=== PATIENT | male | born 1970 | race Caucasian/White ===

== ENCOUNTER 2024-07-17 22:11 | Inpatient (IN) | payer OTHER, SELFPAY ==
[2024-07-17] VITALS (35 sets, daily range): BP systolic 90–172; BP diastolic 72–99; BMI 21.8
[2024-07-17 14:38] LABS: % Basophils 0.4 % (0-2); % Eosinophils 0.3 % (0-6); % Immature Granulocytes 0.4 % (0-0.5); % Lymphocytes 6.8 % (20.5-51.1); % Monocytes 8.2 % (1.7-9.3); % Neutrophils 83.9 % (42.2-75.2); Absolute Basophils 0.1 10^3/uL (0-0.2); Absolute Eosinophils 0.1 10^3/uL (0-0.7); Absolute Immature Granulocytes 0.1 10^3/uL (0-0.05); Absolute Lymphocytes 1.3 10^3/uL (1.2-3.4); Absolute Monocytes 1.6 10^3/uL (0.1-0.6); Absolute Neutrophils 15.9 10^3/uL (1.4-6.5); Hematocrit 48.9 % (39.0-52.0); Hemoglobin 16.6 g/dL (13.0-18.0); Mean Corp Hgb Conc. 33.9 g/dL (33.0-37.0); Mean Corpuscular Volume 88.3 fL (80.0-94.0); Nucleated Red Blood Cells % 0 % (-); Platelet Count 391 10^3/uL (130-400); Red Blood Cell Count 5.54 10^6/uL (4.70-6.10); Red Cell Dist. Width 12.7 % (11.5-14.5)
[2024-07-17 14:46] LABS: ALT (SGPT) 13 U/L (0-50); AST (SGOT) 16 U/L (17-59); Albumin 4.4 g/dl (3.5-5.0); Alkaline Phosphatase 115 U/L (38-126); Blood Urea Nitrogen 44 mg/dl (9-20); Calcium 9.7 mg/dl (8.4-10.2); Carbon Dioxide 26 mmol/L (22-30); Chloride 89 mmol/L (98-107); Glucose 150 mg/dl (70-99); Lipase 99 U/L (23-300); Potassium 3.5 mmol/L (3.5-5.1); Sodium 131 mmol/L (135-145); Total Protein 7.5 g/dl (6.3-8.2); eGFR > 60.00
--- NOTE | 2024-07-17 15:40 | ED.GENMED ---
History of Present Illness
General
Chief Complaint: Abdominal Symptoms
Source: patient
Exam Limitations: none
Time Seen by Provider: 07/17/24 15:20
Nursing documentation reviewed up to this point in time: agreed with
History of Present Illness
History of Present Illness:
Patient is a 54-year-old male who presents to the emergency department complaining of 4 days of upper abdominal pain with nausea, vomiting and diarrhea. Patient developed hiccups this morning. Patient denies fever or chills. Patient has had
decreased appetite. Patient noticed that his vomitus and his stools were dark. Patient describes the diarrhea as liquid and rather profuse. Patient is also noted that he has lost about 10 to 20 pounds over the last year unintentionally. Patient
admits to decreased appetite and decreased oral intake. Patient's noted his urine to be darker.
Past History
Past History
ED Past Medical History: GERD
ED Past Surgical History: Appendectomy
Social History
Tobacco: Smoker
Review of Systems
Review of Systems
All Other Systems: ROS reviewed and negative except as documented in HPI and ROS
Constitutional: Reports weight loss and fatigue; Denies fever
EENT: Reports no symptoms
Respiratory: Reports no symptoms
Cardiac: Reports no symptoms
ABD/GI: Reports abdominal pain, nausea, vomiting, diarrhea, black stools and anorexia
: Reports dark urine
Musculoskeletal: Reports no symptoms
Skin: Reports no symptoms
Neurological: Reports no symptoms
Hematologic/Lymphatic: Denies bruising
Phy Exam
Physical Exam
Physical Exam:
Physical Exam
General: Moderate distress, alert and appropriate, well nourished, dry mucus membranes
HENT: Normocephalic, supple with no lymphadenopathy, no thyromegaly
Eyes: Clear sclera, conjuctiva without injection
Heart: Regular rhythm and rate. No S3, S4. No murmur. No NVD
Lungs: No respiratory distress, no stridor, lung sounds clear and equal bilaterally, chest wall with increase AP diameter and nontender
Abdomen: Soft, moderate right sided as well as midepigastric tender withpout guarding or rebound, no organomegaly, no CVA tenderness, BS good. Rectal shows black/maroon liquidy stool that is Hemoccult positive. Prostates
enlarged especially on the right lobe. Good sphincter tone.
Neuro: Alert and oriented x 3, CN II - XII intact, no motor focality, no cerebellar dysfunction
Skin: no rash
Psychiatric: well kept. interactive and cooperative
Extremities: No edema, cyanosis, tenderness, Good and equal peripheral pulses.
Course
Orders/Labs/Results
Orders:
Orders
07/17/24 14:17
Complete Blood Count/With Diff Urgent
Comprehensive Metabolic Panel Urgent
Lipase Urgent
07/17/24 15:37
CT Abd/pel W Iv And Oral Contr Urgent
Comment:
Reason For Exam: upper abd tender
0.9% Sodium Chloride 1000 ml [Nss] 1,000 ml IV BOLUS
HYDROmorphone [Dilaudid] 0.5 mg IV NOW STA
Iohexol [Omnipaque] See Protocol PO NOW STA
Ondansetron Injectable [Zofran] 4 mg IV NOW STA
Pantoprazole 80 mg/100 ml Nss [Protonix] 80 mg in 100 ml IV NOW
Pantoprazole [Protonix IV] 80 mg IV NOW STA
07/17/24 15:38
IV Insert/Care/Rem.- Treatment PRN
07/17/24 15:46
PTT Urgent
Prothrombin Time Urgent
07/17/24 15:47
Type+Screen Urgent
07/17/24 17:17
ABO2 Urgent
BBK Wristband Number:
Associate notified that ABO2 has been ordered: [id number]
Date: 07/17/24
Time: 16:57
Business Planning Manager ID: [id number]
07/17/24 19:18
CT Chest Angio W/wo Iv Contras Urgent
Comment:
Reason For Exam: dissection
07/17/24 19:19
Metoprolol [Lopressor] 5 mg IV NOW STA
07/17/24 19:30
Nicardipine 40 mg/200 ml [Cardene] 40 mg in 200 ml IV PER PROTOCOL
Initial dose in mg/hr, then titrate:: 5
Titrate to keep:: SBP 120 - 140 mmHg
Titrate by mg/hr:: 2.5 mg/hr
Frequency of titrations (minutes):: 5-15 minutes
Maximum dose in mg/hr:: 15
Begin to taper infusion when:: Remained at goal for 2hrs
Taper by mg/hr:: 2.5 mg/hr
Frequency of taper (minutes) if patient maintains goal:: every 15-30 minutes
Taper to off?: Yes
If infusion off & no longer maintaining goal:: Contact Provider
Abnormal Lab Results
07/17/24 07/17/24
14:17 15:46
WBC 19.0 H 10^3/uL
(4.8-10.8)
Abs Immat Gran (auto) 0.1 H 10^3/uL
(0-0.05)
Absolute Neuts (auto) 15.9 H 10^3/uL
(1.4-6.5)
Absolute Monos (auto) 1.6 H 10^3/uL
(0.1-0.6)
Neutrophils % 83.9 H %
(42.2-75.2)
Lymphocytes % 6.8 L %
(20.5-51.1)
PT 14.8 H Sec
(11.4-14.6)
Sodium 131 L mmol/L
(135-145)
Chloride 89 L mmol/L
(98-107)
BUN 44 H mg/dl
(9-20)
Glucose 150 H mg/dl
(70-99)
AST 16 L U/L
(17-59)
07/17/24 14:17
07/17/24 14:17
Vital Signs
Initial and Last Documented VS:
Initial Vital Signs
Temp Pulse Resp BP Pulse Ox
98.8 F 105 18 163/98 95
07/17/24 13:57 07/17/24 13:57 07/17/24 13:57 07/17/24 13:57 07/17/24 13:57
Last Documented Vital Signs
Temp Pulse Resp BP Pulse Ox
98.8 F 89 13 139/89 91
07/17/24 13:57 07/17/24 20:30 07/17/24 20:30 07/17/24 20:30 07/17/24 20:28
*Radiology
Radiology exam reviewed: radiology read reviewed
*Critical Care Note
Total Time (30-74mins, 75-104mins- exclusive of procedures): 55 minutes
ED Attending Note
-
Portions of this chart may have been created with voice recognition software.� Occasional wrong word or��sound alike� substitutions may have occurred due to the inherent limitations of voice recognition software.
Discharge Plan
Departure
Patient Disposition: Admit
Date of Disposition: 07/17/24
Time of Disposition: 21:04
Admit to: CVICU
Admit to doctor: Hospitalist
Presentation/result/management discussed w/ accepting MD/DO: Vascular surgery
Patient with high blood pressure during this ER visit?: Yes
Condition: Critical
Covid-19: Not Applicable
Discharge Problem:
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
Prescriptions:
No Action
Tums 300 mg (750 mg) Tablet,Chewable
450 mg PO DAILYPRN PRN (Reason: acid reflux)
omeprazole 20 mg Capsule,Delayed Release(Dr/Ec)
20 mg PO DAILYPRN PRN (Reason: acid reflux)
Referrals:
NONE,* [Family Provider] -
Interventions
Interventions:
*Risk Screen - Suicide Last Done: 07/17/24 13:57
*General Assessment Last Done: 07/17/24 13:57
*Neglect/Abuse Screening Last Done: 07/17/24 13:57
ED- Fall Risk Assessment Last Done: 07/17/24 15:16
*ED COVID-19 Vaccine History Last Done: 07/17/24 13:57
MQ-Kosjbi-Zngctwzxah Assessment Last Done: 07/17/24 15:16
Discharge Date and Time
Print Language: PORTUGUESE
[2024-07-17] MEDS: PROTONIX 100 IV (15:53)
[2024-07-17] MEDS: DILAUDID 0.5 MG IV ×2 (15:53→23:33)
[2024-07-17] MEDS: NSS 1000 IV ×2 (15:53→23:03)
[2024-07-17] MEDS: PROTONIX IV 80 MG IV (15:54)
[2024-07-17] MEDS: ZOFRAN 4 MG IV ×2 (15:54→23:33)
[2024-07-17] MEDS: OMNIPAQUE 50 ML PO (15:54)
[2024-07-17 16:24] LABS: INR 1.13; PT 14.8 Sec (11.4-14.6)
[2024-07-17 16:25] LABS: APTT 33.6 Sec (23.4-35.0)
[2024-07-17] MEDS: LOPRESSOR 5 MG IV (19:40)
[2024-07-17] MEDS: CARDENE 200 IV (19:54)
[2024-07-17] MEDS: BREVIBLOC 2500 MG 250 IV ×2 (21:06→23:32)
[2024-07-17] MEDS: DILAUDID 1 MG IV (21:29)
--- NOTE | 2024-07-17 21:31 | HPS.HSE ---
Family Physician
-
Family Physician: * NONE
Chief Complaint
-
Abdominal pain and nausea vomiting diarrhea
History of Present Illness
This is a 54-year-old with no known significant past medical history presenting to the emergency department with approximately 5 days of ongoing abdominal symptoms.
Patient reported that he abruptly began to have episodes of vomiting then followed by diarrhea starting 5 days ago. He has crampy abdominal pain associated with this. He reports melanotic appearing diarrhea. No formed stools. He denied any medic
easier. He reported initially had clear vomitus but it also changed to brown over the last few days. He has had decreased p.o. intake. He denied any fevers or chills. He reports feeling dizzy.
Patient denies any significant NSAID use. He is stated taking ibuprofen only once recently. He denies any aspirin use. Patient denies any history of alcohol use. Patient denies any IV drug use. He denies cocaine use. He smokes cigars.
Unclear if he has had any recent sick contacts.
In the emergency department he was afebrile. Blood pressure was 140/90 with a pulse of 90. He had a white count of 19,000 with hemoglobin of 16.6 and a platelet count of 300. His INR was normal. He is BUN was 44 with a creatinine of 1.3.
Electrolytes notable for a sodium that was 131. K was 3.5. His glucose was normal. LFTs were completely normal. Lipase was normal. He had a CT of the abdomen and pelvis showing cholelithiasis without acute cholecystitis and indeterminate left
renal cyst. A CT angio was done showing a Abse[place] type B thoracic aortic dissection. No involvement of the ascending thoracic aorta or great arch vessels. Vascular surgeon contacted by ED. No indication for acute surgical intervention, medical
management in the ICU.
Medical History
Past Medical History
Past Medical History: Reports None
Past Surgical History: Reports Appendectomy
Social History
Tobacco: Smoker
Alcohol: None
Drug: None
Personal: Single
Living: With Roomate
Employment: Employed
Family History
Family History: Cancer (father with lung Ca. )
Allergies / Home Medications
Allergies reflects when Allergies were last updated in [facility].
Home Medications with original date entered in [facility]
Allergy/Medication List:
Allergies
Allergy/AdvReac Type Severity Reaction Status Date / Time
No Known Allergies Allergy Verified 07/17/24 14:01
Home Medications
calcium carbonate (Tums) 450 mg PO DAILYPRN PRN acid reflux 07/17/24
omeprazole 20 mg capsule,delayed release 20 mg PO DAILYPRN PRN acid reflux 07/17/24
Review of Systems
-
History Source: Patient
Constitutional: Reports No Symptoms
EENT: Reports No Symptoms
Respiratory: Reports No Symptoms
Cardiac: Reports No Symptoms
Abdomen/GI: Reports Abdominal Pain, Nausea, Vomiting, Diarrhea and Black Stools
: Reports No Symptoms
Musculoskeletal: Reports No Symptoms
Skin: Reports No Symptoms
Neurological: Reports No Symptoms
Endocrine: Reports No Symptoms
Hematologic/Lymphatic: Reports No Symptoms
Psych: Reports No Symptoms
Physical Exam
Vital Signs
Vital Signs
Temp Pulse Resp BP Pulse Ox
98.8 F 90 13 125/82 91
07/17/24 13:57 07/17/24 21:06 07/17/24 20:30 07/17/24 21:06 07/17/24 20:28
Physical Exam
General: Well Developed and Well Nourished
HEENT: NormoCephalic, Anicteric, Moist mucous membranes and Atraumatic
Respiratory: Clear
Cardiac: S1/S2 and Regular Rhythm
Breast: Deferred by me
GI: Soft, Non Tender, Non Distended and Normal Bowel Sounds
Rectal: Deferred by Provider
Genito-urinary: Deferred by me
Musculoskeletal: No Clubbing, No Cyanosis and No Edema
Skin: Warm
Neuro: AO x 3
Hematologic/Lymphatic: No Lymphadenopathy
Psych: Calm
Laboratory Results
-
07/17/24 14:17
07/17/24 14:17
Laboratory Results
PT 14.8 Sec (11.4-14.6) H 07/17/24 15:46
INR 1.13 07/17/24 15:46
APTT 33.6 Sec (23.4-35.0) 07/17/24 15:46
Total Bilirubin 1.0 mg/dl (0.2-1.3) 07/17/24 14:17
AST 16 U/L (17-59) L 07/17/24 14:17
ALT 13 U/L (0-50) 07/17/24 14:17
Alkaline Phosphatase 115 U/L (38-126) 07/17/24 14:17
Lipase 99 U/L (23-300) 07/17/24 14:17
Data Reviewed
-
CT Scan: Report Reviewed by me
Lab Data: Labs Reviewed by me
Old Records: Reviewed
Impression/Plan
-
IMPRESSION:
54-year-old male with no apparent past medical history presenting for evaluation of nausea vomiting diarrhea with melena concerning for upper GI bleed. Incidentally patient was found to have a descending aortic Absecon type B dissection, no
involvement of the ascending thoracic aorta. No thoracic aortic aneurysm. Hemodynamically stable. No focal neurological deficits.
PLAN:
1. Abse[place] B aortic dissection. No aneurysm. HD stable. No chest pain. D/w Vascular surgery, medical management in ICU
- admit to icu
- esmolol gtt to maintain heart rate < 60 bpm.
- nicardipine added to maintain SBP < 120 - 140
- IV opioids for analgesia
- close monitoring of renal function while on pressors
- vascular consultation
- check cardiovascular labs in am
2. GI bleed - suspect acute viral gastritis but cannot rule out peptic ulcer. HD stable. Hgb stable. No AC, antiplatelet nor NSAID. Prior reflux hx or GI bleed. Appears dehydrated. No active bleeding curently.
- ppi iv bid for now
- type and screen
- h&H q 8
- clear liquid diet as tolerated
- pain control as above and antiemetics/antihiccups
- check fecal hemoccult and norovirus
- gentle hydration due to likely dehydration and possible [place], no prior Cr available. S/P 1 L NS with very dark urine. NS 60 ml/hr for now to avoid hypertension
- GI consultation
DVT PPX with SCDs for now
Code Status - Full Code
[2024-07-17 23:14] LABS: Hematocrit 42.8 % (39.0-52.0); Hemoglobin 14.9 g/dL (13.0-18.0)
[2024-07-18] VITALS (72 sets, daily range): BP systolic 87–124; BP diastolic 61–89; BMI 22.1
[2024-07-18] MEDS: TRANDATE 80 MG IV ×4 (00:12→07:34)
--- NOTE | 2024-07-18 00:30 | PTCARENOTE ---
2300 - received pt from ER. assessment as documented. pt oriented, SR on monitor, on 2L NC. received on protonix gtt and esmolol gtt.
labs sent. pt HR remains 70s-80s, ICU PROGRAM ENGAGEMENT DIRECTOR aware, labetalol gtt ordered and started. HR goal 50-60. protonix gtt d/c, BID doses ordered. BP stable at this time. maintenance IVF initiated. pt c/o pain in epigastric area, PRN dilaudid given along with
PRN zofran for nausea. pt with intermittent hiccups. pt has had no episodes of vomiting or diarrhea upon admission. EKG done. SCDs on. call albert within reach.
[2024-07-18] MEDS: BREVIBLOC 2500 MG 250 IV ×5 (01:16→09:21)
[2024-07-18] MEDS: DILAUDID 0.5 MG IV ×3 (02:35→08:54)
[2024-07-18 04:25] LABS: Hematocrit 39.6 % (39.0-52.0); Hemoglobin 13.8 g/dL (13.0-18.0); Mean Corp Hgb Conc. 34.8 g/dL (33.0-37.0); Mean Corpuscular Hgb 30.9 pg (27.0-31.0); Mean Corpuscular Volume 88.8 fL (80.0-94.0); Mean Platelet Volume 8.8 fL (7.4-10.4); Platelet Count 306 10^3/uL (130-400); Red Blood Cell Count 4.46 10^6/uL (4.70-6.10); Red Cell Dist. Width 12.6 % (11.5-14.5); White Blood Cell Count 14.3 10^3/uL (4.8-10.8)
--- NOTE | 2024-07-18 04:47 | PTCARENOTE ---
assessment unchanged. AM labs sent. esmolol and labetalol gtts continue, continuing to titrate up labetalol gtt, HR remains in 70s. call albert within reach.
[2024-07-18 05:10] LABS: Blood Urea Nitrogen 36 mg/dl (9-20); Calcium 8.6 mg/dl (8.4-10.2); Carbon Dioxide 24 mmol/L (22-30); Chloride 95 mmol/L (98-107); Estimated Creatinine Clearance 97 ml/min; Glucose 162 mg/dl (70-99); HDL Cholesterol 28 mg/dl; LDL Cholesterol, Calculated 62 mg/dl; Potassium 3.7 mmol/L (3.5-5.1); Sodium 131 mmol/L (135-145); Total Cholesterol 104 mg/dl (50-199); Triglyceride 72 mg/dl (10-149); Very Low Density Lipoprotein 14 mg/dl (0-30); eGFR > 60.00
--- NOTE | 2024-07-18 07:00 | PTCARENOTE ---
Received patient from real estate services administrator. patient is AAOx4, he is anxious and feels overwhelmed. Dr. Cooley in at change of shift and reviewing CT scan images with patient. patient is continuing to have abdominal and back pain. CT scan ordered STAT for
potential progression of dissection. Patient is on 4L nasal cannula. he is a current smoker, breath sounds diminished and coarse. Patient is sinus rhythm in 70s on monitor. Esmolol and labetalol gtts as charted in MAR. A-line ordered. Patient
will be NPO, continues to have nausea, is having hiccups. No bowel movements yet. Skin is intact, and SCDs are on for DVT prophylaxis.
[2024-07-18] MEDS: NSS (PRESERVATIVE FREE) 10 ML IV ×2 (07:35→19:53)
[2024-07-18] MEDS: PROTONIX IV 40 MG IV ×2 (07:35→19:53)
--- NOTE | 2024-07-18 07:35 | W.PN.SURGUPD ---
Surgical Update
Surgical Update
Patient seen and examined with KARLENE Ugarte
Full consult note to follow
Patient currently admitted to the ICU under hospitalist
We are consulted for aortic dissection
54-year-old male with no known medical history but admits to not having regular follow-up with medical providers
Denies hypertension
Several days of coughing, chest pain, diarrhea and vomiting since last week
Reports bloody diarrhea recently
Some right lower extremity pain which has now resolved
Complaining of 'excruciating' back pain and severe abdominal pain
Currently on esmolol as well as labetalol with systolic blood pressures of around 100 and heart rate in the 70s
Urine output unclear, no Cooley catheter
Imaging overnight demonstrated type B aortic dissection starting at the left subclavian. Imaging was a CT abdomen pelvis coupled with a subsequent CT angiogram of the chest. Challenging to determine if dissection terminates in the mesenteric
segment or if there is dynamic flap coverage at this location.
On physical exam his abdomen is soft and nontender but he complains of pain
Easily palpable left pedal pulses
Absent right femoral pulse and absent right pedal pulses
My concern is this represents a complicated type B dissection with malperfusion to his right lower extremity and perhaps ongoing malperfusion to his visceral segment.
-Stat CT angiogram of the chest, abdomen and pelvis
-Lactic acid
-Cooley catheter
-Arterial line
Explained to the patient that he may need emergent stent grafting of his thoracic aorta
Will return as soon as imaging is back to discuss further
Victorino Cooley III, MD
[facility] Vascular Surgery
[phone] (lyeb)
--- NOTE | 2024-07-18 07:46 | CON.VAS ---
Consultation
Consultation Request
Performing Provider: Lenora
Reason for Consultation: Aortic dissection
Medical History
-
Chief Complaint: Abdominal pain, back pain, nausea, vomiting, diarrhea for 5 days
History of Present Illness:
54-year-old male with no known past medical history but does not see medical providers regularly admitted overnight through the emergency room for 5 days of abdominal pain, back pain, nausea, vomiting, diarrhea. Patient states his diarrhea and
vomiting began looking 'dark' yesterday. Abdominal CT in the emergency room showed type B aortic dissection. Patient admitted to the ICU for hemodynamic management. Vascular consult for aortic dissection.
Patient seen at bedside exam Dr. Cooley. Patient states he is in excruciating upper abdominal and occasionally back pain. Patient currently on esmolol and labetalol with systolic blood pressure 100 and heart rate 70. No A-line or Cooley at this
time. Patient denies history of hypertension but also is unaware of the last time his blood pressure was checked by provider. Patient takes no prescribed medications at home. On exam patient's abdomen is soft and nontender but complains of pain.
Easily palpable left lower extremity pulses. Cannot appreciate Doppler signal to the right lower extremity at any pulse sites. Patient denies pain in the right leg at this time but states it did 'bother him' over the last 2 days.
Past Medical History
Past Medical History: None
Past Surgical History: None
Family History
Family History: Reviewed & Not Pertinent
Allergies / Home Medications
Allergy/AdvReac Type Severity Reaction Status Date / Time
No Known Allergies Allergy Verified 07/17/24 14:01
�Medication �Instructions �Recorded �Confirmed �Type
calcium carbonate (Tums) 450 mg PO DAILYPRN PRN acid reflux 07/17/24 07/17/24 History
omeprazole 20 mg capsule,delayed 20 mg PO DAILYPRN PRN acid reflux 07/17/24 07/17/24 History
release
Review of Systems
-
History Source: Patient
All other systems: Negative unless noted
Constitutional: Reports Fatigue
EENT: Reports No Symptoms
Respiratory: Reports No Symptoms
Cardiac: Reports No Symptoms
Vascular: Denies Leg Pain / Claudication
Abdomen/GI: Reports Abdominal Pain, Nausea, Vomiting, Diarrhea, Bloody Stools and Pain
: Reports No Symptoms
Musculoskeletal: Reports No Symptoms
Skin: Reports No Symptoms
Neurological: Reports No Symptoms
Endocrine: Reports No Symptoms
Physical Exam
Vital Signs
Temp Pulse Resp BP Pulse Ox
97.9 F 75 18 100/70 93
07/18/24 03:41 07/18/24 07:00 07/18/24 07:00 07/18/24 07:00 07/18/24 07:00
Lab Results
07/18/24 04:14
07/18/24 04:14
Physical Exam
General: No Apparent Distress
HEENT: Normocephalic and Atraumatic
Respiratory: Non Labored Respirations
Cardiac: Negative JVD
Breast: Deferred by me
GI: Soft, Non Tender and Other (Pain)
Musculoskeletal: No Clubbing, No Cyanosis and No Edema
Skin: Warm
Neuro: Awake, Alert and Oriented
Pulses: Left Femoral: +2, Right Femoral: Doppler (Nonpalpable), Left Popliteal: +2, Left Dorsalis Pedis: +2, Right Dorsalis Pedis: Doppler (Nonpalpable, no Doppler signal noted) and Right Posterior Tibial: Doppler (Nonpalpable, no Doppler signal
noted)
Assessment / Plan
-
Concern for type B dissection with malperfusion to the right lower extremity and perhaps malperfusion to the visceral segment
Plan:
-Stat CT angiogram of the chest, abdomen and pelvis
-Lactic acid
-Cooley catheter
-Arterial line
-NPO*
-Possible OR procedure today pending findings
Explained to the patient that he may need emergent stent grafting of his thoracic aorta
Will return as soon as imaging is back to discuss further
Data Reviewed
-
CT Scan: Discussed with Patient
Labs: Labs Reviewed by me
[2024-07-18 08:00] LABS: Lactic Acid 2.5 mmol/L (0.7-2.0)
--- NOTE | 2024-07-18 08:21 | W.PN.HOSP.TC ---
Today's Communication/Plan
-
see A/P
Assessment / Plan
Assessment / Plan
HPI: 54-year-old with no known significant past medical history presented to the emergency department with approximately 5 days of ongoing abdominal symptoms.
Patient reported that he abruptly began to have episodes of vomiting then followed by diarrhea that started 5 days OCULAR PATHOLOGIST. He c/o crampy abdominal pain and reported melanotic appearing diarrhea.
In the emergency department, his CT angio was done showing a [place] type B thoracic aortic dissection. No involvement of the ascending thoracic aorta or great arch vessels. Vascular surgeon contacted by ED.
A/P:
# [place] B aortic dissection. No aneurysm. HD stable. No chest pain.
Follow up CT angio CAP ordered, follow report
Cont esmolol gtt to maintain heart rate < 60 bpm.
Cont nicardipine drip to maintain SBP < 120 - 140
IV opioids for analgesia
close monitoring of renal function
vascular on board
Heading Up Machine Operator on board
# Suspect acute viral gastroenteritis with GI bleed
IV PPI BID
pain control as above and antiemetics/antihiccups
Check fecal hemoccult and norovirus
gentle hydration due to likely dehydration and possible [place], no prior Cr available. NSS 60 ml/hr for now to avoid hypertension
GI consulted from admission
DVT PPX with SCDs for now
Code Status - Full Code
NIA RN
vascular team
Heading Up Machine Operator
called and updated brother on the phone
CC Mx 45 min
Anticipated Discharge: > 48 hours
Subjective/Interval History
-
Date of Service: July 18, 2024
Objective Data
-
Labs:
Laboratory Results
07/17/24 07/18/24
23:07 04:14
WBC 14.3 H
Hgb 14.9 13.8
Hct 42.8 39.6
Plt Count 306 D
Sodium 131 L
Potassium 3.7
Chloride 95 L
Carbon Dioxide 24
BUN 36 H
Creatinine 0.9
Glucose 162 H
Calcium 8.6
Vital Signs:
Vital Signs
Temp Pulse Resp BP Pulse Ox
36.6 C 75 18 100/70 93
07/18/24 03:41 07/18/24 07:00 07/18/24 07:00 07/18/24 07:00 07/18/24 07:00
I&O
07/17/24 07/18/24 07/19/24
06:59 06:59 06:59
Intake Total 2207 / 2207
Output Total 800 / 800
Balance 1407 / 1407
Review of Systems
-
All other systems: Reviewed and negative
Physical Exam
-
General: Well Developed, Well Nourished, Comfortable and Conversant
HEENT: Normocephalic, Atraumatic, Nose Appears Normal, Ears Appear Normal and Oxygen (4L NC)
Respiratory: Clear to Auscultation and Non Labored Respirations; Negative Accessory Resp Muscle Use
Cardiac: Regular Rhythm and S1/S2
GI: Soft and Nondistended
Skin: Warm and Dry
Neuro: Awake, Alert, Oriented and AO x 3
Psych: Calm and Intact Judgement/Insight
Data Reviewed
-
CT Scan: Report Reviewed by me
Labs: Labs Reviewed by me
--- NOTE | 2024-07-18 09:04 | PTCARENOTE ---
Returned from CT scan. changed monitor tech leads. patient assessed by telephone clerk and hospitalist. Awaiting CT results for plan of care. patient now NPO for potential surgery. Cooley catheter placed.
--- NOTE | 2024-07-18 10:08 | W.PN.SURGUPD ---
Surgical Update
Surgical Update
CT angiogram reviewed and discussed with patient. Type B dissection identified starting at the left subclavian artery extending through the descending thoracic aorta, visceral segment of the abdominal aorta infrarenal aorta and across the aortic
bifurcation and terminating in the proximal left common iliac artery. There appears to be a trapdoor/shutter effect on the visceral vessels. He has an elevated lactic acid and pain out of proportion to exam. Furthermore he has concern for
pneumatosis in his small bowel.
I am recommending emergency TEVAR immediately. The technical aspects of this procedure were discussed with him. The benefits and rationale for this approach were discussed with him. Operative risks were discussed with him including but not
limited to , bleeding, stroke, NM, retrograde type A dissection, ongoing bowel ischemia, renal failure. spinal cord ischemia/paralysis/paraplegia, distal embolization, arm/lower extremity ischemia and need for additional procedures.
I also communicated with general surgery regarding the CT scan findings of concern for visceral malperfusion. I explained to the patient that he may require diagnostic laparoscopy or exploratory laparotomy with possible bowel resection and possible
ostomy. I also explained that he may require an open abdomen and a second look operation depending on operative findings.
I attempted to contact his brother Jaxson at the phone number listed in the chart. I left him a voicemail.
The patient expressed an understanding of our conversation and agrees to proceed with emergency surgery. Will take him to the OR now.
Communicated with the ICU team regarding our plan
Victorino Cooley III, MD
[facility] Vascular Surgery
[phone] (ieot)
--- NOTE | 2024-07-18 10:34 | W.SUR.PREOP ---
Pre-Operative Surgical Note
-
I have examined this patient prior to the performance of the scheduled procedure.
The patient's condition is unchanged from the time of the current History and
Physical and the patient is able to undergo the scheduled procedure.
--- NOTE | 2024-07-18 10:44 | CON.GS ---
Medical History
-
History of Present Illness:
Patient is a 54 yo M with a PMH of GERD and s/p appendectomy presenting with abdominal and back pain with associated N/V and diarrhea.
Notes from prior documentation:
'Patient reported that he abruptly began to have episodes of vomiting then followed by diarrhea starting 5 days ago. He has crampy abdominal pain associated with this. He reports melanotic appearing diarrhea. No formed stools. He denied any
medic easier. He reported initially had clear vomitus but it also changed to brown over the last few days. He has had decreased PO intake. He denied any fevers or chills. He reports feeling dizzy.
Patient denies any significant NSAID use. He is stated taking Ibuprofen only once recently. He denies any aspirin use. Patient denies any history of alcohol use. Patient denies any IV drug use. He denies cocaine use. He smokes cigars.
Unclear if he has had any recent sick contacts.
In the emergency department he was afebrile. Blood pressure was 140/90 with a pulse of 90. He had a white count of 19,000 with hemoglobin of 16.6 and a platelet count of 300. His INR was normal. He is BUN was 44 with a creatinine of 1.3.
Electrolytes notable for a sodium that was 131. K was 3.5. His glucose was normal. LFTs were completely normal. Lipase was normal. He had a CT of the abdomen and pelvis showing cholelithiasis without acute cholecystitis and indeterminate left
renal cyst. A CT angio was done showing a Juice type B thoracic aortic dissection. No involvement of the ascending thoracic aorta or great arch vessels. Vascular surgeon contacted by ED. No indication for acute surgical intervention, medical
management in the ICU.'
Past Medical History
Past Medical History: GERD
Past Surgical History: Appendectomy
Social History
Tobacco: Smoker
Alcohol: None
Drug: None
Personal: Single
Living: With Roomate
Employment: Employed
Family History
Family History: Cancer (Father)
Allergies / Home Medications
Allergy/AdvReac Type Severity Reaction Status Date / Time
No Known Allergies Allergy Verified 07/17/24 14:01
�Medication �Instructions �Recorded �Confirmed �Type
calcium carbonate (Tums) 450 mg PO DAILYPRN PRN acid reflux 07/17/24 07/17/24 History
omeprazole 20 mg capsule,delayed 20 mg PO DAILYPRN PRN acid reflux 07/17/24 07/17/24 History
release
Review of Systems
-
A 10 point review of systems was completed, and was negative except as per HPI.
Physical Exam
Vital Signs
Temp Pulse Resp BP Pulse Ox
97.7 F 73 16 110/65 93
07/18/24 08:24 07/18/24 08:21 07/18/24 08:21 07/18/24 08:21 07/18/24 08:51
07/17/24 07/18/24 07/19/24
06:59 06:59 06:59
Actual Weight 73.8 kg
Body Mass Index (BMI) 22.1
Lab Results
07/18/24 04:14
07/18/24 04:14
WBC 14.3 10^3/uL (4.8-10.8) H 07/18/24 04:14
Hgb 13.8 g/dL (13.0-18.0) 07/18/24 04:14
Hct 39.6 % (39.0-52.0) 07/18/24 04:14
Plt Count 306 10^3/uL (130-400) D 07/18/24 04:14
Abs Immat Gran (auto) 0.1 10^3/uL (0-0.05) H 07/17/24 14:17
Neutrophils % 83.9 % (42.2-75.2) H 07/17/24 14:17
Physical Exam
General: Pain
Respiratory: Other (Supplemental O2)
Cardiac: Regular Rhythm
GI: Soft, Non Distended, Tender, Incisions (Well healed) and Other (Peritoneal)
Musculoskeletal: No Edema
Skin: Warm and Dry
Neuro: Nonfocal/Grossly Intact
Data Reviewed
-
CT Scan: Image Personally Visualized and interpreted and Report Reviewed by me
Labs: Labs Reviewed by me
Assessment / Plan
-
Patient is a 54 yo M p/w type B aotic dissection with possible bowel ischemia
General surgery consulted by Vascular Surgery due to concern on CT scan imaging for possible pneumatosis and ischemic bowel related to his type B aortic dissection. Mr. Caro is a 54 yo M with a PMH of tobacco use and s/p appendectomy. He has
had 5 days of persistent and worsening abdominal pain. Patient was seen and examined on the OR table prior to any anesthetic. We discussed the role of General Surgery to evaluate for potential ischemic bowel and perform potential bowel resection
of that which is necrotic. We discussed that his CT scan imaging is concerning for a large amount of small bowel that seems to be ischemic, as well as the proximal nature involving the duodenum. We discussed the catastrophic possibility of
extensive ischemic bowel either in degree of bowel involved or location of bowel that would prohibit surgical resection. We discussed the possibility of bowel resection and open abdomen. We discussed the risks of bleeding and infection. We
discussed that recovery will be complicated and difficult postoperatively. All questions were answered. Verbal consent obtained (unable to obtain written consent due to currently getting A-line).
-- Plan for exploratory laparotomy with possible bowel resection possible open abdomen following vascular surgery endovascular repair of his type B aortic dissection.
-- NGT to be placed operatively
-- Abx: Zosyn added for translocation
-- NPO, IVF
-- BB given dissection
--- NOTE | 2024-07-18 10:49 | CON.INTV ---
Addendum entered and electronically signed by Gilberto Antonio MD 07/18/24 14:27:
see below
Original Note:
Documented by User: Alisha Russell MD, Resident 07/18/24 12:11
Consultation
Consultation Request
Date/Time Consultation Requested: 07/17/24 22:48
Date/Time Consultation Performed: 07/18/24 10:50
Requesting Provider: Ree Yi
Performing Provider: Gilberto Antonio
Reason for Consultation: juice type B aortic diss. Stable. med management per vasc surg
Medical History
-
Chief Complaint: Type B Aortic dissection
History of Present Illness:
54 y/o male with PMHx GERD, current smoker, s/p appendectomy with no other known PMHx presented to the emergency department on 07/17/24 at night with approximately 5 days of ongoing abdominal pain, nausea, vomiting, diarrhea and excruciating back
pain. He initially had clear vomit, however it changed to brown over the last few days. His stools also became dark. He denied any fever, chills, but did feel dizzy. In the ED, he was afebrile, BP 140/90, HR 90, WBC 19, Hg 16.6, ptl 300, INR
normal. BUN 44, Cr 1.3. He had hyponatremia 131, K 3.5, LFTs and lipase were normal. CT of the abdomen and pelvis revealed partially visualized dissection of the lower thoracic aorta, cholelithiasis without acute cholecystitis and indeterminate
left renal cyst. A CT angio was done revealing Juice type B thoracic aortic dissection with no involvement of the ascending thoracic aorta or great arch vessels. Vascular surgery was contacted by ED and decided there is no indication for acute
surgical intervention at that time and medical management was more appropriate. The invasive cardiologist were consulted and patient was admitted to ICU for medical management. Overnight, he was started on esmolol drip to maintain heart rate less than 60,
nicardipine to maintain systolic blood pressure less than 120-140, and pain managements. Systolic BP controlled in the 100s, HR in the high 70s low 80's. He was later switched to labetalol for better HR control and did better in the high 60s low
70s. Due to dark brown colored vomit, patient also orderd worked up for GI bleed vs acute viral gastritis and started on IV PPI and fecal heme-occult ordered. This morning, repeat chest/ab/pelvic CT done to evaluate aortic dissection. CT revealed
Type B dissection identified starting at the left subclavian artery extending through the descending thoracic aorta, visceral segment of the abdominal aorta infrarenal aorta and across the aortic bifurcation and terminating in the proximal left
common iliac artery. There appears to be a trapdoor/shutter effect on the visceral vessels. In addition, possible pneumatosis involving the wall of the small bowel loops was noted. There was also thickening of the wall of the right side of the
colon which raise concern for ischemia. Severe changes of emphysema within both lungs was also noted bilaterally. Upon evaluation by vascular team, patient's abdomen was soft and nontender but complains of pain. Easily palpable left lower
extremity pulses. They could not appreciate Doppler signal to the right lower extremity at any pulse sites. LA ordered and was 2.5. Dr. Cooley recommended emergency TEVAR immediately and discussed risk and benefits with the patient. General surgery
was also consulted for concern of visceral malperfusion. Dr. Linn spoke to patient about plan for exploratory laparotomy with possible bowel resection possible open abdomen following vascular surgery endovascular repair of his type B aortic
dissection. Patient agreed to all of the above.
ICU following for critical care management.
PMHx: GERD, current smoker
Past surgical Hx: Appendectomy
Past Medical History
Past Medical History: Other (refer to above)
Past Surgical History: Other (refer to above)
Social History
Tobacco: Smoker
Alcohol: None
Drug: None
Personal: Single
Living: With Roomate
Employment: Employed
Family History
Family History: Other (Father lung cancer)
Allergies / Home Medications
Allergies
Allergy/AdvReac Type Severity Reaction Status Date / Time
No Known Allergies Allergy Verified 07/17/24 14:01
Home Medications
�Medication �Instructions �Recorded �Confirmed �Last Taken �Type
calcium carbonate (Tums) 450 mg PO DAILYPRN PRN acid reflux 07/17/24 07/17/24 07/17/24 History
omeprazole 20 mg capsule,delayed 20 mg PO DAILYPRN PRN acid reflux 07/17/24 07/17/24 07/17/24 History
release
Review of Systems
-
History Source: Patient
Constitutional: No Symptoms and Other (anxious)
EENT: No Symptoms
Respiratory: No Symptoms
Cardiac: No Symptoms
Abdomen/GI: Abdominal Pain
: No Symptoms
Musculoskeletal: Other (Back pain 03/18)
Vitals / Labs / Diagnostic Testing
Vital Signs
Temp Pulse Resp BP Pulse Ox
97.7 F 73 16 110/65 93
07/18/24 08:24 07/18/24 08:21 07/18/24 08:21 07/18/24 08:21 07/18/24 08:51
Lab Data
07/18/24 04:14
07/18/24 04:14
Laboratory Results
07/17/24
15:46
PT 14.8 H
INR 1.13
APTT 33.6
Diagnostic Testing:
Physical Exam
-
Cardiovascular: S1/S2 and Regular Rhythm
Respiratory: Clear
GI: Soft and Non Distended
Neurology: AO x 3
Skin: Warm
General: Other (anxious)
Assessment
-
54 y/o male with PMHx GERD, current smoker, s/p appendectomy with no other known PMHx presented to the emergency department on 07/17/24 at night with approximately 5 days of ongoing abdominal pain, nausea, vomiting, diarrhea and excruciating back
pain. Work up revealed type B aortic dissection and possible small bowel ischemia. Upon evaluation by vascular team, patient's abdomen was soft and nontender but complains of pain. Easily palpable left lower extremity pulses. They could not
appreciate Doppler signal to the right lower extremity at any pulse sites. LA ordered and was 2.5. Dr. Cooley recommended emergency TEVAR immediately and discussed risk and benefits with the patient. General surgery was also consulted for concern of
visceral malperfusion. Dr. Linn spoke to patient about plan for exploratory laparotomy with possible bowel resection possible open abdomen following vascular surgery endovascular repair of his type B aortic dissection. Patient agreed to all of
the above. ICU following for critical care management.
CPA: GERD, current smoker (unsure pack years at this time), s/p appendectomy
Impression:
#Type B aortic dissection
#Absent right lower extremity pulses
#Possible pneumatosis of small bowel concerning for ischemia
#Severe changes of emphysema in both lungs
#Leukocytosis
#Hyponatremia
#Elevated LA
#Tobacco use
#Anxiety
#1.7 cm hypoattenuating upper pole left renal lesion
#Cholelithiasis with no acute cholecystitis
Plan:
Neuro:
-AAOx3 but currently anxious
-Lorazepam 0.5 q4hr PRN
Respiratory:
-Satting well on room air
-Keep SpO2 >90-94%
-Current smoker
-Nicotine patch
-Severe emphysema
-Noted on CT - Outpatient follow up
Cardiovascular:
-Type B aortic dissection
-Absent right lower extremity pulses
-Keep HR <60, SBP <120-140
-Esmolol and nicardipine gtt
-Immediate TEVAR surgery per vascular
-Post op regular neurovascular checks per protocol
-Pain management
-Telemetry
-NPO
-2g ancef pre-op
-Vascular surgery following
-Possible pneumatosis of small bowel concerning for ischemia
-exploratory laparotomy with possible bowel resection possible open abdomen following vascular surgery endovascular repair
-LA 2.5 - trend lactic acid
-NPO
-PPI IV
-Pre-op ppx antibiotics with zosyn
-General surgery following
GI:
-Possible pneumatosis of small bowel concerning for ischemia
-Possible gastritis
-Zofran for nausea
-Pain management
-management for ischemia per above
Renal:
-Monitor Cr
-Follow I&O
-Replace electrolytes as needed
-Keep K>4 and mg >2.5
-Incidental 1.7 L kidney upper pole lesion - follow up in outpatient
ID:
-Concerns for gastritis with N/V/D and elevated WBC but ischemia more likely cause
-WBC 19.0 -> 14.3 today
-afebrile
-Zofran for nausea
-Monitor WBC and temp
-Zosyn pre-op ab surgery
-Cefazolin pre-op TEVAR
Hemeonc:
- DVT - SCD
- Transfuse for hg <7
- Transfuse ptl for <20 unless active bleed <50
Endocrine:
-No known hx DM or thyroid dz
-Monitor BG euglycemic goals 140-180
Diagnostic imaging:
Chest/Ab/pelvic CT 07/18/24: Thoracic and abdominal aortic dissection, [place] type B.
Dissection flap is along the anterior margin of the abdominal aorta, and appears to contribute to significant narrowing at the origins of the celiac artery and the SMA. Additionally, there is luminal irregularity in the proximal SMA, suggestive of a
small amount of thrombus, nonocclusive.
Dissection flap traverses the origin of the right common iliac artery, and appears to result in narrowing of caliber of the artery, although contrast enhancement extends beyond the dissection flap.
Tortuosity of the proximal left common iliac artery, but no evidence for dissection flap traversing the origin of the left common iliac artery.
Dilated air and fluid-filled small bowel loops with small bowel wall thickening. Possible pneumatosis involving the wall of small bowel loops. There is also thickening of the wall of the right side of the colon. These findings raise concern for
ischemia.
No evidence for free intraperitoneal air. No evidence for portal venous air.
Severe changes of emphysema within both lungs.
Focal parenchymal opacity within the posterior right lower lobe, predominantly linear morphology, most likely atelectasis based on morphology. Linear scarring within both lungs
Cholelithiasis. Mild distention of the gallbladder with no evidence for gallbladder wall thickening or pericholecystic edema. No evidence for biliary ductal dilation.
CT angiography 07/17/2024:
1. Juice type B thoracic aortic dissection. No involvement of the ascending thoracic aorta or great arch vessels.
2. Emphysema.
Ab/pelvis CT 07/17/24:
1. Partially visualized dissection of the lower thoracic aorta with dissection flap terminating just proximal to the celiac artery origin in the upper abdomen. Recommend dedicated CTA chest for complete evaluation.
2. Cholelithiasis.
3. A 1.7 cm hypoattenuating upper pole left renal lesion measures slightly higher than simple fluid and may represent a mildly proteinaceous/hemorrhagic cyst, although indeterminate. Recommend outpatient initial further workup with dedicated renal
ultrasound.

Documented by User: Gilberto Antonio MD 07/18/24 14:10
Assessment
-
54 y/o male with PMHx GERD, current smoker, s/p appendectomy with no other known PMHx presented to the emergency department on 07/17/24 at night with approximately 5 days of ongoing abdominal pain, nausea, vomiting, diarrhea and excruciating back
pain. Work up revealed type B aortic dissection and possible small bowel ischemia. Upon evaluation by vascular team, patient's abdomen was soft and nontender but complains of pain. Easily palpable left lower extremity pulses. They could not
appreciate Doppler signal to the right lower extremity at any pulse sites. LA ordered and was 2.5. Dr. Cooley recommended emergency TEVAR immediately and discussed risk and benefits with the patient. General surgery was also consulted for concern of
visceral malperfusion. Dr. Linn spoke to patient about plan for exploratory laparotomy with possible bowel resection possible open abdomen following vascular surgery endovascular repair of his type B aortic dissection. Patient agreed to all of
the above. ICU following for critical care management.
CPA: GERD, current smoker (unsure pack years at this time), s/p appendectomy
Impression:
#Type B aortic dissection
#Absent right lower extremity pulses
#Possible pneumatosis of small bowel concerning for ischemia
#Severe changes of emphysema in both lungs
#Leukocytosis
#Hyponatremia
#Elevated LA
#Tobacco use
#Anxiety
#1.7 cm hypoattenuating upper pole left renal lesion
#Cholelithiasis with no acute cholecystitis
Plan:
Neuro:
-AAOx3 but currently anxious
-Lorazepam 0.5 q4hr PRN
Respiratory:
-Satting well on room air
-Keep SpO2 >90-94%
-Current smoker
-Nicotine patch
-Severe emphysema
-Noted on CT - Outpatient follow up
Cardiovascular:
-Type B aortic dissection
-Absent right lower extremity pulses-suspicion for hypoperfusion/endorgan damage.
-Keep HR <60, SBP <120-140
-Esmolol and nicardipine gtt
-Immediate TEVAR surgery per vascular
-CT abdomen pelvis with pneumatosis intestinalis suggestive of bowel ischemia-General Surgery has been consulted. May need intervention.
-Post op regular neurovascular checks per protocol
-Pain management
-Continue with ICU hemodynamic monitoring.
-NPO
-2g ancef pre-op
-Vascular surgery following-Case discussed earlier this morning.
-Possible pneumatosis of small bowel concerning for ischemia
-exploratory laparotomy with possible bowel resection possible open abdomen following vascular surgery endovascular repair
-LA 2.5 - trend lactic acid
-NPO
-PPI IV
-Pre-op ppx antibiotics with zosyn
-General surgery following
GI:
-Possible pneumatosis of small bowel concerning for ischemia
-Zofran for nausea
-Pain management
-management for ischemia per above
Renal:
-Monitor Cr
-Follow I&O
-Replace electrolytes as needed
-Keep K>4 and mg >2.5
-Incidental 1.7 L kidney upper pole lesion - follow up in outpatient
ID:
-Concerns for gastritis with N/V/D and elevated WBC but ischemia more likely cause
-WBC 19.0 -> 14.3 today
-afebrile
-Zofran for nausea
-Monitor WBC and temp
-Zosyn pre-op ab surgery
-Cefazolin pre-op TEVAR
Hemeonc:
- DVT - SCD
- Transfuse for hg <7
- Transfuse ptl for <20 unless active bleed <50
Endocrine:
-No known hx DM or thyroid dz
-Monitor BG euglycemic goals 140-180
Diagnostic imaging:
Chest/Ab/pelvic CT 07/18/24: Thoracic and abdominal aortic dissection, [place] type B.
Dissection flap is along the anterior margin of the abdominal aorta, and appears to contribute to significant narrowing at the origins of the celiac artery and the SMA. Additionally, there is luminal irregularity in the proximal SMA, suggestive of a
small amount of thrombus, nonocclusive.
Dissection flap traverses the origin of the right common iliac artery, and appears to result in narrowing of caliber of the artery, although contrast enhancement extends beyond the dissection flap.
Tortuosity of the proximal left common iliac artery, but no evidence for dissection flap traversing the origin of the left common iliac artery.
Dilated air and fluid-filled small bowel loops with small bowel wall thickening. Possible pneumatosis involving the wall of small bowel loops. There is also thickening of the wall of the right side of the colon. These findings raise concern for
ischemia.
No evidence for free intraperitoneal air. No evidence for portal venous air.
Severe changes of emphysema within both lungs.
Focal parenchymal opacity within the posterior right lower lobe, predominantly linear morphology, most likely atelectasis based on morphology. Linear scarring within both lungs
Cholelithiasis. Mild distention of the gallbladder with no evidence for gallbladder wall thickening or pericholecystic edema. No evidence for biliary ductal dilation.
CT angiography 07/17/2024:
1. [place] type B thoracic aortic dissection. No involvement of the ascending thoracic aorta or great arch vessels.
2. Emphysema.
Ab/pelvis CT 07/17/24:
1. Partially visualized dissection of the lower thoracic aorta with dissection flap terminating just proximal to the celiac artery origin in the upper abdomen. Recommend dedicated CTA chest for complete evaluation.
2. Cholelithiasis.
3. A 1.7 cm hypoattenuating upper pole left renal lesion measures slightly higher than simple fluid and may represent a mildly proteinaceous/hemorrhagic cyst, although indeterminate. Recommend outpatient initial further workup with dedicated renal
ultrasound.
[2024-07-18 11:40] LABS: B.E. - POC -1.3 mmol/L; Glucose - POC 167 mg/dl (70-99); HCO3 - POC 26 mmol/L (21-28); Hematocrit - POC 39 % PCV (42-52); Hemodilution- POC Yes; Hemoglobin Calculated - POC 13.4; Ionized Calcium - POC 1.22 mmol/L (1.15-1.33); Lactate - POC 2.23 mmol/L (0.36-0.75); O2 Saturation %Calculated-POC 99.2 % (94-98); PCO2 - POC 52 mmHg (35-48); PO2 - POC 160 mmHg (83-108); Potassium - POC 4.1 mmol/L (3.5-5.1); Sodium - POC 133 mmol/L (136-145); Specimen Type - POC Arterial; pH - POC 7.31 (7.35-7.45)
--- NOTE | 2024-07-18 11:58 | W.PN.UPDATE ---
Update Note
Progress Note Update
I reviewed with Dr. Mcallister and Dr. Valenzuela chart review for OR. Ok to hold GI consult with imaging as noted. Call back if any issues with bleeding post-op.
[2024-07-18 11:59] LABS: ACT-LR - POC 213 Seconds (116-155)
[2024-07-18 12:07] LABS: ACT-LR - POC 200 Seconds (116-155)
[2024-07-18 12:43] LABS: Glucose - POC 161 mg/dl (70-99); HCO3 - POC 23 mmol/L (21-28); Hematocrit - POC 33 % PCV (42-52); Hemodilution- POC Yes; Hemoglobin Calculated - POC 11.1; Ionized Calcium - POC 1.11 mmol/L (1.15-1.33); Lactate - POC 1.53 mmol/L (0.36-0.75); O2 Saturation %Calculated-POC 99.5 % (94-98); PCO2 - POC 48 mmHg (35-48); PO2 - POC 183 mmHg (83-108); Potassium - POC 3.6 mmol/L (3.5-5.1); Sodium - POC 131 mmol/L (136-145); Specimen Type - POC Arterial; pH - POC 7.29 (7.35-7.45)
--- NOTE | 2024-07-18 13:47 | W.IMMPOSTOP ---
Surgical Immed Post Op Note
-
Primary Surgeon: Kaveh
Assisting Surgeon: None
Pre-op Diagnosis: Type B aortic dissection, ischemic bowel
Post-op Diagnosis: Type B aortic dissection
Procedure Performed: Exploratory laparotomy
Anesthesia Type: General
Specimen / Cultures: None
Estimated Blood Loss: 3 cc
Complications: None
Operative Findings:
1. Midline laparotomy, SB with proximal dilation and thickening, no necrosis, viable, palpable and Doppler + pulses
2. SB run from TI to LT, stomach and colon healthy and viable
Plan:
-- NPO, NGT to LCWS, risk for ileus
-- Abx: Zosyn for 4 days for translocation especially with graft
-- OK for therapeutic anticoagulation in 8 hrs post-op
--- NOTE | 2024-07-18 14:12 | OR.RPT ---
Operative Report
Operative Report
Date of Operation: 07/18/2024
Pre Op Diagnosis: Acute type B aortic dissection with visceral and lower extremity malperfusion
Post Op Diagnosis: Acute type B aortic dissection with visceral and lower extremity malperfusion
Procedure:
1.) Thoracic endovascular aortic repair using GORE Thoracic Branch Endoprosthesis device:
GORE TAG Thoracic Branch Endoprosthesis 37 mm x 150 mm
GORE TAG Thoracic Branch for left subclavian artery 12 mm x 60 mm
GORE TAG 37 mm x 200 mm distal extension (proximal to celiac artery)
2.) Introduce wire and catheter to aorta from right femoral artery access
3.) Introduce wire and catheter to aorta from left femoral artery access
4.) Introduce wire and catheter to aorta from left brachial artery access
5.) Intravascular ultrasound to ascending aorta, aortic arch, thoracic aorta, abdominal aorta
6.) Diagnostic aortogram of the ascending aorta, aortic arch and descending thoracic aorta
7.) Diagnostic iliac arteriograms bilaterally
8.) Ultrasound-Guided percutaneous access to the BILATERAL common femoral arteries
9.) Ultrasound-Guided percutaneous access to the left brachial artery
10.) Pro-glide closure of the right common femoral artery access
Surgeon: Victorino Cooley III, MD
Floating Labor Gang Supervisor: Sotero Haley MD PhD, PGY2
Anesthesia: General
Complications: None
Estimated Blood Loss: 20 cc
History and Indications for Procedure: 54-year-old male with acute type B aortic dissection. He had clinical and radiographic signs of visceral and lower extremity malperfusion. He was taken to the operating room emergently for thoracic stent
graft repair.
Procedure in Detail: Jasiel Crao was correctly identified and placed supine on the operating table. After adequate induction of anesthesia the left arm, chest, abdomen and pelvis as well as the bilateral groins were positioned, prepped and
draped in the usual sterile fashion. Preoperative antibiotics were administered. A timeout procedure was performed with the nursing and anesthesia staff confirming the patients identity as well as the nature and laterality of the procedure.
Ultrasound guided access to the left brachial artery was established with a micropuncture technique. The ultrasound image demonstrated a patent brachial artery with no calcification. A 5 Fr sheath was placed and secured.
Ultrasound guided access to the bilateral common femoral arteries were established with a micropuncture technique. 5 [place] sheaths were placed bilaterally. Through the right femoral access two Proglide closure devices were then placed, offset at
the 10 o'clock and 2 o'clock positions. The prolene sutures were secured and tucked under the drapes. A 9 [place] sheath was then placed on the right.
The patient was systemically heparinized
Using a KMP catheter I then advanced the catheter and a glide wire retrograde through the abdominal aorta, thoracic aorta, aortic arch and into the ascending aorta. I exchanged out for a Lunderquist wire. A 24 [place] dry seal sheath was placed on
the right. On the left similarly I advanced a KMP catheter and Glidewire retrograde through the iliac system, abdominal aorta, thoracic aorta, aortic arch and into the ascending aorta. A marker pigtail catheter was then placed in the ascending
aorta from the left femoral access. From the left brachial access I then used a angled glide catheter and Glidewire to navigate retrograde through the left subclavian artery and into the aortic arch. The catheter and wire were then used to advance
to the distal arch and into the descending thoracic aorta. The tip of the Glidewire was advanced down to the radiopaque marker on the 24 [place] dry seal sheath in the abdominal aorta.
The IVUS catheter was brought into position over the Lunderquist wire. Using fluroscopy and IVUS imaging we advanced the catheter over the wire from the right femoral sheath. We advanced the catheter retrograde through the abdominal aorta, thoracic
aorta and into the aortic arch. The diagnostic intravascular ultrasound imaging demonstrated that all wires were positioned in the true lumen. I then removed the IVUS catheter from the patient.
I then inserted a snare catheter and En-snare device through the 24 [place] dry seal sheath. The Glidewire from the left brachial access was snared in the abdominal aorta and pulled out from the 24 [place] dry seal sheath, thereby establishing
brachio-femoral access.
Over the stiff wire from the right femoral access we then introduced the thoracic stent graft. This was a GORE Thoracic Branch Endoprosthesis 37 mm x 150 mm. The Glidewire was also advanced through the sideport of the TBE device. We brought the
device into the approximate position in the aortic arch and oriented the C-arm into a left anterior oblique projection. With magnification view we confirmed proper positioning of the branch and no wire wrap. An aortogram was then performed and
clearly visualized the origins of the great vessels. The left carotid artery and left subclavian artery were clearly visualized and were widely patent.
Under roadmap guidance and with markings on the screen we deployed the GORE TBE stent in the desired location. The delivery system was removed. We then loaded the 12 mm x 60 mm GORETBE stent for the left subclavian artery on the glidewire from the
right femoral access. This was advanced carefully under roadmap guidance and magnification view. This was positioned in the desired location within the TBE portal and deployed. Following this we used a GORE molding balloon to profile the entire
length of the subclavian artery branch.
An aortogram at this point demonstrated excellent technical result. The TBE thoracic stent graft was in good position and was patent. The innominate and left common carotid artery were patent. The left subclavian artery branch stent and left
subclavian artery were both patent. The proximal entry tear appeared to be sealed. There was no evidence of a type I endoleak. The ascending aorta was patent and without abnormality. I reintroduced the IVUS catheter over the Lunderquist wire and
reimaged the thoracic aorta, aortic arch and ascending aorta. The stent graft was patent. There was improvement in the true lumen diameter compared to pre-stent deployment and no abnormality was identified in the ascending aorta. We also
performed a SYBIL after deployment of the thoracic stent graft and no abnormality was identified in the ascending aorta.
An additional distal aortogram was then performed to visualize the descending thoracic aorta and origins of the celiac, superior mesenteric artery and bilateral renal arteries. We then brought into position the distal extension piece which was a
GORE CTAG 37 mm x 200 mm. This was properly overlapped with the proximal piece. The distal piece was positioned properly under roadmap guidance with adequate overlap and the distal end of the stent proximal to the celiac origin. The stent was
deployed without difficulty.
Completion aortography demonstrated an excellent technical result. There was brisk flow through the aortic stents which were widely patent. The celiac, superior mesenteric artery and both renal arteries filled briskly. There was flow into the left
common iliac artery. Delayed retrograde filling of the false lumen was identified in the abdominal aorta and distal thoracic aorta. The right femoral 24 [place]i dry seal sheath was occlusive. This was pulled back distally into the external iliac
artery and a retrograde arteriogram was performed through the sheath and demonstrated patency of the common iliac artery and iliac bifurcation.
Satisfied with this result I then pulled the wire from the left brachial access. The sheath was secured in place for later removal.
The 24 [place]i dry seal sheath was removed over the wire. The Pro-glide knots were secured. An additional Pro-glide closure device was positioned at 12 o'clock and fired. The knots were resecured and hemostasis achieved. Protamine was administered.
Direct manual pressure was held over the puncture site for an additional 5 minutes to ensure complete hemostasis. The 5 [place] sheath in the left femoral access and the 5 [place] left brachial sheath were sutured in place and secured with adhesive
dressings while General Surgery performed the exploratory laparotomy.
The exploratory laparotomy portion of the procedure will be dictated separately by Dr. Antione Linn.
Following the closure of the abdomen, the 5 [place] sheath in the left femoral access and the 5 [place] sheath in the left brachial access were both removed. Direct manual pressure held over the puncture sites. Hemostasis was achieved. Sterile
dressings were applied.
At the conclusion of the case the patient had palpable femoral pulses bilaterally.The patient tolerated the procedure well and was taken to the CTSICU in critical condition. Robust Doppler signals were audible in the feet bilaterally.
Attestation: I was present and responsible for the entire procedure
Signed:
Victorino Cooley III, MD
[facility] Vascular Surgery
[phone] (cell)
--- NOTE | 2024-07-18 14:14 | W.SUR.POST ---
Surgical Immediate Post Op
Note
Pre Op Diagnosis: Type B aortic dissection
Post Op Diagnosis: Same
Procedure Performed: FEVAR with [place] TBE
Exploratory lap by Dr. Linn
Primary Surgeon: Lenora
Secondary Surgeons: Tera PGY
Anesthesia: General
Estimated Blood Loss: 30 cc
Fluids: See anesthesia flowsheet
Drains/Shunts: None
Specimens/Cultures: None
Doppler/Duplex/Angio (Y/N): Y
Complications: None
Operative Findings: Palpable DP and PTs bilaterally, marked Doppler signals
[2024-07-18] MEDS: NSS 1000 IV ×2 (14:32→19:54)
[2024-07-18 14:47] LABS: Hematocrit 43.5 % (39.0-52.0); Mean Corp Hgb Conc. 34.5 g/dL (33.0-37.0); Mean Corpuscular Hgb 30.6 pg (27.0-31.0); Mean Corpuscular Volume 88.8 fL (80.0-94.0); Mean Platelet Volume 8.9 fL (7.4-10.4); Platelet Count 213 10^3/uL (130-400); White Blood Cell Count 13.2 10^3/uL (4.8-10.8)
[2024-07-18] MEDS: NEO-SYNEPHRINE 250 IV ×3 (14:48→23:59)
[2024-07-18 14:56] LABS: INR 1.44; PT 17.8 Sec (11.4-14.6)
[2024-07-18 14:57] LABS: APTT 37.1 Sec (23.4-35.0)
[2024-07-18] MEDS: SUBLIMAZE 50 MCG IV (14:58)
[2024-07-18] MEDS: SUBLIMAZE 100 IV ×2 (15:01→21:51)
[2024-07-18] MEDS: ZOSYN 50 IV ×2 (15:24→19:54)
--- NOTE | 2024-07-18 15:30 | PTCARENOTE ---
Patient received to CVICU at 1405; Sedated and intubated: Pupils round, reactive, and equal; NSR on monitor; VSS; Ventilator settings SIMV 14/500/5/5 FiO2 60%; ETT 8 secured 22 at right lip; Lungs diminished; +1 B/L DP and PT pulses; Cooley catheter
draining julian, clear urine; Hypoactive BS; NGT secured in right nare at 75 draining brown drainage on -80 continuous suction; Right groin puncture site approximated and GEOPHYSICAL PROSPECTING SURVEYOR - CDI, Left groin puncture covered with 4x4 and tegaderm - CDI, Midline
abdominal incision covered with aquacell with small amount of drainage; Right radial A-Line level and zeroed; PIVx2 #20 right wrist and #20 RAC; Right IJ Cordis with Vasopressin and Norepinephrine infusing. Epinephrine and Phenylephrine restarted
due to hypotension not responding to other pressors - see nursing flowsheets for further details; See nursing documentation for further details
[2024-07-18 15:34] LABS: Lactic Acid 1.7 mmol/L (0.7-2.0)
[2024-07-18 15:36] LABS: ALT (SGPT) 44 U/L (0-50); AST (SGOT) 88 U/L (17-59); Albumin 2.3 g/dl (3.5-5.0); Alkaline Phosphatase 64 U/L (38-126); Blood Urea Nitrogen 28 mg/dl (9-20); Calcium 8.5 mg/dl (8.4-10.2); Carbon Dioxide 27 mmol/L (22-30); Chloride 98 mmol/L (98-107); Estimated Creatinine Clearance > 125 ml/min; Glucose 162 mg/dl (70-99); Potassium 4.4 mmol/L (3.5-5.1); Sodium 132 mmol/L (135-145); Total Protein 4.6 g/dl (6.3-8.2); eGFR > 60.00
[2024-07-18 15:50] LABS: B.E. -3.1 mmol/L; HCO3 25.7 mmol/L (21-28); Ionized Calcium 1.29 mMOL/L (1.15-1.33); O2 Saturation % 96.9 % (94-98); PCO2 60 mmHg (35-48); PO2 82 mmHg (83-108); Potassium 4.5 mMOL/L (3.5-5.1); Sodium 126 mMOL/L (136-145); pH 7.24 (7.35-7.45)
[2024-07-18 15:51] LABS: Amylase 40 U/L (30-110); Direct Bilirubin 0.5 mg/dl (0.0-0.4); Lipase 77 U/L (23-300)
[2024-07-18] MEDS: FLAGYL 500 MG 100 IV (16:08)
[2024-07-18] MEDS: LEVOPHED 250 IV (16:09)
[2024-07-18] MEDS: SODIUM BICARBONATE 50 MEQ IV ×2 (16:21→16:34)
[2024-07-18] MEDS: ALBUMIN 5% 250 IV (16:21)
[2024-07-18] MEDS: CALCIUM GLUCONATE 1000 MG IV (16:22)
[2024-07-18] MEDS: SOLU-CORTEF 100 MG IV (16:57)
[2024-07-18 17:03] LABS: HCO3 29.5 mmol/L (21-28); Ionized Calcium 1.22 mMOL/L (1.15-1.33); O2 Saturation % 96.4 % (94-98); PCO2 56 mmHg (35-48); PO2 76 mmHg (83-108); Potassium 4.1 mMOL/L (3.5-5.1); Sodium 128 mMOL/L (136-145); pH 7.33 (7.35-7.45)
[2024-07-18] MEDS: DIPRIVAN 100 IV (17:26)
[2024-07-18 17:27] LABS: Troponin I < 0.012 ng/ml
--- NOTE | 2024-07-18 17:33 | W.PN.UPDATE ---
Update Note
Progress Note Update
Patient is critically ill postoperatively.
Postoperative day 0
FEVAR with [place] TBE
Exploratory lap by Dr. Linn.
No evidence of bowel ischemia
-
Currently hypotensive: Refractory shock 4 pressors including epinephrine, norepinephrine, Yoni-Synephrine and vasopressin.
Arterial line in place with good waveform-
no significant metabolic acidosis
Mechanical ventilation settings reviewed, pulmonary mechanics acceptable.
Repeat chest x-ray
Neurologically, opening eyes, following commands. Will need to sedate more as patient currently on 4 vasopressors and not ready for spontaneous breathing trial.
Sedation with propofol/fentanyl-Target RASS score 0/-1
-
Renal function so far stable
Urinary output declining-concentrated urine
Lactic acid is trending lower to 1.7 we will continue to trend
Troponin is negative
Echocardiogram Limited views: Normal LVEF. No significant pulmonary hypertension
-
Will add hydrocortisone stress doses for possible relative adrenal insufficiency.
Check a TSH
-
Neurovascular checks per protocol
Vascular surgery/general surgery following
-
Continue to monitor H&H
Serial abdominal exam
N.p.o.
NG tube in place
-
DVT prophylaxis with SCDs
-
Critical care statement: A total of 50 minutes of critical care time was provided for this patient today. This includes management of unstable vital signs, evaluation of the patient at bedside, reviewing the patient's pertinent medical records
including ventilator settings, arterial blood gases, radiographs, microbiology, laboratory evaluations and discussion with primary team, critical care nursing, and respiratory therapy.
--- NOTE | 2024-07-18 18:30 | PTCARENOTE ---
Pressors maxed out and patient's BP not responding - CVPA Michael and Vascular at bedside; Sodium Bicarb given x2, Calcium Gluconate given x1, Albumin given x1, and IV Hydrocortisone 50 mg ordered Q6H - patient's BP responded and able to slightly wean
pressors; Patient able to respond to RN in room and follow commands - denies numbness and tingling in all extremities and able to move extremities; Fentanyl gtt and bolus ordered for pain; Patient able to push out NGT with his tongue; OGT inserted
at bedside by RN - secured at 55 and draining brown liquid drainage; Patient becoming restless, slightly agitated, and fighting ventilator - Propofol gtt ordered and Fentanyl gtt increased; See nursing flowsheets for further details.
[2024-07-18 18:51] LABS: Hematocrit 44.1 % (39.0-52.0); Hemoglobin 15.1 g/dL (13.0-18.0); Mean Corp Hgb Conc. 34.2 g/dL (33.0-37.0); Mean Corpuscular Hgb 29.8 pg (27.0-31.0); Mean Platelet Volume 8.7 fL (7.4-10.4); Platelet Count 225 10^3/uL (130-400); Red Blood Cell Count 5.07 10^6/uL (4.70-6.10); Red Cell Dist. Width 13.3 % (11.5-14.5); White Blood Cell Count 12.4 10^3/uL (4.8-10.8)
--- NOTE | 2024-07-18 19:00 | PTCARENOTE ---
TEVAR assessment unable to perform properly due pt sedation. pt does wake up when moved and opens eyes. pt unable to follow commands. pt observed moving all extremities without difficulty.
[2024-07-18 19:07] LABS: Amylase 33 U/L (30-110)
[2024-07-18 19:09] LABS: B.E. -0.3 mmol/L; HCO3 25.9 mmol/L (21-28); Ionized Calcium 1.16 mMOL/L (1.15-1.33); PCO2 47 mmHg (35-48); PO2 124 mmHg (83-108); Sodium 127 mMOL/L (136-145); pH 7.35 (7.35-7.45)
[2024-07-18 19:11] LABS: ALT (SGPT) 45 U/L (0-50); AST (SGOT) 79 U/L (17-59); Albumin 2.5 g/dl (3.5-5.0); Alkaline Phosphatase 60 U/L (38-126); Blood Urea Nitrogen 30 mg/dl (9-20); Calcium 8.1 mg/dl (8.4-10.2); Carbon Dioxide 25 mmol/L (22-30); Chloride 98 mmol/L (98-107); Direct Bilirubin 0.9 mg/dl (0.0-0.4); Estimated Creatinine Clearance 110 ml/min; Glucose 206 mg/dl (70-99); Potassium 4.1 mmol/L (3.5-5.1); Sodium 133 mmol/L (135-145); Total Bilirubin 1.7 mg/dl (0.2-1.3); Total Protein 4.8 g/dl (6.3-8.2); Triglycerides 72 mg/dl (10-149); eGFR > 60.00
[2024-07-18 19:16] LABS: O2 Therapy 96.5
--- NOTE | 2024-07-18 20:00 | PTCARENOTE ---
TEVAR assessment unable to perform properly due pt sedation. pt does wake up when moved and opens eyes. pt unable to follow commands. pt observed moving all extremities without difficulty
--- NOTE | 2024-07-18 20:00 | PTCARENOTE ---
Received pt from [facility]. Pt sedated and intubated s/p TEVAR. pt responds to painful stimulus. NSR on monitor. VSS. heart sounds audible, radial and DP pulse palpable, no edema noted. lung sounds diminished throughout, spo2 95%, 8.0 ETT @22cm,
ventilator set to SIMV, rr 16, Fio2 50%, tv 500, peep 5. hypoactive bs x4 quadrants, abdomen soft, non tender, OG tube to wall suction . pt voiding dark yellow urine via montalvo catheter. surgical sites maintained. right ij cordis, right radial
a-line, and PIV all leveled, zeroed, and maintained. levophed, Yoni, epinephrine, vasopressin, fentanyl, and propofol infusing. per care team, pt is to remain intubated and sedated overnight. will continue to monitor.
[2024-07-18 20:10] LABS: Lactic Acid 2.1 mmol/L (0.7-2.0)
--- NOTE | 2024-07-18 20:30 | PTCARENOTE ---
Pt's OG tube draining dark brown drainage. care team aware.
[2024-07-18] MEDS: CALCIUM GLUCONATE 100 IV ×2 (21:16→21:47)
[2024-07-18] MEDS: PITRESSIN 100 IV (21:45)
--- NOTE | 2024-07-18 22:30 | PTCARENOTE ---
Pt cleaned with CHG wipes, montalvo care provided, and pt repositioned. pt became alert and awake when repositioned. pt was restless and reaching for ETT. pt was reoriented and sedation increased.
[2024-07-18 22:36] LABS: Troponin I < 0.012 ng/ml
--- NOTE | 2024-07-18 22:55 | PTCARENOTE ---
Received pt from [facility]. Pt sedated and intubated s/p TEVAR. pt responds to painful stimulus. NSR on monitor. VSS. heart sounds audible, radial and DP pulse palpable, no edema noted. lung sounds diminished throughout, spo2 95%, 8.0 ETT @22cm,
ventiator set to SIMV rr 16 Fio2 505 tv 500
[2024-07-18] MEDS: SOLU-CORTEF 50 MG IV (23:42)
[2024-07-19] VITALS (78 sets, daily range): BP systolic 86–131; BP diastolic 57–87; BMI 25.3
[2024-07-19] MEDS: ADRENALIN 250 IV
--- NOTE | 2024-07-19 | PTCARENOTE ---
Pt assessment remains unchanged. ongoing attempts to wean pt's vaso-active gtts down, per CVPA. restraints ordered and place. will continue to monitor.
[2024-07-19] MEDS: ZOSYN 50 IV ×4 (01:47→19:44)
[2024-07-19] MEDS: NSS 1000 IV ×3 (01:47→18:30)
[2024-07-19 02:07] LABS: Lipase 46 U/L (23-300)
[2024-07-19 02:08] LABS: Amylase 31 U/L (30-110)
[2024-07-19 03:14] LABS: Hematocrit 45.5 % (39.0-52.0); Hemoglobin 15.1 g/dL (13.0-18.0); Mean Corp Hgb Conc. 33.2 g/dL (33.0-37.0); Mean Corpuscular Hgb 29.8 pg (27.0-31.0); Mean Corpuscular Volume 89.9 fL (80.0-94.0); Platelet Count 241 10^3/uL (130-400); Red Blood Cell Count 5.06 10^6/uL (4.70-6.10); Red Cell Dist. Width 13.7 % (11.5-14.5); White Blood Cell Count 15.4 10^3/uL (4.8-10.8)
[2024-07-19 03:21] LABS: HCO3 24.7 mmol/L (21-28); Ionized Calcium 1.23 mMOL/L (1.15-1.33); O2 Saturation % 99.2 % (94-98); PCO2 48 mmHg (35-48); PO2 93 mmHg (83-108); pH 7.32 (7.35-7.45)
[2024-07-19 03:24] LABS: INR 1.27; PT 16.2 Sec (11.4-14.6)
[2024-07-19 03:25] LABS: Lactic Acid 1.9 mmol/L (0.7-2.0)
[2024-07-19 03:26] LABS: ALT (SGPT) 38 U/L (0-50); APTT 34.7 Sec (23.4-35.0); AST (SGOT) 42 U/L (17-59); Albumin 2.3 g/dl (3.5-5.0); Alkaline Phosphatase 59 U/L (38-126); Blood Urea Nitrogen 31 mg/dl (9-20); Carbon Dioxide 24 mmol/L (22-30); Chloride 100 mmol/L (98-107); Direct Bilirubin 0.8 mg/dl (0.0-0.4); Estimated Creatinine Clearance 88 ml/min; Glucose 199 mg/dl (70-99); Lipase 45 U/L (23-300); Magnesium 1.9 mg/dl (1.6-2.3); Potassium 4.1 mmol/L (3.5-5.1); Sodium 133 mmol/L (135-145); Total Bilirubin 1.2 mg/dl (0.2-1.3); Total Protein 4.5 g/dl (6.3-8.2); eGFR > 60.00
[2024-07-19 03:37] LABS: Troponin I 0.014 ng/ml
--- NOTE | 2024-07-19 04:00 | PTCARENOTE ---
On going titration of Yoni gtt, see worklist. labs drawn and sent. propofol gtt increased due to agitation, see worklist for details. 4 grams of calcium gluconate ordered and started. NSR on monitor with increased PVCs, CVPA aware.
[2024-07-19] MEDS: PITRESSIN 100 IV ×2 (04:08→13:12)
[2024-07-19] MEDS: CALCIUM GLUCONATE 290 MG IV (04:17)
[2024-07-19] MEDS: SUBLIMAZE 100 IV ×2 (04:58→11:57)
[2024-07-19] MEDS: SOLU-CORTEF 50 MG IV ×3 (05:23→18:30)
--- NOTE | 2024-07-19 06:45 | PTCARENOTE ---
OG tube contents positive for blood on the hemocult test. communicated in handoff report.
--- NOTE | 2024-07-19 06:45 | PTCARENOTE ---
Pt was weighed via bed scale. all appropriate items removed from bed. pt weigh was 84.5kg. this is much higher than yesterday's documented weight of 73.8kg. on coming RN made aware in handoff report.
--- NOTE | 2024-07-19 07:35 | W.PN.ANS.POP ---
Anesthesia Post Operative
- Anesthesia Post Op Note
Vital Signs Stable-See Nursing Note: Yes (on pressors)
Airway Patent: Yes (intubated)
Adequate Pain Control: Yes (sedated)
Change in Mental Status: No (intubated/sedated)
Current Postoperative Nausea & Vomiting: No
Anesthesia Complications: No
General Anesthetic Recall: No
Unplanned Admission: No
Post Op Hydration Adequate: Yes
[2024-07-19 07:38] LABS: B.E. -2.8 mmol/L; HCO3 24.5 mmol/L (21-28); Ionized Calcium 1.29 mMOL/L (1.15-1.33); O2 Saturation % 98.2 % (94-98); PCO2 51 mmHg (35-48); PO2 85 mmHg (83-108); Sodium 127 mMOL/L (136-145); pH 7.29 (7.35-7.45)
[2024-07-19] MEDS: LEVOPHED 258 MG IV (07:47)
--- NOTE | 2024-07-19 07:54 | W.PN.VS ---
Addendum entered and electronically signed by Vishnu Garcia MD 07/19/24 17:12:
Seen and examined with GOVERNOR ASSEMBLER. This is a late entry. Agree with findings as noted below. Postoperative day #1 status post TEVAR with [place] thoracic branched endoprosthesis for complicated acute type B dissection (severe pain and malperfusion). When I
saw him this morning findings were as noted below. Vital signs and intake/output were all reviewed. Patient was sedated and intubated, but would lighten with lightening of sedation and was following commands. Neurologically moving all extremities
well. Left upper extremity with 2+ radial pulse. Right side with good arterial line waveform. Abdomen soft, dressing clean dry and intact. Groins flat bilaterally. Left foot with 2+ DP pulse palpable warm. Right foot slightly cooler than left,
but with 1+/2+ DP pulse palpable. As noted motor function fully intact upper and lower extremities bilaterally. Labs reviewed. Plan/as discussed and noted below.
Original Note:
Today's Communication / Plan
-
Seen and assessed with Dr. Garcia
Assessment/Plan
-
POD 1 Thoracic endovascular aortic repair using GORE Thoracic Branch Endoprosthesis device
Introduce wire and catheter to aorta from right femoral artery access
Introduce wire and catheter to aorta from left femoral artery access
Introduce wire and catheter to aorta from left brachial artery access
Intravascular ultrasound to ascending aorta, aortic arch, thoracic aorta, abdominal aorta
Diagnostic aortogram of the ascending aorta, aortic arch and descending thoracic aorta
Diagnostic iliac arteriograms bilaterally
Ultrasound-Guided percutaneous access to the BILATERAL common femoral arteries
Ultrasound-Guided percutaneous access to the left brachial artery
Pro-glide closure of the right common femoral artery access
Plan:
-Protonix drip
-Rectal aspirin
-Plavix via NG tube
-Wean vent per needle molder
Subjective Data
-
Date of Service: July 19, 2024
Patient seen at bedside exam with Dr. Garcia. Patient off yoni at this time, remains on 3 pressors. Systolic blood pressure by A-line 117. Doing relatively well overall.
Calcium repleted overnight. All surgical sites clean, dry, intact.
Patient removed NG tube overnight and OG tube was replaced
NG tube drainage appearing burgundy this morning heme tested positive
Objective Data
-
Vital Signs
Temp Pulse Resp BP Pulse Ox
99.2 F 59 18 124/77 96
07/19/24 07:00 07/19/24 07:15 07/19/24 07:15 07/19/24 07:15 07/19/24 07:15
Intake and Output
07/18/24 07/19/24 07/20/24
06:59 06:59 06:59
Intake Total 2207 / 2489 7388.6 / 7698.3 309.7 / 309.7
Output Total 800 / 800 2935 / 2965 30 / 30
Balance 1407 / 1689 4453.6 / 4733.3 279.7 / 279.7
Intake:
Oral fluids 720 / 720
IV fluids (Total) 1487 / 1769 6588.6 / 6898.3 309.7 / 309.7
Epi 311.9 / 330.7 18.8 / 18.8
Fentanyl 326.5 / 341.5 15 / 15
Levo 1704 / 1809 105 / 105
Yoni 600 / 600 0 / 0
Nss 1,000 ml @ 115 mls/hr IV . 420 / 535 345 / 345
Q8H42M [facility] Rx#:[id number]
Nss 1,000 ml @ 150 mls/hr IV . 2180 / 2330 150 / 150
Q6H40M [facility] Rx#:[id number]
Propofol 111.2 / 120.1 8.9 / 8.9
Sodium Bicarb 100 / 100
Vaso 192 / 204 12 / 12
Zosyn 50 / 50
esmolol 917 / 1048 524 / 524
labetalol 150 / 186 144 / 144
IV piggybacks 550 / 550
Blood Products 250 / 250
Albumin 5% 250 / 250
Output:
Gastrointestinal tube output ( 1099 / 1099
Total)
Hydes Sump 1100 / 1100
Urine, Cooley 1735 / 1765 30 / 30
Urine, Voided 800 / 800 100 / 100
Calcium 8.0 mg/dl (8.4-10.2) L 07/19/24 02:58
Magnesium 1.9 mg/dl (1.6-2.3) 07/19/24 02:58
Total Bilirubin 1.2 mg/dl (0.2-1.3) 07/19/24 02:58
Direct Bilirubin 0.8 mg/dl (0.0-0.4) H 07/19/24 02:58
AST 42 U/L (17-59) 07/19/24 02:58
ALT 38 U/L (0-50) 07/19/24 02:58
Alkaline Phosphatase 59 U/L (38-126) 07/19/24 02:58
Total Protein 4.5 g/dl (6.3-8.2) L 07/19/24 02:58
Albumin 2.3 g/dl (3.5-5.0) L 07/19/24 02:58
Physical Exam
-
Patient is sedated and intubated but able to follow commands and respond appropriately
Ventilated
No tachycardia
Abdomen mildly distended but soft, denies pain with palpation
Surgical dressings clean, dry, intact, no drainage noted
Groin sites flat and soft
Bilateral feet warm, palpable DP and PT pulses bilaterally
Hemoglobin stable, creatinine stable
Currently infusing propofol, fentanyl, IV fluids, vasopressin, epinephrine, Levophed
--- NOTE | 2024-07-19 08:30 | PTCARENOTE ---
Patient received from shift supervisor rn RN; Sedated and intubated: Pupils round, reactive, and equal; At 0730, patient awake with Vascular at bedside - patient moving all extremities and nods yes appropriately that he has sensation in all extremities; NSR
with frequent PVC's and SB on monitor; VSS; Ventilator settings A/C 18/500/5 FiO2 40% - tidal volume increased to 550 following ABG results by RT as per MAYRA Castle; ETT 8 secured 22 at right lip; Lungs diminished throughout; +2 DP and +1 PT
pulses; Cooley catheter draining julian, clear urine; Hypoactive BS; OGT secured 55 at right lip draining brown drainage on -80 continuous suction - drainage tested and noted to be heme (+) and IV Protonix gtt ordered; Right groin puncture site
approximated and LUANNE - CDI, Left groin puncture covered with 4x4 and tegaderm - CDI, Midline abdominal incision covered with aquacell with small amount of old drainage; Right radial A-Line level and zeroed; PIVx2 #20 right wrist and #20 RAC; Right
IJ Cordis with NSS infusing. Levo, Vasopressin, Epinephrine, Propofol, and Fentanyl infusing - see nursing flowsheets for further details; B/L wrist restraints in place - neurovascular checks WNL; Plavix and Aspirin ordered by Vascular; See nursing
documentation for further details.
[2024-07-19 08:40] LABS: Glycohemoglobin (HgbA1c) 5.6 % (4.0-5.6)
--- NOTE | 2024-07-19 08:43 | W.PN.INTV ---
Today's Communication / Plan
Recommendations
Wean sedation
Wean pressors
No SBT until pressor requirements drop
Cont stress dose steroids
protonix ggt
Monitor hg
Check TSH
Cont antibiotics
Cont. plavix and ASA
Assessment
-
54 y/o male with PMHx GERD, current smoker, s/p appendectomy with no other known PMHx presented to the emergency department on 07/17/24 at night with approximately 5 days of ongoing abdominal pain, nausea, vomiting, diarrhea and excruciating back
pain. Work up revealed type B aortic dissection and possible small bowel ischemia. Upon evaluation by vascular team, patient's abdomen was soft and nontender but complains of pain. Easily palpable left lower extremity pulses. They could not
appreciate Doppler signal to the right lower extremity at any pulse sites. LA ordered and was 2.5. Dr. Cooley recommended emergency TEVAR immediately and discussed risk and benefits with the patient. General surgery was also consulted for concern of
visceral malperfusion. Dr. Linn spoke to patient about plan for exploratory laparotomy with possible bowel resection possible open abdomen following vascular surgery endovascular repair of his type B aortic dissection. Patient agreed to all of
the above. Post-op pulses palpated bilaterally now in the CVICU for further monitoring on multiple pressors and mechanical ventilation.
CPA: GERD, current smoker (unsure pack years at this time), s/p appendectomy
Impression:
#Type B aortic dissection
#Absent right lower extremity pulses
#Thoracic endovascular aortic repair using GORE Thoracic Branch Endoprosthesis device POD 1
#Possible pneumatosis of small bowel concerning for ischemia - exploratory laparotomy no signs of ischemia POD 1
#Post-op acute respiratory failure on mechanical vent ventilation intubated 07/18/2024
#Heme-occult (+) OG tube secretions - GI bleed?
#Severe changes of emphysema in both lungs
#Leukocytosis
#Hyponatremia
#Elevated LA
#Tobacco use
#Anxiety
#1.7 cm hypoattenuating upper pole left renal lesion
#Cholelithiasis with no acute cholecystitis
#Incomplete bundle branch block
Plan:
Neuro:
-Sedation on mechanical ventilation
-At propofol 20, fentanyl 175
-Goal RAAS -1 to 0
-This am sedation weaned for neurovascular check and pt lower extremity sensation intact and following commands
-Wean sedation as able
Respiratory:
-Post-op acute respiratory failure on mechanical ventilation intubated 07/18/2024
-AM ABG respiratory acidosis - vent setting changed from Tv 500 to 550/18/40/5+ - repeat ABG pending
-No SBT today - pressor requirements currently too high
-Aspiration precautions
-Keep SpO2 >90-94%
-Current smoker
-Severe emphysema
-Noted on CT - Outpatient follow up
Cardiovascular:
-Type B aortic dissection
-Absent right lower extremity pulses-suspicion for hypoperfusion/end-organ damage.
-Thoracic endovascular aortic repair using GORE Thoracic Branch Endoprosthesis device POD 1
-Hypotension post-op unclear cause
-Bilateral lower extremity pulses post-op intact
-Received 2 units blood during operation
-Post-op episode of hypotension put on 4 pressors
-This am levo @25, Vaso @0.04, Norepi @25, off Phenylephrine
-Wean levo first then others as able
-Vascular surgery following-Case discussed earlier this morning
-Keep MAP >65
-HR inappropriately low on all these pressors in the 60s
-Incomplete bundle branch block noted on admission EKG contributing?
-Echo study limited, but normal LV reported
-Hydrocortisone 50mg q6 added
-Check TSH
-Troponin (-)
-Hg stable
-Cont plavix and rectal ASA
-2g ancef given pre-op
-Possible pneumatosis of small bowel concerning for ischemia
-exploratory laparotomy no signs of ischemia
-LA downtrending 2.1 -> 1.6 - stop trending
-NPO
-Continue with zosyn as WBC elevated
-Pain management
-General surgery cont following
GI:
-Possible pneumatosis of small bowel concerning for ischemia
-exploratory laparotomy no signs of ischemia - noted above
-GI bleed?
-Heme-occult (+) OG tube secretions, brown in color
-Protonix gtt started per general surgery
-Hg stable
-Monitor H&H
-GI consulted
Renal:
-Monitor Cr - currently stable
-Follow I&O
-Replace electrolytes as needed
-Keep K>4 and mg >2.5
-Incidental 1.7 L kidney upper pole lesion - follow up in outpatient
-Hyponatremia
-Likely in the setting of volume overload
-Monitor
ID:
-Leukocytosis
-N&V pre-admission suspicious for viral gastritis
-WBC 19.0 on admission today 16.4
-Remains afebrile
-N&V resolved
-Cont zosyn post-op ab surgery
-Cefazolin pre-op TEVAR
-Monitor temp and WBC
Hemeonc:
- DVT - lovenox
- Transfuse for hg <7
- Transfuse ptl for <20 unless active bleed <50
Endocrine:
-No known hx DM or thyroid dz
-Monitor BG euglycemic goals 140-180
Diagnostic imaging:
Chest/Ab/pelvic CT 07/18/24: Thoracic and abdominal aortic dissection, [place] type B.
Dissection flap is along the anterior margin of the abdominal aorta, and appears to contribute to significant narrowing at the origins of the celiac artery and the SMA. Additionally, there is luminal irregularity in the proximal SMA, suggestive of a
small amount of thrombus, nonocclusive.
Dissection flap traverses the origin of the right common iliac artery, and appears to result in narrowing of caliber of the artery, although contrast enhancement extends beyond the dissection flap.
Tortuosity of the proximal left common iliac artery, but no evidence for dissection flap traversing the origin of the left common iliac artery.
Dilated air and fluid-filled small bowel loops with small bowel wall thickening. Possible pneumatosis involving the wall of small bowel loops. There is also thickening of the wall of the right side of the colon. These findings raise concern for
ischemia.
No evidence for free intraperitoneal air. No evidence for portal venous air.
Severe changes of emphysema within both lungs.
Focal parenchymal opacity within the posterior right lower lobe, predominantly linear morphology, most likely atelectasis based on morphology. Linear scarring within both lungs
Cholelithiasis. Mild distention of the gallbladder with no evidence for gallbladder wall thickening or pericholecystic edema. No evidence for biliary ductal dilation.
CT angiography 07/17/2024:
1. [place] type B thoracic aortic dissection. No involvement of the ascending thoracic aorta or great arch vessels.
2. Emphysema.
Ab/pelvis CT 07/17/24:
1. Partially visualized dissection of the lower thoracic aorta with dissection flap terminating just proximal to the celiac artery origin in the upper abdomen. Recommend dedicated CTA chest for complete evaluation.
2. Cholelithiasis.
3. A 1.7 cm hypoattenuating upper pole left renal lesion measures slightly higher than simple fluid and may represent a mildly proteinaceous/hemorrhagic cyst, although indeterminate. Recommend outpatient initial further workup with dedicated renal
ultrasound.
Subjective Dataa
Subjective Data
Date of Service:
Date of Service: July 19, 2024
Chief Complaint: Infection Control Nurse Follow Up
Review of Systems
General: Unobtainable - Sedation
Objective Data
Data Reviewed
Vital Signs / I&O / Oxygen:
Vital Signs
Temp Pulse Resp BP Pulse Ox
99.3 F 66 18 86/58 95
07/19/24 08:00 07/19/24 08:10 07/19/24 08:10 07/19/24 08:01 07/19/24 08:10
Intake and Output
07/18/24 07/19/24 07/20/24
06:59 06:59 06:59
Intake Total 2207 / 2489 7388.6 / 7698.3 669.4 / 669.4
Output Total 800 / 800 2935 / 2965 105 / 105
Balance 1407 / 1689 4453.6 / 4733.3 564.4 / 564.4
SaO2 [A/C] 95
SaO2 [SIMV] 97
SaO2 95
Nasal Cannula flow liters per 4
minute
Physical Exam
General: Respiratory Distress
HEENT: Normocephalic
Cardiovascular: S1-S2, Peripheral Edema (n) and Other (Peripheral pulses intact )
Respiratory: Rhonchi, ET Tube and Other (Coarse breath sounds )
GI: Soft, Non Distended and Other (Decreased breath sounds)
Neurology: Other (Sedated )
Skin: Warm, Good Color and Cyanosis (n)
Labs/Micro/Reports
Laboratory Results
07/18/24 07/18/24 07/18/24
14:30 15:33 16:51
PT 17.8 H
INR 1.44
APTT 37.1 H
pH 7.24 L 7.33 L
pCO2 60 H 56 H
pO2 82 L 76 L
HCO3 25.7 29.5 H
O2 Delivery Level
07/18/24 07/18/24 07/19/24
18:41 19:00 02:58
PT 16.2 H
INR 1.27
APTT 34.7
pH Cancelled 7.35 7.32 L
pCO2 Cancelled 47 48
pO2 Cancelled 124 H 93
HCO3 Cancelled 25.9 24.7
O2 Delivery Level Cancelled 96.5
07/19/24
07:23
PT
INR
APTT
pH 7.29 L
pCO2 51 H
pO2 85
HCO3 24.5
O2 Delivery Level
[2024-07-19] MEDS: NSS (PRESERVATIVE FREE) IV (08:48)
[2024-07-19] MEDS: PROTONIX IV IV (08:49)
[2024-07-19 08:50] LABS: Hematocrit 42.4 % (39.0-52.0); Hemoglobin 14.7 g/dL (13.0-18.0); Mean Corp Hgb Conc. 34.7 g/dL (33.0-37.0); Mean Corpuscular Hgb 31.5 pg (27.0-31.0); Mean Corpuscular Volume 90.8 fL (80.0-94.0); Mean Platelet Volume 9.2 fL (7.4-10.4); Platelet Count 221 10^3/uL (130-400); Red Blood Cell Count 4.67 10^6/uL (4.70-6.10); White Blood Cell Count 16.4 10^3/uL (4.8-10.8)
[2024-07-19] MEDS: PROTONIX 100 IV ×2 (08:52→17:17)
[2024-07-19] MEDS: HEPARIN 5000 UNITS SC (08:54)
[2024-07-19] MEDS: PLAVIX 75 MG TUBE (08:55)
[2024-07-19] MEDS: ASPIRIN 300 MG RECTAL (08:55)
[2024-07-19 09:05] LABS: Blood Urea Nitrogen 30 mg/dl (9-20); Calcium 8.4 mg/dl (8.4-10.2); Carbon Dioxide 23 mmol/L (22-30); Chloride 101 mmol/L (98-107); Estimated Creatinine Clearance 93 ml/min; Glucose 173 mg/dl (70-99); Lactic Acid 1.6 mmol/L (0.7-2.0); Sodium 132 mmol/L (135-145); eGFR > 60.00
--- NOTE | 2024-07-19 09:09 | W.PN.GS2 ---
Today's Communication / Plan
-
OGT/NPO/IVF
Assessment / Plan
-
54M POD1 s/p FEVAR with Vascular Surgery and concurrent ex-lap for aortic dissection with concern for bowel ischemia
Remains on 3 pressors, intubated
OGT with bloody output, protonix gtt initiated
Abd exam approp, expect ileus
Plan:
Cont OGT/NPO/IVF
Wean vent/pressors as salty
All other care as per primary team
Subjective Data
-
Date of Service: July 19, 2024
Intubated, wakes easily and opens eyes, tracks, shakes head 'no' for abdominal pain
Objective Data
-
Intake and Output
07/18/24 07/19/24 07/20/24
06:59 06:59 06:59
Intake Total 2207 / 2489 7388.6 / 7698.3 669.4 / 669.4
Output Total 800 / 800 2935 / 2965 105 / 105
Balance 1407 / 1689 4453.6 / 4733.3 564.4 / 564.4
Intake:
Oral fluids 720 / 720
IV fluids (Total) 1487 / 1769 6588.6 / 6898.3 669.4 / 669.4
Epi 311.9 / 330.7 37.6 / 37.6
Fentanyl 326.5 / 341.5 30 / 30
Levo 1704 / 1809 210 / 210
Yoni 600 / 600 0 / 0
Nss 1,000 ml @ 115 mls/hr IV . 420 / 535 345 / 345
Q8H42M [facility] Rx#:[id number]
Nss 1,000 ml @ 150 mls/hr IV . 2180 / 2330 300 / 300
Q6H40M [facility] Rx#:[id number]
Propofol 111.2 / 120.1 17.8 / 17.8
Sodium Bicarb 100 / 100
Vaso 192 / 204
Zosyn 50 / 50 50 / 50
esmolol 917 / 1048 524 / 524
labetalol 150 / 186 144 / 144
IV piggybacks 550 / 550
Blood Products 250 / 250
Albumin 5% 250 / 250
Output:
Gastrointestinal tube output ( 1100 / 1100 50 / 50
Total)
Molino Sump 1100 / 1100 50 / 50
Urine, Cooley 1735 / 1765 55 / 55
Urine, Voided 800 / 800 100 / 100
Vital Signs
Temp Pulse Resp BP Pulse Ox
99.3 F 66 18 86/58 95
07/19/24 08:00 07/19/24 08:10 07/19/24 08:10 07/19/24 08:01 07/19/24 08:10
Calcium 8.4 mg/dl (8.4-10.2) 07/19/24 08:39
Magnesium 1.9 mg/dl (1.6-2.3) 07/19/24 02:58
Total Bilirubin 1.2 mg/dl (0.2-1.3) 07/19/24 02:58
Direct Bilirubin 0.8 mg/dl (0.0-0.4) H 07/19/24 02:58
AST 42 U/L (17-59) 07/19/24 02:58
ALT 38 U/L (0-50) 07/19/24 02:58
Alkaline Phosphatase 59 U/L (38-126) 07/19/24 02:58
Total Protein 4.5 g/dl (6.3-8.2) L 07/19/24 02:58
Albumin 2.3 g/dl (3.5-5.0) L 07/19/24 02:58
Physical Exam
-
Gen: intubated
Abd: soft, dressing cdi, approp ttp
--- NOTE | 2024-07-19 09:39 | W.PN.UPDATE ---
Addendum entered and electronically signed by KARLENE Ugarte 07/19/24 09:41:
Cancel: Wrong entry
Original Note:
Update Note
Progress Note Update
CDI: acute blood loss anemia
--- NOTE | 2024-07-19 10:12 | W.PN.HOSP.TC ---
Addendum entered and electronically signed by Daphnie Mcallister MD 07/19/24 15:22:
# Hypovolemic shock
# Mild Hyponatremia
Original Note:
Today's Communication/Plan
-
see A/P
Assessment / Plan
Assessment / Plan
HPI: 54-year-old with no known significant past medical history presented to the emergency department with approximately 5 days of ongoing abdominal symptoms.
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 He c/o crampy abdominal pain and reported melanotic appearing diarrhea.
In the emergency department, his CT angio was done showing a [place] type B thoracic aortic dissection. No involvement of the ascending thoracic aorta or great arch vessels. Vascular surgeon contacted by ED.
A/P:
# [place] B aortic dissection. No aneurysm. HD stable. No chest pain.
Follow up CT angio CAP confirmed Thoracic and abdominal aortic dissection, [place] type B.
s/p emergent Thoracic endovascular aortic repair by vascular with concurrent ex-lap by GS (eval for bowel ischemia which was ruled out)
Cont Plavix
Cont pressors support: epinephrine, norepinephrine, and vasopressin.
Off Yoni
Cont Abx ppx with Zosyn
Cont intubation with mechanical ventilation
Medical Service Representative on board
# ?GI bleed
Pt on Protonix drip currently
Would call back GI when GIB confirmed and clinically stable
DVT PPX: HSQ
Code Status - Full Code
DW RN
called and updated brother on the phone
CC Mx 45 min
Anticipated Discharge: > 48 hours
Subjective/Interval History
-
Date of Service: July 19, 2024
Objective Data
-
Labs:
Laboratory Results
07/19/24 07/19/24 07/19/24
02:58 07:23 08:39
WBC 15.4 H 16.4 H
Hgb 15.1 14.7
Hct 45.5 42.4
Plt Count 241 221
PT 16.2 H
INR 1.27
APTT 34.7
HCO3 24.7 24.5
Sodium 133 L 132 L
Potassium 4.1 4.0
Chloride 100 101
Carbon Dioxide 24 23
BUN 31 H 30 H
Creatinine 1.0 1.0
Glucose 199 H 173 H
Calcium 8.0 L 8.4
Total Bilirubin 1.2
AST 42
ALT 38
Alkaline Phosphatase 59
07/19/24 07/19/24 07/19/24
12:00 15:00 15:42
WBC Pending
Hgb Pending
Hct Pending
Plt Count Pending
PT
INR
APTT
HCO3 Pending
Sodium Pending
Potassium Pending
Chloride Pending
Carbon Dioxide Pending
BUN Pending
Creatinine Pending
Glucose Pending
Calcium Pending
Total Bilirubin
AST
ALT
Alkaline Phosphatase
07/19/24
21:00
WBC
Hgb
Hct
Plt Count
PT
INR
APTT
HCO3
Sodium Pending
Potassium Pending
Chloride Pending
Carbon Dioxide Pending
BUN Pending
Creatinine Pending
Glucose Pending
Calcium Pending
Total Bilirubin
AST
ALT
Alkaline Phosphatase
Vital Signs:
Vital Signs
Temp Pulse Resp BP Pulse Ox
37.2 C 59 18 113/72 98
07/19/24 10:00 07/19/24 10:05 07/19/24 10:05 07/19/24 10:00 07/19/24 10:05
I&O
1207/19/24 07/20/24
06:59 06:59 06:59
Intake Total 2207 / 2489 7388.6 / 7698.3 1227.1 / 1227.1
Output Total 800 / 800 2935 / 2965 365 / 365
Balance 1407 / 1689 4453.6 / 4733.3 862.1 / 862.1
Review of Systems
-
Unable to obtain full review of systems at this time due to: Patient Intubation
Physical Exam
-
General: Well Developed and Well Nourished
HEENT: Normocephalic, Atraumatic, Nose Appears Normal, Ears Appear Normal and Oxygen (intubated on mechanical vent)
Respiratory: Clear to Auscultation and Non Labored Respirations; Negative Accessory Resp Muscle Use
Cardiac: Regular Rhythm and S1/S2
GI: Soft and Nondistended
Genito-urinary: Cooley
Skin: Warm and Dry
Neuro: Sedated
Data Reviewed
-
CT Scan: Report Reviewed by me
Labs: Labs Reviewed by me
--- NOTE | 2024-07-19 10:40 | PN.CDI ---
CDI
- -
CDI:
Physician Documentation Request
Admit Date: 07/17/24 22:11
Dear Doctor Esvin,
Clinical Indicators:
Patient admitted with [place] B aortic dissection; s/p Thoracic endovascular aortic repair 07/18.
07/18 (18:30) RN note, 'Pressors maxed out and patient's BP not responding..Sodium Bicarb given x2, Calcium Gluconate given x1, Albumin given x1, and IV Hydrocortisone 50 mg ordered Q6H'
07/19 PN, 'Cont pressors support: epinephrine, norepinephrine, and vasopressin.'
[place] BP trend:
07/18/24
14:55 07/18/24
15:30 07/18/24
15:40
Arterial Systolic Pressure 78 76 79
Arterial Diastolic Pressure 55 53 52
07/18/24
16:00 07/18/24
16:15
Arterial Systolic Pressure 80 76
Arterial Diastolic Pressure 55 52
Please clarify which of the following is the most likely etiology of the above symptoms and treatment rendered:
Hypovolemic shock
Other shock, please specify
Other
Use of terms such as suspected, likely, concern for, or probable (associated with a specific diagnosis that is being evaluated, monitored, or treated as if it exists) are acceptable and can be coded in the inpatient setting, when documented at the
time of discharge.
Thank you,
Debora Salgado RN BSN
CDI Specialist
available via tiger text
Please use your independent medical judgment in providing your response.
--- NOTE | 2024-07-19 10:57 | PN.CDI ---
CDI
- -
CDI:
Physician Documentation Request
Admit Date: 07/17/24 22:11
Dear Doctor Esvin,
Clinical Indicators:
Patient admitted with [place] B aortic dissection; s/p Thoracic endovascular aortic repair 07/18.
Patient presented with vomiting and diarrhea.
IVF: NSS
Sodium Trend:
07/17/24 07/18/24 07/18/24
14:17 04:14 14:30
Sodium 131 L 131 L 132 L
07/18/24 07/19/24 07/19/24
18:41 02:58 08:39
Sodium 133 L 133 L 132 L
Based on the above, could you clarify in the progress notes, the appropriate diagnosis, if significant, that supports the above abnormalities and additional evaluation, monitoring and/or treatment rendered:
Hyponatremia
Abnormal lab value, clinically insignificant
Other
Use of terms such as suspected, likely, concern for, or probable (associated with a specific diagnosis that is being evaluated, monitored, or treated as if it exists) are acceptable and can be coded in the inpatient setting, when documented at the
time of discharge.
Thank you,
Debora Salgado RN BSN
CDI Specialist
available via tiger text
Please use your independent medical judgment in providing your response.
[2024-07-19] MEDS: DIPRIVAN 100 IV (12:17)
--- NOTE | 2024-07-19 12:30 | PTCARENOTE ---
Neurovascular and neurological checks WNL - patient able to help turn himself in bed with nurse assistance; Attempting to wean Levo, Vasopressin, Epinephrine, Propofol, and Fentanyl gtts as per MD Valenzuela - see nursing flowsheets for further
details; Incomplete norovirus stool sample cancelled as per MD Mcallister; See nursing documentation for further information.
[2024-07-19 12:41] LABS: B.E. -1.2 mmol/L; HCO3 25.3 mmol/L (21-28); O2 Saturation % 98.6 % (94-98); PCO2 48 mmHg (35-48); PO2 89 mmHg (83-108); pH 7.33 (7.35-7.45)
[2024-07-19 14:00] LABS: Glucose - Point of Care 167 mg/dl (70-99)
[2024-07-19] MEDS: NOVOLOG FLEXPEN-MODERATE RESISTANCE 1 UNITS SC (14:00)
[2024-07-19 15:09] LABS: Hematocrit 40.3 % (39.0-52.0); Hemoglobin 13.4 g/dL (13.0-18.0); Mean Corp Hgb Conc. 33.3 g/dL (33.0-37.0); Mean Corpuscular Hgb 30.2 pg (27.0-31.0); Mean Platelet Volume 9.1 fL (7.4-10.4); Platelet Count 198 10^3/uL (130-400); Red Blood Cell Count 4.43 10^6/uL (4.70-6.10); Red Cell Dist. Width 13.8 % (11.5-14.5); White Blood Cell Count 15.4 10^3/uL (4.8-10.8)
[2024-07-19 15:15] LABS: Free T4 1.18 ng/dl (0.78-2.19)
[2024-07-19 15:24] LABS: Blood Urea Nitrogen 31 mg/dl (9-20); Calcium 7.9 mg/dl (8.4-10.2); Carbon Dioxide 23 mmol/L (22-30); Chloride 101 mmol/L (98-107); Estimated Creatinine Clearance 103 ml/min; Glucose 151 mg/dl (70-99); Potassium 3.9 mmol/L (3.5-5.1); Sodium 132 mmol/L (135-145); eGFR > 60.00
[2024-07-19 15:29] LABS: TSH 1.06 uIU/ml (0.47-4.68)
[2024-07-19 15:30] LABS: Lactic Acid 1.6 mmol/L (0.7-2.0)
--- NOTE | 2024-07-19 16:54 | PTCARENOTE ---
RT in room and pt placed on CPAP trial at 1650. ABG due at 1720
--- NOTE | 2024-07-19 17:32 | W.PN.UPDATE ---
Update Note
Progress Note Update
Multiple evolution through the course of the day.
Vasopressor requirement has improved.
With sedation breaks not following commands, pulmonary mechanics acceptable.
Lung exam is clear
We will attempt spontaneous breathing trial.
Continue with efforts to wean off vasopressors
After 30-40 minutes Will extubate if patient remains a stable.
Discussed with respiratory therapy
-
Additional critical care time 25-minute
--- NOTE | 2024-07-19 17:32 | RESPNOTE ---
17:30 extubated patient to 6 liter nasal cannula, will monitor.
--- NOTE | 2024-07-19 17:34 | PTCARENOTE ---
Spoke with MD Valenzuela - states no need for ABG to extubate patient after evaluating patient at bedside; RT at bedside; Pt extubated at 1730 and placed on 6L NC.
[2024-07-19 18:25] LABS: Glucose - Point of Care 142 mg/dl (70-99)
[2024-07-19] MEDS: NOVOLOG FLEXPEN-MODERATE RESISTANCE SC (18:28)
[2024-07-19] MEDS: LOVENOX 40 MG SC (18:31)
--- NOTE | 2024-07-19 19:16 | PTCARENOTE ---
OGT removed upon extubation; NGT reinserted as per Tushar Winn by RN - marked at 75 cm and secured with tape; NGT draining dark, brown liquid; Fentanyl and Propofol gtts d/c'd as per MD Valenzuela - PRN IV Dilaudid ordered for pain
--- NOTE | 2024-07-19 20:00 | PTCARENOTE ---
Received pt from [place]. pt is s/p TEVAR. pt resting comfortably in bed with family at bedside. pt is AAOx4, moves all extremities appropriately, denies pain. NSR with PVCs on monitor. VSS, heart sounds distant but audible, radial and DP pulses
palpable, no edema noted. lung sounds diminished throughout, pt was extubated during at 1730, pt is currently on 6 LNC and spo2 is 95%. pt is recovering from an exploratory laparotomy, abdominal dressing is clean dry and intact, hypoactive
BS, soft non-tender, NG tube in placed, continuous suction ordered, pt is receiving protonix gtt for GI bleed, care team is aware and GI has been consulted. pt voiding clear yellow urine via montalvo catheter. all surgical sites maintained. right IJ
cordis, right radial A-line and PIVs all maintained, leveled, and zeroed. levo, vaso, protonix, and nss gtt all infusing. milagros albert within reach, will continue to monitor.
[2024-07-19 21:52] LABS: Glucose - Point of Care 133 mg/dl (70-99)
[2024-07-19 22:18] LABS: Blood Urea Nitrogen 31 mg/dl (9-20); Calcium 7.9 mg/dl (8.4-10.2); Carbon Dioxide 27 mmol/L (22-30); Chloride 102 mmol/L (98-107); Estimated Creatinine Clearance 116 ml/min; Glucose 136 mg/dl (70-99); Potassium 3.9 mmol/L (3.5-5.1); Sodium 133 mmol/L (135-145); eGFR > 60.00
[2024-07-19] MEDS: DILAUDID 1 MG IV (22:53)
[2024-07-20] VITALS (60 sets, daily range): BP systolic 89–139; BP diastolic 41–106; PULSE 83; O2SAT 91; BMI 25.6
--- NOTE | 2024-07-20 | PTCARENOTE ---
Pt was washed with CHG wipes, montalvo care provided, new leads and gown provided, sheet were also changed. pt was given 1mg of Dilaudid for pain, per order. soon after pain medication was administered pt started to hold NG tube and this RN instructed
pt to not pull on the tube. This RN educated the pt on why he has a ng tube and the importance of it not removing it. pt became agitated and began yelling at nurse. pt was redirected and and has since calmed down. pt remains AAOx4 during this
interaction. CVPA made aware. This RN requested MSAS intervention be ordered for pt due to hi hx of alcohol use, awaiting orders.
[2024-07-20] MEDS: SOLU-CORTEF 50 MG IV ×2 (00:04→05:25)
[2024-07-20 00:15] LABS: Glucose - Point of Care 145 mg/dl (70-99)
[2024-07-20] MEDS: NOVOLOG FLEXPEN-MODERATE RESISTANCE SC ×6 (00:15→23:04)
[2024-07-20] MEDS: ZOSYN 50 IV ×4 (01:37→19:27)
[2024-07-20] MEDS: OFIRMEV 100 IV ×3 (02:00→23:44)
[2024-07-20] MEDS: DILAUDID 0.25 MG IV ×2 (02:10→07:39)
[2024-07-20] MEDS: VITAMIN B1 PO (03:37)
[2024-07-20] MEDS: PROTONIX 100 IV (03:54)
[2024-07-20] MEDS: NSS 1000 IV ×3 (03:54→23:00)
--- NOTE | 2024-07-20 04:00 | PTCARENOTE ---
Pt assessment unchanged. pt complains of increased pain and sleeplessness, see MAR for pain medication. Levophed continues to be titrated up and down due to ongoing changed in BP and MAPs, see worklist and vital signs. NG tube dumped 300mls, CVPA
made aware, will continue to monitor. labs drawn and sent. call albert within. will continue to monitor.
[2024-07-20 04:20] LABS: Hematocrit 33.6 % (39.0-52.0); Hemoglobin 11.4 g/dL (13.0-18.0); Mean Corp Hgb Conc. 33.9 g/dL (33.0-37.0); Mean Corpuscular Hgb 30.2 pg (27.0-31.0); Mean Corpuscular Volume 89.1 fL (80.0-94.0); Mean Platelet Volume 9.2 fL (7.4-10.4); Platelet Count 149 10^3/uL (130-400); Red Blood Cell Count 3.77 10^6/uL (4.70-6.10); Red Cell Dist. Width 13.4 % (11.5-14.5); White Blood Cell Count 12.8 10^3/uL (4.8-10.8)
[2024-07-20 04:25] LABS: Lactic Acid 0.8 mmol/L (0.7-2.0)
[2024-07-20 04:39] LABS: Blood Urea Nitrogen 32 mg/dl (9-20); Calcium 7.5 mg/dl (8.4-10.2); Carbon Dioxide 27 mmol/L (22-30); Chloride 102 mmol/L (98-107); Estimated Creatinine Clearance 116 ml/min; Glucose 139 mg/dl (70-99); Magnesium 2.1 mg/dl (1.6-2.3); Sodium 134 mmol/L (135-145); eGFR > 60.00
[2024-07-20 05:25] LABS: Glucose - Point of Care 139 mg/dl (70-99)
--- NOTE | 2024-07-20 07:00 | PTCARENOTE ---
Bedside walking rounds report received. Patient seen on rounds resting in bed: patient is stating he is still in severe abd incisional pain: MD aware on vascular surgery rounds and new orders were received: pain regimen will be followed. Vaso/levo
gtt's verified at bedside and new orders received to titrate levo down and maintain MAP's 75-90mmhg per Dr. Garcia at bedside. NSR with PVC's polymorphic on monitor and PAC's occasional. NGT right nares placement check for placement via gastric bubble
and confirmed via previous CXR's. NGT to continuous wall suction at 80 and patent for dark bilious green drainage with some coffee ground like drainage noted in tubing, improving per manufacturing shift supervisor report. Hypoacive bowel sound auscultated. Maintain
montalvo for today and dc a line per client services coordinator Dr. Blanco. See flowreord for remaining assessments.
[2024-07-20] MEDS: FOLVITE 50.2 MG IV (07:34)
[2024-07-20] MEDS: VITAMIN B1 100 MG PO ×2 (07:35→19:27)
[2024-07-20] MEDS: FOLVITE 1 MG PO (07:35)
[2024-07-20] MEDS: PLAVIX 75 MG TUBE (07:36)
[2024-07-20] MEDS: CALCIUM GLUCONATE 100 IV (07:45)
--- NOTE | 2024-07-20 08:10 | W.PN.VS ---
Addendum entered and electronically signed by Vishnu Garcia MD 07/20/24 12:35:
Seen and examined with ENGINE LATHE TENDER Tatum and Robert. Agree with findings as noted below. Patient extubated successfully yesterday. This morning he is without significant complaints. Notes incisional abdominal pain, but no abdominal pain like he had
preoperatively that is completely resolved. No leg pain or foot pain. Vital signs intake/outtake all reviewed. He is awake and alert. 2+ left upper extremity radial pulse palpable. Breathing unlabored. Abdomen soft. Groins flat bilaterally.
Feet are warm with palpable 2+ PT pulses bilaterally. Neurologically moves all extremities well with good proximal strength bilateral lower extremities. Plan/as discussed and noted below. Need to balance impulse control/blood pressure control for
type B dissection with perfusion for spinal cord perfusion. At this point he is 48 hours post with stable neurologic exam. Though there certainly can be a late incidence of neurologic sequela, would recommend trying to lower his blood pressure
parameters to better treat the dissection at this point.
Original Note:
Today's Communication / Plan
-
Patient seen and assessed this morning with Dr. Garcia
Assessment/Plan
-
POD 2 Thoracic endovascular aortic repair using GORE Thoracic Branch Endoprosthesis device
Introduce wire and catheter to aorta from right femoral artery access
Introduce wire and catheter to aorta from left femoral artery access
Introduce wire and catheter to aorta from left brachial artery access
Intravascular ultrasound to ascending aorta, aortic arch, thoracic aorta, abdominal aorta
Diagnostic aortogram of the ascending aorta, aortic arch and descending thoracic aorta
Diagnostic iliac arteriograms bilaterally
Ultrasound-Guided percutaneous access to the BILATERAL common femoral arteries
Ultrasound-Guided percutaneous access to the left brachial artery
Pro-glide closure of the right common femoral artery access
Plan:
-Protonix drip and NG tube per general surgery
-Continue rectal aspirin and Plavix via NG tube
-Wean pressors off as able, new MAP goal 75-90
-DC Cordis if adequate peripheral access is obtained
-Ordered calcium gluconate this a.m.
Subjective Data
-
Date of Service: July 20, 2024
Patient seen at bedside exam with Dr. Garcia. Patient is anxious this morning but states he is feeling well. Down to 2 pressors at this time. MSAS protocol started overnight.
Objective Data
-
Vital Signs
Temp Pulse Resp BP Pulse Ox
98.6 F 82 16 131/69 94
07/20/24 07:55 07/20/24 07:55 07/20/24 07:55 07/20/24 07:55 07/20/24 07:55
Intake and Output
07/19/24 07/20/24 07/21/24
06:59 06:59 06:59
Intake Total 7388.6 / 7698.3 4264.8 / 4391.3 349.3 / 349.3
Output Total 2935 / 2965 2004 / 2044 75 / 75
Balance 4453.6 / 4733.3 2259.8 / 2346.3 274.3 / 274.3
Intake:
Oral fluids 0 / 0
IV fluids (Total) 6588.6 / 6898.3 4204.8 / 4331.3 249.3 / 249.3
Epi 311.9 / 330.7 116.4 / 116.4
Fentanyl 326.5 / 341.5 157.5 / 157.5
Levo 1704 / 1809 667.7 / 675.2 11.3 / 11.3
Yoni 600 / 600 0 / 0
Nss 1,000 ml @ 100 mls/hr IV . 2180 / 2330 2650 / 2750 200 / 200
Q10H [facility] Rx#:[id number]
Nss 1,000 ml @ 115 mls/hr IV . 345 / 345
Q8H42M [facility] Rx#:[id number]
Propofol 111.2 / 120.1 75.7 / 75.7
Protonix 212.5 / 222.5 20 / 20
Sodium Bicarb 100 / 100
Vaso 192 / 204 225 / 234 18 / 18
Zosyn 50 / 50 100 / 100
esmolol 524 / 524
labetalol 144 / 144
IV piggybacks 550 / 550 100 / 100
Amount instilled into GI Tube ( 60 / 60
Total)
Ford Sump 60 / 60
Blood Products 250 / 250
Albumin 5% 250 / 250
Output:
Gastrointestinal tube output ( 1100 / 1100 1150 / 1150
Total)
Ford Sump 1100 / 1100 1150 / 1150
Urine, Cooley 1735 / 1765 855 / 895 75 / 75
Urine, Voided 100 / 100
Lab Results
07/20/24 03:42
Calcium 7.5 mg/dl (8.4-10.2) L 07/20/24 03:42
Magnesium 2.1 mg/dl (1.6-2.3) 07/20/24 03:42
Total Bilirubin 1.2 mg/dl (0.2-1.3) 07/19/24 02:58
Direct Bilirubin 0.8 mg/dl (0.0-0.4) H 07/19/24 02:58
AST 42 U/L (17-59) 07/19/24 02:58
ALT 38 U/L (0-50) 07/19/24 02:58
Alkaline Phosphatase 59 U/L (38-126) 07/19/24 02:58
Total Protein 4.5 g/dl (6.3-8.2) L 07/19/24 02:58
Albumin 2.3 g/dl (3.5-5.0) L 07/19/24 02:58
Physical Exam
-
AAOx3
No tachypnea on nasal cannula
No tachycardia
Abdomen mildly distended but soft, denies pain with palpation
Surgical dressings clean, dry, intact, no drainage noted
Groin sites flat and soft
Bilateral feet warm, palpable DP and PT pulses bilaterally
Hemoglobin 11.4, creatinine stable
Currently infusing vasopressin, Levophed
--- NOTE | 2024-07-20 08:23 | W.PN.INTV ---
Today's Communication / Plan
Recommendations
Off pressors and hydrocortisone
Consider switch Protonix ggt to BID at discretion of general surgery/GI
Monitor hg
Cont. antibitoics
Assessment
-
54 y/o male with PMHx GERD, current smoker, s/p appendectomy with no other known PMHx presented to the emergency department on 07/17/24 at night with approximately 5 days of ongoing abdominal pain, nausea, vomiting, diarrhea and excruciating back
pain. Work up revealed type B aortic dissection and possible small bowel ischemia. Upon evaluation by vascular team, patient's abdomen was soft and nontender but complains of pain. Easily palpable left lower extremity pulses. They could not
appreciate Doppler signal to the right lower extremity at any pulse sites. LA ordered and was 2.5. Dr. Cooley recommended emergency TEVAR immediately and discussed risk and benefits with the patient. General surgery was also consulted for concern of
visceral malperfusion. Dr. Linn spoke to patient about plan for exploratory laparotomy with possible bowel resection possible open abdomen following vascular surgery endovascular repair of his type B aortic dissection. Patient agreed to all of
the above. Post-op pulses palpated bilaterally now in the CVICU for further monitoring on multiple pressors and mechanical ventilation.
CPA: GERD, current smoker (unsure pack years at this time), s/p appendectomy
Impression:
#Type B aortic dissection
#Absent right lower extremity pulses
#Thoracic endovascular aortic repair using GORE Thoracic Branch Endoprosthesis device POD 2
#Possible pneumatosis of small bowel concerning for ischemia - exploratory laparotomy no signs of ischemia POD 2
#Post-op acute respiratory failure on mechanical vent ventilation intubated 07/18/2024
#Heme-occult (+) OG tube secretions - GI bleed?
#Severe changes of emphysema in both lungs
#Leukocytosis
#Hyponatremia
#Elevated LA
#Tobacco use
#Anxiety
#1.7 cm hypoattenuating upper pole left renal lesion
#Cholelithiasis with no acute cholecystitis
#Incomplete bundle branch block
Plan:
Neuro:
-Sedation on mechanical ventilation
-At propofol 20, fentanyl 175
-Goal RAAS -1 to 0
-This am sedation weaned for neurovascular check and pt lower extremity sensation intact and following commands
-Wean sedation as able
-Alcohol use MSAS
-Agitated overnight and told nursing staff he drinks alcohol on a regular basis - in am denied alcohol use
-MSAS added
-Overnight score 0-1
Respiratory:
-Post-op acute respiratory failure on mechanical ventilation intubated 07/18/2024 - extubated 07/19/2024
-Satting well on 4L O2
-Aspiration precautions
-Keep SpO2 >90-94%
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
-Severe emphysema
-Noted on CT - Outpatient follow up
Cardiovascular:
-Type B aortic dissection
-Absent right lower extremity pulses-suspicion for hypoperfusion/end-organ damage.
-Thoracic endovascular aortic repair using GORE Thoracic Branch Endoprosthesis device POD 2
-Hypotension post-op unclear cause
-Bilateral lower extremity pulses post-op intact
-Received 2 units blood during operation
-Post-op episode of hypotension put on 4 pressors -> weaned off now stable
-Likely secondary to sedation as no other clear cause
-Keep MAP >75-90 per vascular surgery
-Echo study limited, but normal LV reported
-discontinue Hydrocortisone
-Cont plavix and rectal ASA
-2g ancef given pre-op
-Vascular surgery following
-Possible pneumatosis of small bowel concerning for ischemia - exploratory laparotomy ruled out POD 2
-exploratory laparotomy no signs of ischemia
-Cont NPO with NGT and bowel rest per surgery
-Continue with zosyn as WBC elevated
-Pain management
-General surgery cont following
GI:
-Possible pneumatosis of small bowel concerning for ischemia
-exploratory laparotomy no signs of ischemia - noted above
-GI bleed?
-Heme-occult (+) OG tube secretions, brown in color -> now bilious
-Cont Protonix gtt started per general surgery - will touch base with GI was well
-Monitor. No endoscopy at this time due to recent dissection per GI
-Hg 13.4->11.4 this am
-Monitor H&H
-GI following
Renal:
-Monitor Cr - currently stable
-Follow I&O
-Replace electrolytes as needed
-Keep K>4 and mg >2.5
-Incidental 1.7 L kidney upper pole lesion - follow up in outpatient
-Hyponatremia
-Likely in the setting of volume overload
-Monitor
ID:
-Leukocytosis
-N&V pre-admission suspicious for viral gastritis
-WBC downtrending
-Remains afebrile
-N&V resolved
-Cont zosyn post-op ab surgery
-Cefazolin pre-op dissection repair
-Monitor temp and WBC
Hemeonc:
- DVT - lovenox
- Drop in hemoglobin
- 16.6 on admission today 11.4
- Multifactorial in setting of operation, dilution from IVF and possible GI bleed?
- Transfuse for hg <7
- Transfuse ptl for <20 unless active bleed <50
Endocrine:
-No known hx DM or thyroid dz
-Monitor BG euglycemic goals 140-180
Diagnostic imaging:
Chest/Ab/pelvic CT 07/18/24: Thoracic and abdominal aortic dissection, Juice type B.
Dissection flap is along the anterior margin of the abdominal aorta, and appears to contribute to significant narrowing at the origins of the celiac artery and the SMA. Additionally, there is luminal irregularity in the proximal SMA, suggestive of a
small amount of thrombus, nonocclusive.
Dissection flap traverses the origin of the right common iliac artery, and appears to result in narrowing of caliber of the artery, although contrast enhancement extends beyond the dissection flap.
Tortuosity of the proximal left common iliac artery, but no evidence for dissection flap traversing the origin of the left common iliac artery.
Dilated air and fluid-filled small bowel loops with small bowel wall thickening. Possible pneumatosis involving the wall of small bowel loops. There is also thickening of the wall of the right side of the colon. These findings raise concern for
ischemia.
No evidence for free intraperitoneal air. No evidence for portal venous air.
Severe changes of emphysema within both lungs.
Focal parenchymal opacity within the posterior right lower lobe, predominantly linear morphology, most likely atelectasis based on morphology. Linear scarring within both lungs
Cholelithiasis. Mild distention of the gallbladder with no evidence for gallbladder wall thickening or pericholecystic edema. No evidence for biliary ductal dilation.
CT angiography 07/17/2024:
1. Juice type B thoracic aortic dissection. No involvement of the ascending thoracic aorta or great arch vessels.
2. Emphysema.
Ab/pelvis CT 07/17/24:
1. Partially visualized dissection of the lower thoracic aorta with dissection flap terminating just proximal to the celiac artery origin in the upper abdomen. Recommend dedicated CTA chest for complete evaluation.
2. Cholelithiasis.
3. A 1.7 cm hypoattenuating upper pole left renal lesion measures slightly higher than simple fluid and may represent a mildly proteinaceous/hemorrhagic cyst, although indeterminate. Recommend outpatient initial further workup with dedicated renal
ultrasound.
Subjective Dataa
Subjective Data
Date of Service:
Date of Service: July 20, 2024
Chief Complaint: Audio Narrator Follow Up
Review of Systems
General: Fever (n), Sweats (n), Chills (n) and Pain (slight abdominal pain post op)
HEENT: Oral/Throat Pain (n)
Cardiopulmonary: Dyspnea (slight ), Cough (n), Wheezing (n), Chest Pain (n) and Edema (n)
GI: Abdominal Pain, Nausea (n), Vomiting (n) and Diarrhea (n)
Neuro: Headache (n), Dizziness (n) and Confused (n)
Genitourinary: Cooley
Objective Data
Data Reviewed
Vital Signs / I&O / Oxygen:
Vital Signs
Temp Pulse Resp BP Pulse Ox
98.6 F 64 10 105/65 92
07/20/24 07:55 07/20/24 08:20 07/20/24 08:20 07/20/24 08:15 07/20/24 08:20
Intake and Output
07/19/24 07/20/24 07/21/24
06:59 06:59 06:59
Intake Total 7388.6 / 7698.3 4264.8 / 4391.3 349.3 / 349.3
Output Total 2935 / 2965 2005 / 2044 75 / 75
Balance 4453.6 / 4733.3 2259.8 / 2346.3 274.3 / 274.3
SaO2 [CPAP/PSV] 96
SaO2 [A/C] 97
SaO2 [SIMV] 97
SaO2 92
Nasal Cannula flow liters per 4
minute
Physical Exam
General: Comfortable
HEENT: Normocephalic
Cardiovascular: S1-S2, Regular Rhythm, Peripheral Edema (n) and Other (Peripheral pulses intact )
Respiratory: Clear, Wheeze (n), Crackles (n) and Rhonchi (n)
GI: Soft, Non Distended, Tender (at surgical site ), NG Tube and Other (Decreased bowel sounds)
Neurology: AO x 3 and Other (Sedated )
Skin: Warm, Good Color and Cyanosis (n)
Labs/Micro/Reports
Laboratory Results
07/19/24 07/19/24
12:30 17:20
pH 7.33 L Cancelled
pCO2 48 Cancelled
pO2 89 Cancelled
HCO3 25.3 Cancelled
O2 Delivery Level Cancelled
[2024-07-20] MEDS: ASPIRIN RECTAL (08:39)
[2024-07-20] MEDS: THIAMINE INJECTION 200 MG IV ×2 (08:44→19:26)
--- NOTE | 2024-07-20 08:55 | W.PN.HOSP.TC ---
Today's Communication/Plan
-
see A/P
Assessment / Plan
Assessment / Plan
HPI: 54-year-old with no known significant past medical history presented to the emergency department with approximately 5 days of ongoing abdominal symptoms.
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 He c/o crampy abdominal pain and reported melanotic appearing diarrhea.
In the emergency department, his CT angio was done showing a Juice type B thoracic aortic dissection. No involvement of the ascending thoracic aorta or great arch vessels. Vascular surgeon contacted by ED.
A/P:
# [place] B aortic dissection. No aneurysm. HD stable. No chest pain.
Follow up CT angio CAP confirmed Thoracic and abdominal aortic dissection, Juice type B.
s/p emergent Thoracic endovascular aortic repair by vascular with concurrent ex-lap by GS (eval for bowel ischemia which was ruled out)
Cont ASA and Plavix per vascular
off pressors norepinephrine, Yoni, vasopressin, epinephrine
Cont Abx ppx with Zosyn
Extubated 07/19, cont O2 support at 4L NC and wean as tolerated
Cont NGT suction
Would keep NPO for now until cleared by surgery, IVF support while NPO
Recreational Assistant on board
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
Hgb 16 on admission, to 11 today
Cont to monitor Hgb
Cont empiric Protonix drip
GI recc to monitor without endoscopy intervention given recent dissection.
DVT PPX: Lovenox SQ
Code Status - Full Code
DW RN
called and updated brother on the phone
CC Mx 45 min
Anticipated Discharge: > 48 hours
Subjective/Interval History
-
Date of Service: July 20, 2024
Objective Data
-
Labs:
Laboratory Results
07/19/24 07/20/24 07/20/24
21:47 03:42 12:00
WBC 12.8 H Pending
Hgb 11.4 L Pending
Hct 33.6 L Pending
Plt Count 149 D Pending
Sodium 133 L 134 L
Potassium 3.9 4.0
Chloride 102 102
Carbon Dioxide 27 27
BUN 31 H 32 H
Creatinine 0.8 0.8
Glucose 136 H 139 H
Calcium 7.9 L 7.5 L
07/20/24
12:13
WBC
Hgb
Hct
Plt Count
Sodium Pending
Potassium Pending
Chloride Pending
Carbon Dioxide Pending
BUN Pending
Creatinine Pending
Glucose Pending
Calcium Pending
Vital Signs:
Vital Signs
Temp Pulse Resp BP Pulse Ox
37.0 C 64 10 105/65 92
07/20/24 07:55 07/20/24 08:20 07/20/24 08:20 07/20/24 08:15 07/20/24 08:20
I&O
07/19/24 07/20/24 07/21/24
06:59 06:59 06:59
Intake Total 7388.6 / 7698.3 4264.8 / 4391.3 349.3 / 349.3
Output Total 2935 / 2965 2004 75 / 75
Balance 4453.6 / 4733.3 2259.8 / 2346.3 274.3 / 274.3
Review of Systems
-
All other systems: Reviewed and negative
Physical Exam
-
General: Well Developed, Well Nourished, Comfortable and Conversant
HEENT: Normocephalic, Atraumatic, Nose Appears Normal, Ears Appear Normal and Oxygen (4L NC)
Respiratory: Clear to Auscultation and Non Labored Respirations; Negative Accessory Resp Muscle Use
Cardiac: Regular Rhythm and S1/S2
GI: Soft, Nondistended and Other (NGT on suction )
Genito-urinary: Cooley
Skin: Warm and Dry
Neuro: Awake and Alert
Psych: Calm
Data Reviewed
-
Labs: Labs Reviewed by me
--- NOTE | 2024-07-20 10:27 | W.PN.GS2 ---
Today's Communication / Plan
-
`
Assessment / Plan
-
54M POD2 s/p FEVAR with Vascular Surgery and concurrent ex-lap for aortic dissection with concern for bowel ischemia
AF VSS
Extubated and doing well postop
Plan:
Maintain NG tube given degree of output and bilious nature
Awaiting signs of GI recovery
Continue IV fluids
Pantoprazole -drip for previous bloody NG tube output but currently is bilious and without blood
Zosyn started perioperatively due to reversible bowel ischemia and risk for translocation -given operative findings okay to discontinue 72 hours postop from general surgical standpoint
Reviewed surgical treatment plan with patient. Understands rationale for continued NG tube decompression and bowel rest.
Subjective Data
-
Date of Service: July 20, 2024
Patient seen and examined
No significant postop abdominal pain.
Incisional pain controlled.
No nausea.
No flatus, no BM
Objective Data
-
Intake and Output
07/19/24 07/20/24/
06:59 06:59 06:59
Intake Total 7388.6 / 7698.3 4264.8 / 4391.3 669.3 / 669.3
Output Total 2935 / 2965 2004 / 2044 195 / 195
Balance 4453.6 / 4733.3 2259.8 / 2346.3 474.3 / 474.3
Intake:
Oral fluids 0 / 0
IV fluids (Total) 6588.6 / 6898.3 4204.8 / 4331.3 469.3 / 469.3
Epi 311.9 / 330.7 116.4 / 116.4
Fentanyl 326.5 / 341.5 157.5 / 157.5
Levo 1704 / 1809 667.7 / 675.2 11.3 / 11.3
Yoni 600 / 600 0 / 0
Nss 1,000 ml @ 100 mls/hr IV . 2180 / 2330 2650 / 2750 400 / 400
Q10H [facility] Rx#:[id number]
Nss 1,000 ml @ 115 mls/hr IV . 345 / 345
Q8H42M [facility]QUIS Rx#:[id number]
Propofol 111.2 / 120.1 75.7 / 75.7
Protonix 212.5 / 222.5 40 / 40
Sodium Bicarb 100 / 100
Vaso 192 / 204 225 / 234 18 / 18
Zosyn 50 / 50 100 / 100
esmolol 524 / 524
labetalol 144 / 144
IV piggybacks 550 / 550 200 / 200
Amount instilled into GI Tube ( 60 / 60
Total)
Turner Sump 60 / 60
Blood Products 250 / 250
Albumin 5% 250 / 250
Output:
Gastrointestinal tube output ( 1100 / 1100 1150 / 1150
Total)
Turner Sump 1100 / 1100 1150 / 1150
Urine, Cooley 1735 / 1765 855 / 895 195 / 195
Urine, Voided 100 / 100
Vital Signs
Temp Pulse Resp BP Pulse Ox
98.6 F 73 8 108/64 92
07/20/24 07:55 07/20/24 09:25 07/20/24 09:25 07/20/24 09:09 07/20/24 09:25
Calcium 7.5 mg/dl (8.4-10.2) L 07/20/24 03:42
Magnesium 2.1 mg/dl (1.6-2.3) 07/20/24 03:42
Total Bilirubin 1.2 mg/dl (0.2-1.3) 07/19/24 02:58
Direct Bilirubin 0.8 mg/dl (0.0-0.4) H 07/19/24 02:58
AST 42 U/L (17-59) 07/19/24 02:58
ALT 38 U/L (0-50) 07/19/24 02:58
Alkaline Phosphatase 59 U/L (38-126) 07/19/24 02:58
Total Protein 4.5 g/dl (6.3-8.2) L 07/19/24 02:58
Albumin 2.3 g/dl (3.5-5.0) L 07/19/24 02:58
Physical Exam
-
NAD AAOx3
ABD: Soft, nondistended, mild incisional tenderness, no rebound, no rigidity, no guarding.
Midline incision with Aquacel dressing generally dry
NG tube in place with bilious contents in canister and tubing
--- NOTE | 2024-07-20 10:30 | PTCARENOTE ---
Assisted oob to chair with PT/staff reporter: instructed patient to remain oob in chair for as long as tolerated: nasal canula oxygen increased to 4l to maintain pulse ox sats greater than 90%. Reinstructed patient on use and importance of IS use. Patient
did 10reps on IS to 750 to 1000ml: coughed up moderate amount of thick whitish carney secretions. Right radial art line dc per Dr. Blanco now that patient was off all pressors and was tolerating well. See flowrecord for remaining assessments.
--- NOTE | 2024-07-20 10:51 | CON.GI ---
Addendum entered and electronically signed by Radha Dillard MD 07/20/24 15:17:
I saw and examined the patient.
The [employer]'s note was reviewed and I agree with the note.
Comment: This is a 54-year-old male who presented with symptoms of abdominal pain with nausea vomiting diarrhea and dark stools for about 5 days prior to admission CTA showed thoracic and abdominal aortic dissection Juice type B, gallstones were
also noted but no cholecystitis, there was also possible pneumatosis involving the wall of the small bowel loops with thickening of the right side of the colon concerning for ischemia he did undergo emergent surgery with Dr. Cooley along with .
[place] Thoracic endovascular aortic repair using GORE Thoracic Branch Endoprosthesis device with ex lap for concern for bowel ischemia and there was no evidence of bowel ischemia so did not require bowel resection. He does have an NG tube which
has bilious drainage and he has not had any further episodes of rectal bleeding or melena since admission. He has never had an endoscopy or colonoscopy in the past.
Assessment and plan status post emergent repair of aortic dissection along with ex lap for concern for bowel ischemia. There was evidence of pneumatosis on CT but there was no bowel ischemia noted on ex lap (possible reversible ischemia). He had
nausea vomiting diarrhea with dark stools prior to admission but none since then. Unclear if he had melena. The drop in hemoglobin is likely from hydration with dilution and postop doubt acute upper GI bleed but cannot rule out GI bleed from
reversible bowel ischemia that he may have had. Continue PPI twice daily hold on endoscopy unless he has further active bleeding. will follow-up when more stable as outpatient for eventual endoscopy and colonoscopy unless he has further active
bleeding. Continue to monitor hemoglobin especially on aspirin and Plavix that has been started postop.
GI will sign off and will be available as needed
Original Note:
Consultation
-
Date/Time Consultation Requested: 07/20/24 1100
Date/Time Consultation Performed: 07/20/24 1100
Requesting Provider: Daphnie Mcallister MD
Performing Provider: KARLENE Yanez, Radha Dillard MD
Reason for Consultation: anemia/black stools
Medical History
Chief Complaint / HPI
Chief Complaint: black stools
History of Present Illness:
Pt is a 54yo with no significant medical problems and prior appe with no medical care for years. He as admitted with 5 days of nausea/vomiting and diarrhea with dark stools. On admission 07/18 noted with leukocytosis, hbg 16.6, and mild LFT
elevation. Imaging noted with concern for Type B dissection at left subclavian extending to descending thoracic aorta, Visceral segment of abdominal aorta infrarenal aorta and bifurcation with terminating in proximal left common iliac artery with
trapdoor/shutter effect on visceral vessels and concern for pneumatosis of Small bowel. Pt went to OR 07/18 with completed thoracic endovascular aortic repair with GORE thoracic branch endoprosthesis device. Asked to see as some drop in hbg
initially 16.6 then drop to 11.4 today.
In review with patient noted with nausea,GERD, vomiting and diarrhea with dark stools prior to admission. Emesis was white and denies any coffee ground or red blood. Since admission no stools with NGT in place with bilious drainage. He
admits to some wt loss but denies dysphagia, constipation or red stools. No hx EGD or colonoscopy in past. Only took NSAIDs x 1 prior to admission.
Past Medical History
Past Medical History: Other (Type B dissection with repair on admission)
Past Surgical History: Appendectomy
Social History
Tobacco: Smoker
Alcohol: None
Drug: None
Living: With Roomate
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
Family History
Family History: Other (mother of bone cancer, father lung CA )
Allergies / Home Medications
Allergy/AdvReac Type Severity Reaction Status Date / Time
No Known Allergies Allergy Verified 07/17/24 14:01
�Medication �Instructions �Recorded
calcium carbonate (Tums) 450 mg PO DAILYPRN PRN acid reflux 07/17/24
omeprazole 20 mg capsule,delayed 20 mg PO DAILYPRN PRN acid reflux 07/17/24
release
Review of Systems
-
History Source: Patient
Constitutional: Reports Weight Loss and Fatigue
EENT: Reports No Symptoms
Respiratory: Reports No Symptoms
Cardiac: Reports No Symptoms
Abdomen/GI: Reports Abdominal Pain, Nausea, Vomiting, Diarrhea (prior to admission ) and Black Stools (prior to admission )
: Reports No Symptoms
Musculoskeletal: Reports No Symptoms
Neurological: Reports Weakness
Endocrine: Reports No Symptoms
Hematologic/Lymphatic: Reports No Symptoms
Vital Signs
Temp Pulse Resp BP Pulse Ox
98.6 F 73 8 108/64 92
07/20/24 07:55 07/20/24 09:25 07/20/24 09:25 07/20/24 09:09 07/20/24 09:25
Physical Exam
Exam
General: Well Developed, Well Nourished and No Apparent Distress
HEENT: Normocephalic and Anicteric
Respiratory: Clear
Cardiac: Regular Rhythm
GI: Soft, Non Distended, Tender (mild with midline dressing ) and Other (some mild pelvic swelling , NGT with brownish drainage )
Musculoskeletal: No Clubbing and No Cyanosis
Skin: Warm and Dry
Neuro: Awake, Alert and AO x 3
Psych: Calm
Results
WBC 12.8 10^3/uL (4.8-10.8) H 07/20/24 03:42
Hgb 11.4 g/dL (13.0-18.0) L 07/20/24 03:42
Hct 33.6 % (39.0-52.0) L 07/20/24 03:42
MCV 89.1 fL (80.0-94.0) 07/20/24 03:42
Plt Count 149 10^3/uL (130-400) D 07/20/24 03:42
Absolute Neuts (auto) 15.9 10^3/uL (1.4-6.5) H 07/17/24 14:17
PT 16.2 Sec (11.4-14.6) H 07/19/24 02:58
INR 1.27 07/19/24 02:58
APTT 34.7 Sec (23.4-35.0) 07/19/24 02:58
Sodium 134 mmol/L (135-145) L 07/20/24 03:42
Potassium 4.0 mmol/L (3.5-5.1) 07/20/24 03:42
Chloride 102 mmol/L (98-107) 07/20/24 03:42
Carbon Dioxide 27 mmol/L (22-30) 07/20/24 03:42
BUN 32 mg/dl (9-20) H 07/20/24 03:42
Creatinine 0.8 mg/dL (0.7-1.3) 07/20/24 03:42
Calcium 7.5 mg/dl (8.4-10.2) L 07/20/24 03:42
Total Bilirubin 1.2 mg/dl (0.2-1.3) 07/19/24 02:58
AST 42 U/L (17-59) 07/19/24 02:58
ALT 38 U/L (0-50) 07/19/24 02:58
Alkaline Phosphatase 59 U/L (38-126) 07/19/24 02:58
Amylase 31 U/L (30-110) 07/19/24 01:33
Lipase 45 U/L (23-300) 07/19/24 02:58
Diagnostic Image Results:
07/18 CT Chest/abd/pelvis Angio W/wo
IMPRESSION: Thoracic and abdominal aortic dissection, Juice type B.
Dissection flap is along the anterior margin of the abdominal aorta, and appears to contribute to significant narrowing at the origins of the celiac artery and the SMA. Additionally, there is luminal irregularity in the proximal SMA, suggestive of a
small amount of thrombus, nonocclusive.
Dissection flap traverses the origin of the right common iliac artery, and appears to result in narrowing of caliber of the artery, although contrast enhancement extends beyond the dissection flap.
Tortuosity of the proximal left common iliac artery, but no evidence for dissection flap traversing the origin of the left common iliac artery.
Dilated air and fluid-filled small bowel loops with small bowel wall thickening. Possible pneumatosis involving the wall of small bowel loops. There is also thickening of the wall of the right side of the colon. These findings raise concern for
ischemia.
No evidence for free intraperitoneal air. No evidence for portal venous air.
Severe changes of emphysema within both lungs.
Focal parenchymal opacity within the posterior right lower lobe, predominantly linear morphology, most likely atelectasis based on morphology. Linear scarring within both lungs
Cholelithiasis. Mild distention of the gallbladder with no evidence for gallbladder wall thickening or pericholecystic edema. No evidence for biliary ductal dilation.
07/17
1. [place] type B thoracic aortic dissection. No involvement of the ascending thoracic aorta or great arch vessels.
2. Emphysema
07/17 CT Abd/pel W Iv And Oral Contr
1. Partially visualized dissection of the lower thoracic aorta with dissection flap terminating just proximal to the celiac artery origin in the upper abdomen. Recommend dedicated CTA chest for complete evaluation.
2. Cholelithiasis.
3. A 1.7 cm hypoattenuating upper pole left renal lesion measures slightly higher than simple fluid and may represent a mildly proteinaceous/hemorrhagic cyst, although indeterminate. Recommend outpatient initial further workup with dedicated renal
ultrasound.
Prior GI Procedures:
EGD: none
Colonoscopy: none
Assessment / Plan
-
Pt is a 54yo with no significant medical problems and prior appe with no medical care for years. He as admitted with 5 days of nausea/vomiting and diarrhea with dark stools. On admission 07/18 noted with leukocytosis, hbg 16.6, and mild LFT
elevation. Imaging noted with concern for Type B dissection at left subclavian extending to descending thoracic aorta, Visceral segment of abdominal aorta infrarenal aorta and bifurcation with terminating in proximal left common iliac artery with
trapdoor/shutter effect on visceral vessels and concern for pneumatosis of Small bowel. Pt went to OR 07/18 with completed thoracic endovascular aortic repair with GORE thoracic branch endoprosthesis device. Asked to see as some drop in hbg
initially 16.6 then drop after admission.
-Type B dissection with repair 07/18 with GORE thoracic branch endoprosthesis device
-dissection with concern for noted SB pneumatosis on admission
-nausea/vomiting/diarrhea with black stool and abdominal pain prior to admission
-anemia with drop after admission
-leukocytosis
-prior appe
PLAN:
Etiology of anemia and black stool related to ischemia with dissection with concern for SB pneumatosis vs other GI source
pt with minimal NSAID use prior to admission
currently NGT with brown drainage and no stools- no signs of aggressive GI bleeding
monitor hbg and stool pattern
no need for GI procedures at this time
general surgery also following
advance diet per vascular/general surgery and monitor for diet tolerance, ileus when diet started for signs of GI recovery
PPI BID
remains on abx
remains on Plavix therapy
eventual OP follow up for colonoscopy for screening and if black stool persists EGD
-
-
Thank you for consultation and allowing me to participate in the patient's care. Please call the transportation superintendent GI physician during the after hours with any questions or concerns.
[2024-07-20] MEDS: ROXICODONE ORAL SOLUTION 5 MG PO (10:58)
--- NOTE | 2024-07-20 12:00 | PTCARENOTE ---
No acute changes. Vitals stable. NSR.
[2024-07-20 12:27] LABS: Glucose - Point of Care 93 mg/dl (70-99)
[2024-07-20 14:03] LABS: Hematocrit 36.6 % (39.0-52.0); Hemoglobin 12.3 g/dL (13.0-18.0); Mean Corp Hgb Conc. 33.6 g/dL (33.0-37.0); Mean Corpuscular Hgb 30.9 pg (27.0-31.0); Mean Platelet Volume 9.3 fL (7.4-10.4); Platelet Count 151 10^3/uL (130-400); Red Blood Cell Count 3.98 10^6/uL (4.70-6.10); Red Cell Dist. Width 13.7 % (11.5-14.5); White Blood Cell Count 15.7 10^3/uL (4.8-10.8)
[2024-07-20 14:21] LABS: Blood Urea Nitrogen 27 mg/dl (9-20); Calcium 8.2 mg/dl (8.4-10.2); Carbon Dioxide 30 mmol/L (22-30); Chloride 101 mmol/L (98-107); Estimated Creatinine Clearance 116 ml/min; Glucose 102 mg/dl (70-99); Potassium 3.5 mmol/L (3.5-5.1); Sodium 137 mmol/L (135-145); eGFR > 60.00
--- NOTE | 2024-07-20 15:00 | PTCARENOTE ---
Remains oob chair. MARYLU Scanlon for vascular surgery updated with this afternoon's serum K level of 3.5. New order received.
[2024-07-20] MEDS: KCL 100 IV (15:22)
--- NOTE | 2024-07-20 16:12 | CM ---
spoke to pt, brother and ROD in room. pt is previndep, lives alone in a townhouse with 2 steps to enter. he denies any dme's. [facility] has been in to help pt sign up for medical assistance. he has no health insurance. cm following for dc needs.
[2024-07-20] MEDS: LOW STRENGTH ASPIRIN 81 MG TUBE (16:56)
[2024-07-20] MEDS: LOVENOX 40 MG SC (17:38)
[2024-07-20 17:44] LABS: Glucose - Point of Care 90 mg/dl (70-99)
--- NOTE | 2024-07-20 18:00 | PTCARENOTE ---
Remains oob in chair: Ofrinev effective for non narcotic pain relief.
[2024-07-20] MEDS: NSS (PRESERVATIVE FREE) 10 ML IV (19:25)
[2024-07-20] MEDS: PROTONIX IV 40 MG IV (19:26)
--- NOTE | 2024-07-20 20:00 | PTCARENOTE ---
Received pt [facility]. pt resting comfortably in chair and assisted back to bed. pt is AAOx4, moves all extremities appropriately, states pain 1/10. NSR with prolonged QT and PVCs on monitor. VSS, heart sounds distant but audible, radial and DP
pulses palpable, trace pedal edema noted. lung sounds diminished throughout, pt is on 4 LNC and spo2 is 96%. abdominal dressing is clean dry and intact, hypoactive BS, soft non-tender, NG tube in placed, continuous suction ordered, pt is receiving
protonix BID for GI bleed, care team is aware and GI has been consulted. pt voiding cloudy pink tinged urine via montalvo catheter. all surgical sites maintained. right IJ cordis and PIVs maintained.milagros albert within reach, will continue to monitor.
[2024-07-20 23:04] LABS: Glucose - Point of Care 77 mg/dl (70-99)
[2024-07-20 23:38] LABS: Glucose - Point of Care 91 mg/dl (70-99)
[2024-07-21] VITALS (27 sets, daily range): BP systolic 100–161; BP diastolic 57–114; PULSE 91; BMI 25.4
--- NOTE | 2024-07-21 | PTCARENOTE ---
Pt resting comfortably in bed. NSR on monitor. VSS. NG tube drainage greenish color. 3/10 pain, IV Ofirmev given. BG at 2303 was 77. CVPA made aware. BG checked again at 2336 which was 91. no intervention ordered at this time. will continue to
monitor.
[2024-07-21] MEDS: ZOSYN 50 IV ×3 (02:03→15:26)
--- NOTE | 2024-07-21 04:00 | PTCARENOTE ---
pt assessment unchanged; pt is restless in bed. pt states that he his frustrated with his NG tube and wants to be able to eat. RN will pass on to dayshift.
[2024-07-21 04:28] LABS: Hematocrit 33.1 % (39.0-52.0); Hemoglobin 10.9 g/dL (13.0-18.0); Mean Corp Hgb Conc. 32.9 g/dL (33.0-37.0); Mean Corpuscular Hgb 30.5 pg (27.0-31.0); Mean Corpuscular Volume 92.7 fL (80.0-94.0); Mean Platelet Volume 8.9 fL (7.4-10.4); Platelet Count 123 10^3/uL (130-400); Red Blood Cell Count 3.57 10^6/uL (4.70-6.10); Red Cell Dist. Width 13.7 % (11.5-14.5); White Blood Cell Count 10.8 10^3/uL (4.8-10.8)
[2024-07-21 04:54] LABS: Blood Urea Nitrogen 22 mg/dl (9-20); Calcium 7.7 mg/dl (8.4-10.2); Carbon Dioxide 31 mmol/L (22-30); Chloride 105 mmol/L (98-107); Estimated Creatinine Clearance 116 ml/min; Glucose 82 mg/dl (70-99); Magnesium 2.3 mg/dl (1.6-2.3); Potassium 3.5 mmol/L (3.5-5.1); Sodium 139 mmol/L (135-145); eGFR > 60.00
[2024-07-21] MEDS: OFIRMEV 100 IV (06:39)
[2024-07-21 06:44] LABS: Glucose - Point of Care 77 mg/dl (70-99)
[2024-07-21] MEDS: NOVOLOG FLEXPEN-MODERATE RESISTANCE SC ×4 (06:44→23:40)
--- NOTE | 2024-07-21 06:47 | PTCARENOTE ---
Pt's AM BG was 77. pt denies symptoms. pt is NPO. dayshift will be made aware of BG and asked to retest in 30 minutes. pt OOB to chair. NG tube contents were positive for blood via hemocult. will continue to monitor and pass on to dayshift.
--- NOTE | 2024-07-21 08:00 | PTCARENOTE ---
assumed care of pt from previous shift RN, pt sitting OOB in chair, AAOX4, appropriate, anxious at times, LANDON, sinus rhythm on tele w frequent ectopy, bp 130-140/80's, + peripheral pulses, trace edema to lower extremities noted. Lungs diminished,
pox 96% on 5L NC, weaned to 2L NC, coughing and deep breathing encouraged. Hypoactive BS noted, NGT to LIS w green drainage appreciated. Cooley catheter draining julian urine. Right IJ cordis w KVO infusing, PIV x2 to right arm leaking, removed.
Puncture site to right groin [employer], left groin a dressing intact, abd w annette [employer] without drainage. Pt denies pain. plan of care reviewed and questions encouraged. Emotional support provided.
--- NOTE | 2024-07-21 08:02 | W.PN.INTV ---
Today's Communication / Plan
Recommendations
Cont NPO and IVF - defer diet to surgery
Cont antibiotics
PPI BID
Early mobilization
Assessment
-
54 y/o male with PMHx GERD, current smoker, s/p appendectomy with no other known PMHx presented to the emergency department on 07/17/24 at night with approximately 5 days of ongoing abdominal pain, nausea, vomiting, diarrhea and excruciating back
pain. Work up revealed type B aortic dissection and possible small bowel ischemia. Upon evaluation by vascular team, patient's abdomen was soft and nontender but complains of pain. Easily palpable left lower extremity pulses. They could not
appreciate Doppler signal to the right lower extremity at any pulse sites. LA ordered and was 2.5. Dr. Cooley recommended emergency TEVAR immediately and discussed risk and benefits with the patient. General surgery was also consulted for concern of
visceral malperfusion. Dr. Linn spoke to patient about plan for exploratory laparotomy with possible bowel resection possible open abdomen following vascular surgery endovascular repair of his type B aortic dissection. Patient agreed to all of
the above. Post-op pulses palpated bilaterally now in the CVICU for further monitoring on multiple pressors and mechanical ventilation.
CPA: GERD, current smoker (unsure pack years at this time), s/p appendectomy
Impression:
#Type B aortic dissection
#Absent right lower extremity pulses
#Thoracic endovascular aortic repair using GORE Thoracic Branch Endoprosthesis device POD 3
#Possible pneumatosis of small bowel concerning for ischemia - exploratory laparotomy no signs of ischemia POD 3
#Post-op acute respiratory failure on mechanical vent ventilation intubated 07/18/2024 - extubated 07/19/2024
#Heme-occult (+) OG tube secretions - GI bleed?
#Severe changes of emphysema in both lungs
#Leukocytosis
#Hyponatremia
#Elevated LA
#Tobacco use
#Anxiety
#1.7 cm hypoattenuating upper pole left renal lesion
#Cholelithiasis with no acute cholecystitis
#Incomplete bundle branch block
Plan:
Neuro:
-Sedation on mechanical ventilation
-Weaned off 07/19/2024
-Alcohol use MSAS
-Agitated overnight and told nursing staff he drinks alcohol on a regular basis - in am denied alcohol use
-MSAS added
Respiratory:
-Post-op acute respiratory failure on mechanical ventilation intubated 07/18/2024 - extubated 07/19/2024
-Satting well on 4L O2
-Aspiration precautions
-Keep SpO2 >90-94%
-Nebs as needed
-Incentive spirometry
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
-Severe emphysema
-Noted on CT - Outpatient follow up
Cardiovascular:
-Type B aortic dissection
-Absent right lower extremity pulses-suspicion for hypoperfusion/end-organ damage.
-Thoracic endovascular aortic repair using GORE Thoracic Branch Endoprosthesis device POD 3
-Hypotension post-op unclear cause
-Bilateral lower extremity pulses post-op intact
-Received 2 units blood during operation
-Post-op episode of hypotension put on 4 pressors -> weaned off now stable
-Likely secondary to sedation as no other clear cause
-Keep MAP >75-90 per vascular surgery
-Echo study limited, but normal LV reported
-discontinue Hydrocortisone
-Cont plavix and rectal ASA
-2g ancef given pre-op
-Vascular surgery following
-Possible pneumatosis of small bowel concerning for ischemia - exploratory laparotomy ruled out POD 3
-exploratory laparotomy no signs of ischemia
-Cont NPO with NGT and bowel rest per surgery
-Pt had bowel movement this morning
-Defer diet to surgery
-Continue with zosyn
-Pain management
-General surgery cont following
GI:
-Possible pneumatosis of small bowel concerning for ischemia
-exploratory laparotomy no signs of ischemia - noted above
-GI bleed?
-Heme-occult (+) OG tube secretions, brown in color -> now bilious
-Protonix 40mg IV BID
-Monitor. No endoscopy at this time due to recent dissection per GI
-Hg 12.3->10.9 this am
-No signs of active bleed
-Monitor H&H
-GI following
Renal:
-Monitor Cr - currently stable
-Follow I&O
-Replace electrolytes as needed
-Keep K>4 and mg >2.5
-Incidental 1.7 L kidney upper pole lesion - follow up in outpatient
-Hyponatremia
-Likely in the setting of volume overload
-Monitor
ID:
-Leukocytosis
-N&V pre-admission suspicious for viral gastritis
-WBC wnl
-Remains afebrile
-N&V resolved
-Cont zosyn post-op ab surgery
-Cefazolin pre-op dissection repair
-Monitor temp and WBC
Hemeonc:
- DVT - lovenox
- Drop in hemoglobin
- 16.6 on admission today 10.9
- Multifactorial in setting of operation, dilution from IVF and possible GI bleed?
- Transfuse for hg <7
- Monitor H&H
- Transfuse ptl for <20 unless active bleed <50
Endocrine:
-No known hx DM or thyroid dz
-Monitor BG euglycemic goals 140-180
Diagnostic imaging:
Chest/Ab/pelvic CT 07/18/24: Thoracic and abdominal aortic dissection, Juice type B.
Dissection flap is along the anterior margin of the abdominal aorta, and appears to contribute to significant narrowing at the origins of the celiac artery and the SMA. Additionally, there is luminal irregularity in the proximal SMA, suggestive of a
small amount of thrombus, nonocclusive.
Dissection flap traverses the origin of the right common iliac artery, and appears to result in narrowing of caliber of the artery, although contrast enhancement extends beyond the dissection flap.
Tortuosity of the proximal left common iliac artery, but no evidence for dissection flap traversing the origin of the left common iliac artery.
Dilated air and fluid-filled small bowel loops with small bowel wall thickening. Possible pneumatosis involving the wall of small bowel loops. There is also thickening of the wall of the right side of the colon. These findings raise concern for
ischemia.
No evidence for free intraperitoneal air. No evidence for portal venous air.
Severe changes of emphysema within both lungs.
Focal parenchymal opacity within the posterior right lower lobe, predominantly linear morphology, most likely atelectasis based on morphology. Linear scarring within both lungs
Cholelithiasis. Mild distention of the gallbladder with no evidence for gallbladder wall thickening or pericholecystic edema. No evidence for biliary ductal dilation.
CT angiography 07/17/2024:
1. [place] type B thoracic aortic dissection. No involvement of the ascending thoracic aorta or great arch vessels.
2. Emphysema.
Ab/pelvis CT 07/17/24:
1. Partially visualized dissection of the lower thoracic aorta with dissection flap terminating just proximal to the celiac artery origin in the upper abdomen. Recommend dedicated CTA chest for complete evaluation.
2. Cholelithiasis.
3. A 1.7 cm hypoattenuating upper pole left renal lesion measures slightly higher than simple fluid and may represent a mildly proteinaceous/hemorrhagic cyst, although indeterminate. Recommend outpatient initial further workup with dedicated renal
ultrasound.
Subjective Dataa
Subjective Data
Date of Service:
Date of Service: July 21, 2024
Chief Complaint: Case Filler Follow Up
Review of Systems
General: Fever (n), Sweats (n), Chills (n) and Pain
Cardiopulmonary: Dyspnea (negative but on 4L O2), Cough (n), Wheezing (n) and Chest Pain (n)
GI: Abdominal Pain (at surgical sight ), Nausea, Vomiting (n), Diarrhea (n) and Tube Feeding
Neuro: Headache (n), Dizziness (n) and Numbness (n)
Genitourinary: Cooley
Objective Data
Data Reviewed
Vital Signs / I&O / Oxygen:
Vital Signs
Temp Pulse Resp BP Pulse Ox
98.5 F 84 19 134/77 95
07/21/24 00:00 07/21/24 06:45 07/21/24 06:45 07/21/24 06:00 07/21/24 06:10
Intake and Output
07/20/24 07/21/24 07/22/24
06:59 06:59 06:59
Intake Total 4264.8 / 4391.3 3054.3 / 3054.3
Output Total 2004 2625 / 2625
Balance 2259.8 / 2346.3 429.3 / 429.3
SaO2 [CPAP/PSV] 96
SaO2 [A/C] 97
SaO2 [SIMV] 97
SaO2 95
Nasal Cannula flow liters per 6
minute
Physical Exam
General: Comfortable
HEENT: Normocephalic
Cardiovascular: S1-S2, Regular Rhythm, Peripheral Edema (slight bilateral lower extremity edema ) and Other (Peripheral pulses intact )
Respiratory: Clear, Wheeze (n), Crackles (n) and Rhonchi (n)
GI: Soft, Non Distended, Tender (at surgical site ), NG Tube and Other (Decreased bowel sounds)
Neurology: AO x 3 and Other (Sedated )
Skin: Warm, Good Color and Cyanosis (n)
Labs/Micro/Reports
Lab Data
07/21/24 04:07
07/21/24 04:07
--- NOTE | 2024-07-21 08:34 | W.PN.HOSP.TC ---
Today's Communication/Plan
-
see A/P
Assessment / Plan
Assessment / Plan
HPI: 54-year-old with no known significant past medical history presented to the emergency department with approximately 5 days of ongoing abdominal symptoms.
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 He c/o crampy abdominal pain and reported melanotic appearing diarrhea.
In the emergency department, his CT angio was done showing a Juice type B thoracic aortic dissection. No involvement of the ascending thoracic aorta or great arch vessels. Vascular surgeon contacted by ED.
A/P:
# [place] B aortic dissection. No aneurysm. HD stable. No chest pain.
Follow up CT angio CAP confirmed Thoracic and abdominal aortic dissection, Juice type B.
s/p emergent Thoracic endovascular aortic repair by vascular with concurrent ex-lap by GS (eval for bowel ischemia which was ruled out)
Cont ASA and Plavix per vascular
off pressors norepinephrine, Yoni, vasopressin, epinephrine
Cont Abx ppx with Zosyn x5 days empirically
Extubated 07/19, cont O2 support at 4L NC and wean as tolerated
Cont NGT suction
Keep NPO until recovery of bowel function, IVF support while NPO
Possible TPN
GS on board
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
Hgb 16 on admission, to 10.9 today
Cont to monitor Hgb
Cont empiric Protonix IV BID
GI consulted, does not feel active GIB is cause of acute anemia
DVT PPX: Lovenox SQ
Code Status - Full Code
DW RN
called and updated brother on the phone
Anticipated Discharge: > 48 hours
Subjective/Interval History
-
Date of Service: July 21, 2024
Objective Data
-
Labs:
Laboratory Results
07/21/24
04:07
WBC 10.8
Hgb 10.9 L
Hct 33.1 L
Plt Count 123 L
Sodium 139
Potassium 3.5
Chloride 105
Carbon Dioxide 31 H
BUN 22 H
Creatinine 0.8
Glucose 82
Calcium 7.7 L
Vital Signs:
Vital Signs
Temp Pulse Resp BP Pulse Ox
36.9 C 84 19 134/77 95
07/21/24 00:00 07/21/24 06:45 07/21/24 06:45 07/21/24 06:00 07/21/24 06:10
I&O
07/20/24 07/21/24 07/22/24
06:59 06:59 06:59
Intake Total 4264.8 / 4391.3 3054.3 / 3054.3
Output Total 2004 2625 / 2625
Balance 2259.8 / 2346.3 429.3 / 429.3
Review of Systems
-
All other systems: Reviewed and negative
Physical Exam
-
General: Well Developed, Well Nourished, Comfortable and Conversant
HEENT: Normocephalic, Atraumatic, Nose Appears Normal, Ears Appear Normal and Oxygen (4L NC)
Respiratory: Clear to Auscultation and Non Labored Respirations; Negative Accessory Resp Muscle Use
Cardiac: Regular Rhythm and S1/S2
GI: Soft, Nondistended and Other (NGT on suction )
Genito-urinary: Cooley
Skin: Warm and Dry
Neuro: Awake and Alert
Psych: Calm
Data Reviewed
-
Labs: Labs Reviewed by me
[2024-07-21] MEDS: THIAMINE INJECTION 200 MG IV ×2 (08:35→20:00)
[2024-07-21] MEDS: KCL 100 IV (08:35)
[2024-07-21] MEDS: PROTONIX IV 40 MG IV ×2 (08:36→20:00)
[2024-07-21] MEDS: PLAVIX 75 MG TUBE (08:36)
[2024-07-21] MEDS: VITAMIN B1 100 MG PO ×2 (08:36→20:01)
[2024-07-21] MEDS: FOLVITE 1 MG PO (08:36)
[2024-07-21] MEDS: NSS (PRESERVATIVE FREE) 10 ML IV ×2 (08:36→20:00)
[2024-07-21] MEDS: LOW STRENGTH ASPIRIN 81 MG TUBE (08:36)
[2024-07-21] MEDS: LOPRESSOR 5 MG IV ×4 (08:56→23:43)
[2024-07-21] MEDS: NSS 1000 IV (08:57)
--- NOTE | 2024-07-21 09:33 | W.PN.VS ---
Addendum entered and electronically signed by Victorino Cooley III, MD 07/21/24 17:07:
This patient was seen and examined with KARLENE Sharpe. I agree with the history and physical exam as well as the assessment and plan.
Patient sitting up in chair
no specific complaints except that he wants to eat
Beta-neeta
Patient with likely ileus. Would initiate parenteral nutrition
Continue antiplatelet therapy
PT
Signed:
Victorino Cooley III, MD
[facility] Vascular Surgery
[phone] (cell)
Addendum entered and electronically signed by KARLENE Sharpe 07/21/24 10:46:
Additionally patient will need a repeat CT angio abdomen/pelvis prior to discharge to reevaluate stent graft and ensure successful intervention.
Original Note:
Today's Communication / Plan
-
Patient seen and examined at bedside with Dr. Victorino Cooley III, below plan reviewed with attending.
Assessment/Plan
-
POD 3 Thoracic endovascular aortic repair using GORE Thoracic Branch Endoprosthesis device
Introduce wire and catheter to aorta from right femoral artery access
Introduce wire and catheter to aorta from left femoral artery access
Introduce wire and catheter to aorta from left brachial artery access
Intravascular ultrasound to ascending aorta, aortic arch, thoracic aorta, abdominal aorta
Diagnostic aortogram of the ascending aorta, aortic arch and descending thoracic aorta
Diagnostic iliac arteriograms bilaterally
Ultrasound-Guided percutaneous access to the BILATERAL common femoral arteries
Ultrasound-Guided percutaneous access to the left brachial artery
Pro-glide closure of the right common femoral artery access
Plan:
-Protonix twice daily and NG tube per general surgery, suspect ileus given increased output
-Patient refused rectal aspirin switched aspirin to p.o.
-MAP goal 75-90, Lopressor IV every 6 added, cardiology consultation placed for aid in management of blood pressure and heart rate to establish care
-Suspect need for eventual TPN placed order for PICC line, can DC Cordis once PICC placed
-Replete electrolytes as needed
Subjective Data
-
Date of Service: July 21, 2024
Patient seen and examined at bedside, reports well-managed postoperative pain. Does endorse increased desire for p.o. intake particularly liquids, again provided patient education as to why we are keeping him n.p.o. denies nausea, vomiting, fever,
and chills.
Objective Data
-
Vital Signs
Temp Pulse Resp BP Pulse Ox
98.5 F 84 19 134/77 95
07/21/24 00:00 07/21/24 06:45 07/21/24 06:45 07/21/24 06:00 07/21/24 06:10
Intake and Output
07/20/24 07/21/24 07/22/24
06:59 06:59 06:59
Intake Total 4264.8 / 4391.3 3054.3 / 3054.3
Output Total 2004 / 2044 2625 / 2625
Balance 2259.8 / 2346.3 429.3 / 429.3
Intake:
Oral fluids 0 / 0
IV fluids (Total) 4204.8 / 4331.3 2499.3 / 2499.3
Epi 116.4 / 116.4
Fentanyl 157.5 / 157.5
Levo 667.7 / 675.2 11.3 / 11.3
Yoni 0 / 0
Nss 1,000 ml @ 100 mls/hr IV . 2650 / 2750 2400 / 2400
Q10H MARQUIS Rx#:[id number]
Propofol 75.7 / 75.7
Protonix 212.5 / 222.5 70 / 70
Vaso 225 / 234 18 / 18
Zosyn 100 / 100
IV piggybacks 475 / 475
Amount instilled into GI Tube ( 60 / 60 80 / 80
Total)
Douglas Sump 60 / 60 80 / 80
Output:
Gastrointestinal tube output ( 1150 / 1150 1350 / 1350
Total)
Douglas Sump 1150 / 1150 1350 / 1350
Urine, Cooley 855 / 895 1275 / 1275
Lab Results
07/21/24 04:07
07/21/24 04:07
Calcium 7.7 mg/dl (8.4-10.2) L 07/21/24 04:07
Magnesium 2.3 mg/dl (1.6-2.3) 07/21/24 04:07
Total Bilirubin 1.2 mg/dl (0.2-1.3) 07/19/24 02:58
Direct Bilirubin 0.8 mg/dl (0.0-0.4) H 07/19/24 02:58
AST 42 U/L (17-59) 07/19/24 02:58
ALT 38 U/L (0-50) 07/19/24 02:58
Alkaline Phosphatase 59 U/L (38-126) 07/19/24 02:58
Total Protein 4.5 g/dl (6.3-8.2) L 07/19/24 02:58
Albumin 2.3 g/dl (3.5-5.0) L 07/19/24 02:58
Physical Exam
-
AAOx3
No tachypnea on nasal cannula
No tachycardia
Abdomen mildly distended but soft, denies pain with palpation, NG tube output bilious
Surgical dressings clean, dry, intact, no drainage noted
Groin sites flat and soft
Bilateral feet warm, palpable DP and PT pulses bilaterally
--- NOTE | 2024-07-21 10:00 | PTCARENOTE ---
pt incont of large, liquid, maroon BM. Dr. Cooley and Dr. Erazo made aware. Afternoon labs ordered by Dr. Erazo. Cooley catheter removed as ordered.
--- NOTE | 2024-07-21 10:33 | W.PN.GS2 ---
Addendum entered and electronically signed by Bob Erazo MD 07/21/24 11:33:
Patient seen and examined with surgical ATM SERVICER. Agree with documented progress note.
Mr. Caro is sitting up in his chair at bedside.
No nausea
Passing occasional flatus and had a loose maroon stool shortly after our evaluation reported by nursing
Feels distended/bloated still
AFVSS
NAD AAOx3
ABD: Softly distended and still tympanitic. Mild tenderness on palpation. Midline incision with annette and clean. No drainage, no erythema. No open wounds.
A/P: POD #3 status post ex lap (at time of FEVAR with vascular for aortic dissection)
Continued high NG tube outputs and bilious likely reflective of ongoing edema
Maroon stool may be reflective of previous ischemic event -follow and repeat H&H in p.m.
Patient having PICC line placed -will start on TPN as uncertain when will have adequate GI recovery to initiate p.o. intake
Maintain NG tube decompression
Abdominal x-ray in a.m. tomorrow to assess postoperative bowel gas pattern and NG tube position
Original Note:
Today's Communication / Plan
-
PICC being placed for TPN
Continue with NGT
Assessment / Plan
-
54M POD 3 s/p FEVAR with Vascular Surgery and concurrent ex-lap for aortic dissection with concern for bowel ischemia, bowel noted to be viable intraoperatively
AF VSS
Extubated post op, OOB to chair today
Maroon stool today likely secondary to sloughing of mucosa from prior ischemic event; acute blood loss anemia present. Received one unit of blood on 07/18.
Ileus present, awaiting signs of GI recovery
Plan:
Maintain NG tube given degree of output and bilious nature
Continue IV fluid as per primary team
ABD XR in AM
Trend labs
Prolonged npo: will initiate TPN. Consult placed to electric cutter operator.
Continued IV PPI BID
Zosyn started perioperatively due to reversible bowel ischemia and risk for translocation -given operative findings okay to discontinue 72 hours postop from general surgical standpoint
Subjective Data
-
Date of Service: July 21, 2024
Patient seen and examined with Dr. Erazo. Patient notes he is hungry. Had a loose maroon stool today as per nursing staff. Denies nausea.
Objective Data
-
Intake and Output
07/20/24 07/21/24 07/22/24
06:59 06:59 06:59
Intake Total 4264.8 / 4391.3 3054.3 / 3054.3
Output Total 2004 2625 / 2625
Balance 2259.8 / 2346.3 429.3 / 429.3
Intake:
Oral fluids 0 / 0
IV fluids (Total) 4204.8 / 4331.3 2499.3 / 2499.3
Epi 116.4 / 116.4
Fentanyl 157.5 / 157.5
Levo 667.7 / 675.2 11.3 / 11.3
Yoni 0 / 0
Nss 1,000 ml @ 100 mls/hr IV . 2650 / 2750 2400 / 2400
Q10H MARQUIS Rx#:[id number]
Propofol 75.7 / 75.7
Protonix 212.5 / 222.5 70 / 70
Vaso 225 / 234 18 / 18
Zosyn 100 / 100
IV piggybacks 475 / 475
Amount instilled into GI Tube ( 60 / 60 80 / 80
Total)
Foard Sump 60 / 60 80 / 80
Output:
Gastrointestinal tube output ( 1150 / 1150 1350 / 1350
Total)
Foard Sump 1150 / 1150 1350 / 1350
Urine, Cooley 855 / 895 1275 / 1275
Vital Signs
Temp Pulse Resp BP Pulse Ox
99.6 F 84 16 134/77 96
07/21/24 08:00 07/21/24 06:45 07/21/24 08:00 07/21/24 06:00 07/21/24 08:00
Lab Results
07/21/24 04:07
07/21/24 04:07
Calcium 7.7 mg/dl (8.4-10.2) L 07/21/24 04:07
Magnesium 2.3 mg/dl (1.6-2.3) 07/21/24 04:07
Total Bilirubin 1.2 mg/dl (0.2-1.3) 07/19/24 02:58
Direct Bilirubin 0.8 mg/dl (0.0-0.4) H 07/19/24 02:58
AST 42 U/L (17-59) 07/19/24 02:58
ALT 38 U/L (0-50) 07/19/24 02:58
Alkaline Phosphatase 59 U/L (38-126) 07/19/24 02:58
Total Protein 4.5 g/dl (6.3-8.2) L 07/19/24 02:58
Albumin 2.3 g/dl (3.5-5.0) L 07/19/24 02:58
Physical Exam
-
NAD AAOx3
ABD: Soft, mild to mod distention, mild generalized tenderness, no rebound, no rigidity, no guarding.
Midline incision with intact staple line
NG tube in place with bilious contents in canister and tubing
[2024-07-21 11:42] LABS: Phosphorus 2.1 mg/dl (2.5-4.5); Triglycerides 76 mg/dl (10-149)
--- NOTE | 2024-07-21 12:24 | PTCARENOTE ---
DL PICC placed by VAT. Awaiting placement confirmation.
[2024-07-21 13:08] LABS: Glucose - Point of Care 72 mg/dl (70-99)
[2024-07-21] MEDS: DUONEB 3 ML INH (13:51)
[2024-07-21] MEDS: POTASSIUM PHOSPHATE 259.0909 MEQ IV (15:05)
[2024-07-21 15:32] LABS: Hematocrit 35.9 % (39.0-52.0); Hemoglobin 12.1 g/dL (13.0-18.0); Mean Corp Hgb Conc. 33.7 g/dL (33.0-37.0); Mean Corpuscular Hgb 31.2 pg (27.0-31.0); Mean Corpuscular Volume 92.5 fL (80.0-94.0); Mean Platelet Volume 8.6 fL (7.4-10.4); Platelet Count 128 10^3/uL (130-400); Red Blood Cell Count 3.88 10^6/uL (4.70-6.10); Red Cell Dist. Width 13.7 % (11.5-14.5); White Blood Cell Count 11.8 10^3/uL (4.8-10.8)
--- NOTE | 2024-07-21 16:16 | PTCARENOTE ---
PICC placement confirmed, cordis removed without incident.
--- NOTE | 2024-07-21 17:43 | CON.CAR ---
Addendum entered and electronically signed by Gavino Savage MD 07/21/24 18:54:
I saw and examined the patient.
The NEUROLOGICAL SURGEON's note was reviewed and I agree with the note.
Comment: 54-year-old male with no known prior medical history presented with acute abdominal pain and vomiting and melena found to have a [place] type B dissection. He is status post endovascular repair on 07/18/2024. Postoperative course was
complicated by hypotension requiring multiple vasopressors.Additionally currently ongoing concern for ileus with NG tube in place and maroon stool. General surgery is following. We are asked to consult so that we may begin to discharge plan.
Currently he is on IV metoprolol 5 mg Q6. On exam, he has a regular rate and rhythm with a normal S1-S2 no murmurs gallops were appreciated lungs clear to auscultation bilaterally abdomen is soft. NG tube is in place. He is alert and oriented x
3. Type B dissection status post endovascular repair. He will need aggressive blood pressure and heart rate control. Currently on IV beta-neeta. Would continue with IV medicine in the setting of an ileus as not sure he is absorbing much p.o.
currently. Eventually will transition to p.o. beta-neeta and additional agents to obtain normal attention and strict heart rate control. We will need to stress medical compliance. He should stop smoking his cigars. Activity restrictions should
be reviewed prior to discharge.
Will follow.
Original Note:
Consultation
Consultation Request
Date/Time Consultation Requested: 07/21/24943
Date/Time Consultation Performed: 07/21/24 1700
Requesting Provider: Charlene Jones NEUROLOGICAL SURGEON
Performing Provider: Annamarie SOLER for Dr. Savage
Reason for Consultation: aortic dissection
Medical History
-
Chief Complaint: abdominal symptoms
History of Present Illness:
54 y/o male with no previous known PMH, but did not follow with a medical provider in the past. He smokes cigars daily. He presented with abdominal pain, vomiting, diarrhea, melena. He was seen to have a Juice type B dissection and was taken to
the OR emergently on 07/18/24 (endovascular thoracic aortic repair). During that time, he also had an ex-lap for concern for ischemic bowel- findings included SB with proximal dilation and thickening, no necrosis, stomach and colon healthy and
viable. Post-op, he required multiple vasopressors, which have since been weaned off. GI has seen patient and recommended PPI and OP follow-up with monitoring of hgb. We are consulted for medical management and care establishment. He is in no
distress at the time of my assessment. He has an NGT in place and is NPO.
Past Medical History
Past Medical History: None (as above)
Social History
Tobacco: Smoker (cigar)
Family History
Family History: Reviewed & Not Pertinent (patient does not think there is cardiac medical history)
Allergies / Home Medications
Allergy/AdvReac Type Severity Reaction Status Date / Time
No Known Allergies Allergy Verified 07/17/24 14:01
�Medication �Instructions �Recorded �Confirmed �Type
calcium carbonate (Tums) 450 mg PO DAILYPRN PRN acid reflux 07/17/24 07/17/24 History
omeprazole 20 mg capsule,delayed 20 mg PO DAILYPRN PRN acid reflux 07/17/24 07/17/24 History
release
Review of Systems
-
History Source: Patient
All other systems: Negative unless noted
Abdomen/GI: Abdominal Pain, Nausea, Vomiting and Diarrhea
Physical Exam
Vital Signs
Temp Pulse Resp BP Pulse Ox
98.8 F 87 16 145/89 94
07/21/24 16:17 07/21/24 16:00 07/21/24 16:17 07/21/24 16:00 07/21/24 16:17
Lab Results
07/21/24 15:25
07/21/24 04:07
Troponin I 0.014 ng/ml 07/19/24 02:58
Physical Exam
General: Well Developed, Well Nourished and No Apparent Distress
HEENT: Normocephalic and Anicteric
Respiratory: Clear and Non Labored Respirations
Cardiac: Regular Rhythm
Musculoskeletal: No Edema
Skin: Warm and Dry
Neuro: AO x 3
Psych: Calm
Impression / Plan
-
Juice type B thoracic aortic dissection:
-this diagnosis is threat to life
-s/p endovascular thoracic aortic repair 07/18/24- vascular following. Also with ex-lap same day to assess for ischemic bowel (viable tissue noted).
-goal MAP is 75-90 currently per vascular note
-continue IV metoprolol and monitor HR/BP- can adjust meds as indicated as he recovers further
-on ASA/Plavix
Cigar use:
-recommend total cessation, which we reviewed
-emphysema noted on imaging- pulm f/u as OP
Data Reviewed
-
EKG: Tracing Personally Visualized and interpreted
CT Scan: Report Reviewed by me (CTA: Juice type B thoracic aortic dissection. No involvement of the ascending thoracic aorta or great arch vessels. 2. Emphysema.)
Medical Tests (Nuc Med, Echo etc): Report Reviewed by me (Echo 07/18/24: Technically difficult study-only able to image from the subcostal window. Normal left ventricular chamber size. Grossly normal left ventricular systolic function without
regional wall motion assessment. Normal right ventricular size and function Probably normal atria. Limited valve e)
Labs: Labs Reviewed by me
[2024-07-21] MEDS: LOVENOX 40 MG SC (17:55)
[2024-07-21 18:05] LABS: Glucose - Point of Care 72 mg/dl (70-99)
--- NOTE | 2024-07-21 20:30 | PTCARENOTE ---
Patient received resting in bed watching television. Patient A+A+Ox3. No neurological deficits noted. No c/o headache, dizziness or lightheadedness. TEVAR exercises - 5 strength on all TEVAR exercises. No deficits noted. Patient moves
extremities without difficulty - Strong stength. No c/o pain, discomfort, numbness or tingling. O2 at 4L via NC. SpO2 92%. Lungs diminished throughout lung logan. No adventitious breath sounds noted. Mild POWER noted. Sinus Rhythm with PVC's.
Heart rate 80-100. Blood pressure 159/87 (108). No c/o chest pain, pressure or discomfort. Abdomen round, soft, tender. Hypoactive bowel sounds. No BM. No c/o nausea. No vomiting. Patient continues with [place] nasogastric tube via right nare
- Low intermittent suction - Flushes without difficulty - Small amount of liquidity greenish, brown drainage. Voiding without difficulty - Zoey urine. Right D.L. PICC. 0.9% NSS IVF at 100 ml/hr. Abdominal incision with annette intact and open
to air. Right groin with puncture site intact. Left groin with dressing intact. Assessment as documented.
[2024-07-21] MEDS: Parenteral Nutrition, Central 990 IV (21:00)
--- NOTE | 2024-07-21 22:00 | PTCARENOTE ---
Patient resting in bed watching movie. No c/o pain or discomfort. TPN infusing per MD orders. Moving extremities without difficulty. Voiding without difficulty. Assessment as documented.
[2024-07-21 23:41] LABS: Glucose - Point of Care 97 mg/dl (70-99)
[2024-07-22] VITALS (13 sets, daily range): BP systolic 133–161; BP diastolic 72–93; BMI 24.8
--- NOTE | 2024-07-22 | PTCARENOTE ---
Patient A+A+Ox3. No neurological deficits noted. Patient rang call albert to go to bathroom. Patient assisted to bathroom with minimal assistance. Patient used rolling walker without difficulty. Patient with brownish, burgundy liquid stool mixed
with urine. Patient back to bed. Patient given CHG bath and linens changed. Assessment/Interventions as documented.
[2024-07-22] MEDS: NSS 1000 IV (01:40)
[2024-07-22] MEDS: LOPRESSOR 2.5 MG IV (01:58)
--- NOTE | 2024-07-22 02:15 | PTCARENOTE ---
Patient assisted to bathroom - Liquidity burgundy, brown stool mixed with urine. Patient back to bed. IV Lopressor 2.5 mg administered - Discussed patient's blood pressures with PA for CT Surgery, Niraj Moreau PA-C. Blood pressure 145/85
(105). Assessment/Interventions as documented.
[2024-07-22 05:23] LABS: Glucose - Point of Care 96 mg/dl (70-99)
[2024-07-22] MEDS: LOPRESSOR 5 MG IV ×4 (05:24→23:28)
[2024-07-22] MEDS: NOVOLOG FLEXPEN-MODERATE RESISTANCE SC ×4 (05:24→23:36)
[2024-07-22 05:44] LABS: Hematocrit 33.1 % (39.0-52.0); Hemoglobin 11.1 g/dL (13.0-18.0); Mean Corp Hgb Conc. 33.5 g/dL (33.0-37.0); Mean Corpuscular Hgb 30.5 pg (27.0-31.0); Mean Corpuscular Volume 90.9 fL (80.0-94.0); Platelet Count 125 10^3/uL (130-400); Red Blood Cell Count 3.64 10^6/uL (4.70-6.10); Red Cell Dist. Width 13.4 % (11.5-14.5)
[2024-07-22 06:07] LABS: Blood Urea Nitrogen 14 mg/dl (9-20); Calcium 7.4 mg/dl (8.4-10.2); Carbon Dioxide 33 mmol/L (22-30); Chloride 102 mmol/L (98-107); Estimated Creatinine Clearance > 125 ml/min; Glucose 113 mg/dl (70-99); Magnesium 2.1 mg/dl (1.6-2.3); Phosphorus 2.4 mg/dl (2.5-4.5); Potassium 3.2 mmol/L (3.5-5.1); Sodium 141 mmol/L (135-145); eGFR > 60.00
[2024-07-22] MEDS: POTASSIUM PHOSPHATE 259.0909 MEQ IV (06:59)
[2024-07-22] MEDS: DUONEB 3 ML INH (07:59)
--- NOTE | 2024-07-22 08:06 | W.PN.VS ---
Today's Communication / Plan
-
Patient seen and evaluated at chair side with Dr. Paty Negrete, below plan reviewed with attending.
Assessment/Plan
-
POD 4 Thoracic endovascular aortic repair using GORE Thoracic Branch Endoprosthesis device
Introduce wire and catheter to aorta from right femoral artery access
Introduce wire and catheter to aorta from left femoral artery access
Introduce wire and catheter to aorta from left brachial artery access
Intravascular ultrasound to ascending aorta, aortic arch, thoracic aorta, abdominal aorta
Diagnostic aortogram of the ascending aorta, aortic arch and descending thoracic aorta
Diagnostic iliac arteriograms bilaterally
Ultrasound-Guided percutaneous access to the BILATERAL common femoral arteries
Ultrasound-Guided percutaneous access to the left brachial artery
Pro-glide closure of the right common femoral artery access
Plan:
-Protonix twice daily for GI prophylaxis
-NG tube and TPN per general surgery, will defer to general surgery for electrolyte replacement
-Patient refused rectal aspirin switched aspirin to p.o.
-Appreciate cardiology recommendations for management of blood pressure and heart rate
-Continue to encourage incentive spirometer
-PT/OT
Subjective Data
-
Date of Service: July 22, 2024
Patient seen evaluated chair side, reports well-managed postoperative pain. Does endorse continued bloating but denies nausea and vomiting. Endorses that he was able to ambulate a few steps within his room yesterday. Provided encouragement on
continued recovery.
Objective Data
-
Vital Signs
Temp Pulse Resp BP Pulse Ox
99.2 F 87 16 160/90 92
07/22/24 00:40 07/22/24 07:30 07/22/24 02:00 07/22/24 05:24 07/22/24 02:00
Intake and Output
07/21/24 07/22/24 07/23/24
06:59 06:59 06:59
Intake Total 3054.3 / 3054.3 3139 / 3530 391 / 391
Output Total 2625 / 2625 2305 / 2305
Balance 429.3 / 429.3 834 / 1225 391 / 391
Intake:
Oral fluids 0 / 0
IV fluids (Total) 2499.3 / 2499.3 2200 / 2300 100 / 100
Levo 11.3 / 11.3
Nss 1,000 ml @ 100 mls/hr IV . 2400 / 2400 2200 / 2300 100 / 100
Q10H MARQUIS Rx#:[id number]
Protonix 70 / 70
Vaso 18 / 18
IV piggybacks 475 / 475 450 / 700 250 / 250
TPN/PPN 369 / 410 41 / 41
Amount instilled into GI Tube ( 80 / 80 120 / 120
Total)
Gary Sump 80 / 80 120 / 120
Output:
Gastrointestinal tube output ( 1350 / 1350 800 / 800
Total)
Gary Sump 1350 / 1350 800 / 800
Urine, Cooley 1275 / 1275 55 / 55
Urine, Voided 1450 / 1450
Other:
Number of approximated MODERATE 1
amounts of urine
Number of approximated LARGE 1
amounts of urine
Lab Results
07/22/24 05:10
07/22/24 05:10
Calcium 7.4 mg/dl (8.4-10.2) L 07/22/24 05:10
Phosphorus 2.4 mg/dl (2.5-4.5) L 07/22/24 05:10
Magnesium 2.1 mg/dl (1.6-2.3) 07/22/24 05:10
Total Bilirubin 1.2 mg/dl (0.2-1.3) 07/19/24 02:58
Direct Bilirubin 0.8 mg/dl (0.0-0.4) H 07/19/24 02:58
AST 42 U/L (17-59) 07/19/24 02:58
ALT 38 U/L (0-50) 07/19/24 02:58
Alkaline Phosphatase 59 U/L (38-126) 07/19/24 02:58
Total Protein 4.5 g/dl (6.3-8.2) L 07/19/24 02:58
Albumin 2.3 g/dl (3.5-5.0) L 07/19/24 02:58
Physical Exam
-
AAOx3
No tachypnea on nasal cannula
No tachycardia
Abdomen mildly distended, denies pain with palpation, NG tube output bilious
Abdomen surgical annette CDI and well-approximated, right groin puncture site dressing removed, puncture site CDI
Groin sites flat and soft
Bilateral feet warm, palpable DP and PT pulses bilaterally
[2024-07-22] MEDS: LOW STRENGTH ASPIRIN 81 MG TUBE (08:19)
[2024-07-22] MEDS: PLAVIX 75 MG TUBE (08:19)
[2024-07-22] MEDS: THIAMINE INJECTION 200 MG IV ×2 (08:19→20:15)
[2024-07-22] MEDS: PROTONIX IV 40 MG IV ×2 (08:19→20:15)
[2024-07-22] MEDS: VITAMIN B1 100 MG PO (08:19)
[2024-07-22] MEDS: FOLVITE 1 MG PO (08:19)
[2024-07-22] MEDS: NSS (PRESERVATIVE FREE) 10 ML IV ×2 (08:19→20:14)
--- NOTE | 2024-07-22 08:52 | W.PN.HOSP.TC ---
Today's Communication/Plan
-
see A/P
OK to downgrade to tele
Assessment / Plan
Assessment / Plan
HPI: 54-year-old with no known significant past medical history presented to the emergency department with approximately 5 days of ongoing abdominal symptoms.
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 He c/o crampy abdominal pain and reported melanotic appearing diarrhea.
In the emergency department, his CT angio was done showing a [place] type B thoracic aortic dissection. No involvement of the ascending thoracic aorta or great arch vessels. Vascular surgeon contacted by ED.
A/P:
# [place] B aortic dissection. No aneurysm. HD stable. No chest pain.
Follow up CT angio CAP confirmed Thoracic and abdominal aortic dissection, [place] type B.
s/p emergent Thoracic endovascular aortic repair by vascular with concurrent ex-lap by GS (eval for bowel ischemia which was ruled out)
Cont ASA and Plavix per vascular
off pressors norepinephrine, Yoni, vasopressin, epinephrine
s/p empiric post op Abx Zosyn for ppx x5 days
Extubated 07/19, cont O2 support at 4L NC and wean as tolerated
Cont NGT suction
Keep NPO until recovery of bowel function,
Initiated TPN 07/21
GS on board
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
Hgb 16 on admission, to 11.1 today
Cont to monitor Hgb
Cont empiric Protonix IV BID
GI consulted, does not feel active GIB is cause of acute anemia
DVT PPX: Lovenox SQ
Code Status - Full Code
DW RN
called and updated brother on the phone
Anticipated Discharge: > 48 hours
Subjective/Interval History
-
Date of Service: July 22, 2024
Objective Data
-
Labs:
Laboratory Results
07/22/24
05:10
WBC 12.0 H
Hgb 11.1 L
Hct 33.1 L
Plt Count 125 L
Sodium 141
Potassium 3.2 L
Chloride 102
Carbon Dioxide 33 H
BUN 14
Creatinine 0.6 L
Glucose 113 H
Calcium 7.4 L
Vital Signs:
Vital Signs
Temp Pulse Resp BP Pulse Ox
37.3 C 88 20 155/86 95
07/22/24 08:00 07/22/24 08:32 07/22/24 08:14 07/22/24 08:32 07/22/24 08:32
I&O
07/21/24 07/22/24 07/23/24
06:59 06:59 06:59
Intake Total 3054.3 / 3054.3 3139 / 3530 532 / 532
Output Total 2625 / 2625 2305 / 2305
Balance 429.3 / 429.3 834 / 1225 532 / 532
Review of Systems
-
All other systems: Reviewed and negative
Physical Exam
-
General: Well Developed, Well Nourished, Comfortable and Conversant
HEENT: Normocephalic, Atraumatic, Nose Appears Normal, Ears Appear Normal and Oxygen (4L NC)
Respiratory: Clear to Auscultation and Non Labored Respirations; Negative Accessory Resp Muscle Use
Cardiac: Regular Rhythm and S1/S2
GI: Soft, Nondistended and Other (NGT on suction )
Genito-urinary: Cooley
Skin: Warm and Dry
Neuro: Awake and Alert
Psych: Calm and Intact Judgement/Insight
Data Reviewed
-
Labs: Labs Reviewed by me
--- NOTE | 2024-07-22 09:28 | PTCARENOTE ---
assumed care of pt from previous shift RN, sinus rhythm on tele w HR 90's, frequent ectopy, + peripheral pulses, trace edema noted. Lungs diminished, pt w loose, harsh, frequent cough. Coughing and deep breathing encouraged. Mini neb tx administered
by RT. Pox 92% on 4L NC. + hypoactive BS, NGT to right nare w brown drainage. pt w loose, brown BM this am. Denies nausea. Pt voids independently, yellow urine. Right upper arm DL PICC w TPN and NSS infusing as ordered. bilateral groin sites
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 pt denies pain. plan of care reviewed and questions encouraged.
[2024-07-22 11:47] LABS: Glucose - Point of Care 119 mg/dl (70-99)
--- NOTE | 2024-07-22 12:15 | W.PN.INTV ---
Today's Communication / Plan
Recommendations
Replete electrolytes
NG tube in place per surgery
TPN
Blood pressure control with IV metoprolol per cardiology.
Follow hemoglobin
Analgesia
Eventual outpatient pulmonary follow-up regarding emphysema
Okay to transfer to telemetry from my perspective.
Critical care team will sign off if transfer out of the ICU
Assessment
-
54 y/o male with PMHx GERD, current smoker, s/p appendectomy with no other known PMHx presented to the emergency department on 07/17/24 at night with approximately 5 days of ongoing abdominal pain, nausea, vomiting, diarrhea and excruciating back
pain. Work up revealed type B aortic dissection and possible small bowel ischemia. Upon evaluation by vascular team, patient's abdomen was soft and nontender but complains of pain. Easily palpable left lower extremity pulses. They could not
appreciate Doppler signal to the right lower extremity at any pulse sites. LA ordered and was 2.5. Dr. Cooley recommended emergency TEVAR immediately and discussed risk and benefits with the patient. General surgery was also consulted for concern of
visceral malperfusion. Dr. Linn spoke to patient about plan for exploratory laparotomy with possible bowel resection possible open abdomen following vascular surgery endovascular repair of his type B aortic dissection. Patient agreed to all of
the above. Post-op pulses palpated bilaterally now in the CVICU for further monitoring on multiple pressors and mechanical ventilation.
CPA: GERD, current smoker (unsure pack years at this time), s/p appendectomy
Impression:
#Type B aortic dissection
#Absent right lower extremity pulses
#Thoracic endovascular aortic repair using GORE Thoracic Branch Endoprosthesis device POD 3
#Possible pneumatosis of small bowel concerning for ischemia - exploratory laparotomy no signs of ischemia POD 3
#Post-op acute respiratory failure on mechanical vent ventilation intubated 07/18/2024 - extubated 07/19/2024
#Heme-occult (+) OG tube secretions - GI bleed?
#Severe changes of emphysema in both lungs
#Leukocytosis
#Hyponatremia
#Elevated LA
#Tobacco use
#Anxiety
#1.7 cm hypoattenuating upper pole left renal lesion
#Cholelithiasis with no acute cholecystitis
#Incomplete bundle branch block
Plan:
Patient remains hypertensive despite IV beta-neeta
-
-Type B aortic dissection
-Absent right lower extremity pulses-suspicion for hypoperfusion/end-organ damage.
-Thoracic endovascular aortic repair using GORE Thoracic Branch Endoprosthesis device POD 4
-Status post postoperative shock: Resolved.
-Possible pneumatosis of small bowel concerning for ischemia - exploratory laparotomy ruled out POD 4
-exploratory laparotomy no signs of ischemia
-Cont NPO with NGT and bowel rest per surgery
-Pt had bowel movement 07/21/2024
-De for TPN
-Continue with zosyn empirically.
-Pain management
-General surgery cont following
Tight blood pressure and heart rate control. Hypertensive this morning for
On IV metoprolol [id number]
Cardiology following, will defer blood pressure management
Respiratory:
-Post-op acute respiratory failure on mechanical ventilation intubated 07/18/2024 - extubated 07/19/2024
-Satting well on 4L O2, wean off as able.
-Keep SpO2 >90-94%
-Nebs as needed
-Incentive spirometry
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
-Severe emphysema
-Noted on CT - Outpatient follow up recommended.
GI:
-Possible pneumatosis of small bowel concerning for ischemia
-exploratory laparotomy no signs of ischemia - noted above
-Drop in hemoglobin. Per GI no concern for active bleeding.
-Heme-occult (+) OG tube secretions, brown in color -> now bilious
-Protonix 40mg IV BID
-No signs of active bleed
-Monitor H&H
-GI following
Renal:
Hypokalemia. Repleted.
Follow closely
Renal function is normal
Now on TPN
Hemeonc:
Multifactorial anemia.
Mild thrombocytopenia-stable per
Continue to follow daily CBC
Endocrine:
-Monitor BG euglycemic goals 140-180
From my perspective okay to transfer to telemetry.
If transferred to telemetry critical care team will sign off. Please call pulmonary if any respiratory issues arise

Diagnostic imaging:
Chest/Ab/pelvic CT 07/18/24: Thoracic and abdominal aortic dissection, [place] type B.
Dissection flap is along the anterior margin of the abdominal aorta, and appears to contribute to significant narrowing at the origins of the celiac artery and the SMA. Additionally, there is luminal irregularity in the proximal SMA, suggestive of a
small amount of thrombus, nonocclusive.
Dissection flap traverses the origin of the right common iliac artery, and appears to result in narrowing of caliber of the artery, although contrast enhancement extends beyond the dissection flap.
Tortuosity of the proximal left common iliac artery, but no evidence for dissection flap traversing the origin of the left common iliac artery.
Dilated air and fluid-filled small bowel loops with small bowel wall thickening. Possible pneumatosis involving the wall of small bowel loops. There is also thickening of the wall of the right side of the colon. These findings raise concern for
ischemia.
No evidence for free intraperitoneal air. No evidence for portal venous air.
Severe changes of emphysema within both lungs.
Focal parenchymal opacity within the posterior right lower lobe, predominantly linear morphology, most likely atelectasis based on morphology. Linear scarring within both lungs
Cholelithiasis. Mild distention of the gallbladder with no evidence for gallbladder wall thickening or pericholecystic edema. No evidence for biliary ductal dilation.
CT angiography 07/17/2024:
1. [place] type B thoracic aortic dissection. No involvement of the ascending thoracic aorta or great arch vessels.
2. Emphysema.
Ab/pelvis CT 07/17/24:
1. Partially visualized dissection of the lower thoracic aorta with dissection flap terminating just proximal to the celiac artery origin in the upper abdomen. Recommend dedicated CTA chest for complete evaluation.
2. Cholelithiasis.
3. A 1.7 cm hypoattenuating upper pole left renal lesion measures slightly higher than simple fluid and may represent a mildly proteinaceous/hemorrhagic cyst, although indeterminate. Recommend outpatient initial further workup with dedicated renal
ultrasound.
Subjective Dataa
Subjective Data
Date of Service:
Date of Service: July 22, 2024
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
Subjective:
Abdominal pain is controlled
Denies nausea or vomiting
Denies any headache
Denies shortness of breath at rest
Review of Systems
Cardiopulmonary: Dyspnea (none at rest)
GI: Abdominal Pain (n) and Nausea (n)
Neuro: Headache (n)
Objective Data
Data Reviewed
Vital Signs / I&O / Oxygen:
Vital Signs
Temp Pulse Resp BP Pulse Ox
98.9 F 79 20 149/89 94
07/22/24 11:42 07/22/24 11:42 07/22/24 11:42 07/22/24 11:42 07/22/24 11:42
Intake and Output
07/21/24 07/22/24 07/23/24
06:59 06:59 06:59
Intake Total 3054.3 / 3054.3 3139 / 3530 673 / 673
Output Total 2625 / 2625 2305 / 2305
Balance 429.3 / 429.3 834 / 1225 673 / 673
SaO2 [CPAP/PSV] 96
SaO2 [A/C] 97
SaO2 [SIMV] 97
SaO2 94
Nasal Cannula flow liters per 4
minute
Physical Exam
General: Comfortable
HEENT: Normocephalic
Cardiovascular: S1-S2, Regular Rhythm, Peripheral Edema (slight bilateral lower extremity edema ) and Other (Peripheral pulses intact )
Respiratory: Clear, Wheeze (n), Crackles (n) and Rhonchi (n)
GI: Soft, Non Distended, Tender (at surgical site ), NG Tube and Other (Decreased bowel sounds)
Neurology: AO x 3 and Other (Sedated )
Skin: Warm, Good Color and Cyanosis (n)
Labs/Micro/Reports
Lab Data
07/22/24 05:10
07/22/24 05:10
--- NOTE | 2024-07-22 12:20 | W.PN.CD ---
Today's Communication / Plan
-
Start IV diltiazem drip. Still requires intensive monitoring for controlling his blood pressure and heart rate.
Impression / Plan
-
[place] type B thoracic aortic dissection:
-this diagnosis is threat to life
-s/p endovascular thoracic aortic repair 07/18/24- vascular following. Also with ex-lap same day to assess for ischemic bowel (viable tissue noted).
-goal MAP is 75-90 currently per vascular note
-We are still above that, heart rate is also in the 80s to 90s
-continue IV metoprolol and monitor HR/BP- can adjust meds as indicated as he recovers further
-Will add IV diltiazem drip to try to reach goal.
-on ASA/Plavix
Ileus: NG tube still in place, doubt he is absorbing much.
-Care per surgery/medicine
Cigar use:
-recommend total cessation, which we reviewed
-emphysema noted on imaging- pulm f/u as OP
Physical Exam
Vital Signs/Labs
Vital Signs
Temp Pulse Resp BP Pulse Ox
98.9 F 79 20 149/89 94
07/22/24 11:42 07/22/24 11:42 07/22/24 11:42 07/22/24 11:42 07/22/24 11:42
07/21/24 07/22/24 07/23/24
06:59 06:59 06:59
Actual Weight 85 kg 83 kg
07/22/24 05:10
07/22/24 05:10
PT 16.2 Sec (11.4-14.6) H 07/19/24 02:58
INR 1.27 07/19/24 02:58
APTT 34.7 Sec (23.4-35.0) 07/19/24 02:58
Magnesium 2.1 mg/dl (1.6-2.3) 07/22/24 05:10
Triglycerides 76 mg/dl (10-149) 07/21/24 04:07
LDL Cholesterol, Calc 62 mg/dl 07/18/24 04:14
VLDL Cholesterol, Calc 14 mg/dl (0-30) 07/18/24 04:14
HDL Cholesterol 28 mg/dl 07/18/24 04:14
TSH 1.06 uIU/ml (0.47-4.68) 07/19/24 08:39
Free T4 1.18 ng/dl (0.78-2.19) 07/19/24 08:39
Physical Exam
Constitutional: No acute distress
Cardiovascular: Rhythm & rate is regular, Pedal edema is absent, JVD pressure is normal and Systolic murmur absent
Respiratory: Respiratory effort normal, Lungs clear to auscul., Wheeze Absent, Crackles Absent and Rhonchi Absent
Neuro/Psych: AO x 3
Data Reviewed
-
Date of Service: July 22, 2024
Medical Decision Making: Review of Case with other Provider (Reviewed with Dr. Negrete and Dr. Mcallister the need for better blood pressure and heart rate control)
EKG: Other (Telemetry sinus rhythm)
[2024-07-22] MEDS: NSS IV (13:37)
[2024-07-22] MEDS: CARDIZEM 125 IV ×2 (13:39→22:36)
--- NOTE | 2024-07-22 13:56 | PTCARENOTE ---
VSS, sinus rhythm maintained on tele. pt w/o complaint. IVF discontinued as ordered. Cardizem initiated.
--- NOTE | 2024-07-22 15:35 | W.PN.GS2 ---
Addendum entered and electronically signed by Vikram Santiago MD 07/23/24 00:51:
I saw and examined the patient the morning of 07/22/24.
The TEAM ASSEMBLY LINE MACHINE OPERATOR's note was reviewed and I agree with the note.
Original Note:
Today's Communication / Plan
-
NGT/TPN
Tele transfer
Assessment / Plan
-
54M POD #4ex lap (at time of FEVAR with vascular for aortic dissection)
AF VSS
OOB to chair today
Received one unit of blood on 07/18
No further bloody stools
Ileus present, some signs of GI recovery but still quite distended
ABD XR looks well, NGT likely in duodenum
Plan:
Maintain NG tube given degree of distention
Trend labs
Prolonged npo: continue TPN. dietary following
Continued IV PPI BID
Following off ABX
OK for transfer to tele from GS standpoint
Subjective Data
-
Date of Service: July 22, 2024
Patient seen and examined at bedside. Has had some liquid brown stools. Passing some flatus with stools but not really passing flatus otherwise. Denies n/v.
Objective Data
-
Intake and Output
07/21/24 07/22/24 07/23/24
06:59 06:59 06:59
Intake Total 3054.3 / 3054.3 3139 / 3530 819 / 819
Output Total 2625 / 2625 2305 / 2305
Balance 429.3 / 429.3 834 / 1225 819 / 819
Intake:
Oral fluids 0 / 0
IV fluids (Total) 2499.3 / 2499.3 2200 / 2300 405 / 405
Cardizem 5 / 5
Levo 11.3 / 11.3
Nss 1,000 ml @ 100 mls/hr IV . 2400 / 2400 2200 / 2300 400 / 400
Q10H MARQUIS Rx#:[id number]
Protonix 70 / 70
Vaso 18 / 18
IV piggybacks 475 / 475 450 / 700 250 / 250
TPN/PPN 369 / 410 164 / 164
Amount instilled into GI Tube ( 80 / 80 120 / 120
Total)
Parker Sump 80 / 80 120 / 120
Output:
Gastrointestinal tube output ( 1350 / 1350 800 / 800
Total)
Parker Sump 1350 / 1350 800 / 800
Urine, Cooley 1275 / 1275 55 / 55
Urine, Voided 1450 / 1450
Other:
Number of approximated MODERATE 1
amounts of urine
Number of approximated LARGE 1 1
amounts of urine
How many times incontinent 1
MODERATE amount urine
Vital Signs
Temp Pulse Resp BP Pulse Ox
98.9 F 88 16 152/90 94
07/22/24 15:00 07/22/24 15:03 07/22/24 15:00 07/22/24 14:29 07/22/24 15:00
Lab Results
07/22/24 05:10
07/22/24 05:10
Calcium 7.4 mg/dl (8.4-10.2) L 07/22/24 05:10
Phosphorus 2.4 mg/dl (2.5-4.5) L 07/22/24 05:10
Magnesium 2.1 mg/dl (1.6-2.3) 07/22/24 05:10
Total Bilirubin 1.2 mg/dl (0.2-1.3) 07/19/24 02:58
Direct Bilirubin 0.8 mg/dl (0.0-0.4) H 07/19/24 02:58
AST 42 U/L (17-59) 07/19/24 02:58
ALT 38 U/L (0-50) 07/19/24 02:58
Alkaline Phosphatase 59 U/L (38-126) 07/19/24 02:58
Total Protein 4.5 g/dl (6.3-8.2) L 07/19/24 02:58
Albumin 2.3 g/dl (3.5-5.0) L 07/19/24 02:58
Physical Exam
-
NAD AAOx3
ABD: Soft, mod distention, mild generalized tenderness, no rebound, no rigidity, no guarding.
Midline incision with intact staple line
NG tube in place with bilious contents in canister and tubing
[2024-07-22] MEDS: CARDIZEM 15 MG IV (17:08)
[2024-07-22] MEDS: LOVENOX 40 MG SC (17:09)
[2024-07-22 17:14] LABS: Glucose - Point of Care 133 mg/dl (70-99)
--- NOTE | 2024-07-22 17:37 | PTCARENOTE ---
BP remains elevated, cardizem at [place], Dr. Savage made aware. Cardizem administered as ordered.
--- NOTE | 2024-07-22 19:30 | PTCARENOTE ---
assumed care of pt from previous RN. pt AAOx4. NSR per tele HR 90's, + pulses, trace edema noted. Lungs diminished, pt w loose, harsh, frequent cough. Pox 93% on 4L NC. + hypoactive BS, NGT to right nare w brown drainage. Pt voids independently,
yellow urine. RUE DL PICC w TPN and NSS infusing as ordered. bilateral groin sites intact, annette LUANNE to lower abd without drainage. plan of care reviewed and questions encouraged.
[2024-07-22] MEDS: VITAMIN B1 PO ×2 (20:15→20:37)
[2024-07-22] MEDS: Parenteral Nutrition, Central 990 IV (21:11)
[2024-07-22 23:27] LABS: Glucose - Point of Care 129 mg/dl (70-99)
--- NOTE | 2024-07-22 23:38 | PTCARENOTE ---
pt resting comfortably in bed, NSR per tele monitor, VSS, assessment remains unchanged
[2024-07-23] VITALS (13 sets, daily range): BP systolic 130–170; BP diastolic 80–103; BMI 23.9
--- NOTE | 2024-07-23 03:45 | PTCARENOTE ---
VSS, NSR per tele monitor, morning labs obtained, assessment remains unchanged
[2024-07-23 03:50] LABS: Hematocrit 34.1 % (39.0-52.0); Hemoglobin 11.3 g/dL (13.0-18.0); Mean Corp Hgb Conc. 33.1 g/dL (33.0-37.0); Mean Corpuscular Hgb 30.2 pg (27.0-31.0); Mean Corpuscular Volume 91.2 fL (80.0-94.0); Mean Platelet Volume 9.1 fL (7.4-10.4); Platelet Count 122 10^3/uL (130-400); Red Blood Cell Count 3.74 10^6/uL (4.70-6.10); Red Cell Dist. Width 13.2 % (11.5-14.5); White Blood Cell Count 13.1 10^3/uL (4.8-10.8)
[2024-07-23 04:04] LABS: Blood Urea Nitrogen 13 mg/dl (9-20); Calcium 7.6 mg/dl (8.4-10.2); Carbon Dioxide 32 mmol/L (22-30); Chloride 101 mmol/L (98-107); Estimated Creatinine Clearance > 125 ml/min; Glucose 129 mg/dl (70-99); Magnesium 2.1 mg/dl (1.6-2.3); Phosphorus 2.9 mg/dl (2.5-4.5); Potassium 3.1 mmol/L (3.5-5.1); Sodium 138 mmol/L (135-145); eGFR > 60.00
[2024-07-23] MEDS: KCL 270 MEQ IV (06:20)
[2024-07-23 06:21] LABS: Glucose - Point of Care 118 mg/dl (70-99)
[2024-07-23] MEDS: NOVOLOG FLEXPEN-MODERATE RESISTANCE SC ×4 (06:22→23:29)
[2024-07-23] MEDS: LOPRESSOR 5 MG IV ×2 (06:22→11:52)
--- NOTE | 2024-07-23 07:56 | W.PN.VS ---
Today's Communication / Plan
-
as above
Assessment/Plan
-
Plan:
-Patient needs strict impulse and BP control
-Protonix twice daily for GI prophylaxis
-NG tube and TPN per general surgery, will defer to general surgery for electrolyte replacement
-Patient refused rectal aspirin switched aspirin to p.o.
-Continue to encourage incentive spirometer
-PT/OT
Subjective Data
-
Date of Service: July 23, 2024
No acute events. Some abdominal soreness no worse than prior.
Objective Data
-
Vital Signs
Temp Pulse Resp BP Pulse Ox
98.9 F 81 18 152/86 92
07/23/24 03:00 07/23/24 07:00 07/23/24 03:00 07/23/24 06:22 07/23/24 06:18
Intake and Output
07/22/24 07/23/24 07/24/24
06:59 06:59 06:59
Intake Total 3139 / 3530 1083 / 1083
Output Total 2305 / 2305 1400 / 1400
Balance 834 / 1225 -317 / -317
Intake:
IV fluids (Total) 2200 / 2300 505 / 505
Cardizem 65 / 65
KVO 40 / 40
Nss 1,000 ml @ 100 mls/hr IV . 2200 / 2300 400 / 400
Q10H MARQUIS Rx#:[id number]
IV piggybacks 450 / 700 250 / 250
TPN/PPN 369 / 410 328 / 328
Amount instilled into GI Tube ( 120 / 120
Total)
Arroyo Sump 120 / 120
Output:
Gastrointestinal tube output ( 800 / 800 600 / 600
Total)
Arroyo Sump 800 / 800 600 / 600
Urine, Cooley 55 / 55
Urine, Voided 1450 / 1450 800 / 800
Other:
Number of approximated MODERATE 1 1 1
amounts of urine
Number of approximated LARGE 1 1
amounts of urine
How many times incontinent 1
MODERATE amount urine
Lab Results
07/23/24 03:38
07/23/24 03:38
Calcium 7.6 mg/dl (8.4-10.2) L 07/23/24 03:38
Phosphorus 2.9 mg/dl (2.5-4.5) 07/23/24 03:38
Magnesium 2.1 mg/dl (1.6-2.3) 07/23/24 03:38
Total Bilirubin 1.2 mg/dl (0.2-1.3) 07/19/24 02:58
Direct Bilirubin 0.8 mg/dl (0.0-0.4) H 07/19/24 02:58
AST 42 U/L (17-59) 07/19/24 02:58
ALT 38 U/L (0-50) 07/19/24 02:58
Alkaline Phosphatase 59 U/L (38-126) 07/19/24 02:58
Total Protein 4.5 g/dl (6.3-8.2) L 07/19/24 02:58
Albumin 2.3 g/dl (3.5-5.0) L 07/19/24 02:58
Physical Exam
-
AAOx3
Abdomen mildly distended, denies pain with palpation, NG tube output bilious
Abdomen surgical annette CDI and well-approximated, right groin c/d/i
Groin sites flat and soft
Bilateral feet warm, palpable DP and PT pulses bilaterally
[2024-07-23] MEDS: CARDIZEM 125 IV ×2 (08:00→16:27)
--- NOTE | 2024-07-23 08:30 | PTCARENOTE ---
Patient received from shift production associate RN; AAOx3, responds spontaneously to RN and follows commands: Pupils round, reactive, and equal; Neurovascular and neurological checks WNL; NSR with occasional PVC's and ST on monitor; VSS; SpO2 94-98% on 4L NC;
Lungs diminished throughout; POWER and coughing up yellow/white, thick, and frothy sputum; +2 DP and +1 PT pulses; Urinating in bathroom; Normoactive BS with frequent brown/green, liguid, and loose diarrhea; NGT secured 75 at right nare draining bile
drainage on -80 continuous suction; Right groin puncture site approximated and COIL BINDER - CDI, Left groin puncture approximated and LUANNE - CDI, Midline abdominal incision approximated with annette and LUANNE - CDI; Trace B/L LE edema; Right PICC line with
NSS, TPN, and Cardizem infusing - see nursing flowsheets for further details; See nursing documentation for further details.
[2024-07-23] MEDS: NSS (PRESERVATIVE FREE) 10 ML IV ×2 (09:15→20:02)
[2024-07-23] MEDS: FOLVITE 50.2 MG IV (09:15)
[2024-07-23] MEDS: LOW STRENGTH ASPIRIN 81 MG TUBE (09:15)
[2024-07-23] MEDS: PLAVIX 75 MG TUBE (09:15)
[2024-07-23] MEDS: PROTONIX IV 40 MG IV ×2 (09:15→20:02)
[2024-07-23] MEDS: THIAMINE INJECTION 100 MG IV (09:15)
[2024-07-23] MEDS: FOLVITE PO (09:16)
[2024-07-23] MEDS: VITAMIN B1 PO (09:16)
--- NOTE | 2024-07-23 09:25 | W.PN.HOSP.TC ---
Today's Communication/Plan
-
see A/P
Assessment / Plan
Assessment / Plan
HPI: 54-year-old with no known significant past medical history presented to the emergency department with approximately 5 days of ongoing abdominal symptoms.
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 He c/o crampy abdominal pain and reported melanotic appearing diarrhea.
In the emergency department, his CT angio was done showing a [place] type B thoracic aortic dissection. No involvement of the ascending thoracic aorta or great arch vessels. Vascular surgeon contacted by ED.
A/P:
# [place] B aortic dissection. No aneurysm. HD stable. No chest pain.
Follow up CT angio CAP confirmed Thoracic and abdominal aortic dissection, [place] type B.
s/p emergent Thoracic endovascular aortic repair by vascular with concurrent ex-lap by GS (eval for bowel ischemia which was ruled out)
Cont ASA and Plavix per vascular
off pressors norepinephrine, Yoni, vasopressin, epinephrine
s/p empiric post op Abx Zosyn for ppx x5 days
Extubated 07/19, cont O2 support at 4L NC and wean as tolerated
Cont NGT suction
Keep NPO until recovery of bowel function,
Initiated TPN 07/21
Started IV diltiazem drip 07/22 for better BP rate control in setting of aortic dissection.
GS on board
Card on board
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
Hgb 16 on admission, to 11.1 today
Cont to monitor Hgb
Cont empiric Protonix IV BID
GI consulted, does not feel active GIB is cause of acute anemia
DVT PPX: Lovenox SQ
Code Status - Full Code
DW RN
called and updated brother on the phone. He is requesting daily update
Anticipated Discharge: > 48 hours
Subjective/Interval History
-
Date of Service: July 23, 2024
Objective Data
-
Labs:
Laboratory Results
07/23/24
03:38
WBC 13.1 H
Hgb 11.3 L
Hct 34.1 L
Plt Count 122 L
Sodium 138
Potassium 3.1 L
Chloride 101
Carbon Dioxide 32 H
BUN 13
Creatinine 0.5 L
Glucose 129 H
Calcium 7.6 L
Vital Signs:
Vital Signs
Temp Pulse Resp BP Pulse Ox
36.7 C 81 16 152/86 94
07/23/24 09:01 07/23/24 07:00 07/23/24 09:01 07/23/24 06:22 07/23/24 09:01
I&O
07/22/24 07/23/24 07/24/24
06:59 06:59 06:59
Intake Total 3139 / 3530 1083 / 1083
Output Total 2305 / 2305 1400 / 1400
Balance 834 / 1225 -317 / -317
Review of Systems
-
All other systems: Reviewed and negative
Physical Exam
-
General: Well Developed, Well Nourished, Comfortable and Conversant
HEENT: Normocephalic, Atraumatic, Nose Appears Normal, Ears Appear Normal and Oxygen (4L NC)
Respiratory: Clear to Auscultation and Non Labored Respirations; Negative Accessory Resp Muscle Use
Cardiac: Regular Rhythm and S1/S2
GI: Soft, Nondistended and Other (NGT on suction )
Genito-urinary: Cooley
Skin: Warm and Dry
Neuro: Awake and Alert
Psych: Calm and Intact Judgement/Insight
Data Reviewed
-
Labs: Labs Reviewed by me
[2024-07-23 11:52] LABS: Glucose - Point of Care 118 mg/dl (70-99)
--- NOTE | 2024-07-23 13:00 | PTCARENOTE ---
NGT clamped at 0930 as per CUSTOMS BROKERAGE AGENT Jr orders - no signs or symptoms of N/V or intolerance at this point; Patient having frequent episodes of brown/green diarrhea in bathroom; Oxygen weaned to room air - SpO2 92-97%
--- NOTE | 2024-07-23 13:12 | W.PN.CD ---
Today's Communication / Plan
-
Dilt IV bolus now
hopefully will transition to po meds later today
Impression / Plan
-
[place] type B thoracic aortic dissection:
-this diagnosis is threat to life
-s/p endovascular thoracic aortic repair 07/18/24- vascular following. Also with ex-lap same day to assess for ischemic bowel (viable tissue noted).
-goal MAP is 75-90 currently per vascular note
-We are still above that, heart rate is also in the 80s to 90s
-continue IV metoprolol and monitor HR/BP- can adjust meds as indicated as he recovers further
-Continue IV diltiazem drip to try to reach goal---will give an additional bolus now
-hopefully will be tolerating po this afternoon and will transition meds to po.
-on ASA/Plavix
Ileus: NG tube still in place, doubt he is absorbing much.
-+BM today and NGT clamped
-Care per surgery/medicine
Cigar use:
-recommend total cessation, which we reviewed
-emphysema noted on imaging- pulm f/u as OP
Subjective:
He is without complaint.
Physical Exam
Vital Signs/Labs
Vital Signs
Temp Pulse Resp BP Pulse Ox
99.0 F 78 17 144/82 92
07/23/24 11:52 07/23/24 12:00 07/23/24 11:52 07/23/24 11:51 07/23/24 13:00
07/22/24 07/23/24 07/24/24
06:59 06:59 06:59
Actual Weight 83 kg 80 kg
07/23/24 03:38
07/23/24 03:38
PT 16.2 Sec (11.4-14.6) H 07/19/24 02:58
INR 1.27 07/19/24 02:58
APTT 34.7 Sec (23.4-35.0) 07/19/24 02:58
Magnesium 2.1 mg/dl (1.6-2.3) 07/23/24 03:38
Triglycerides 76 mg/dl (10-149) 07/21/24 04:07
LDL Cholesterol, Calc 62 mg/dl 07/18/24 04:14
VLDL Cholesterol, Calc 14 mg/dl (0-30) 07/18/24 04:14
HDL Cholesterol 28 mg/dl 07/18/24 04:14
TSH 1.06 uIU/ml (0.47-4.68) 07/19/24 08:39
Free T4 1.18 ng/dl (0.78-2.19) 07/19/24 08:39
Physical Exam
Constitutional: No acute distress
Cardiovascular: Rhythm & rate is regular, Pedal edema is absent, JVD pressure is normal, Systolic murmur absent and Diastolic murmur absent
Respiratory: Respiratory effort normal, Lungs clear to auscul., Wheeze Absent, Crackles Absent and Rhonchi Absent
Neuro/Psych: AO x 3
Data Reviewed
-
Date of Service: July 23, 2024
Medical Decision Making: Review of Case with other Provider (D/w Dr Mcallister re add't dilt, CCN Colby re approach to bp control)
EKG: Other (NSR)
[2024-07-23] MEDS: CARDIZEM 15 MG IV (14:56)
--- NOTE | 2024-07-23 16:10 | W.PN.GS2 ---
Addendum entered and electronically signed by Vikram Santiago MD 07/23/24 19:03:
I saw and examined the patient.
The DRILLING FIELD OPERATOR's note was reviewed and I agree with the note.
Original Note:
Today's Communication / Plan
-
Remove NGT/Trial of clears
Continue TPN
Assessment / Plan
-
54M POD #5 ex lap (at time of FEVAR with vascular for aortic dissection)
AF VSS
OOB to chair and ambulating to bathroom
H/H stable, mild leukocytosis persists
Hypokalemia: replaced
Passing flatus and nonbloody stools, no further nausea.
Clamped NGT around 8 am during initial exam, did well with it clamped without worsening abdominal symptoms
Plan:
NGT removed at bedside
Trial of clears
Trend labs
Continue TPN for now. dietary following
Continued IV PPI BID
Following off ABX
For transfer to tele
Subjective Data
-
Date of Service: July 23, 2024
Patient seen and examined at bedside with Dr. Santiago. Passing some flatus and loose green stools. No further hematochezia noted by patient or staff. Minimal abdominal discomfort. Denies n/v.
Objective Data
-
Intake and Output
07/22/24 07/23/24 07/24/24
06:59 06:59 06:59
Intake Total 3139 / 3530 1083 / 1083 717 / 717
Output Total 2305 / 2305 1400 / 1400 100 / 100
Balance 834 / 1225 -317 / -317 617 / 617
Intake:
IV fluids (Total) 2200 / 2300 505 / 505 435 / 435
Cardizem 65 / 65 75 / 75
Folic Acid 50 / 50
KVO 40 / 40 40 / 40
Nss 1,000 ml @ 100 mls/hr IV . 2200 / 2300 400 / 400
Q10H [facility] Rx#:[id number]
Potassium Chloride 270 / 270
IV piggybacks 450 / 700 250 / 250 22 / 22
TPN/PPN 369 / 410 328 / 328 205 / 205
Amount instilled into GI Tube ( 120 / 120 / 55
Total)
[place] Sump 120 / 120 55 / 55
Output:
Gastrointestinal tube output ( 800 / 800 600 / 600 100 / 100
Total)
[place] Sump 800 / 800 600 / 600 100 / 100
Urine, Cooley
Urine, Voided 1450 / 1450 800 / 800
Other:
Number of approximated SMALL 1
amounts of urine
Number of approximated MODERATE 1 1 1
amounts of urine
Number of approximated LARGE 1 1
amounts of urine
How many times incontinent 1
MODERATE amount urine
Vital Signs
Temp Pulse Resp BP Pulse Ox
98.4 F 88 18 131/103 95
07/23/24 15:44 07/23/24 15:21 07/23/24 15:20 07/23/24 15:21 07/23/24 15:20
Lab Results
07/23/24 03:38
07/23/24 03:38
Calcium 7.6 mg/dl (8.4-10.2) L 07/23/24 03:38
Phosphorus 2.9 mg/dl (2.5-4.5) 07/23/24 03:38
Magnesium 2.1 mg/dl (1.6-2.3) 07/23/24 03:38
Total Bilirubin 1.2 mg/dl (0.2-1.3) 07/19/24 02:58
Direct Bilirubin 0.8 mg/dl (0.0-0.4) H 07/19/24 02:58
AST 42 U/L (17-59) 07/19/24 02:58
ALT 38 U/L (0-50) 07/19/24 02:58
Alkaline Phosphatase 59 U/L (38-126) 07/19/24 02:58
Total Protein 4.5 g/dl (6.3-8.2) L 07/19/24 02:58
Albumin 2.3 g/dl (3.5-5.0) L 07/19/24 02:58
Physical Exam
-
NAD AAOx3
ABD: Soft, mod distention, mild generalized tenderness, no rebound, no rigidity, no guarding.
Midline incision with intact staple line
NG tube in place with bilious contents in canister and tubing
[2024-07-23] MEDS: LOPRESSOR 25 MG PO ×3 (16:27→23:22)
--- NOTE | 2024-07-23 16:51 | PTCARENOTE ---
Patient passed NGT clamp trial - no need to check residual drainage as per surgical team; NGT removed by RN; TPN remains until patient able to tolerate PO solid foods - tolerating clear liquids without difficulty; IV Cardizem 15 mg bolus given for
BP since it is unchanged by IV Cardizem gtt; IV Cardizem gtt to remain until 1900 - patient starting PO Lopressor and Cardizem as per MD Savage.
[2024-07-23] MEDS: LOVENOX 40 MG SC (17:30)
[2024-07-23] MEDS: CARDIZEM 90 MG PO ×2 (17:30→21:25)
[2024-07-23 17:34] LABS: Glucose - Point of Care 118 mg/dl (70-99)
--- NOTE | 2024-07-23 19:15 | PTCARENOTE ---
assumed care of pt from previous RN. pt AAOx4. NSR per tele HR 90's, + pulses, trace edema noted. Lungs diminished, pt w frequent productive cough. Pox 93% on 1L NC. + BS. Pt voids independently, yellow urine. RUE DL PICC w TPN infusing as ordered.
bilateral groin sites intact, annette LUANNE to lower abd without drainage. plan of care reviewed and questions encouraged.
[2024-07-23] MEDS: VITAMIN B1 100 MG PO (20:01)
[2024-07-23] MEDS: Parenteral Nutrition, Central 1390 IV (20:49)
[2024-07-23 23:30] LABS: Glucose - Point of Care 140 mg/dl (70-99)
--- NOTE | 2024-07-23 23:38 | PTCARENOTE ---
VSS, NSR per tele monitor HR 80-90s, assessment remains unchanged
[2024-07-24] VITALS (17 sets, daily range): BP systolic 126–173; BP diastolic 80–113; PULSE 90; O2SAT 88; BMI 23.6
[2024-07-24 03:32] LABS: Hematocrit 35.2 % (39.0-52.0); Hemoglobin 11.8 g/dL (13.0-18.0); Mean Corp Hgb Conc. 33.5 g/dL (33.0-37.0); Mean Corpuscular Hgb 29.9 pg (27.0-31.0); Mean Corpuscular Volume 89.3 fL (80.0-94.0); Mean Platelet Volume 9.4 fL (7.4-10.4); Platelet Count 142 10^3/uL (130-400); Red Blood Cell Count 3.94 10^6/uL (4.70-6.10); Red Cell Dist. Width 13.2 % (11.5-14.5); White Blood Cell Count 14.9 10^3/uL (4.8-10.8)
--- NOTE | 2024-07-24 03:33 | PTCARENOTE ---
VSS, NSR w/ PVCs per tele monitor, routine labs obtained, assessment remains unchanged.
[2024-07-24 03:55] LABS: ALT (SGPT) 20 U/L (0-50); AST (SGOT) 22 U/L (17-59); Albumin 2.7 g/dl (3.5-5.0); Alkaline Phosphatase 79 U/L (38-126); Blood Urea Nitrogen 16 mg/dl (9-20); Calcium 7.7 mg/dl (8.4-10.2); Carbon Dioxide 31 mmol/L (22-30); Chloride 100 mmol/L (98-107); Estimated Creatinine Clearance > 125 ml/min; Glucose 127 mg/dl (70-99); Magnesium 2.1 mg/dl (1.6-2.3); Phosphorus 3.1 mg/dl (2.5-4.5); Potassium 3.5 mmol/L (3.5-5.1); Sodium 137 mmol/L (135-145); Total Bilirubin 0.6 mg/dl (0.2-1.3); Total Protein 5.3 g/dl (6.3-8.2); Triglycerides 117 mg/dl (10-149); eGFR > 60.00
[2024-07-24] MEDS: KCL 40 MEQ PO (06:15)
[2024-07-24] MEDS: LOPRESSOR 25 MG PO (06:15)
[2024-07-24] MEDS: NOVOLOG FLEXPEN-MODERATE RESISTANCE SC ×3 (06:23→17:12)
[2024-07-24 06:24] LABS: Glucose - Point of Care 135 mg/dl (70-99)
--- NOTE | 2024-07-24 08:13 | W.PN.CD ---
Today's Communication / Plan
-
Increase metop to 50 mg q6hrs
Cont to monitor HR and BP
Impression / Plan
-
Juice type B thoracic aortic dissection:
-this diagnosis is threat to life
-s/p endovascular thoracic aortic repair 07/18/24- vascular following. Also with ex-lap same day to assess for ischemic bowel (viable tissue noted).
-goal MAP is 75-90 currently per vascular note
-We are still above that, heart rate is also in the 80s to 90s
-Now on Dilt 90 qid and metop 25 mg q6hr, will increase metop to metop 50 q6hrs
-on ASA/Plavix
Ileus: NG tube still in place, doubt he is absorbing much.
-+BM today and NGT clamped
-Care per surgery/medicine
Cigar use:
-recommend total cessation, which we reviewed
-emphysema noted on imaging- pulm f/u as OP
Subjective:
He has no new complaints todya
Physical Exam
Vital Signs/Labs
Vital Signs
Temp Pulse Resp BP Pulse Ox
97.9 F 90 20 141/90 96
07/24/24 07:59 07/24/24 08:00 07/24/24 07:59 07/24/24 08:00 07/24/24 07:59
07/23/24 07/24/24 07/25/24
06:59 06:59 06:59
Actual Weight 176 lb 5.917 oz 174 lb 2.643 oz
07/24/24 03:23
07/24/24 03:23
PT 16.2 Sec (11.4-14.6) H 07/19/24 02:58
INR 1.27 07/19/24 02:58
APTT 34.7 Sec (23.4-35.0) 07/19/24 02:58
Magnesium 2.1 mg/dl (1.6-2.3) 07/24/24 03:23
Triglycerides 117 mg/dl (10-149) 07/24/24 03:23
LDL Cholesterol, Calc 62 mg/dl 07/18/24 04:14
VLDL Cholesterol, Calc 14 mg/dl (0-30) 07/18/24 04:14
HDL Cholesterol 28 mg/dl 07/18/24 04:14
TSH 1.06 uIU/ml (0.47-4.68) 07/19/24 08:39
Free T4 1.18 ng/dl (0.78-2.19) 07/19/24 08:39
Physical Exam
Constitutional: No acute distress
EENT: Anicteric
Cardiovascular: Rhythm & rate is regular and Pedal edema is absent
Respiratory: Respiratory effort normal and Lungs clear to auscul.
GI: Soft
Neuro/Psych: AO x 3
Data Reviewed
-
Date of Service: July 24, 2024
EKG: Tracing Personally Visualized and interpreted (sr)
Echo: Report Reviewed by me
Labs: Labs Reviewed by me
[2024-07-24] MEDS: PROTONIX IV 40 MG IV (08:20)
[2024-07-24] MEDS: PLAVIX 75 MG PO (08:21)
[2024-07-24] MEDS: LOW STRENGTH ASPIRIN 81 MG PO (08:21)
[2024-07-24] MEDS: NSS (PRESERVATIVE FREE) 10 ML IV (08:21)
[2024-07-24] MEDS: VITAMIN B1 100 MG PO ×2 (08:21→19:47)
[2024-07-24] MEDS: FOLVITE 1 MG PO (08:21)
[2024-07-24] MEDS: CARDIZEM 90 MG PO ×4 (08:21→21:11)
--- NOTE | 2024-07-24 08:30 | PTCARENOTE ---
Patient received from cage shift manager RN; AAOx3, responds spontaneously to RN and follows commands: Pupils round, reactive, and equal; Neurovascular and neurological checks WNL; NSR with occasional PVC's and ST on monitor; VSS; SpO2 92-95% on RA; Lungs
diminished with slight expiratory wheezing throughout; POWER and coughing up yellow/white, thick, and frothy sputum; +2 DP and +1 PT pulses; Urinating in bathroom; Normoactive BS with frequent brown, green diarrhea; Right groin puncture site
approximated and TECHNOLOGY SALES SPECIALIST - CDI, Left groin puncture approximated and LUANNE - CDI, Midline abdominal incision approximated with annette and LUANNE - CDI; Trace B/L LE edema; Right PICC line with TPN infusing; See nursing documentation for further details.
--- NOTE | 2024-07-24 09:42 | W.PN.GS2 ---
Today's Communication / Plan
-
Regular diet
Assessment / Plan
-
54M POD #6 ex lap (at time of FEVAR with vascular for aortic dissection)
AF VSS
OOB to chair and ambulating to bathroom
H/H stable, leukocytosis persists
Passing flatus and nonbloody stools. NGT out on 07/23. Tolerating clears
Plan:
Advance to regular diet
Complete current bag of TPN then discontinue
Change PPI to PO
For transfer to tele
Subjective Data
-
Date of Service: July 24, 2024
Patient seen and examined at bedside with Dr. Gann. Overall, he feels he is doing much better. Passing flatus and stools. Denies n/v. tolerating clear liquids. Not much pain/discomfort at incision site.
Objective Data
-
Intake and Output
07/23/24 07/24/24 07/25/24
06:59 06:59 06:59
Intake Total 1083 / 1083 1468 / 1468
Output Total 1400 / 1400 500 / 500
Balance -317 / -317 968 / 968
Intake:
IV fluids (Total) 505 / 505 585 / 585
Cardizem 65 / 65 165 / 165
Folic Acid 50 / 50
KVO 40 / 40 100 / 100
Nss 1,000 ml @ 100 mls/hr IV . 400 / 400
Q10H [facility] Rx#:[id number]
Potassium Chloride 270 / 270
IV piggybacks 250 / 250 22 /
TPN/PPN 328 / 328 806 / 806 58 58
Amount instilled into GI Tube ( 55 / 55
Total)
[place] Sump 55 / 55
Output:
Gastrointestinal tube output ( 600 / 600 100 / 100
Total)
[place] Sump 600 / 600 100 / 100
Urine, Voided 800 / 800 400 / 400
Other:
Number of approximated SMALL 1
amounts of urine
Number of approximated MODERATE 1 2
amounts of urine
Number of approximated LARGE 1
amounts of urine
How many times incontinent 1
MODERATE amount urine
Vital Signs
Temp Pulse Resp BP Pulse Ox
97.9 F 90 20 141/90 92
07/24/24 07:59 07/24/24 08:00 07/24/24 07:59 07/24/24 08:00 07/24/24 08:20
Lab Results
07/24/24 03:23
07/24/24 03:23
Calcium 7.7 mg/dl (8.4-10.2) L 07/24/24 03:23
Phosphorus 3.1 mg/dl (2.5-4.5) 07/24/24 03:23
Magnesium 2.1 mg/dl (1.6-2.3) 07/24/24 03:23
Total Bilirubin 0.6 mg/dl (0.2-1.3) 07/24/24 03:23
Direct Bilirubin 0.8 mg/dl (0.0-0.4) H 07/19/24 02:58
AST 22 U/L (17-59) 07/24/24 03:23
ALT 20 U/L (0-50) 07/24/24 03:23
Alkaline Phosphatase 79 U/L (38-126) 07/24/24 03:23
Total Protein 5.3 g/dl (6.3-8.2) L 07/24/24 03:23
Albumin 2.7 g/dl (3.5-5.0) L 07/24/24 03:23
Physical Exam
-
NAD AAOx3
ABD: Soft, ND, NT, no rebound, no rigidity, no guarding.
Midline incision with intact staple line
--- NOTE | 2024-07-24 09:52 | W.PN.HOSP.TC ---
Today's Communication/Plan
-
inhaled corticosteroids
continue BP meds
finish TPN tonight as regular diet starts today
Assessment / Plan
Assessment / Plan
HPI: 54-year-old with no known significant past medical history presented to the emergency department with approximately 5 days of ongoing abdominal symptoms.
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 He c/o crampy abdominal pain and reported melanotic appearing diarrhea.
In the emergency department, his CT angio was done showing a Juice type B thoracic aortic dissection. No involvement of the ascending thoracic aorta or great arch vessels. Vascular surgeon contacted by ED.
Assessment:
[place] B aortic dissection. No aneurysm. HD stable. No chest pain.
- s/p CT Angio confirming thoracic/abdominal aortic dissection, Juice type B.
- life threatening diagnosis
- s/p emergent thoracic endovascular aortic repair on 07/18
- Also had concurrently ex-lap for concern of bowel ischemic (no necrosis, viable SB/colon seen)
- s/p 5 day empiric Zosyn course
- continue ASA/Plavix per Vascular surgery
- s/p NGT; now advanced to reg diet
- continue TPN through this evening; via PICC
- for BP control; s/p Cardizem drip, now on PO Cardizem and Metoprolol; Cardiology following
Anemia, multi-factorial from acute blood loss from operations, dilution from IVF
- monitor Hb
- GI evaluated; no concern for active GI bleed
- continue PPI
Chronic SOB
Exposure to asbestos/acetone per patient
- prn nebs
- start Budesonide BID; convert to inhaler at DC
- OP Pulm referral
DVT ppx: Lovenox
Code: Full
Dispo: transfer to tele
Anticipated Discharge: > 48 hours
Subjective/Interval History
-
Date of Service: July 24, 2024
reports some SOB, wheezing last evening
no chest pain or fevers
reports prior history of exposure to asbestos, acetone through work, also prior smoker
Objective Data
-
Labs:
Laboratory Results
07/24/24
03:23
WBC 14.9 H
Hgb 11.8 L
Hct 35.2 L
Plt Count 142
Sodium 137
Potassium 3.5
Chloride 100
Carbon Dioxide 31 H
BUN 16
Creatinine 0.5 L
Glucose 127 H
Calcium 7.7 L
Total Bilirubin 0.6
AST 22
ALT 20
Alkaline Phosphatase 79
Vital Signs:
Vital Signs
Temp Pulse Resp BP Pulse Ox
97.9 F 90 20 141/90 92
07/24/24 07:59 07/24/24 08:00 07/24/24 07:59 07/24/24 08:00 07/24/24 08:20
I&O
07/23/24 07/24/24 07/25/24
06:59 06:59 06:59
Intake Total 1083 / 1083 1468 / 1468 58
Output Total 1400 / 1400 500 / 500
Balance -317 / -317 968 / 968
Physical Exam
-
General: No Apparent Distress
HEENT: Normocephalic and Atraumatic
Respiratory: Wheezes (L sided) and Decreased Breath Sounds
Cardiac: Regular Rhythm and S1/S2
GI: Soft and Nontender
Genito-urinary: No Costovertebral Tender
Neuro: AO x 3
Hematologic / Lymphatic: No Lymphadenopathy
Psych: Calm
Data Reviewed
-
Total Time Spent with Patient (in minutes): 42
Labs: Labs Reviewed by me
--- NOTE | 2024-07-24 10:37 | W.PN.VS ---
Addendum entered and electronically signed by Victorino Cooley III, MD 07/24/24 18:06:
This patient was seen and examined with KARLENE Sharpe. I agree with the history and physical exam as well as the assessment and plan.
Looks good
No complaints
Bowel function returning
Midline abdominal incision clean and dry
Would like to obtain postoperative CT angiogram of the chest abdomen pelvis today
Needs to be optimized from a heart rate and blood pressure perspective
Continue antiplatelet therapy
Signed:
Victorino Cooley III, MD
[facility]
[phone] ([phone])
Addendum entered and electronically signed by KARLENE Sharpe 07/24/24 10:53:
Repeat CT Angio chest/ABD/pelvis to eval TEVAR placement.
Original Note:
Today's Communication / Plan
-
Patient seen and examined at bedside with Dr. Victorino Cooley III below plan reviewed with attending.
Assessment/Plan
-
Plan:
-Patient needs strict impulse and BP control, appreciate cardiology recommendations
-Protonix for GI prophylaxis
-TPN and PO status per general surgery
-Continue DAPT (Plavix 75mg PO daily and ASA 81mg PO daily)
-Continue to encourage incentive spirometer
-PT/OT
Subjective Data
-
Date of Service: July 24, 2024
Patient seen and examined at bedside, reports adequate post operative pain. Reports passing flatus and stool. Tolerating clear liquid diet.
Objective Data
-
Vital Signs
Temp Pulse Resp BP Pulse Ox
97.9 F 90 20 141/90 92
07/24/24 07:59 07/24/24 08:00 07/24/24 07:59 07/24/24 08:00 07/24/24 08:20
Intake and Output
07/23/24 07/24/24 07/25/24
06:59 06:59 06:59
Intake Total 1083 / 1083 1468 / 1468
Output Total 1400 / 1400 500 / 500
Balance -317 / -317 968 / 968
Intake:
IV fluids (Total) 505 / 505 585 / 585
Cardizem 65 / 65 165 / 165
Folic Acid 50 / 50
KVO 40 / 40 100 / 100
Nss 1,000 ml @ 100 mls/hr IV . 400 / 400
Q10H [facility] Rx#:[id number]
Potassium Chloride 270 / 270
IV piggybacks 250 / 250
TPN/PPN 328 / 328 806 / 806
Amount instilled into GI Tube ( 55 / 55
Total)
[place] Sump 55 / 55
Output:
Gastrointestinal tube output ( 600 / 600 100 / 100
Total)
[place] Sump 600 / 600 100 / 100
Urine, Voided 800 / 800 400 / 400
Other:
Number of approximated SMALL 1
amounts of urine
Number of approximated MODERATE 1 2
amounts of urine
Number of approximated LARGE 1
amounts of urine
How many times incontinent 1
MODERATE amount urine
Lab Results
07/24/24 03:23
07/24/24 03:23
Calcium 7.7 mg/dl (8.4-10.2) L 07/24/24 03:23
Phosphorus 3.1 mg/dl (2.5-4.5) 07/24/24 03:23
Magnesium 2.1 mg/dl (1.6-2.3) 07/24/24 03:23
Total Bilirubin 0.6 mg/dl (0.2-1.3) 07/24/24 03:23
Direct Bilirubin 0.8 mg/dl (0.0-0.4) H 07/19/24 02:58
AST 22 U/L (17-59) 07/24/24 03:23
ALT 20 U/L (0-50) 07/24/24 03:23
Alkaline Phosphatase 79 U/L (38-126) 07/24/24 03:23
Total Protein 5.3 g/dl (6.3-8.2) L 07/24/24 03:23
Albumin 2.7 g/dl (3.5-5.0) L 07/24/24 03:23
Physical Exam
-
AAOx3
Abdomen mildly distended, denies pain with palpation, NG tube output bilious
Abdomen surgical annette CDI and well-approximated, right groin c/d/i
Groin sites flat and soft
Bilateral feet warm, palpable DP and PT pulses bilaterally
[2024-07-24] MEDS: PULMICORT 0.5 MG INH ×2 (10:52→19:28)
--- NOTE | 2024-07-24 11:35 | CM ---
Chart reviewed. Patient is independent of ADLS, lives with friend in a [address], [address], 0 [address]. Patient's friend has been living with him since Covid, but his friend is waiting for an apartment at [facility]. Patient told me he applied for health
insurance and he is waiting on the card. Patient is interested in a finding a PCP, I gave him the phone number and [facility]. Patient is not current with VN, but may be interested. He wants to think about it. Plan is
for the patient to return home with his friend. CM to follow
[2024-07-24 12:04] LABS: Glucose - Point of Care 130 mg/dl (70-99)
[2024-07-24] MEDS: LOPRESSOR 50 MG PO ×3 (12:04→23:22)
--- NOTE | 2024-07-24 12:45 | PTCARENOTE ---
CT Chest/Abdomen/Pelvis completed; Patient ambulated with RN in hallways; Diet advanced to regular and patient tolerating solid foods without difficulty; Nebulizer treatments ordered by MD Almanza for expiratory wheezing.
[2024-07-24] MEDS: APRESOLINE 5 MG IV (14:02)
--- NOTE | 2024-07-24 16:30 | PTCARENOTE ---
Patient ambulating hallways with RN - POWER but denies dizziness or lightheadedness; PRN IV Hydralazine given x1 for HTN; Continues to have brown, green diarrhea; Patient refusing dinner but denies nausea or vomiting
[2024-07-24 17:06] LABS: Glucose - Point of Care 129 mg/dl (70-99)
[2024-07-24] MEDS: LOVENOX 40 MG SC (17:07)
[2024-07-24] MEDS: DUONEB 3 ML INH (19:28)
--- NOTE | 2024-07-24 20:00 | PTCARENOTE ---
assumed care of pt from previous RN. pt A&Ox4, resting in chair at time of assessment. SR to sinus tach on tele-monitor, occasional PVCs. POX 94% on RA. abd s/n, +BS. frequent liquid stools reported by patient. surgical sites stable, CDI. R UE PICC
intact. plan of care discussed w/ pt, pt in agreement. see worklist for complete nursing assessment, interventions, VS, and I&Os.
[2024-07-24 21:31] LABS: Glucose - Point of Care 113 mg/dl (70-99)
[2024-07-25] VITALS (10 sets, daily range): BP systolic 114–144; BP diastolic 71–94; BMI 23.2
--- NOTE | 2024-07-25 | PTCARENOTE ---
assessment remains unchanged. VSS. frequent brown, loose/liquid stools. hospitalist Jonh aware. no new orders at this time.
--- NOTE | 2024-07-25 | PTCARENOTE ---
assessment remains unchanged. VSS. frequent brown, loose/liquid stools. hospitalist Jonh aware. will attempt to get a stool sample.
--- NOTE | 2024-07-25 04:00 | PTCARENOTE ---
no acute changes. VSS. AM labs collected and sent.
[2024-07-25 04:13] LABS: Hematocrit 35.9 % (39.0-52.0); Hemoglobin 12.2 g/dL (13.0-18.0); Mean Corpuscular Hgb 30.2 pg (27.0-31.0); Mean Corpuscular Volume 88.9 fL (80.0-94.0); Mean Platelet Volume 9.5 fL (7.4-10.4); Platelet Count 215 10^3/uL (130-400); Red Blood Cell Count 4.04 10^6/uL (4.70-6.10); White Blood Cell Count 17.1 10^3/uL (4.8-10.8)
[2024-07-25 04:44] LABS: Blood Urea Nitrogen 19 mg/dl (9-20); Calcium 7.9 mg/dl (8.4-10.2); Carbon Dioxide 29 mmol/L (22-30); Chloride 101 mmol/L (98-107); Estimated Creatinine Clearance > 125 ml/min; Glucose 104 mg/dl (70-99); Potassium 3.9 mmol/L (3.5-5.1); Sodium 135 mmol/L (135-145); eGFR > 60.00
[2024-07-25] MEDS: LOPRESSOR 50 MG PO ×3 (05:32→17:14)
--- NOTE | 2024-07-25 07:30 | PTCARENOTE ---
Assumed care of patient from manufacturing shift supervisor RN, AAO x 3. Ambulating in room at hieu w/o issue. SR w/ PVC's on monitor. Room air 94 %. Lungs coarse with rhonchi t/o. Harsh ROLL FORGER cough . Abdomen soft , distended, having continued liquid stools.
Specimen sent. Voiding w/o issue. Abdominal incision well approximated with annette. Pulses palpable. trace edema appreciated.
--- NOTE | 2024-07-25 08:09 | W.PN.VS ---
Today's Communication / Plan
-
Seen and assessed with Dr. Cooley
Assessment/Plan
-
Plan: WBC 17.1 today
-C. difficile pending
-UA pending
-Patient needs strict impulse and BP control, appreciate cardiology recommendations
-Continue DAPT (Plavix 75mg PO daily and ASA 81mg PO daily)
-Continue to encourage incentive spirometer
-PT/OT
-Doing well overall from vascular surgery standpoint, rule out outpatient follow-up to the chart
Subjective Data
-
Date of Service: July 25, 2024
Patient seen at bedside this a.m. with Dr. Cooley. Patient offers no complaints at this time. RNs note patient having diarrhea most of the night.
Objective Data
-
Vital Signs
Temp Pulse Resp BP Pulse Ox
99.7 F 84 18 126/71 92
07/25/24 00:00 07/25/24 06:00 07/25/24 04:00 07/25/24 05:32 07/25/24 04:00
Intake and Output
07/24/24 07/25/24 07/26/24
06:59 06:59 06:59
Intake Total 1468 / 1468 1764 / 1764
Output Total 500 / 500 125 / 125
Balance 968 / 968 1639 / 1639
Intake:
Oral fluids 1010 / 1010
IV fluids (Total) 585 / 585
Cardizem 165 / 165
Folic Acid 50 / 50
KVO 100 / 100
Potassium Chloride 270 / 270
IV piggybacks
TPN/PPN 806 / 806 754 / 754
Amount instilled into GI Tube ( 55 / 55
Total)
[place] Sump 55 / 55
Output:
Gastrointestinal tube output ( 100 / 100
Total)
[place] Sump 100 / 100
Urine, Voided 400 / 400 125 / 125
Other:
Number of approximated SMALL 1
amounts of urine
Number of approximated MODERATE 2 1
amounts of urine
Lab Results
07/25/24 03:56
07/25/24 03:56
Calcium 7.9 mg/dl (8.4-10.2) L 07/25/24 03:56
Phosphorus 3.1 mg/dl (2.5-4.5) 07/24/24 03:23
Magnesium 2.1 mg/dl (1.6-2.3) 07/24/24 03:23
Total Bilirubin 0.6 mg/dl (0.2-1.3) 07/24/24 03:23
Direct Bilirubin 0.8 mg/dl (0.0-0.4) H 07/19/24 02:58
AST 22 U/L (17-59) 07/24/24 03:23
ALT 20 U/L (0-50) 07/24/24 03:23
Alkaline Phosphatase 79 U/L (38-126) 07/24/24 03:23
Total Protein 5.3 g/dl (6.3-8.2) L 07/24/24 03:23
Albumin 2.7 g/dl (3.5-5.0) L 07/24/24 03:23
Physical Exam
-
AAOx3
No tachypnea on room air
Abdomen mildly distended, denies pain with palpation
Abdomen surgical annette CDI and well-approximated, right groin c/d/i
Groin sites flat and soft
Bilateral feet warm, palpable DP and PT pulses bilaterally
--- NOTE | 2024-07-25 08:10 | W.PN.CD ---
Today's Communication / Plan
-
Continue metoprolol and cardizem
Keep up with volume in patient with diarrhea. May need additional IVF
tx of diarrhea per primary team and gen surgery .
Impression / Plan
-
[place] type B thoracic aortic dissection:
-this diagnosis is threat to life
-s/p endovascular thoracic aortic repair 07/18/24- vascular following. Also with ex-lap same day to assess for ischemic bowel (viable tissue noted).
-goal MAP is 75-90 currently per vascular note
-HR reamains in the 80s to 90s
-Patient on Dilt 90 qid and metop 25 mg q6hr, Still with diarrhea. Monitor volume status and consider additional IVF
-on ASA/Plavix
GI . at one point concern for ischmic bowel. Assessed by gen surgery . See Op report. Gen surgery following.
Patient reports continued issues with diarrhea.
- May cosndier addtional IVF
- gen surgery and vascular following
-Patients GI symptoms preceded admit. Consider addtional GI input
Ileus: resolved. NGT out
Subjective:
He has no new complaints todya
Physical Exam
Vital Signs/Labs
Vital Signs
Temp Pulse Resp BP Pulse Ox
99.7 F 84 18 126/71 92
07/25/24 00:00 07/25/24 06:00 07/25/24 04:00 07/25/24 05:32 07/25/24 04:00
07/24/24 07/25/24 07/26/24
06:59 06:59 06:59
Actual Weight 79 kg 77.6 kg
07/25/24 03:56
07/25/24 03:56
PT 16.2 Sec (11.4-14.6) H 07/19/24 02:58
INR 1.27 07/19/24 02:58
APTT 34.7 Sec (23.4-35.0) 07/19/24 02:58
Magnesium 2.1 mg/dl (1.6-2.3) 07/24/24 03:23
Triglycerides 117 mg/dl (10-149) 07/24/24 03:23
LDL Cholesterol, Calc 62 mg/dl 07/18/24 04:14
VLDL Cholesterol, Calc 14 mg/dl (0-30) 07/18/24 04:14
HDL Cholesterol 28 mg/dl 07/18/24 04:14
TSH 1.06 uIU/ml (0.47-4.68) 07/19/24 08:39
Free T4 1.18 ng/dl (0.78-2.19) 07/19/24 08:39
Physical Exam
Constitutional: No acute distress
Cardiovascular: Rhythm & rate is regular
Respiratory: Wheeze Absent and Rhonchi Absent
GI: Soft
Neuro/Psych: Alert
Data Reviewed
-
Date of Service: July 25, 2024
Medical Decision Making: Reviewed Test Results and Review of Case with other Provider (nurse)
Echo: Report Reviewed by me
Medical Tests (PFT, Pathology etc): Report Reviewed by me
Labs: Labs Reviewed by me
[2024-07-25] MEDS: PULMICORT 0.5 MG INH ×2 (08:28→19:58)
[2024-07-25] MEDS: DUONEB 3 ML INH (08:28)
[2024-07-25] MEDS: PLAVIX 75 MG PO (08:58)
[2024-07-25] MEDS: CARDIZEM 90 MG PO ×4 (08:59→21:03)
[2024-07-25] MEDS: FOLVITE 1 MG PO (08:59)
[2024-07-25] MEDS: PROTONIX 40 MG PO (08:59)
[2024-07-25] MEDS: LOW STRENGTH ASPIRIN 81 MG PO (08:59)
[2024-07-25] MEDS: VITAMIN B1 100 MG PO ×2 (08:59→19:44)
[2024-07-25 09:31] LABS: Urine Albumin Trace (Neg - Trace); Urine Bilirubin 1+ (Negative); Urine Character Clear (Clear); Urine Color Yellow; Urine Glucose Negative (Negative); Urine Ketone Trace (Negative); Urine Leukocyte Trace (Negative); Urine Nitrite Negative (Negative); Urine Occult Blood 4+ (Negative); Urine Urobilinogen Negative (Neg - 1+)
--- NOTE | 2024-07-25 10:25 | W.PN.GS2 ---
Today's Communication / Plan
-
-- Regular diet, pro-biotic
-- Stool studies pending
-- No heavy lifting or strenuous activities for 4 weeks post-op
-- Bety to be removed at 14 days
Assessment / Plan
-
Patient is a 54 yo M POD #7 ex lap (at time of FEVAR with vascular for aortic dissection)
AVSS
Leukocytosis noted, infectious workup ongoing
ROBF, tolerating regular diet. Low concern for on-going ischemia or need for surgical intervention at this time. R/o infectious causes; C. diff negative. Possibly related to disruption of normal gut suman secondary to prior ischemic episode,
would start pro-biotic, low risk.
Plan:
-- Regular diet, pro-biotic
-- Stool studies pending
-- PPI daily
-- No heavy lifting or strenuous activities for 4 weeks post-op
-- Bety to be removed at 14 days
Subjective Data
-
Date of Service: July 25, 2024
Ports incisional soreness, denies any diffuse abdominal pain. Passing flatus and liquid, nonbloody stools. No nausea or vomiting. No fevers.
Objective Data
-
Intake and Output
07/24/24 07/25/24 07/26/24
06:59 06:59 06:59
Intake Total 1468 / 1468 1764 / 1764 120 / 120
Output Total 500 / 500 125 / 125
Balance 968 / 968 1639 / 1639 120 / 120
Intake:
Oral fluids 1010 / 1010 120 / 120
IV fluids (Total) 585 / 585
Cardizem 165 / 165
Folic Acid 50 / 50
KVO 100 / 100
Potassium Chloride 270 / 270
IV piggybacks
TPN/PPN 806 / 806 754 / 754
Amount instilled into GI Tube ( 55 / 55
Total)
[place] Sump 55 / 55
Output:
Gastrointestinal tube output ( 100 / 100
Total)
[place] Sump 100 / 100
Urine, Voided 400 / 400 125 / 125
Other:
Number of approximated SMALL 1
amounts of urine
Number of approximated MODERATE 2 1 1
amounts of urine
Vital Signs
Temp Pulse Resp BP Pulse Ox
98.7 F 92 18 126/71 95
07/25/24 08:00 07/25/24 08:31 07/25/24 08:31 07/25/24 05:32 07/25/24 08:31
Lab Results
07/25/24 03:56
07/25/24 03:56
Calcium 7.9 mg/dl (8.4-10.2) L 07/25/24 03:56
Phosphorus 3.1 mg/dl (2.5-4.5) 07/24/24 03:23
Magnesium 2.1 mg/dl (1.6-2.3) 07/24/24 03:23
Total Bilirubin 0.6 mg/dl (0.2-1.3) 07/24/24 03:23
Direct Bilirubin 0.8 mg/dl (0.0-0.4) H 07/19/24 02:58
AST 22 U/L (17-59) 07/24/24 03:23
ALT 20 U/L (0-50) 07/24/24 03:23
Alkaline Phosphatase 79 U/L (38-126) 07/24/24 03:23
Total Protein 5.3 g/dl (6.3-8.2) L 07/24/24 03:23
Albumin 2.7 g/dl (3.5-5.0) L 07/24/24 03:23
Physical Exam
-
Gen: NAD
Abd: soft, mild incisional soreness, mild distension, non-peritoneal, incision c/d/i - no erythema, ecchymosis or drainage, no palpable hernia
[2024-07-25 10:27] LABS: Urine Squamous Cell 0-2 /LPF (Few)
[2024-07-25 10:28] LABS: Urine Bacteria Few (Negative); Urine Red Blood Cell >100 /HPF (0-2)
--- NOTE | 2024-07-25 12:00 | PTCARENOTE ---
Ambulated in room w/o difficulty, minimal SOB on exertion. Denies pain currently. VSS. Assessment unchanged from prior.
[2024-07-25] MEDS: VISBIOME 1 CAP PO (12:09)
--- NOTE | 2024-07-25 13:57 | W.PN.HOSP.TC ---
Today's Communication/Plan
-
empiric UTI tx pending cultures
match I/Os with GI losses - encourage oral hydration
transfer to tele
Assessment / Plan
Assessment / Plan
HPI: 54-year-old with no known significant past medical history presented to the emergency department with approximately 5 days of ongoing abdominal symptoms.
Patient reported that he abruptly began to have episodes of vomiting then followed by diarrhea that started 5 days [employer]. He c/o crampy abdominal pain and reported melanotic appearing diarrhea.
In the emergency department, his CT angio was done showing a [place] type B thoracic aortic dissection. No involvement of the ascending thoracic aorta or great arch vessels. Vascular surgeon contacted by ED.
Assessment:
[place] B aortic dissection. No aneurysm. HD stable. No chest pain.
- s/p CT Angio confirming thoracic/abdominal aortic dissection, [place] type B.
- life threatening diagnosis
- s/p emergent thoracic endovascular aortic repair on 07/18
- Also had concurrently ex-lap for concern of bowel ischemic (no necrosis, viable SB/colon seen)
- s/p 5 day empiric Zosyn course
- continue ASA/Plavix per Vascular surgery
- continue regular diet
- s/p TPN
- for BP control; s/p Cardizem drip, now on PO Cardizem and Metoprolol; Cardiology following
Leukocytosis
possible UTI
- continue Rocephin day 1; follow culture
- check blood culture
- monitor for fevers/WBC curve
Diarrhea
- stool studies pending. C. Diff and Norovirus negative
- monitor I/Os
Anemia, multi-factorial from acute blood loss from operations, dilution from IVF
- monitor Hb
- GI evaluated; no concern for active GI bleed
- continue PPI
Chronic SOB
Exposure to asbestos/acetone per patient
- prn nebs
- continue Budesonide BID; convert to inhaler at DC
- OP Pulm referral
DVT ppx: Lovenox
Code: Full
Dispo: transfer to tele
Anticipated Discharge: > 48 hours
Subjective/Interval History
-
Date of Service: July 25, 2024
overnight with diarrhea
testing negative for C. Diff or norovirus
Objective Data
-
Labs:
Laboratory Results
07/25/24
03:56
WBC 17.1 H
Hgb 12.2 L
Hct 35.9 L
Plt Count 215 D
Sodium 135
Potassium 3.9
Chloride 101
Carbon Dioxide 29
BUN 19
Creatinine 0.6 L
Glucose 104 H
Calcium 7.9 L
Vital Signs:
Vital Signs
Temp Pulse Resp BP Pulse Ox
98.7 F 88 18 136/94 95
07/25/24 08:00 07/25/24 12:11 07/25/24 08:31 07/25/24 12:11 07/25/24 08:31
I&O
07/24/24 07/25/24 07/26/24
06:59 06:59 06:59
Intake Total 1468 / 1468 1764 / 1764 120 / 120
Output Total 500 / 500 125 / 125
Balance 968 / 968 1639 / 1639 120 / 120
Physical Exam
-
General: No Apparent Distress
HEENT: Normocephalic and Atraumatic
Respiratory: Negative Wheezes
Cardiac: Regular Rhythm and S1/S2
GI: Soft and Nontender
Genito-urinary: No Costovertebral Tender
Neuro: AO x 3
Hematologic / Lymphatic: No Lymphadenopathy
Psych: Calm
Data Reviewed
-
Total Time Spent with Patient (in minutes): 45
Labs: Labs Reviewed by me
--- NOTE | 2024-07-25 14:55 | PTCARENOTE ---
Report given to Wayne TAYLOR on , transported along with all his belongings. Brother updated on transfer.
[2024-07-25] MEDS: NSS 1000 IV (15:46)
[2024-07-25 16:40] LABS: Glucose - Point of Care 106 mg/dl (70-99)
[2024-07-25] MEDS: ZOFRAN 4 MG IV (17:13)
[2024-07-25] MEDS: ROCEPHIN 1000 MG IV (17:14)
[2024-07-25] MEDS: LOVENOX 40 MG SC (17:14)
[2024-07-25] MEDS: STERILE WATER FOR INJECTION 10 ML IV (17:14)
[2024-07-25] MEDS: OMNIPAQUE 50 ML PO (18:28)
--- NOTE | 2024-07-25 18:32 | PTCARENOTE ---
Patient having new N/V. Patient has been having diarrhea. Patient stomach has been distended. MD aware. IV Zofran administered per order. MD made aware. Urgent CAT ABD ordered. Oral contrast started now.
--- NOTE | 2024-07-25 18:53 | W.PN.SURGUPD ---
Surgical Update
Surgical Update
Reported issues with nausea and vomiting and increased abdominal distention. Continues to pass flatus and liquid nonbloody stools. C. difficile negative. Stool cultures pending. Hemodynamically stable and remains off pressors. Afebrile. In
light of history and unexplained leukocytosis, plan for repeat CT abdomen pelvis with oral and IV contrast for further workup.
[2024-07-25 21:15] LABS: Glucose - Point of Care 106 mg/dl (70-99)
--- NOTE | 2024-07-25 22:06 | W.PN.UPDATE ---
Update Note
Progress Note Update
2199 Received TT from attending physician regarding results from pt CT abd taken earlier in day. Dr Linn (surgeon) was also TT thread.
CT abd results : Bowel: Small bowel malrotation with midgut volvulus. Long segment of jejunum in the mid to lower abdomen and pelvis with circumferential wall thickening, with indistinct margins and soft tissue stranding of the mesenteric fat. In
addition, central lumen is opacified with contrast material, and there are numerous tiny gas bubbles present at the peripheral margin of the contrast material, many of which are dependent in location. Therefore, consistent with mucosal/submucosal
pneumatosis related to bowel ischemia. Advise correlation with laboratory findings and clinical exam.
Dr garza and dr linn collectively ask pt to be transferred to IMU for closer monitoring.
Needs NGT, INF LR @100, checking lactate, changing meds to iv, dc rochephin and change to zosyn. NPO
[2024-07-25 23:12] LABS: Lactic Acid 0.6 mmol/L (0.7-2.0)
[2024-07-25] MEDS: LR 1000 IV (23:28)
[2024-07-25] MEDS: ZOSYN 50 IV (23:29)
[2024-07-25] MEDS: LOPRESSOR 5 MG IV (23:46)
[2024-07-26] VITALS (20 sets, daily range): BP systolic 107–152; BP diastolic 69–87; BMI 23.1
--- NOTE | 2024-07-26 01:07 | PTCARENOTE ---
assumed care,pt AAOx3 walked to bed denies pain, NS c PVCs on the monitor trace anasarca + pulses, diminished and coarse SpO2 89% 4L NC, NGT R nare 70cm green output low intermittent suction, distended and round BSx4, due to void, midline abd
inscion approximated with annette, B/L puncture groin sites surgical adhesive, R DL PICC LR 100ml, call albert within reach, makes needs known, otherwise refer to documentation
[2024-07-26] MEDS: ZOSYN 50 IV ×4 (03:57→22:08)
[2024-07-26 04:20] LABS: Hematocrit 33.6 % (39.0-52.0); Hemoglobin 11.4 g/dL (13.0-18.0); Mean Corp Hgb Conc. 33.9 g/dL (33.0-37.0); Mean Corpuscular Hgb 29.9 pg (27.0-31.0); Mean Corpuscular Volume 88.2 fL (80.0-94.0); Mean Platelet Volume 9.3 fL (7.4-10.4); Platelet Count 232 10^3/uL (130-400); Red Blood Cell Count 3.81 10^6/uL (4.70-6.10); Red Cell Dist. Width 13.2 % (11.5-14.5); White Blood Cell Count 15.8 10^3/uL (4.8-10.8)
[2024-07-26 04:36] LABS: Lactic Acid < 0.5 mmol/L (0.7-2.0)
[2024-07-26 05:24] LABS: Blood Urea Nitrogen 13 mg/dl (9-20); Calcium 7.7 mg/dl (8.4-10.2); Carbon Dioxide 23 mmol/L (22-30); Chloride 98 mmol/L (98-107); Estimated Creatinine Clearance > 125 ml/min; Glucose 99 mg/dl (70-99); Potassium 4.1 mmol/L (3.5-5.1); Sodium 131 mmol/L (135-145); eGFR > 60.00
[2024-07-26 05:29] LABS: Glucose - Point of Care 92 mg/dl (70-99)
[2024-07-26] MEDS: LOPRESSOR 5 MG IV ×3 (06:24→17:10)
--- NOTE | 2024-07-26 07:43 | W.PN.GS2 ---
Today's Communication / Plan
-
-- NPO, IVF, NGT decompression
-- Abx: Zosyn
-- X-ray abdomen for contrast progression and bowel distension
Assessment / Plan
-
Patient is a 54 yo M POD #8 ex lap (at time of FEVAR with vascular for aortic dissection)
AVSS
Leukocytosis noted, trending down
Lactate normal, Cr OK
Concerning CT scan findings of pneumatosis with bowel wall thickening and mesenteric edema; most likely causes ischemia given patient's history less likely infectious. CTA on 07/24 demonstrates patent mesenteric vasculature and in hindsight likely
had some small less appreciated elements of the above which are better appreciated with oral contrast. Oral contrast does make its way beyond the area of concern though has not reached the colon. Clinically patient is not obstructed and is passing
loose liquid stools and flatus. The symptoms are most likely explained by the above CT scan findings. Confounding his radiographic information is the patient's hemodynamic stability and lack of abdominal pain. Lactate normal and downtrending WBC.
Discussed options of medical management with bowel rest and antibiotics versus surgical exploration and possible bowel resection. Unusual time course over a week out to have his ischemia develop though certainly possible. Patient would like to
trial medical management and given his current stability this is not unreasonable. Signs of worsening abdominal pain, fevers, or elevated WBC would prompted re-exploration.
Consideration for holding Plavix with potential need for operative intervention, however, benefits from a vascular standpoint likely outweigh risks.
Plan:
-- NPO, IVF, NGT decompression
-- Abx: Zosyn
-- PPI
-- X-ray abdomen for contrast progression and bowel distension
Subjective Data
-
Date of Service: July 26, 2024
Issues with nausea yesterday evening and continued loose liquid stools prompting CT scan. NGT placed overnight, no further nausea. Denies any worsening abdominal pain. No fevers. Continues to pass flatus and loose, nonbloody stools. No reports
of hemoptysis or bloody stools per nursing.
Objective Data
-
Intake and Output
07/25/24 07/26/24 07/27/24
06:59 06:59 06:59
Intake Total 1764 / 1764 1760 / 1860 100 / 100
Output Total 125 / 125 600 / 850 250 / 250
Balance 1639 / 1639 1160 / 1010 -150 / -150
Intake:
Oral fluids 1010 / 1010 880 / 880
IV fluids (Total) 780 / 880 100 / 100
Lr 1,000 ml @ 100 mls/hr IV . 600 / 700 100 / 100
Q10H MARQUIS Rx#:[id number]
IV piggybacks 100 / 100
TPN/PPN 754 / 754
Output:
Liquid stool amount 200 / 200
Rectum 200 / 200
Gastrointestinal tube output ( 50 / 50
Total)
[place] Sump 50 / 50
Urine, Voided 125 / 125 350 / 600 250 / 250
Other:
Number of approximated MODERATE 1 1
amounts of urine
Number of approximated LARGE 1
amounts of urine
How many times incontinent 1
MODERATE amount urine
Number of immeasurable emeses? 1
Number of unmeasured liquid
stools
Rectum 1
Vital Signs
Temp Pulse Resp BP Pulse Ox
98.2 F 80 18 117/79 95
07/26/24 03:00 07/26/24 06:24 07/25/24 20:04 07/26/24 06:24 07/26/24 00:50
Lab Results
07/26/24 04:04
07/26/24 04:04
Calcium 7.7 mg/dl (8.4-10.2) L 07/26/24 04:04
Phosphorus 3.1 mg/dl (2.5-4.5) 12/16/24 03:23
Magnesium 2.1 mg/dl (1.6-2.3) 07/24/24 03:23
Total Bilirubin 0.6 mg/dl (0.2-1.3) 07/24/24 03:23
Direct Bilirubin 0.8 mg/dl (0.0-0.4) H 07/19/24 02:58
AST 22 U/L (17-59) 07/24/24 03:23
ALT 20 U/L (0-50) 07/24/24 03:23
Alkaline Phosphatase 79 U/L (38-126) 07/24/24 03:23
Total Protein 5.3 g/dl (6.3-8.2) L 07/24/24 03:23
Albumin 2.7 g/dl (3.5-5.0) L 07/24/24 03:23
Physical Exam
-
Gen: NAD
HEENT: minimal bilious output
Abd: soft, NT, moderately distended, non-peritoneal, midline c/d/i - no erythema, ecchymosis or drainage, annette in place
[2024-07-26] MEDS: PULMICORT INH (08:00)
[2024-07-26] MEDS: LR 1000 IV ×2 (08:34→17:10)
[2024-07-26] MEDS: PROTONIX IV 40 MG IV (08:35)
[2024-07-26] MEDS: NSS (PRESERVATIVE FREE) 10 ML IV (08:35)
--- NOTE | 2024-07-26 08:48 | W.PN.CD ---
Today's Communication / Plan
-
Continue metoprolol IV 5 mg every 6 hours
Add diltiazem IV 10 mg every 6 hours
Would touch base with vascular surgery to see if he needs rectal aspirin or IV P2Y12 given recent endovascular repair
Impression / Plan
-
[place] type B thoracic aortic dissection:
-this diagnosis is threat to life
-s/p endovascular thoracic aortic repair 07/18/24- vascular following. Also with ex-lap same day to assess for ischemic bowel (viable tissue noted).
-goal MAP is 75-90 currently per vascular note
-HR in the 70s to 80s. BPs mostly <120/80
-Patient on IV metoprolol 5 mg every 6 hours. Will add IV Diltiazem 10 mg every 6 hours to ensure we are meeting HR and BP goals
-ASA/Plavix on hold due to n.p.o. status. Would touch base with vascular surgery to see if he needs rectal aspirin or IV P2Y12 given recent endovascular repair
Ischemic bowel
-Pt now NPO with NGT in place based on CT scan results from 07/25. Plan is supportive care as of now.
-Surgery following
Subjective:
Overnight patient underwent CT abdomen pelvis for ongoing nausea/vomiting. This showed pneumatosis from possible bowel ischemia. He was made n.p.o. and an NG tube was placed. Telemetry reveals sinus rhythm at a heart rate in the 70s. Metoprolol
was transitioned to 5 mg IV every 6 hours.
Physical Exam
Vital Signs/Labs
Vital Signs
Temp Pulse Resp BP Pulse Ox
98.2 F 80 19 133/78 93
07/26/24 08:37 07/26/24 08:00 07/26/24 08:00 07/26/24 08:00 07/26/24 08:39
07/25/24 07/26/24 07/27/24
06:59 06:59 06:59
Actual Weight 77.6 kg 77.1 kg
07/26/24 04:04
07/26/24 04:04
PT 16.2 Sec (11.4-14.6) H 07/19/24 02:58
INR 1.27 07/19/24 02:58
APTT 34.7 Sec (23.4-35.0) 07/19/24 02:58
Magnesium 2.1 mg/dl (1.6-2.3) 07/24/24 03:23
Triglycerides 117 mg/dl (10-149) 07/24/24 03:23
LDL Cholesterol, Calc 62 mg/dl 07/18/24 04:14
VLDL Cholesterol, Calc 14 mg/dl (0-30) 07/18/24 04:14
HDL Cholesterol 28 mg/dl 07/18/24 04:14
TSH 1.06 uIU/ml (0.47-4.68) 07/19/24 08:39
Free T4 1.18 ng/dl (0.78-2.19) 07/19/24 08:39
Physical Exam
Constitutional: No acute distress and Comfortable
Cardiovascular: Rhythm & rate is regular and Pedal edema is absent
Respiratory: Respiratory effort normal and Lungs clear to auscul.
Data Reviewed
-
Date of Service: July 26, 2024
Medical Decision Making: Reviewed Test Results, Independent Historian Assessment, Test Interpretation and Review of Case with other Provider
EKG: Tracing Personally Visualized and interpreted
Echo: Report Reviewed by me
X-Ray/CT/US/MRI/NUC/PET: Report Reviewed by me
Labs: Labs Reviewed by me
[2024-07-26] MEDS: VITAMIN B1 PO (08:57)
[2024-07-26] MEDS: LOW STRENGTH ASPIRIN 81 MG PO (09:08)
[2024-07-26] MEDS: PLAVIX 75 MG PO (09:09)
[2024-07-26 11:38] LABS: Glucose - Point of Care 95 mg/dl (70-99)
[2024-07-26] MEDS: CARDIZEM 10 MG IV ×2 (12:16→17:10)
--- NOTE | 2024-07-26 13:51 | PTCARENOTE ---
Rec'd care of patient at 0700. Patient alert and oriented. Anxious. Emotional support and reassurance provided throughout shift. MAEx4. NSR with PACs and PVCs on tele monitor. Trace edema in b/l LE. Palpable pulses. Pulse ox 95% on 2L nc. Lung
sounds shallow/diminished with scattered rhonchi. +BS. Assisted to BSC for liquid, green BM. NGT to low intermittent suction. Scant green/brown output. Voiding via urinal. Midline incision approximated, close with annette. B/l groin sites closed
with surgical adhesive. IVFs infusing as ordered through [facility] PICC. Sent for abdominal xray. VSS.
--- NOTE | 2024-07-26 13:54 | W.PN.HOSP.TC ---
Today's Communication/Plan
-
continue NPO/IVF/NGT decompression, AXR pending
Plavix orally, ASA rectally - reviewed with Vascular service
IV meds in place of PO meds otherwise
Assessment / Plan
Assessment / Plan
HPI: 54-year-old with no known significant past medical history presented to the emergency department with approximately 5 days of ongoing abdominal symptoms.
Patient reported that he abruptly began to have episodes of vomiting then followed by diarrhea that started 5 days [employer]. He c/o crampy abdominal pain and reported melanotic appearing diarrhea.
In the emergency department, his CT angio was done showing a [place] type B thoracic aortic dissection. No involvement of the ascending thoracic aorta or great arch vessels. Vascular surgeon contacted by ED.
Assessment:
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 HD stable. No chest pain.
- s/p CT Angio confirming thoracic/abdominal aortic dissection, [place] type B.
- life threatening diagnosis
- s/p emergent thoracic endovascular aortic repair on 07/18
- Also had concurrently ex-lap for concern of bowel ischemic (no necrosis, viable SB/colon seen)
- s/p 5 day empiric Zosyn course
- continue ASA/Plavix per Vascular surgery. ASA changed to rectal formulation due to NGT. No Plavix alternative per Vascular, ok to continue orally.
- IV Cardizem while NPO
Leukocytosis
Abd distention
- repeat CT 07/25: pneumatosis with bowel wall thickening and mesenteric edema
- continue NGT decompression
- IVF, NPO
- continue Zosyn day 1
- repeat AXR pending
Diarrhea
- stool studies pending. C. Diff and Norovirus negative
- monitor I/Os
Anemia, multi-factorial from acute blood loss from operations, dilution from IVF
- monitor Hb
- GI evaluated; no concern for active GI bleed
- continue PPI
Chronic SOB
Exposure to asbestos/acetone per patient
- prn nebs
- continue Budesonide BID; convert to inhaler at DC
- OP Pulm referral
DVT ppx: Lovenox
Code: Full
Dispo: keep in IMU floor.
Anticipated Discharge: > 48 hours
Subjective/Interval History
-
Date of Service: July 26, 2024
last evening with abd distention, n/v. NGT placed and CT showed volvulus. moved to IMU
today remains with NGT, reports abd distention improving
Objective Data
-
Labs:
Laboratory Results
07/26/24
04:04
WBC 15.8 H
Hgb 11.4 L
Hct 33.6 L
Plt Count 232
Sodium 131 L
Potassium 4.1
Chloride 98
Carbon Dioxide 23
BUN 13
Creatinine 0.6 L
Glucose 99
Calcium 7.7 L
Vital Signs:
Vital Signs
Temp Pulse Resp BP Pulse Ox
98.5 F 76 23 137/80 95
07/26/24 11:18 07/26/24 13:00 07/26/24 13:00 07/26/24 13:00 07/26/24 13:00
I&O
07/25/24 07/26/24 07/27/24
06:59 06:59 06:59
Intake Total 1764 / 1764 1760 / 1860 750 / 750
Output Total 125 / 125 600 / 850 1025 / 1025
Balance 1639 / 1639 1160 / 1010 -275 / -275
Physical Exam
-
General: No Apparent Distress
HEENT: Normocephalic, Atraumatic and Other (+NGT)
Cardiac: Regular Rhythm and S1/S2
GI: Soft
Musculoskeletal: No Edema
Neuro: AO x 3
Hematologic / Lymphatic: No Lymphadenopathy
Psych: Calm
Data Reviewed
-
Total Time Spent with Patient (in minutes): 41
Labs: Labs Reviewed by me
--- NOTE | 2024-07-26 15:36 | CM ---
CM following re: discharge planning.
Reviewed pt's chart, met with pt.
Pt is POD #8 ex lap (at time of FEVAR with vascular for aortic dissection), continue supportive care. Pt feels very tired being in the hospital so long. Emotional support offered and provided.
Pt has no [facility], [facility]
D/C plan: home with anticipated no needs.
CM will follow with discharge plan updates as hospitalization progresses
[2024-07-26] MEDS: LOVENOX 40 MG SC (17:11)
--- NOTE | 2024-07-26 17:27 | PTCARENOTE ---
Patient resting comfortably throughout shift, denies pain. Vitals stable. NSR with PACs and PVCs. Abdomen soft/tender. +BSx4 quadrants. 100 cc's from NGT (flushed Q4hr with 30 cc's tap water as ordered). 2 BMs- green, liquid on BSC. Patient anxious
and asking RN if he will 'make it out of here'. [employer] Card[employer] requested to visit patient. Patient in better spirits. Prayer blanket given in patient's favorite color.
[2024-07-26] MEDS: PULMICORT 0.5 MG INH (19:55)
[2024-07-26] MEDS: DUONEB 3 ML INH (19:55)
[2024-07-27] VITALS (12 sets, daily range): BP systolic 130–154; BP diastolic 76–102; BMI 22.6; BMI 22.4
[2024-07-27] MEDS: CARDIZEM 10 MG IV ×4 (00:03→17:23)
[2024-07-27] MEDS: LOPRESSOR 5 MG IV ×4 (00:04→17:24)
[2024-07-27] MEDS: LR 1000 IV ×2 (04:15→14:01)
[2024-07-27] MEDS: ZOSYN 50 IV ×4 (04:15→21:05)
[2024-07-27 04:18] LABS: Hematocrit 29.3 % (39.0-52.0); Hemoglobin 9.8 g/dL (13.0-18.0); Mean Corp Hgb Conc. 33.4 g/dL (33.0-37.0); Mean Corpuscular Hgb 29.9 pg (27.0-31.0); Mean Corpuscular Volume 89.3 fL (80.0-94.0); Mean Platelet Volume 9.3 fL (7.4-10.4); Platelet Count 223 10^3/uL (130-400); Red Blood Cell Count 3.28 10^6/uL (4.70-6.10); Red Cell Dist. Width 12.8 % (11.5-14.5); White Blood Cell Count 10.9 10^3/uL (4.8-10.8)
[2024-07-27 04:41] LABS: Blood Urea Nitrogen 7 mg/dl (9-20); Calcium 7.5 mg/dl (8.4-10.2); Carbon Dioxide 24 mmol/L (22-30); Chloride 100 mmol/L (98-107); Estimated Creatinine Clearance > 125 ml/min; Glucose 86 mg/dl (70-99); Potassium 3.6 mmol/L (3.5-5.1); Sodium 132 mmol/L (135-145); eGFR > 60.00
--- NOTE | 2024-07-27 05:14 | PTCARENOTE ---
NO acute events overnight. Patient anxious at times. Emotional support provided. NGT remains to low intermittent suction- brown green drainage. No complaints of abd pain. + bowel sounds, small BM.
[2024-07-27] MEDS: PULMICORT 0.5 MG INH ×2 (07:11→19:26)
[2024-07-27] MEDS: DUONEB 3 ML INH (07:11)
[2024-07-27] MEDS: PLAVIX 75 MG PO (08:03)
[2024-07-27] MEDS: ASPIRIN 300 MG RECTAL (08:03)
[2024-07-27] MEDS: PROTONIX IV 40 MG IV (08:04)
[2024-07-27] MEDS: NSS (PRESERVATIVE FREE) 10 ML IV (08:04)
--- NOTE | 2024-07-27 08:57 | W.PN.CD ---
Today's Communication / Plan
-
continue IV metoprolol and diltiazem
BP is above goal: add enalaprilat 1.25mg IV q6hr
Impression / Plan
-
[place] type B thoracic aortic dissection:
-this diagnosis is threat to life
-s/p endovascular thoracic aortic repair 07/18/24- vascular following. Also with ex-lap same day to assess for ischemic bowel (viable tissue noted).
-goal MAP is 75-90 currently per vascular note
-Patient on IV metoprolol 5 mg every 6 hours and IV Diltiazem 10 mg every 6 hours while NPO
-requires monitoring of tele
-BP is above goal: add enalaprilat 1.25mg IV q6hr
-receiving plavix by mouth; and ASA rectally
HTN
-plan as above
-meds IV while NPO
Ischemic bowel
-Pt now NPO with NGT in place based on CT scan results from 07/25. Plan is supportive care as of now.
-Surgery following
Physical Exam
Vital Signs/Labs
Vital Signs
Temp Pulse Resp BP Pulse Ox
97.8 F 76 17 130/76 95
07/27/24 03:51 07/27/24 07:10 07/27/24 07:10 07/27/24 06:00 07/27/24 07:10
07/26/24 07/27/24 07/28/24
06:59 06:59 06:59
Actual Weight 77.1 kg 75.6 kg
07/27/24 04:11
07/27/24 04:11
PT 16.2 Sec (11.4-14.6) H 07/19/24 02:58
INR 1.27 07/19/24 02:58
APTT 34.7 Sec (23.4-35.0) 07/19/24 02:58
Magnesium 2.1 mg/dl (1.6-2.3) 07/24/24 03:23
Triglycerides 117 mg/dl (10-149) 07/24/24 03:23
LDL Cholesterol, Calc 62 mg/dl 07/18/24 04:14
VLDL Cholesterol, Calc 14 mg/dl (0-30) 07/18/24 04:14
HDL Cholesterol 28 mg/dl 07/18/24 04:14
TSH 1.06 uIU/ml (0.47-4.68) 07/19/24 08:39
Free T4 1.18 ng/dl (0.78-2.19) 07/19/24 08:39
Physical Exam
Constitutional: No acute distress and Comfortable
EENT: Moist mucous membranes
Cardiovascular: Rhythm & rate is regular, Pedal edema is absent, JVD pressure is normal and Systolic murmur absent
Respiratory: Respiratory effort normal and Lungs clear to auscul.
Neuro/Psych: AO x 3
Data Reviewed
-
Date of Service: July 27, 2024
EKG: Other (Tele: SR, PVC's, avg HR 70s)
Labs: Labs Reviewed by me
[2024-07-27] MEDS: VASOTEC 1.25 MG IV ×3 (09:39→17:24)
--- NOTE | 2024-07-27 12:03 | W.PN.GS2 ---
Today's Communication / Plan
-
`
Assessment / Plan
-
Assessment: Patient is a 54 yo M POD #9 07/18/24 ex lap (at time of FEVAR with vascular for aortic dissection)
AFVSS
Leukocytosis improving
Electrolytes/BUN/creatinine unremarkable
Nausea, vomiting, distention with attempts at dietary advancement 07/25/[address] imaging 07/26/2024 concerning for pneumatosis with bowel wall thickening and mesenteric edema; most likely causes ischemia given patient's history less likely infectious. CTA on 07/24 demonstrates patent mesenteric vasculature and in
hindsight likely had some small less appreciated elements of the above which are better appreciated with oral contrast. Oral contrast does make its way beyond the area of concern though has not reached the colon. Clinically patient is not
obstructed and is passing loose liquid stools and flatus. The symptoms are most likely explained by the above CT scan findings.
Pneumatosis on recent CT imaging may be reflective of either degree of subacute mesenteric ischemia or of previous acute ischemic event with subsequent mucosal sloughing during bowel recovery process.
Given clinical stability and significant improvement with bowel rest and NG tube decompression higher clinical suspicion that CT imaging findings are more reflective of mucosal sloughing and recovery from previous temporarily reversible bowel
ischemia during acute aortic dissection event of the pneumatosis due to progressive/nonreversible bowel ischemia
Detailed discussions with patient is regarding treatment options. First option is for operative intervention with a repeat exploratory laparotomy 9 to 10 days postop which could be challenging and difficult to determine exactly area that bowel may
have underlying mucosal abnormalities as it is unlikely we will encounter bernie necrosis given clinical situation. Alternatively we would continue with medical management -bowel rest, resumption of TPN and close monitoring. With time mucosal
sloughing would likely heal and slowly improved but this may be a more prolonged process, 4 to 6 weeks. There is the risk that may may develop future strictures in the area of affected small bowel as well which will have to be monitored for during
recovery.
Assuming continued stability I advised the patient I would recommend supportive care understanding that process may require a prolonged period of TPN and generalized bowel rest other than a very elemental or liquid diet and potential delayed
surgical intervention at a later date. There is a strong possibility as well however that continued bowel healing may occur and ultimately he would not need any surgery.
Plan:
-- NPO, IVF, NGT decompression
-- TPN renewed
-- Abx: Zosyn -given risk for bacterial translocation
-- PPI
Subjective Data
-
Date of Service: July 27, 2024
Patient seen and examined. Resting comfortably in hospital bed.
Denies abdominal pain currently.
No nausea.
Has moved his bowels.
Objective Data
-
Intake and Output
07/26/24 07/27/24 07/28/24
06:59 06:59 06:59
Intake Total 1760 / 1860 3040 / 3040 240 / 240
Output Total 600 / 850 2420 / 2420 600 / 600
Balance 1160 / 1010 620 / 620 -360 / -360
Intake:
Oral fluids 880 / 880 240 / 240
IV fluids (Total) 780 / 880 2400 / 2400
Lr 1,000 ml @ 100 mls/hr IV . 600 / 700 1200 / 1200
Q10H [facility] Rx#:[id number]
IV piggybacks 100 / 100 100 / 100
Amount instilled into GI Tube ( 540 / 540
Total)
[place] Sump 540 / 540
Output:
Liquid stool amount 200 / 200
Rectum 200 / 200
Gastrointestinal tube output ( 50 / 50 220 / 220
Total)
[place] Sump 50 / 50 220 / 220
Urine, Voided 350 / 600 2200 / 2200 600 / 600
Other:
Number of approximated MODERATE 1 1
amounts of urine
Number of approximated LARGE 1 1
amounts of urine
How many times incontinent 1
MODERATE amount urine
Number of immeasurable emeses? 1
Number of unmeasured liquid
stools
Rectum 1
Vital Signs
Temp Pulse Resp BP Pulse Ox
98.5 F 68 14 130/80 94
07/27/24 07:05 07/27/24 10:00 07/27/24 10:00 07/27/24 10:00 07/27/24 10:00
Lab Results
07/27/24 04:11
Calcium 7.5 mg/dl (8.4-10.2) L 07/27/24 04:11
Phosphorus 3.1 mg/dl (2.5-4.5) 07/24/24 03:23
Magnesium 2.1 mg/dl (1.6-2.3) 07/24/24 03:23
Total Bilirubin 0.6 mg/dl (0.2-1.3) 07/24/24 03:23
Direct Bilirubin 0.8 mg/dl (0.0-0.4) H 07/19/24 02:58
AST 22 U/L (17-59) 07/24/24 03:23
ALT 20 U/L (0-50) 07/24/24 03:23
Alkaline Phosphatase 79 U/L (38-126) 07/24/24 03:23
Total Protein 5.3 g/dl (6.3-8.2) L 07/24/24 03:23
Albumin 2.7 g/dl (3.5-5.0) L 07/24/24 03:23
Physical Exam
-
NAD AAO x 3
ABD: Soft, nondistended, minimal tenderness on palpation right side. No rebound, no rigidity, no guarding.
Midline laparotomy incision with annette clean.
NG tube with light bilious drainage
[2024-07-27 13:40] LABS: ALT (SGPT) 14 U/L (0-50); AST (SGOT) 14 U/L (17-59); Albumin 2.1 g/dl (3.5-5.0); Alkaline Phosphatase 68 U/L (38-126); Blood Urea Nitrogen 7 mg/dl (9-20); Calcium 7.4 mg/dl (8.4-10.2); Carbon Dioxide 26 mmol/L (22-30); Chloride 99 mmol/L (98-107); Estimated Creatinine Clearance > 125 ml/min; Glucose 84 mg/dl (70-99); Magnesium 1.8 mg/dl (1.6-2.3); Potassium 3.5 mmol/L (3.5-5.1); Sodium 131 mmol/L (135-145); Total Bilirubin 0.6 mg/dl (0.2-1.3); Total Protein 4.6 g/dl (6.3-8.2); Triglycerides 84 mg/dl (10-149); eGFR > 60.00
--- NOTE | 2024-07-27 13:52 | W.PN.HOSP.TC ---
Today's Communication/Plan
-
continue ASA(rectal)/Plavix
continue IVF - then stop when TPN starts
follow GS/Cards recs
Assessment / Plan
Assessment / Plan
HPI: 54-year-old with no known significant past medical history presented to the emergency department with approximately 5 days of ongoing abdominal symptoms.
Patient reported that he abruptly began to have episodes of vomiting then followed by diarrhea that started 5 days [employer]. He c/o crampy abdominal pain and reported melanotic appearing diarrhea.
In the emergency department, his CT angio was done showing a [place] type B thoracic aortic dissection. No involvement of the ascending thoracic aorta or great arch vessels. Vascular surgeon contacted by ED.
Assessment:
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 HD stable. No chest pain.
- s/p CT Angio confirming thoracic/abdominal aortic dissection, [place] type B.
- life threatening diagnosis
- s/p emergent thoracic endovascular aortic repair on 07/18
- Also had concurrently ex-lap for concern of bowel ischemic (no necrosis, viable SB/colon seen)
- s/p 5 day empiric Zosyn course
- continue ASA/Plavix per Vascular surgery. ASA changed to rectal formulation due to NGT and patient tolerating. No Plavix alternative per Vascular, ok to continue orally.
- IV Cardizem, IV enalaprilat while NPO
Leukocytosis
Abd distention
- repeat CT 07/25: pneumatosis with bowel wall thickening and mesenteric edema
- continue NGT decompression
- IVF, NPO
- TPN ordered
- continue Zosyn day 3
- follow serial imaging
Diarrhea
- stool studies including C. Diff and Norovirus negative
- monitor I/Os
Anemia, multi-factorial from acute blood loss from operations, dilution from IVF
- monitor Hb
- GI evaluated; no concern for active GI bleed
- continue PPI
Chronic SOB
Exposure to asbestos/acetone per patient
- prn nebs
- continue Budesonide BID; convert to inhaler at DC
- OP Pulm referral
DVT ppx: Lovenox
Code: Full
Dispo: keep in IMU floor.
Anticipated Discharge: > 48 hours
Subjective/Interval History
-
Date of Service: July 27, 2024
resting comfortably
no abd pain
+BM
NGT remains on suction
Objective Data
-
Labs:
Laboratory Results
07/27/24 07/27/24
04:11 13:05
WBC 10.9 H
Hgb 9.8 L
Hct 29.3 L
Plt Count 223
Sodium 132 L 131 L
Potassium 3.6 3.5
Chloride 100 99
Carbon Dioxide 24 26
BUN 7 L 7 L
Creatinine 0.6 L 0.6 L
Glucose 86 84
Calcium 7.5 L 7.4 L
Total Bilirubin 0.6
AST 14 L
ALT 14
Alkaline Phosphatase 68
Vital Signs:
Vital Signs
Temp Pulse Resp BP Pulse Ox
98 F 75 14 137/102 94
07/27/24 11:05 07/27/24 12:42 07/27/24 10:00 07/27/24 12:42 07/27/24 10:00
I&O
07/26/24 07/27/24 07/28/24
06:59 06:59 06:59
Intake Total 1760 / 1860 3040 / 3040 240 / 240
Output Total 600 / 850 2420 / 2420 800 / 800
Balance 1160 / 1010 620 / 620 -560 / -560
Physical Exam
-
General: No Apparent Distress
HEENT: Normocephalic and Other (+NGT)
Respiratory: Decreased Breath Sounds; Negative Wheezes
Cardiac: Regular Rhythm and S1/S2
GI: Soft and Nontender
Musculoskeletal: No Edema
Neuro: AO x 3
Hematologic / Lymphatic: No Lymphadenopathy
Psych: Calm
Data Reviewed
-
Total Time Spent with Patient (in minutes): 43
Labs: Labs Reviewed by me
--- NOTE | 2024-07-27 14:38 | PTCARENOTE ---
Assumed care of pt this am. Pt AAOx3, anxious but able to make needs known. VSS. 1.25 mg vasotec added Q6H by Dr Larson. First dose given @ 09:39. Will continue to monitor.
[2024-07-27] MEDS: LOVENOX 40 MG SC (17:22)
[2024-07-27] MEDS: Parenteral Nutrition, Central 1410 IV (21:02)
[2024-07-28] VITALS (15 sets, daily range): BP systolic 109–137; BP diastolic 71–92; PULSE 80; O2SAT 98; BMI 22.2
[2024-07-28] MEDS: VASOTEC 1.25 MG IV ×4 (00:05→18:29)
[2024-07-28] MEDS: LOPRESSOR 5 MG IV ×4 (00:05→18:29)
[2024-07-28] MEDS: CARDIZEM 10 MG IV ×4 (00:12→18:30)
[2024-07-28 00:48] LABS: Glucose - Point of Care 156 mg/dl (70-99)
--- NOTE | 2024-07-28 02:58 | PTCARENOTE ---
Caring for pt overnight. aaox3, very anxious. SR w/ pvc on monitor. 2LNC, clear lungs. NGT in place, draining. TPN started overnight. IVABX. afebrile so far. MIdline annette intact, looks good. Hypoactive BS. Good urine output. NO BM so far. PT
sleeping in bed. Call albert in reach.
[2024-07-28] MEDS: ZOSYN 50 IV ×4 (03:54→21:00)
[2024-07-28 05:33] LABS: Hemoglobin 10.6 g/dL (13.0-18.0); Mean Corp Hgb Conc. 34.2 g/dL (33.0-37.0); Mean Corpuscular Volume 87.8 fL (80.0-94.0); Mean Platelet Volume 9.2 fL (7.4-10.4); Platelet Count 321 10^3/uL (130-400); Red Blood Cell Count 3.53 10^6/uL (4.70-6.10); Red Cell Dist. Width 12.9 % (11.5-14.5); White Blood Cell Count 11.4 10^3/uL (4.8-10.8)
[2024-07-28 05:57] LABS: Blood Urea Nitrogen 6 mg/dl (9-20); Calcium 7.7 mg/dl (8.4-10.2); Carbon Dioxide 26 mmol/L (22-30); Chloride 102 mmol/L (98-107); Estimated Creatinine Clearance > 125 ml/min; Glucose 135 mg/dl (70-99); Magnesium 2.3 mg/dl (1.6-2.3); Potassium 3.7 mmol/L (3.5-5.1); Sodium 136 mmol/L (135-145); eGFR > 60.00
[2024-07-28] MEDS: PULMICORT 0.5 MG INH (07:36)
[2024-07-28] MEDS: PLAVIX 75 MG PO (08:17)
[2024-07-28] MEDS: ASPIRIN 300 MG RECTAL (08:17)
[2024-07-28] MEDS: NSS (PRESERVATIVE FREE) 10 ML IV (08:17)
[2024-07-28] MEDS: PROTONIX IV 40 MG IV (08:18)
--- NOTE | 2024-07-28 10:39 | W.PN.GS2 ---
Addendum entered and electronically signed by Antione Linn MD 07/28/24 11:18:
Patient seen and examined. Agree with assessment plan as documented below.
Denies worsening abdominal pain. No nausea or vomiting. Reports passing flatus and some more formed, nonbloody stools.
Gen: NAD
Abd: soft, NT, improved distension, non-peritoneal, incision c/d/i - no erythema, ecchymosis or drainage
Patient is a 54 yo M POD #10 07/18/24 ex lap (at time of FEVAR with vascular for aortic dissection)
AFVSS
Mild Leukocytosis still present
Labs stable on TPN
Nausea, vomiting, distention with attempts at dietary advancement 07/25/[address] imaging 07/26/2024 concerning for pneumatosis with bowel wall thickening and mesenteric edema; most likely causes ischemia given patient's history less likely infectious. CTA on 07/24 demonstrates patent mesenteric vasculature and in
hindsight likely had some small less appreciated elements of the above which are better appreciated with oral contrast. Oral contrast does make its way beyond the area of concern and into the colon
Clinically patient is not obstructed and is passing loose liquid stools and flatus. The symptoms are most likely explained by the above CT scan findings. Pneumatosis on recent CT imaging may be reflective of either degree of subacute mesenteric
ischemia or of previous acute ischemic event with subsequent mucosal sloughing during bowel recovery process. More likely the latter given lack of bloody BMs.
Given clinical stability and significant improvement with bowel rest and NG tube decompression higher clinical suspicion that CT imaging findings are more reflective of mucosal sloughing and recovery from previous temporarily reversible bowel
ischemia during acute aortic dissection event of the pneumatosis due to progressive/nonreversible bowel ischemia
Will continue with medical management - bowel rest, resumption of TPN and close monitoring. With time mucosal sloughing would likely heal and slowly improved but this may be a more prolonged process, 4 to 6 weeks. There is the risk that may may
develop future strictures in the area of affected small bowel as well which will have to be monitored for during recovery.
Plan:
-- NPO, IVF, NGT decompression
-- TPN renewed
-- Abx: Zosyn - given risk for bacterial translocation
-- PPI daily for GI ppx
Original Note:
Today's Communication / Plan
-
NPO/NGT/TPN
Assessment / Plan
-
Assessment: Patient is a 54 yo M POD #10 07/18/24 ex lap (at time of FEVAR with vascular for aortic dissection)
AFVSS
Mild Leukocytosis still present
Labs stable on TPN
Nausea, vomiting, distention with attempts at dietary advancement 07/25/[address] imaging 07/26/2024 concerning for pneumatosis with bowel wall thickening and mesenteric edema; most likely causes ischemia given patient's history less likely infectious. CTA on 07/24 demonstrates patent mesenteric vasculature and in
hindsight likely had some small less appreciated elements of the above which are better appreciated with oral contrast. Oral contrast does make its way beyond the area of concern though has not reached the colon. Clinically patient is not
obstructed and is passing loose liquid stools and flatus. The symptoms are most likely explained by the above CT scan findings. Pneumatosis on recent CT imaging may be reflective of either degree of subacute mesenteric ischemia or of previous acute
ischemic event with subsequent mucosal sloughing during bowel recovery process.
Given clinical stability and significant improvement with bowel rest and NG tube decompression higher clinical suspicion that CT imaging findings are more reflective of mucosal sloughing and recovery from previous temporarily reversible bowel
ischemia during acute aortic dissection event of the pneumatosis due to progressive/nonreversible bowel ischemia
Will continue with medical management -bowel rest, resumption of TPN and close monitoring. With time mucosal sloughing would likely heal and slowly improved but this may be a more prolonged process, 4 to 6 weeks. There is the risk that may may
develop future strictures in the area of affected small bowel as well which will have to be monitored for during recovery.
Plan:
-- NPO, IVF, NGT decompression
-- TPN renewed
-- Abx: Zosyn -given risk for bacterial translocation
-- PPI daily for GI ppx
Subjective Data
-
Date of Service: July 28, 2024
Patient seen and examined at bedside. Denies n/v. Notes he is still having loose stool but they are starting to thicken a bit. Denies pain.
Objective Data
-
Intake and Output
07/27/24 07/28/24 07/29/24
06:59 06:59 06:59
Intake Total 3040 / 3040 2890 / 2890
Output Total 2420 / 2420 4875 / 4875 475 / 475
Balance 620 / 620 -1984 / -1984 -475 / -475
Intake:
Oral fluids 720 / 720
IV fluids (Total) 2400 / 2400 1200 / 1200
Lr 1,000 ml @ 100 mls/hr IV . 1200 / 1200
Q10H [facility] Rx#:[id number]
IV piggybacks 100 / 100 200 / 200
TPN/PPN 590 / 590
Amount instilled into GI Tube ( 540 / 540 180 / 180
Total)
[place] Sump 540 / 540 180 / 180
Output:
Gastrointestinal tube output ( 220 / 220 600 / 600
Total)
[place] Sump 220 / 220 600 / 600
Urine, Voided 2200 / 2200 4275 / 4275 475 / 475
Other:
Number of approximated MODERATE 1
amounts of urine
Number of approximated LARGE 1
amounts of urine
Vital Signs
Temp Pulse Resp BP Pulse Ox
98.3 F 86 18 133/80 94
07/28/24 07:21 07/28/24 08:00 07/28/24 08:00 07/28/24 08:00 07/28/24 08:52
Lab Results
07/28/24 05:20
07/28/24 05:20
Calcium 7.7 mg/dl (8.4-10.2) L 07/28/24 05:20
Phosphorus 3.0 mg/dl (2.5-4.5) 07/27/24 13:05
Magnesium 2.3 mg/dl (1.6-2.3) 07/28/24 05:20
Total Bilirubin 0.6 mg/dl (0.2-1.3) 07/27/24 13:05
Direct Bilirubin 0.8 mg/dl (0.0-0.4) H 07/19/24 02:58
AST 14 U/L (17-59) L 07/27/24 13:05
ALT 14 U/L (0-50) 07/27/24 13:05
Alkaline Phosphatase 68 U/L (38-126) 07/27/24 13:05
Total Protein 4.6 g/dl (6.3-8.2) L 07/27/24 13:05
Albumin 2.1 g/dl (3.5-5.0) L 07/27/24 13:05
Physical Exam
-
NAD AAO x 3
ABD: Soft, nondistended, NT. No rebound, no rigidity, no guarding.
Midline laparotomy incision with annette clean.
NG tube with light bilious drainage
[2024-07-28 11:55] LABS: Glucose - Point of Care 164 mg/dl (70-99)
--- NOTE | 2024-07-28 14:44 | CM ---
Addendum entered by Luann Souza RN 07/28/24 14:50:
Patient who is s/p emergent FEVAR/fenestrated endovascular aortic repair, ex lap 07/18. O2 2L. NPO/NGT/TPN. Receiving IV Cardizem, IV Vasotec, Zosyn.
PT 07/24; home PT vs no needs. Currently pt would continue to benefit from use of RW and may need a RW for D/C.
Patient declined PT/OT 07/27.
07/28 - He worked with PT/OT today.
Plan continue to follow patient's O2 needs, diet needs and mobility needs.
Plan home.
Original Note:
Patient who is s/p emergent FEVAR/fenestrated endovascular aortic repair, ex lap 07/18. O2 2L. NPO/NGT/TPN.
--- NOTE | 2024-07-28 15:54 | W.PN.HOSP.TC ---
Today's Communication/Plan
-
continue NPO/TPN
continue IV Abx
accu-checks, SSI while on TPN
Assessment / Plan
Assessment / Plan
HPI: 54-year-old with no known significant past medical history presented to the emergency department with approximately 5 days of ongoing abdominal symptoms.
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 He c/o crampy abdominal pain and reported melanotic appearing diarrhea.
In the emergency department, his CT angio was done showing a [place] type B thoracic aortic dissection. No involvement of the ascending thoracic aorta or great arch vessels. Vascular surgeon contacted by ED.
Assessment:
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 HD stable. No chest pain.
- s/p CT Angio confirming thoracic/abdominal aortic dissection, [place] type B.
- life threatening diagnosis
- s/p emergent thoracic endovascular aortic repair on 07/18
- Also had concurrently ex-lap for concern of bowel ischemic (no necrosis, viable SB/colon seen)
- s/p 5 day empiric Zosyn course post-ex-lap (now back on Zosyn see below)
- continue ASA/Plavix per Vascular surgery. ASA changed to rectal formulation due to NGT and patient tolerating. No Plavix alternative per Vascular, ok to continue orally.
- IV Cardizem, IV enalaprilat while NPO
Leukocytosis
Abd distention
- repeat CT 07/25: pneumatosis with bowel wall thickening and mesenteric edema
- continue NGT decompression
- IVF, NPO
- TPN continues
- continue Zosyn day 4
- follow serial imaging
Diarrhea
- stool studies including C. Diff and Norovirus negative
- monitor I/Os
Anemia, multi-factorial from acute blood loss from operations, dilution from IVF
- monitor Hb
- GI evaluated; no concern for active GI bleed
- continue PPI
Chronic SOB
Exposure to asbestos/acetone per patient
- prn nebs
- hold Budesonide BID; prescribe steroid inhaler at DC
- OP Pulm referral
DVT ppx: Lovenox
Code: Full
Dispo: keep in IMU floor.
Anticipated Discharge: > 48 hours
Subjective/Interval History
-
Date of Service: July 28, 2024
Denies n/v. Notes he is still having loose stool but they are starting to thicken a bit. Denies pain.
Objective Data
-
Labs:
Laboratory Results
07/28/24
05:20
WBC 11.4 H
Hgb 10.6 L
Hct 31.0 L
Plt Count 321 D
Sodium 136
Potassium 3.7
Chloride 102
Carbon Dioxide 26
BUN 6 L
Creatinine 0.6 L
Glucose 135 H
Calcium 7.7 L
Vital Signs:
Vital Signs
Temp Pulse Resp BP Pulse Ox
98.2 F 86 18 133/80 94
07/28/24 11:29 07/28/24 08:00 07/28/24 08:00 07/28/24 08:00 07/28/24 08:52
I&O
07/27/24 07/28/24 07/29/24
06:59 06:59 06:59
Intake Total 3040 / 3040 2890 / 2890
Output Total 2420 / 2420 4875 / 4875 775 / 775
Balance 620 / 620 -1984 / -1984 -775 / -775
Physical Exam
-
General: No Apparent Distress
HEENT: Normocephalic, Atraumatic and Other (+NGT)
Respiratory: Decreased Breath Sounds; Negative Wheezes
Cardiac: Regular Rhythm and S1/S2
GI: Soft and Nontender
Musculoskeletal: No Edema
Neuro: AO x 3
Hematologic / Lymphatic: No Lymphadenopathy
Psych: Calm
Data Reviewed
-
Total Time Spent with Patient (in minutes): 41
Labs: Labs Reviewed by me
--- NOTE | 2024-07-28 17:03 | W.PN.CD ---
Today's Communication / Plan
-
cont. current BP regimen
Impression / Plan
-
[place] type B thoracic aortic dissection:
-this diagnosis is threat to life
-s/p endovascular thoracic aortic repair 07/18/24- vascular following. Also with ex-lap same day to assess for ischemic bowel (viable tissue noted).
-goal MAP is 75-90 currently per vascular note
-Patient on IV metoprolol 5 mg every 6 hours, IV Diltiazem 10 mg every 6 hours, and IV enalaprilat 1.25 mg every 6 hours
-requires monitoring of tele
-BP currently at goal with MAPs mostly <90
-receiving plavix by mouth; and ASA rectally
HTN
-plan as above
-meds IV while NPO
Ischemic bowel
-Pt now NPO with NGT in place based on CT scan results from 07/25. Plan is supportive care as of now.
-Surgery following
Physical Exam
Vital Signs/Labs
Vital Signs
Temp Pulse Resp BP Pulse Ox
36.7 C 86 18 133/80 94
07/28/24 15:00 07/28/24 08:00 07/28/24 08:00 07/28/24 08:00 07/28/24 08:52
07/27/24 07/28/24 07/29/24
06:59 06:59 06:59
Actual Weight 75.6 kg 74.3 kg
07/28/24 05:20
07/28/24 05:20
PT 16.2 Sec (11.4-14.6) H 07/19/24 02:58
INR 1.27 07/19/24 02:58
APTT 34.7 Sec (23.4-35.0) 07/19/24 02:58
Magnesium 2.3 mg/dl (1.6-2.3) 07/28/24 05:20
Triglycerides 84 mg/dl (10-149) 07/27/24 13:05
LDL Cholesterol, Calc 62 mg/dl 07/18/24 04:14
VLDL Cholesterol, Calc 14 mg/dl (0-30) 07/18/24 04:14
HDL Cholesterol 28 mg/dl 07/18/24 04:14
TSH 1.06 uIU/ml (0.47-4.68) 07/19/24 08:39
Free T4 1.18 ng/dl (0.78-2.19) 07/19/24 08:39
Physical Exam
Constitutional: No acute distress
Cardiovascular: Rhythm & rate is regular
Respiratory: Respiratory effort normal
Neuro/Psych: AO x 3
Data Reviewed
-
Date of Service: July 28, 2024
Medical Decision Making: Reviewed Test Results
Labs: Labs Reviewed by me
[2024-07-28 18:19] LABS: Glucose - Point of Care 151 mg/dl (70-99)
[2024-07-28] MEDS: LOVENOX 40 MG SC (18:27)
[2024-07-28] MEDS: NOVOLOG FLEXPEN-LOW RESISTANCE 1 UNITS SC (18:28)
[2024-07-28] MEDS: Parenteral Nutrition, Central 1420 IV (21:00)
[2024-07-28 23:41] LABS: Glucose - Point of Care 110 mg/dl (70-99)
[2024-07-28] MEDS: NOVOLOG FLEXPEN-LOW RESISTANCE SC (23:44)
--- NOTE | 2024-07-28 23:54 | PTCARENOTE ---
Caring for pt overnight. aaox3, pleasant. TPN running. NGT in place. No changed with any of his surgical sites. VSS. Call albert in reach. no complaints from patient. Will monitor.
[2024-07-29] VITALS (12 sets, daily range): BP systolic 112–144; BP diastolic 59–84; BMI 21.6
[2024-07-29] MEDS: LOPRESSOR 5 MG IV ×4 (00:18→18:24)
[2024-07-29] MEDS: CARDIZEM 10 MG IV ×3 (00:19→13:27)
[2024-07-29] MEDS: VASOTEC 1.25 MG IV ×4 (00:20→18:24)
[2024-07-29 05:18] LABS: Hematocrit 34.1 % (39.0-52.0); Hemoglobin 11.1 g/dL (13.0-18.0); Mean Corp Hgb Conc. 32.6 g/dL (33.0-37.0); Mean Corpuscular Volume 92.2 fL (80.0-94.0); Platelet Count 412 10^3/uL (130-400); Red Cell Dist. Width 13.1 % (11.5-14.5); White Blood Cell Count 13.8 10^3/uL (4.8-10.8)
[2024-07-29] MEDS: ZOSYN 50 IV ×4 (05:21→21:24)
[2024-07-29 05:26] LABS: Blood Urea Nitrogen 11 mg/dl (9-20); Carbon Dioxide 27 mmol/L (22-30); Chloride 103 mmol/L (98-107); Estimated Creatinine Clearance > 125 ml/min; Glucose 115 mg/dl (70-99); Magnesium 2.3 mg/dl (1.6-2.3); Potassium 3.9 mmol/L (3.5-5.1); Sodium 137 mmol/L (135-145); eGFR > 60.00
[2024-07-29] MEDS: NOVOLOG FLEXPEN-LOW RESISTANCE SC ×3 (06:39→18:28)
[2024-07-29] MEDS: NSS (PRESERVATIVE FREE) 10 ML IV (09:11)
[2024-07-29] MEDS: ASPIRIN 300 MG RECTAL (09:11)
[2024-07-29] MEDS: PLAVIX 75 MG PO (09:11)
[2024-07-29] MEDS: PROTONIX IV 40 MG IV (09:12)
--- NOTE | 2024-07-29 11:18 | W.PN.GS2 ---
Today's Communication / Plan
-
-- NPO, IVF, NGT decompression
-- TPN renewed
-- Tentative plan for repeat CT A/p with PO contrast to eval previously seen pneumatosis and help gauge timing of NGT management and possible repeat PO trial
Assessment / Plan
-
Assessment: Patient is a 54 yo M POD #11 07/18/24 ex lap (at time of FEVAR with vascular for aortic dissection)
AFVSS
Leukocytosis noted, trend continue abx
Labs stable on TPN
Nausea, vomiting, distention with attempts at dietary advancement 07/25/[address] imaging 07/26/2024 concerning for pneumatosis with bowel wall thickening and mesenteric edema; most likely causes ischemia given patient's history less likely infectious. CTA on 07/24 demonstrates patent mesenteric vasculature and in
hindsight likely had some small less appreciated elements of the above which are better appreciated with oral contrast. Oral contrast does make its way beyond the area of concern though has not reached the colon.
Clinically patient is not obstructed and is passing stools and flatus. Pneumatosis on recent CT imaging may be reflective of either degree of subacute mesenteric ischemia or of previous acute ischemic event with subsequent mucosal sloughing during
bowel recovery process. Given clinical stability and significant improvement with bowel rest and NG tube decompression higher clinical suspicion that CT imaging findings are more reflective of mucosal sloughing and recovery from previous
temporarily reversible bowel ischemia during acute aortic dissection event of the pneumatosis due to progressive/nonreversible bowel ischemia
Continue with medical management - bowel rest, resumption of TPN and close monitoring. With time mucosal sloughing would likely heal and slowly improved but this may be a more prolonged process, 4 to 6 weeks. There is the risk that may may develop
future strictures in the area of affected small bowel as well which will have to be monitored for during recovery.
Stools becoming more formed - hopeful improvement. No reports of bloody BMs. Tentative plan for repeat CT with PO contrast on Wednesday to help gauge NGT management and any trial of PO intake.
Plan:
-- NPO, IVF, NGT decompression
-- TPN renewed
-- Abx: Zosyn - given risk for bacterial translocation, trend WBC
-- PPI daily for GI ppx
-- Tentative plan for repeat CT A/p with PO contrast to eval previously seen pneumatosis and help gauge timing of NGT management and possible repeat PO trial
Subjective Data
-
Date of Service: July 29, 2024
Denies worsening abdominal pain, reports improvement. No nausea or vomiting. Reports passing flatus and formed brown bowel movements. Afebrile.
Objective Data
-
Intake and Output
07/28/24 07/29/24 07/30/24
06:59 06:59 06:59
Intake Total 2890 / 2890 1008 / 1008 90 / 90
Output Total 4875 / 4875 2024 200 / 200
Balance -1984 / -1984 -1017 / -1017 -110 / -110
Intake:
Oral fluids 720 / 720 240 / 240
IV fluids (Total) 1200 / 1200
IV piggybacks 200 / 200
TPN/PPN 590 / 590 708 / 708
Amount instilled into GI Tube ( 180 / 180 60 / 60 90 / 90
Total)
[place] Sump 180 / 180 60 / 60 90 / 90
Output:
Gastrointestinal tube output ( 600 / 600 300 / 300 200 / 200
Total)
[place] Sump 600 / 600 300 / 300 200 / 200
Urine, Voided 4275 / 4275 1725 / 1725
Vital Signs
Temp Pulse Resp BP Pulse Ox
98.2 F 70 19 115/77 95
07/29/24 07:47 07/29/24 06:00 07/29/24 06:00 07/29/24 06:00 07/29/24 06:00
Lab Results
07/29/24 04:51
07/29/24 04:51
Calcium 8.0 mg/dl (8.4-10.2) L 07/29/24 04:51
Phosphorus 3.0 mg/dl (2.5-4.5) 07/27/24 13:05
Magnesium 2.3 mg/dl (1.6-2.3) 07/29/24 04:51
Total Bilirubin 0.6 mg/dl (0.2-1.3) 07/27/24 13:05
Direct Bilirubin 0.8 mg/dl (0.0-0.4) H 07/19/24 02:58
AST 14 U/L (17-59) L 07/27/24 13:05
ALT 14 U/L (0-50) 07/27/24 13:05
Alkaline Phosphatase 68 U/L (38-126) 07/27/24 13:05
Total Protein 4.6 g/dl (6.3-8.2) L 07/27/24 13:05
Albumin 2.1 g/dl (3.5-5.0) L 07/27/24 13:05
Physical Exam
-
Gen: NAD
HEENT: light bilious
Abd: soft, NT, mild distension, non-peritoneal, incision c/d/i - no erythema, ecchymosis or drainage, annette in place
--- NOTE | 2024-07-29 11:32 | PTCARENOTE ---
Patient AAOx3, anxious about next steps in care plan. Education and comfort provided. NSR with PVCs on monitor. No complaints. Incision CDI. NGT to low int suction with green output. VSS. will continue to closely monitor.
[2024-07-29 12:55] LABS: Glucose - Point of Care 134 mg/dl (70-99)
--- NOTE | 2024-07-29 13:55 | W.PN.CD ---
Today's Communication / Plan
-
Increase diltiazem to 15 mg every 6 hours
Continue metoprolol 5 mg every 6 hours
Continue enalaprilat 1.25 mg every 6 hours
Continue DAPT
Impression / Plan
-
[place] type B thoracic aortic dissection:
-this diagnosis is threat to life
-s/p endovascular thoracic aortic repair 07/18/24- vascular following. Also with ex-lap same day to assess for ischemic bowel (viable tissue noted).
-goal MAP is 75-90 currently per vascular note
-Patient on IV metoprolol 5 mg every 6 hours, IV Diltiazem 10 mg every 6 hours, and IV enalaprilat 1.25 mg every 6 hours
-requires monitoring of tele
-BP and HR above goal. Increase diltiazem to 15mg q6h
-receiving plavix by mouth; and ASA rectally
HTN
-plan as above
-meds IV while NPO
Ischemic bowel
-Pt now NPO with NGT in place based on CT scan results from 07/25. Plan is supportive care as of now.
-Surgery following
Subjective: Patient feels better today. Starting to have bowel movements which are formed. No cardiovascular complaints. On telemetry his heart rate is sinus in the 70s to 80s.
Physical Exam
Vital Signs/Labs
Vital Signs
Temp Pulse Resp BP Pulse Ox
97.8 F 73 19 124/83 95
07/29/24 12:11 07/29/24 13:27 07/29/24 12:00 07/29/24 13:27 07/29/24 12:00
07/28/24 07/29/24 07/30/24
06:59 06:59 06:59
Actual Weight 74.3 kg 72.1 kg
07/29/24 04:51
07/29/24 04:51
PT 16.2 Sec (11.4-14.6) H 07/19/24 02:58
INR 1.27 07/19/24 02:58
APTT 34.7 Sec (23.4-35.0) 07/19/24 02:58
Magnesium 2.3 mg/dl (1.6-2.3) 07/29/24 04:51
Triglycerides 84 mg/dl (10-149) 07/27/24 13:05
LDL Cholesterol, Calc 62 mg/dl 07/18/24 04:14
VLDL Cholesterol, Calc 14 mg/dl (0-30) 07/18/24 04:14
HDL Cholesterol 28 mg/dl 07/18/24 04:14
TSH 1.06 uIU/ml (0.47-4.68) 07/19/24 08:39
Free T4 1.18 ng/dl (0.78-2.19) 07/19/24 08:39
Physical Exam
Constitutional: No acute distress and Comfortable
Cardiovascular: Rhythm & rate is regular, Pedal edema is absent, S1S2 is normal and Murmur/rub/gallop absent
Respiratory: Respiratory effort normal and Lungs clear to auscul.
GI: Soft and Non tender
Data Reviewed
-
Date of Service: July 29, 2024
Medical Decision Making: Reviewed Test Results, Independent Historian Assessment, Test Interpretation and Review of Case with other Provider
EKG: Tracing Personally Visualized and interpreted
Echo: Report Reviewed by me
Labs: Labs Reviewed by me
--- NOTE | 2024-07-29 14:37 | W.PN.HOSP.TC ---
Today's Communication/Plan
-
continue NPO/TPN/NGT
continue IV Zosyn
repeat CT per GS
IV meds for Cardiology
Assessment / Plan
Assessment / Plan
HPI: 54-year-old with no known significant past medical history presented to the emergency department with approximately 5 days of ongoing abdominal symptoms.
Patient reported that he abruptly began to have episodes of vomiting then followed by diarrhea that started 5 days [employer]. He c/o crampy abdominal pain and reported melanotic appearing diarrhea.
In the emergency department, his CT angio was done showing a [place] type B thoracic aortic dissection. No involvement of the ascending thoracic aorta or great arch vessels. Vascular surgeon contacted by ED.
Assessment:
[place] B aortic dissection. No aneurysm. HD stable. No chest pain.
- s/p CT Angio confirming thoracic/abdominal aortic dissection, [place] type B.
- life threatening diagnosis
- s/p emergent thoracic endovascular aortic repair on 07/18
- Also had concurrently ex-lap for concern of bowel ischemic (no necrosis, viable SB/colon seen)
- s/p 5 day empiric Zosyn course post-ex-lap (now back on Zosyn see below)
- continue ASA/Plavix per Vascular surgery. ASA changed to rectal formulation due to NGT and patient tolerating. No Plavix alternative per Vascular, ok to continue orally.
- IV Cardizem, IV Metoprolol and IV enalaprilat while NPO; Cardiology managing.
Leukocytosis
Abd distention
- repeat CT 07/25: pneumatosis with bowel wall thickening and mesenteric edema
- continue NGT decompression
- IVF, NPO
- TPN continues
- continue Zosyn day 5
- GS following; planning for repeat CT
Diarrhea
- stool studies including C. Diff and Norovirus negative
- monitor I/Os
Anemia, multi-factorial from acute blood loss from operations, dilution from IVF
- monitor Hb
- GI evaluated; no concern for active GI bleed
- continue PPI
Chronic SOB
Exposure to asbestos/acetone per patient
- prn nebs
- hold Budesonide BID; prescribe steroid inhaler at DC
- OP Pulm referral
Reactive thrombocytosis
- monitor
DVT ppx: Lovenox
Code: Full
Dispo: keep in IMU floor.
Anticipated Discharge: > 48 hours
Subjective/Interval History
-
Date of Service: July 29, 2024
Denies worsening abdominal pain, reports improvement. No nausea or vomiting. Reports passing flatus and formed brown bowel movements. Afebrile.
Objective Data
-
Labs:
Laboratory Results
07/29/24
04:51
WBC 13.8 H
Hgb 11.1 L
Hct 34.1 L
Plt Count 412 H D
Sodium 137
Potassium 3.9
Chloride 103
Carbon Dioxide 27
BUN 11
Creatinine 0.6 L
Glucose 115 H
Calcium 8.0 L
Vital Signs:
Vital Signs
Temp Pulse Resp BP Pulse Ox
97.8 F 73 19 124/83 95
07/29/24 12:11 07/29/24 13:27 07/29/24 12:00 07/29/24 13:27 07/29/24 12:00
I&O
07/28/24 07/29/24 07/30/24
06:59 06:59 06:59
Intake Total 2890 / 2890 1008 / 1008 90 / 90
Output Total 4875 / 4875 2024 500 / 500
Balance -1984 / -1984 -1017 / -1017 -410 / -410
Physical Exam
-
General: No Apparent Distress
HEENT: Normocephalic, Atraumatic and Other (+NGT)
Respiratory: Negative Wheezes
Cardiac: Regular Rhythm and S1/S2
GI: Soft
Genito-urinary: No Costovertebral Tender
Musculoskeletal: No Edema
Neuro: AO x 3
Hematologic / Lymphatic: No Lymphadenopathy
Psych: Calm
Data Reviewed
-
Total Time Spent with Patient (in minutes): 44
Labs: Labs Reviewed by me
[2024-07-29 18:25] LABS: Glucose - Point of Care 121 mg/dl (70-99)
[2024-07-29] MEDS: LOVENOX 40 MG SC (18:25)
[2024-07-29] MEDS: CARDIZEM 15 MG IV (18:25)
[2024-07-29] MEDS: Parenteral Nutrition, Central 1420 IV (21:24)
[2024-07-29 23:50] LABS: Glucose - Point of Care 117 mg/dl (70-99)
[2024-07-30] VITALS (15 sets, daily range): BP systolic 110–145; BP diastolic 70–88; PULSE 78; O2SAT 95; BMI 21.3
[2024-07-30] MEDS: CARDIZEM 15 MG IV ×4 (00:05→17:51)
[2024-07-30] MEDS: LOPRESSOR 5 MG IV ×3 (00:07→12:26)
[2024-07-30] MEDS: VASOTEC 1.25 MG IV ×4 (00:08→17:51)
[2024-07-30] MEDS: NOVOLOG FLEXPEN-LOW RESISTANCE SC ×4 (00:11→19:31)
--- NOTE | 2024-07-30 04:00 | PTCARENOTE ---
Pt AAOx3, appearing very anxious about future care and if he 'will ever be able to eat again'. Emotional support and education given. Pt appears to be tolerating NG tube well, Q4 flush. On assessment Pt left lung heard to have expiratory wheeze, Neb
offered Pt refused saying the neb 'made his chest feel cold' last time and requested a inhaler if available. 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 Pt does not appear in distress SPO2 90-92%, RR 18 even unlabored.
[2024-07-30] MEDS: ProAIR HFA INHALER 1 PUFF INH (04:31)
[2024-07-30] MEDS: ZOSYN 50 IV ×4 (04:48→22:19)
[2024-07-30 05:21] LABS: Hematocrit 32.8 % (39.0-52.0); Hemoglobin 11.1 g/dL (13.0-18.0); Mean Corp Hgb Conc. 33.8 g/dL (33.0-37.0); Mean Corpuscular Hgb 30.5 pg (27.0-31.0); Mean Corpuscular Volume 90.1 fL (80.0-94.0); Platelet Count 454 10^3/uL (130-400); Red Blood Cell Count 3.64 10^6/uL (4.70-6.10); White Blood Cell Count 13.3 10^3/uL (4.8-10.8)
[2024-07-30 05:54] LABS: Blood Urea Nitrogen 15 mg/dl (9-20); Calcium 8.1 mg/dl (8.4-10.2); Carbon Dioxide 28 mmol/L (22-30); Chloride 100 mmol/L (98-107); Estimated Creatinine Clearance > 125 ml/min; Glucose 109 mg/dl (70-99); Magnesium 2.3 mg/dl (1.6-2.3); Sodium 134 mmol/L (135-145); eGFR > 60.00
[2024-07-30 06:23] LABS: Glucose - Point of Care 136 mg/dl (70-99)
[2024-07-30] MEDS: ASPIRIN 300 MG RECTAL (10:24)
[2024-07-30] MEDS: PLAVIX 75 MG PO (10:24)
[2024-07-30] MEDS: NSS (PRESERVATIVE FREE) 10 ML IV (10:25)
[2024-07-30] MEDS: PROTONIX IV 40 MG IV (10:25)
--- NOTE | 2024-07-30 10:46 | W.PN.GS2 ---
Addendum entered and electronically signed by Antione Linn MD 07/30/24 12:42:
Patient seen and examined. Agree with assessment plan as documented below.
No new complaints. Denies worsening abdominal pain. No nausea or vomiting. Passing flatus and more formed, nonbloody stools.
Gen: NAD
HEENT: slightly bilious, minimal NGT outputs
Abd: soft, NT, mild distension, non-peritoneal, incision c/d/i - no erythema, ecchymosis or drainage
Patient is a 54 yo M POD #12 07/18/24 ex lap (at time of FEVAR with vascular for aortic dissection)
Nausea, vomiting, distention with attempts at dietary advancement 07/25/[address] imaging 07/26/2024 concerning for pneumatosis with bowel wall thickening and mesenteric edema; most likely causes ischemia given patient's history less likely infectious. CTA on 07/24 demonstrates patent mesenteric vasculature and in
hindsight likely had some small less appreciated elements of the above which are better appreciated with oral contrast. Oral contrast does make its way beyond the area of concern though has not reached the colon.
Clinically patient is not obstructed and is passing stools and flatus. Pneumatosis on recent CT imaging may be reflective of either degree of subacute mesenteric ischemia or of previous acute ischemic event with subsequent mucosal sloughing during
bowel recovery process. Given clinical stability and significant improvement with bowel rest and NG tube decompression higher clinical suspicion that CT imaging findings are more reflective of mucosal sloughing and recovery from previous
temporarily reversible bowel ischemia during acute aortic dissection event of the pneumatosis due to progressive/nonreversible bowel ischemia
Continue with medical management - bowel rest, resumption of TPN and close monitoring. With time mucosal sloughing would likely heal and slowly improved but this may be a more prolonged process, 4 to 6 weeks. There is the risk that may may develop
future strictures in the area of affected small bowel as well which will have to be monitored for during recovery.
Stools becoming more formed - hopeful improvement. No reports of bloody BMs.
AFVSS
Leukocytosis persists but not trending up
Labs stable on TPN
-- NPO, IVF, NGT decompression
-- TPN renewed
-- Abx: Zosyn - given risk for bacterial translocation, trend WBC
-- PPI daily for GI ppx
-- Plan for repeat CT A/p with PO contrast to eval previously seen pneumatosis and help gauge timing of NGT management and possible repeat PO trial in AM
Original Note:
Today's Communication / Plan
-
CT tomorrow
Assessment / Plan
-
Assessment: Patient is a 54 yo M POD #12 07/18/24 ex lap (at time of FEVAR with vascular for aortic dissection)
Nausea, vomiting, distention with attempts at dietary advancement 07/25/[address] imaging 07/26/2024 concerning for pneumatosis with bowel wall thickening and mesenteric edema; most likely causes ischemia given patient's history less likely infectious. CTA on 07/24 demonstrates patent mesenteric vasculature and in
hindsight likely had some small less appreciated elements of the above which are better appreciated with oral contrast. Oral contrast does make its way beyond the area of concern though has not reached the colon.
Clinically patient is not obstructed and is passing stools and flatus. Pneumatosis on recent CT imaging may be reflective of either degree of subacute mesenteric ischemia or of previous acute ischemic event with subsequent mucosal sloughing during
bowel recovery process. Given clinical stability and significant improvement with bowel rest and NG tube decompression higher clinical suspicion that CT imaging findings are more reflective of mucosal sloughing and recovery from previous
temporarily reversible bowel ischemia during acute aortic dissection event of the pneumatosis due to progressive/nonreversible bowel ischemia
Continue with medical management - bowel rest, resumption of TPN and close monitoring. With time mucosal sloughing would likely heal and slowly improved but this may be a more prolonged process, 4 to 6 weeks. There is the risk that may may develop
future strictures in the area of affected small bowel as well which will have to be monitored for during recovery.
Stools becoming more formed - hopeful improvement. No reports of bloody BMs.
AFVSS
Leukocytosis persists but not trending up
Labs stable on TPN
Plan:
-- NPO, IVF, NGT decompression
-- TPN renewed
-- Abx: Zosyn - given risk for bacterial translocation, trend WBC
-- PPI daily for GI ppx
-- Plan for repeat CT A/p with PO contrast to eval previously seen pneumatosis and help gauge timing of NGT management and possible repeat PO trial in AM
Subjective Data
-
Date of Service: July 30, 2024
Patient seen and examined at bedside with Dr. Linn. Questions addressed. Denies new complaints. Minimal abdominal discomfort. Denies n/v. Passing flatus and some loose stools when he sits on the commode.
Objective Data
-
Intake and Output
07/29/24 07/30/24 07/31/24
06:59 06:59 06:59
Intake Total 1008 / 1008 1328 / 1328
Output Total 2024 / 2024 1700 / 1700
Balance -1017 / -1017 -372 / -372
Intake:
Oral fluids 240 / 240 240 / 240
IV fluids (Total) 100 / 100
IV piggybacks 100 / 100
TPN/PPN 708 / 708 708 / 708
Amount instilled into GI Tube ( 60 / 60 180 / 180
Total)
[place] Sump 60 / 60 180 / 180
Output:
Gastrointestinal tube output ( 300 / 300 750 / 750
Total)
[place] Sump 300 / 300 750 / 750
Urine, Voided 1725 / 1725 950 / 950
Vital Signs
Temp Pulse Resp BP Pulse Ox
99.0 F 78 17 129/71 93
07/30/24 07:00 07/30/24 06:21 07/30/24 06:17 07/30/24 06:21 07/30/24 06:17
Lab Results
07/30/24 04:59
07/30/24 04:59
Calcium 8.1 mg/dl (8.4-10.2) L 07/30/24 04:59
Phosphorus 3.0 mg/dl (2.5-4.5) 07/27/24 13:05
Magnesium 2.3 mg/dl (1.6-2.3) 07/30/24 04:59
Total Bilirubin 0.6 mg/dl (0.2-1.3) 07/27/24 13:05
Direct Bilirubin 0.8 mg/dl (0.0-0.4) H 07/19/24 02:58
AST 14 U/L (17-59) L 07/27/24 13:05
ALT 14 U/L (0-50) 07/27/24 13:05
Alkaline Phosphatase 68 U/L (38-126) 07/27/24 13:05
Total Protein 4.6 g/dl (6.3-8.2) L 07/27/24 13:05
Albumin 2.1 g/dl (3.5-5.0) L 07/27/24 13:05
Physical Exam
-
Gen: NAD
HEENT: NGT with light bilious outputs
Abd: soft, NT, mild distension, non-peritoneal, incision c/d/i - no erythema, ecchymosis or drainage, annette in place
--- NOTE | 2024-07-30 11:39 | CM ---
Patient who is s/p emergent FEVAR/fenestrated endovascular aortic repair, ex lap 07/18. Room air. NPO/NGT/TPN. Receiving IV Cardizem, IV Lopressor, Zosyn. PT 07/28; home PT vs no needs, using RW. Refused OT x2.
CM Consult: Home TPN for cyclic TPN orders.
Message from Penny Man, Surgery SENIOR TECHNICAL WRITER: We are not sure when dc will be yet, not anytime soon though. Dr Linn would be writing the TPN if he does goes home on it which he may but that�s not for sure yet.
CM will wait to make referral for home TPN when MD certain home TPN will be required.
Plan continue to follow patient's diet needs/possible TPN needs and mobility needs. May need RW for home use.
Plan offer VN when closer to d/c.
Plan home.
[2024-07-30 13:06] LABS: Glucose - Point of Care 136 mg/dl (70-99)
--- NOTE | 2024-07-30 13:51 | W.PN.CD ---
Today's Communication / Plan
-
HR and BPs are slightly above goal
Increase metoprolol to 10 mg every 6 hours
Per surgery note, plan is for CT scan tomorrow and possible retrial of p.o.
Impression / Plan
-
[place] type B thoracic aortic dissection:
-this diagnosis is threat to life
-s/p endovascular thoracic aortic repair 07/18/24- vascular following. Also with ex-lap same day to assess for ischemic bowel (viable tissue noted).
-goal MAP is 75-90 currently per vascular note
-Patient on IV metoprolol 5 mg every 6 hours, IV Diltiazem 15 mg every 6 hours, and IV enalaprilat 1.25 mg every 6 hours
-requires monitoring of tele
-BP and HR above goal. Increase metoprolol to 10 mg every 6 hours
-receiving plavix by mouth; and ASA rectally
HTN
-plan as above
-meds IV while NPO
Ischemic bowel
-Pt now NPO with NGT in place based on CT scan results from 07/25. Plan is supportive care as of now.
-Surgery following
Subjective: Patient feels depressed today. Worried he would never be able to eat again. Plan is for CT scan tomorrow. On telemetry his heart rate is sinus in the 70s to 80s.
Physical Exam
Vital Signs/Labs
Vital Signs
Temp Pulse Resp BP Pulse Ox
97.8 F 78 17 129/71 93
07/30/24 11:00 07/30/24 06:21 07/30/24 06:17 07/30/24 06:21 07/30/24 06:17
07/29/24 07/30/24 07/31/24
06:59 06:59 06:59
Actual Weight 72.1 kg 71.3 kg
07/30/24 04:59
07/30/24 04:59
PT 16.2 Sec (11.4-14.6) H 07/19/24 02:58
INR 1.27 07/19/24 02:58
APTT 34.7 Sec (23.4-35.0) 07/19/24 02:58
Magnesium 2.3 mg/dl (1.6-2.3) 07/30/24 04:59
Triglycerides 84 mg/dl (10-149) 07/27/24 13:05
LDL Cholesterol, Calc 62 mg/dl 07/18/24 04:14
VLDL Cholesterol, Calc 14 mg/dl (0-30) 07/18/24 04:14
HDL Cholesterol 28 mg/dl 07/18/24 04:14
TSH 1.06 uIU/ml (0.47-4.68) 07/19/24 08:39
Free T4 1.18 ng/dl (0.78-2.19) 07/19/24 08:39
Physical Exam
Constitutional: No acute distress and Comfortable
Cardiovascular: Rhythm & rate is regular, Pedal edema is absent, S1S2 is normal and Murmur/rub/gallop absent
Respiratory: Respiratory effort normal and Lungs clear to auscul.
GI: Soft and Non tender
Neuro/Psych: AO x 3
Data Reviewed
-
Date of Service: July 30, 2024
Medical Decision Making: Reviewed Test Results, Independent Historian Assessment, Test Interpretation and Review of Case with other Provider
EKG: Tracing Personally Visualized and interpreted
Echo: Report Reviewed by me
Labs: Labs Reviewed by me
--- NOTE | 2024-07-30 15:23 | W.PN.HOSP.TC ---
Today's Communication/Plan
-
repeat CT Wednesday
Assessment / Plan
Assessment / Plan
HPI: 54-year-old with no known significant past medical history presented to the emergency department with approximately 5 days of ongoing abdominal symptoms.
Patient reported that he abruptly began to have episodes of vomiting then followed by diarrhea that started 5 days [employer]. He c/o crampy abdominal pain and reported melanotic appearing diarrhea.
In the emergency department, his CT angio was done showing a [place] type B thoracic aortic dissection. No involvement of the ascending thoracic aorta or great arch vessels. Vascular surgeon contacted by ED.
Assessment:
[place] B aortic dissection. No aneurysm. HD stable. No chest pain.
- s/p CT Angio confirming thoracic/abdominal aortic dissection, [place] type B.
- life threatening diagnosis
- s/p emergent thoracic endovascular aortic repair on 07/18
- Also had concurrently ex-lap for concern of bowel ischemic (no necrosis, viable SB/colon seen)
- s/p 5 day empiric Zosyn course post-ex-lap (now back on Zosyn see below)
- continue ASA/Plavix per Vascular surgery. ASA changed to rectal formulation due to NGT and patient tolerating. No Plavix alternative per Vascular, ok to continue orally.
- IV Cardizem, IV Metoprolol and IV enalaprilat while NPO; Cardiology managing.
Leukocytosis
Abd distention
- repeat CT 07/25: pneumatosis with bowel wall thickening and mesenteric edema
- continue NGT decompression
- IVF, NPO
- TPN continues
- continue Zosyn day 6
- GS following; planning for repeat CT Wednesday
Diarrhea
- stool studies including C. Diff and Norovirus negative
- monitor I/Os
Anemia, multi-factorial from acute blood loss from operations, dilution from IVF
- monitor Hb
- GI evaluated; no concern for active GI bleed
- continue PPI
Chronic SOB
Exposure to asbestos/acetone per patient
- prn nebs
- hold Budesonide BID; prescribe steroid inhaler at DC
- OP Pulm referral
Reactive thrombocytosis
- monitor
DVT ppx: Lovenox
Code: Full
Dispo: keep in IMU floor.
Anticipated Discharge: > 48 hours
Subjective/Interval History
-
Date of Service: July 30, 2024
no new complaints, has minimal abdominal discomfort. No N/V. passing flatus, looser stools
Objective Data
-
Labs:
Laboratory Results
07/30/24
04:59
WBC 13.3 H
Hgb 11.1 L
Hct 32.8 L
Plt Count 454 H
Sodium 134 L
Potassium 4.0
Chloride 100
Carbon Dioxide 28
BUN 15
Creatinine 0.6 L
Glucose 109 H
Calcium 8.1 L
Vital Signs:
Vital Signs
Temp Pulse Resp BP Pulse Ox
98.0 F 69 19 122/71 95
07/30/24 15:14 07/30/24 14:00 07/30/24 14:00 07/30/24 14:00 07/30/24 14:49
I&O
07/29/24 07/30/24 07/31/24
06:59 06:59 06:59
Intake Total 1008 / 1008 1328 / 1328
Output Total 2024 1700 / 1700
Balance -1017 / -1017 -372 / -372
Physical Exam
-
General: No Apparent Distress
HEENT: Normocephalic, Atraumatic and Other (+NGT)
Respiratory: Negative Wheezes
Cardiac: Regular Rhythm and S1/S2
GI: Soft and Nontender
Genito-urinary: No Costovertebral Tender
Musculoskeletal: No Edema
Neuro: AO x 3
Hematologic / Lymphatic: No Lymphadenopathy
Psych: Calm
Data Reviewed
-
Total Time Spent with Patient (in minutes): 45
Labs: Labs Reviewed by me
[2024-07-30] MEDS: LOPRESSOR 10 MG IV (17:49)
[2024-07-30] MEDS: LOVENOX 40 MG SC (17:50)
[2024-07-30 18:39] LABS: Glucose - Point of Care 124 mg/dl (70-99)
[2024-07-30] MEDS: Parenteral Nutrition, Central 1420 IV (21:33)
[2024-07-31] VITALS (15 sets, daily range): BP systolic 102–152; BP diastolic 55–86; O2SAT 93; BMI 21.3
[2024-07-31] MEDS: CARDIZEM 15 MG IV ×4 (00:25→18:26)
[2024-07-31] MEDS: LOPRESSOR 10 MG IV ×4 (00:27→18:27)
[2024-07-31] MEDS: VASOTEC 1.25 MG IV ×4 (00:28→18:26)
[2024-07-31 00:31] LABS: Glucose - Point of Care 110 mg/dl (70-99)
[2024-07-31] MEDS: NOVOLOG FLEXPEN-LOW RESISTANCE SC ×4 (00:41→18:11)
--- NOTE | 2024-07-31 02:08 | PTCARENOTE ---
Pt continues to show sign of anxiety. Pt appearing to have a negative outlook? Pt stating 'Im not getting any better', 'I probably wont eat again'. Education and emotional support given multiple times throughout shift for comments similar. Pt
alerting RN to mild pain in left back. Assessment benign, while palpating Pt stated 'the rubbing helps, it feels like a muscle'. Pain medication offered Pt refused at this time after back rub. Assessment care and vitals as charted.
[2024-07-31] MEDS: ZOSYN 50 IV ×4 (04:08→21:12)
[2024-07-31 04:54] LABS: Hematocrit 32.8 % (39.0-52.0); Hemoglobin 10.8 g/dL (13.0-18.0); Mean Corp Hgb Conc. 32.9 g/dL (33.0-37.0); Mean Corpuscular Hgb 30.1 pg (27.0-31.0); Mean Corpuscular Volume 91.4 fL (80.0-94.0); Mean Platelet Volume 8.8 fL (7.4-10.4); Platelet Count 490 10^3/uL (130-400); Red Blood Cell Count 3.59 10^6/uL (4.70-6.10); Red Cell Dist. Width 13.1 % (11.5-14.5); White Blood Cell Count 11.3 10^3/uL (4.8-10.8)
[2024-07-31 05:21] LABS: ALT (SGPT) 14 U/L (0-50); AST (SGOT) 13 U/L (17-59); Albumin 2.7 g/dl (3.5-5.0); Alkaline Phosphatase 65 U/L (38-126); Blood Urea Nitrogen 18 mg/dl (9-20); Calcium 8.3 mg/dl (8.4-10.2); Carbon Dioxide 31 mmol/L (22-30); Chloride 101 mmol/L (98-107); Estimated Creatinine Clearance 121 ml/min; Glucose 110 mg/dl (70-99); Magnesium 2.4 mg/dl (1.6-2.3); Phosphorus 3.6 mg/dl (2.5-4.5); Potassium 4.4 mmol/L (3.5-5.1); Sodium 137 mmol/L (135-145); Total Bilirubin 0.3 mg/dl (0.2-1.3); Total Protein 5.9 g/dl (6.3-8.2); Triglycerides 68 mg/dl (10-149); eGFR > 60.00
[2024-07-31 06:05] LABS: Glucose - Point of Care 118 mg/dl (70-99)
--- NOTE | 2024-07-31 07:40 | W.PN.CD ---
Today's Communication / Plan
-
cont. current BP regimen while NPO
Impression / Plan
-
[place] type B thoracic aortic dissection:
-this diagnosis is threat to life
-s/p endovascular thoracic aortic repair 07/18/24- vascular following. Also with ex-lap same day to assess for ischemic bowel (viable tissue noted).
-goal MAP is 75-90 currently per vascular note
-Patient on IV metoprolol 10 mg every 6 hours, IV Diltiazem 15 mg every 6 hours, and IV enalaprilat 1.25 mg every 6 hours
-requires monitoring of tele
-BP at goal.
-receiving plavix by mouth; and ASA rectally
HTN
-plan as above
-meds IV while NPO
Ischemic bowel
-Pt now NPO with NGT in place based on CT scan results from 07/25. Plan is supportive care as of now.
-Surgery following
Subjective: Sleeping comfortable. Tele with SR 70s-80s.
Physical Exam
Vital Signs/Labs
Vital Signs
Temp Pulse Resp BP Pulse Ox
37.1 C 67 15 126/63 95
07/31/24 07:21 07/31/24 06:00 07/31/24 06:00 07/31/24 06:00 07/31/24 06:00
07/30/24 07/31/24 08/01/24
06:59 06:59 06:59
Actual Weight 71.3 kg 71.2 kg
07/31/24 04:13
07/31/24 04:13
PT 16.2 Sec (11.4-14.6) H 07/19/24 02:58
INR 1.27 07/19/24 02:58
APTT 34.7 Sec (23.4-35.0) 07/19/24 02:58
Magnesium 2.4 mg/dl (1.6-2.3) H 07/31/24 04:13
Triglycerides 68 mg/dl (10-149) 07/31/24 04:13
LDL Cholesterol, Calc 62 mg/dl 07/18/24 04:14
VLDL Cholesterol, Calc 14 mg/dl (0-30) 07/18/24 04:14
HDL Cholesterol 28 mg/dl 07/18/24 04:14
TSH 1.06 uIU/ml (0.47-4.68) 07/19/24 08:39
Free T4 1.18 ng/dl (0.78-2.19) 07/19/24 08:39
Physical Exam
Constitutional: No acute distress
Cardiovascular: Rhythm & rate is regular
Respiratory: Respiratory effort normal
Data Reviewed
-
Date of Service: July 31, 2024
Medical Decision Making: Reviewed Test Results
Labs: Labs Reviewed by me
--- NOTE | 2024-07-31 08:43 | W.PN.HOSP.TC ---
Today's Communication/Plan
-
repeat CT Today per GS
continue ASA/Plavix and BP meds as per Vascular/Cardiology
Assessment / Plan
Assessment / Plan
HPI: 54-year-old with no known significant past medical history presented to the emergency department with approximately 5 days of ongoing abdominal symptoms.
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 He c/o crampy abdominal pain and reported melanotic appearing diarrhea.
In the emergency department, his CT angio was done showing a [place] type B thoracic aortic dissection. No involvement of the ascending thoracic aorta or great arch vessels. Vascular surgeon contacted by ED.
Assessment:
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 HD stable. No chest pain.
- s/p CT Angio confirming thoracic/abdominal aortic dissection, [place] type B.
- life threatening diagnosis
- s/p emergent thoracic endovascular aortic repair on 07/18
- Also had concurrently ex-lap for concern of bowel ischemic (no necrosis, viable SB/colon seen)
- s/p 5 day empiric Zosyn course post-ex-lap (now back on Zosyn see below)
- continue ASA/Plavix per Vascular surgery. ok for oral route for both per Vascular surgery.
- IV Cardizem, IV Metoprolol and IV enalaprilat while NPO; Cardiology managing and following BP/MAP goals as outlined in their notes
Leukocytosis
Abd distention
- repeat CT 07/25: pneumatosis with bowel wall thickening and mesenteric edema
- continue NGT decompression
- IVF, NPO
- TPN continues
- continue Zosyn day 7
- GS following; planning for repeat CT today
Diarrhea
- stool studies including C. Diff and Norovirus negative
- monitor I/Os
Anemia, multi-factorial from acute blood loss from operations, dilution from IVF
- monitor Hb
- GI evaluated; no concern for active GI bleed
- continue PPI
Chronic SOB
Exposure to asbestos/acetone per patient
- prn nebs
- hold Budesonide BID; prescribe steroid inhaler at DC
- OP Pulm referral
Reactive thrombocytosis
- monitor
DVT ppx: Lovenox
Code: Full
Dispo: keep in IMU floor.
Anticipated Discharge: > 48 hours
Subjective/Interval History
-
Date of Service: July 31, 2024
no overnight events
no new complaints
for CT today
Objective Data
-
Labs:
Laboratory Results
07/31/24
04:13
WBC 11.3 H
Hgb 10.8 L
Hct 32.8 L
Plt Count 490 H
Sodium 137
Potassium 4.4
Chloride 101
Carbon Dioxide 31 H
BUN 18
Creatinine 0.7
Glucose 110 H
Calcium 8.3 L
Total Bilirubin 0.3
AST 13 L
ALT 14
Alkaline Phosphatase 65
Vital Signs:
Vital Signs
Temp Pulse Resp BP Pulse Ox
98.7 F 67 15 126/63 95
07/31/24 07:21 07/31/24 06:00 07/31/24 06:00 07/31/24 06:00 07/31/24 06:00
I&O
07/30/2424 08/01/24
06:59 06:59 06:59
Intake Total 1328 / 1328 1966 / 1966
Output Total 1700 / 1700 2400 / 2400
Balance -372 / -372 -434 / -434
Physical Exam
-
General: No Apparent Distress
HEENT: Normocephalic, Atraumatic and Other (+NGT)
Respiratory: Negative Wheezes
Cardiac: Regular Rhythm and S1/S2
GI: Soft
Genito-urinary: No Costovertebral Tender
Musculoskeletal: No Edema
Neuro: AO x 3
Hematologic / Lymphatic: No Lymphadenopathy
Psych: Calm
Data Reviewed
-
Total Time Spent with Patient (in minutes): 45
Labs: Labs Reviewed by me
--- NOTE | 2024-07-31 08:52 | W.PN.GS2 ---
Today's Communication / Plan
-
-- Repeat CT abdomen/pelvis with PO and IV contrast
Assessment / Plan
-
Assessment: Patient is a 54 yo M POD #13 07/18/24 ex lap (at time of FEVAR with vascular for aortic dissection)
Nausea, vomiting, distention with attempts at dietary advancement 07/25/[address] imaging 07/26/2024 concerning for pneumatosis with bowel wall thickening and mesenteric edema; most likely causes ischemia given patient's history less likely infectious. CTA on 07/24 demonstrates patent mesenteric vasculature and in
hindsight likely had some small less appreciated elements of the above which are better appreciated with oral contrast. Oral contrast does make its way beyond the area of concern though has not reached the colon.
Clinically patient is not obstructed and is passing stools and flatus. Pneumatosis on recent CT imaging may be reflective of either degree of subacute mesenteric ischemia or of previous acute ischemic event with subsequent mucosal sloughing during
bowel recovery process. Given clinical stability and significant improvement with bowel rest and NG tube decompression higher clinical suspicion that CT imaging findings are more reflective of mucosal sloughing and recovery from previous
temporarily reversible bowel ischemia during acute aortic dissection event of the pneumatosis due to progressive/nonreversible bowel ischemia
Continue with medical management - bowel rest, resumption of TPN and close monitoring. With time mucosal sloughing would likely heal and slowly improved but this may be a more prolonged process, 4 to 6 weeks. There is the risk that may may develop
future strictures in the area of affected small bowel as well which will have to be monitored for during recovery.
Stools becoming more formed - hopeful improvement. No reports of bloody BMs.
AFVSS
Leukocytosis persists, trending down
Labs stable on TPN
Plan:
-- Repeat CT abdomen/pelvis with PO and IV contrast
-- NPO, IVF, NGT decompression
-- TPN renewed
-- Abx: Zosyn - given risk for bacterial translocation, trend WBC
-- PPI daily for GI ppx
Subjective Data
-
Date of Service: July 31, 2024
No new complaints. Continues to pass flatus and stools. Afebrile.
Objective Data
-
Intake and Output
07/30/24 07/31/24 08/01/24
06:59 06:59 06:59
Intake Total 1328 / 1328 1965 / 1965
Output Total 1700 / 1700 2400 / 2400
Balance -372 / -372 -434 / -434
Intake:
Oral fluids 240 / 240
IV fluids (Total) 100 / 100 200 / 200
IV piggybacks 100 / 100 200 / 200
TPN/PPN 708 / 708 1416 / 1416
Amount instilled into GI Tube ( 180 / 180 150 / 150
Total)
Mercer Sump 180 / 180 150 / 150
Output:
Gastrointestinal tube output ( 750 / 750 700 / 700
Total)
Mercer Sump 750 / 750 700 / 700
Urine, Voided 950 / 950 1700 / 1700
Vital Signs
Temp Pulse Resp BP Pulse Ox
98.7 F 67 15 126/63 95
07/31/24 07:21 07/31/24 06:00 07/31/24 06:00 07/31/24 06:00 07/31/24 06:00
Lab Results
07/31/24 04:13
07/31/24 04:13
Calcium 8.3 mg/dl (8.4-10.2) L 07/31/24 04:13
Phosphorus 3.6 mg/dl (2.5-4.5) 07/31/24 04:13
Magnesium 2.4 mg/dl (1.6-2.3) H 07/31/24 04:13
Total Bilirubin 0.3 mg/dl (0.2-1.3) 07/31/24 04:13
Direct Bilirubin 0.8 mg/dl (0.0-0.4) H 07/19/24 02:58
AST 13 U/L (17-59) L 07/31/24 04:13
ALT 14 U/L (0-50) 07/31/24 04:13
Alkaline Phosphatase 65 U/L (38-126) 07/31/24 04:13
Total Protein 5.9 g/dl (6.3-8.2) L 07/31/24 04:13
Albumin 2.7 g/dl (3.5-5.0) L 07/31/24 04:13
Physical Exam
-
Gen: NAD
HEENT: light bilious
Abd: soft, NT, mild distension, non-peritoneal, incision c/d/i - no erythema, ecchymosis or drainage
[2024-07-31] MEDS: OMNIPAQUE 50 ML PO (08:53)
[2024-07-31] MEDS: PROTONIX IV 40 MG IV (08:53)
[2024-07-31] MEDS: NSS (PRESERVATIVE FREE) 10 ML IV (08:53)
[2024-07-31] MEDS: PLAVIX 75 MG PO (08:54)
[2024-07-31] MEDS: ASPIRIN RECTAL (08:54)
--- NOTE | 2024-07-31 11:55 | CM ---
Patient seen at bedside
07/18/24 ex lap (at time of VAR with vascular for aortic dissection)
NPO, IVF, NGT, TPN
[facility]
Patient had CAT scan today
PLAN: TBD, CM following to determine needs. Home, ?TPN
[2024-07-31 12:04] LABS: Glucose - Point of Care 125 mg/dl (70-99)
--- NOTE | 2024-07-31 12:59 | PTCARENOTE ---
ct prep given via ng tube. ct scan completed.annette removed by surgery smart grid engineer and steri strips intact. dr rankin in to see pt and ng clamped as per order.
[2024-07-31] MEDS: ASPIR LOW (ENTERIC COATED) 81 MG PO (13:05)
[2024-07-31 18:15] LABS: Glucose - Point of Care 126 mg/dl (70-99)
[2024-07-31] MEDS: LOVENOX 40 MG SC (18:27)
[2024-07-31] MEDS: Parenteral Nutrition, Central 1400 IV (21:12)
[2024-08-01] VITALS (14 sets, daily range): BP systolic 92–127; BP diastolic 50–78; BMI 21.2
[2024-08-01 00:11] LABS: Glucose - Point of Care 155 mg/dl (70-99)
[2024-08-01] MEDS: LOPRESSOR 10 MG IV ×4 (00:36→23:53)
[2024-08-01] MEDS: VASOTEC 1.25 MG IV ×4 (00:36→23:52)
[2024-08-01] MEDS: NOVOLOG FLEXPEN-LOW RESISTANCE 1 UNITS SC ×2 (00:37→23:57)
[2024-08-01] MEDS: CARDIZEM 15 MG IV ×5 (00:37→23:51)
[2024-08-01] MEDS: ZOSYN 50 IV ×4 (04:17→21:55)
[2024-08-01 05:49] LABS: Glucose - Point of Care 107 mg/dl (70-99)
[2024-08-01] MEDS: NOVOLOG FLEXPEN-LOW RESISTANCE SC ×3 (05:55→19:35)
[2024-08-01 06:24] LABS: Hematocrit 29.9 % (39.0-52.0); Mean Corp Hgb Conc. 33.4 g/dL (33.0-37.0); Mean Corpuscular Hgb 30.4 pg (27.0-31.0); Mean Corpuscular Volume 90.9 fL (80.0-94.0); Mean Platelet Volume 8.9 fL (7.4-10.4); Platelet Count 486 10^3/uL (130-400); Red Blood Cell Count 3.29 10^6/uL (4.70-6.10); Red Cell Dist. Width 13.1 % (11.5-14.5); White Blood Cell Count 13.2 10^3/uL (4.8-10.8)
[2024-08-01 06:53] LABS: Blood Urea Nitrogen 30 mg/dl (9-20); Calcium 8.3 mg/dl (8.4-10.2); Carbon Dioxide 26 mmol/L (22-30); Chloride 102 mmol/L (98-107); Estimated Creatinine Clearance 106 ml/min; Glucose 115 mg/dl (70-99); Magnesium 2.1 mg/dl (1.6-2.3); Potassium 4.5 mmol/L (3.5-5.1); Sodium 135 mmol/L (135-145); eGFR > 60.00
--- NOTE | 2024-08-01 09:24 | W.PN.CD ---
Today's Communication / Plan
-
no changes in BP regimen today
if able to take PO, we will assist in transition back to oral regimen
Impression / Plan
-
[place] type B thoracic aortic dissection:
-this diagnosis is threat to life
-s/p endovascular thoracic aortic repair 07/18/24- vascular following. Also with ex-lap same day to assess for ischemic bowel (viable tissue noted).
-goal MAP is 75-90 currently per vascular note
-Patient on IV metoprolol 10 mg every 6 hours, IV Diltiazem 15 mg every 6 hours, and IV enalaprilat 1.25 mg every 6 hours
-requires monitoring of tele
-BP at goal.
-receiving plavix by mouth; and ASA rectally
HTN
-plan as above
-meds IV while NPO
Ischemic bowel
-Pt now NPO with NGT in place based on CT scan results from 07/25. Plan is supportive care as of now.
-Surgery following
Subjective: Sleeping comfortable. Tele with SR 70s-80s.
Physical Exam
Vital Signs/Labs
Vital Signs
Temp Pulse Resp BP Pulse Ox
36.9 C 101 22 107/70 93
08/01/24 07:00 08/01/24 06:00 08/01/24 06:00 08/01/24 06:00 08/01/24 06:00
07/31/24 08/01/24 08/02/24
06:59 06:59 06:59
Actual Weight 71.2 kg 70.8 kg
08/01/24 06:03
08/01/24 06:03
PT 16.2 Sec (11.4-14.6) H 07/19/24 02:58
INR 1.27 07/19/24 02:58
APTT 34.7 Sec (23.4-35.0) 07/19/24 02:58
Magnesium 2.1 mg/dl (1.6-2.3) 08/01/24 06:03
Triglycerides 68 mg/dl (10-149) 07/31/24 04:13
LDL Cholesterol, Calc 62 mg/dl 07/18/24 04:14
VLDL Cholesterol, Calc 14 mg/dl (0-30) 07/18/24 04:14
HDL Cholesterol 28 mg/dl 07/18/24 04:14
TSH 1.06 uIU/ml (0.47-4.68) 07/19/24 08:39
Free T4 1.18 ng/dl (0.78-2.19) 07/19/24 08:39
Physical Exam
Constitutional: No acute distress
Cardiovascular: Rhythm & rate is regular
Respiratory: Respiratory effort normal
Neuro/Psych: AO x 3
Data Reviewed
-
Date of Service: August 01, 2024
Medical Decision Making: Reviewed Test Results
Labs: Labs Reviewed by me
[2024-08-01] MEDS: PLAVIX 75 MG PO (09:48)
[2024-08-01] MEDS: FLUSH (NSS) 2 FLUSH IV (09:49)
[2024-08-01] MEDS: NSS (PRESERVATIVE FREE) 10 ML IV (09:49)
[2024-08-01] MEDS: PROTONIX IV 40 MG IV (09:49)
[2024-08-01] MEDS: ASPIR LOW (ENTERIC COATED) 81 MG PO (09:49)
[2024-08-01] MEDS: LOPRESSOR IV (11:53)
[2024-08-01] MEDS: VASOTEC IV (11:55)
[2024-08-01 12:18] LABS: Glucose - Point of Care 136 mg/dl (70-99)
--- NOTE | 2024-08-01 12:38 | PTCARENOTE ---
Patient had three large liquid dark brown stools. Assist x1 to bedside commode. Tolerating sips of clear liquids. Patient denies any nausea. Reports some pain at abdominal incision site. Steri-strips intact. No drainage noted.
--- NOTE | 2024-08-01 13:50 | W.PN.HOSP.TC ---
Today's Communication/Plan
-
continue NPO/IVF
continue TPN
Assessment / Plan
Assessment / Plan
HPI: 54-year-old with no known significant past medical history presented to the emergency department with approximately 5 days of ongoing abdominal symptoms.
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 He c/o crampy abdominal pain and reported melanotic appearing diarrhea.
In the emergency department, his CT angio was done showing a [place] type B thoracic aortic dissection. No involvement of the ascending thoracic aorta or great arch vessels. Vascular surgeon contacted by ED.
Assessment:
[place] B aortic dissection. No aneurysm. HD stable. No chest pain.
- s/p CT Angio confirming thoracic/abdominal aortic dissection, [place] type B.
- life threatening diagnosis
- s/p emergent thoracic endovascular aortic repair on 07/18
- Also had concurrently ex-lap for concern of bowel ischemic (no necrosis, viable SB/colon seen)
- s/p 5 day empiric Zosyn course post-ex-lap (now back on Zosyn see below)
- continue ASA/Plavix per Vascular surgery. ok for oral route for both per Vascular surgery.
- IV Cardizem, IV Metoprolol and IV enalaprilat while NPO; Cardiology managing and following BP/MAP goals as outlined in their notes
Leukocytosis
Abd distention
- repeat CT 07/25: pneumatosis with bowel wall thickening and mesenteric edema
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
- AXR: 08/01: small volume contrast in rectum
- continue NGT decompression
- IVF, NPO
- TPN continues
- continue Zosyn day 8
- GS following
Diarrhea
- stool studies including C. Diff and Norovirus negative
- monitor I/Os
Anemia, multi-factorial from acute blood loss from operations, dilution from IVF
- monitor Hb
- GI evaluated; no concern for active GI bleed
- continue PPI
Chronic SOB
Exposure to asbestos/acetone per patient
- prn nebs
- hold Budesonide BID; prescribe steroid inhaler at DC
- OP Pulm referral
Reactive thrombocytosis
- monitor
DVT ppx: Lovenox
Code: Full
Dispo: keep in IMU floor.
Anticipated Discharge: > 48 hours
Subjective/Interval History
-
Date of Service: August 01, 2024
resting comfortably, no complaints at present
Objective Data
-
Labs:
Laboratory Results
08/01/24
06:03
WBC 13.2 H
Hgb 10.0 L
Hct 29.9 L
Plt Count 486 H
Sodium 135
Potassium 4.5
Chloride 102
Carbon Dioxide 26
BUN 30 H
Creatinine 0.8
Glucose 115 H
Calcium 8.3 L
Vital Signs:
Vital Signs
Temp Pulse Resp BP Pulse Ox
98.1 F 101 22 127/67 95
08/01/24 11:47 08/01/24 12:00 08/01/24 12:00 08/01/24 12:00 08/01/24 12:00
I&O
07/31/24 08/01/24 08/02/24
06:59 06:59 06:59
Intake Total 1965 / 1965
Output Total 2400 / 2400 1350 / 1350
Balance -434 / -434 678 / 678
Physical Exam
-
General: No Apparent Distress
HEENT: Normocephalic, Atraumatic and Other (+NGT)
Respiratory: Negative Wheezes
Cardiac: Regular Rhythm and S1/S2
GI: Soft and Nontender
Genito-urinary: No Costovertebral Tender
Musculoskeletal: No Edema
Neuro: AO x 3
Hematologic / Lymphatic: No Lymphadenopathy
Psych: Calm
Data Reviewed
-
Total Time Spent with Patient (in minutes): 45
Labs: Labs Reviewed by me
[2024-08-01] MEDS: LOVENOX 40 MG SC (16:33)
[2024-08-01 18:56] LABS: Glucose - Point of Care 142 mg/dl (70-99)
[2024-08-01] MEDS: Parenteral Nutrition, Central 1400 IV (21:46)
[2024-08-01] MEDS: DILAUDID 0.25 MG IV (22:01)
[2024-08-01 23:43] LABS: Glucose - Point of Care 180 mg/dl (70-99)
[2024-08-02] VITALS (37 sets, daily range): BP systolic 75–135; BP diastolic 41–72; BMI 21.3
[2024-08-02] MEDS: ZOSYN 50 IV ×4 (04:35→21:34)
[2024-08-02 04:48] LABS: Hematocrit 24.5 % (39.0-52.0); Hemoglobin 7.9 g/dL (13.0-18.0); Mean Corp Hgb Conc. 32.2 g/dL (33.0-37.0); Mean Corpuscular Hgb 29.5 pg (27.0-31.0); Mean Corpuscular Volume 91.4 fL (80.0-94.0); Mean Platelet Volume 8.8 fL (7.4-10.4); Platelet Count 489 10^3/uL (130-400); Red Blood Cell Count 2.68 10^6/uL (4.70-6.10); Red Cell Dist. Width 13.1 % (11.5-14.5); White Blood Cell Count 13.3 10^3/uL (4.8-10.8)
[2024-08-02 05:07] LABS: Blood Urea Nitrogen 39 mg/dl (9-20); Calcium 8.1 mg/dl (8.4-10.2); Carbon Dioxide 25 mmol/L (22-30); Chloride 105 mmol/L (98-107); Estimated Creatinine Clearance 77 ml/min; Glucose 125 mg/dl (70-99); Potassium 4.5 mmol/L (3.5-5.1); Sodium 136 mmol/L (135-145); eGFR > 60.00
[2024-08-02 05:25] LABS: Glucose - Point of Care 174 mg/dl (70-99)
--- NOTE | 2024-08-02 05:41 | PTCARENOTE ---
Patient verbalizing his feelings of hopelessness. Reports gas and burping. NGT clamped. Tolerating sips of water. c/o pain everywhere and in throat from NGT. PRN Dilaudid given with good result. 2 moderate brown/burgundy liquid BMs in BSC; assist
x1. BPs soft, pt denies lightheadedness or dizziness, reports generalized weakness. NSR/ST w/ PVCs on tele. Neuro checks unchanged. PICC line lumens patent, dressing intact. Call albert within reach, pt calls appropriately.
[2024-08-02] MEDS: LOPRESSOR IV ×2 (06:04→17:53)
[2024-08-02] MEDS: CARDIZEM IV ×2 (06:04→17:54)
[2024-08-02] MEDS: VASOTEC IV ×3 (06:05→17:54)
[2024-08-02] MEDS: NOVOLOG FLEXPEN-LOW RESISTANCE 1 UNITS SC (06:17)
[2024-08-02 08:54] LABS: LDH 135 U/L (120-246)
--- NOTE | 2024-08-02 08:55 | W.PN.CD ---
Today's Communication / Plan
-
-With active GI bleeding, we will hold antihypertensives and anticoagulants.
Impression / Plan
-
GI bleeding
Active bleeding with significant drop in hemoglobin
Transferred to ICU
Ischemic workup for possible bowel ischemia
Intervention radiology, general surgery, primary team is working
Management as per primary team's
[place] type B thoracic aortic dissection:
-this diagnosis is threat to life
-s/p endovascular thoracic aortic repair 07/18/24- vascular following. Also with ex-lap same day to assess for ischemic bowel (viable tissue noted).
-goal MAP is 75-90 currently per vascular note
-Patient on IV metoprolol 10 mg every 6 hours, IV Diltiazem 15 mg every 6 hours, and IV enalaprilat 1.25 mg every 6 hours
-requires monitoring of tele
-receiving plavix by mouth; and ASA rectally
-With active GI bleeding, we will have to hold aspirin Plavix and heparin.
HTN
-Hypotensive with active GI bleeding
-Holding antihypertensives
-Resume once stable.
Ischemic bowel
-Pt now NPO with NGT in place based on CT scan results from 07/25. Plan is supportive care as of now.
-Surgery following
Subjective: Sleeping comfortable. Tele with SR 70s-80s.
Physical Exam
Vital Signs/Labs
Vital Signs
Temp Pulse Resp BP Pulse Ox
98.1 F 104 20 100/62 95
08/02/24 03:09 08/02/24 07:29 08/02/24 07:29 08/02/24 07:29 08/02/24 07:29
08/01/24 08/02/24 08/03/24
06:59 06:59 06:59
Actual Weight 70.8 kg 71.1 kg
08/02/24 04:29
PT 16.2 Sec (11.4-14.6) H 07/19/24 02:58
INR 1.27 07/19/24 02:58
APTT 34.7 Sec (23.4-35.0) 07/19/24 02:58
Magnesium 2.1 mg/dl (1.6-2.3) 08/01/24 06:03
Triglycerides 68 mg/dl (10-149) 07/31/24 04:13
LDL Cholesterol, Calc 62 mg/dl 07/18/24 04:14
VLDL Cholesterol, Calc 14 mg/dl (0-30) 07/18/24 04:14
HDL Cholesterol 28 mg/dl 07/18/24 04:14
TSH 1.06 uIU/ml (0.47-4.68) 07/19/24 08:39
Free T4 1.18 ng/dl (0.78-2.19) 07/19/24 08:39
Physical Exam
Constitutional: No acute distress and Distress
EENT: Anicteric and Moist mucous membranes
Cardiovascular: Rhythm & rate is regular and JVD pressure is normal
Neuro/Psych: Alert and Oriented
Data Reviewed
-
Date of Service: August 02, 2024
Medical Decision Making: Reviewed Test Results, Test Interpretation and Review of Case with other Provider
EKG: Tracing Personally Visualized and interpreted
Echo: Report Reviewed by me
X-Ray/CT/US/MRI/NUC/PET: Image Personally Visualized and interpreted
Medical Tests (PFT, Pathology etc): Discussed with Physician and Discussed with Nurse
Labs: Labs Reviewed by me
Old Records: Reviewed
Critical Care Time (in minutes): 45
[2024-08-02 09:10] LABS: Hematocrit 21.7 % (39.0-52.0); Hemoglobin 7.1 g/dL (13.0-18.0); Mean Corp Hgb Conc. 32.7 g/dL (33.0-37.0); Mean Corpuscular Hgb 30.5 pg (27.0-31.0); Mean Corpuscular Volume 93.1 fL (80.0-94.0); Red Blood Cell Count 2.33 10^6/uL (4.70-6.10); Red Cell Dist. Width 13.1 % (11.5-14.5); Reticulocyte Count 3.3 % (0.4-2.8); White Blood Cell Count 9.5 10^3/uL (4.8-10.8)
[2024-08-02 09:25] LABS: Mean Platelet Volume 8.9 fL (7.4-10.4); Platelet Count 375 10^3/uL (130-400)
--- NOTE | 2024-08-02 09:27 | W.PN.HOSP.TC ---
Today's Communication/Plan
-
stat CT angio
2 unit PRBC stat
ICU transfer
possible intervention for GI hemorrhage
Family updated
Assessment / Plan
Assessment / Plan
HPI: 54-year-old with no known significant past medical history presented to the emergency department with approximately 5 days of ongoing abdominal symptoms.
Patient reported that he abruptly began to have episodes of vomiting then followed by diarrhea that started 5 days STATISTICAL TYPIST. He c/o crampy abdominal pain and reported melanotic appearing diarrhea.
In the emergency department, his CT angio was done showing a [place] type B thoracic aortic dissection. No involvement of the ascending thoracic aorta or great arch vessels. Vascular surgeon contacted by ED.
Assessment:
Acute hypotension
Acute blood loss anemia 3 grams overnight, acute GI hemorrhage
- stat CT-Angio ordered
- 2 units PRBC
- ICU transfer
- may need GI vs IR intervention
[place] B aortic dissection. No aneurysm. HD stable. No chest pain.
- s/p CT Angio confirming thoracic/abdominal aortic dissection, [place] type B.
- life threatening diagnosis
- s/p emergent thoracic endovascular aortic repair on 07/18
- Also had concurrently ex-lap for concern of bowel ischemic (no necrosis, viable SB/colon seen)
- s/p 5 day empiric Zosyn course post-ex-lap (now back on Zosyn see below)
- continue ASA/Plavix per Vascular surgery. ok for oral route for both per Vascular surgery.
- IV Cardizem, IV Metoprolol and IV enalaprilat while NPO; Cardiology managing and following BP/MAP goals as outlined in their notes
Leukocytosis
Abd distention
- repeat CT 07/25: pneumatosis with bowel wall thickening and mesenteric edema
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
- AXR: 08/01: small volume contrast in rectum
- continue NGT decompression
- IVF, NPO
- TPN continues
- continue Zosyn day 9
- GS following
Diarrhea
- stool studies including C. Diff and Norovirus negative
- monitor I/Os
Anemia, multi-factorial from acute blood loss from operations, dilution from IVF
- monitor Hb
- GI evaluated; no concern for active GI bleed
- continue PPI
Chronic SOB
Exposure to asbestos/acetone per patient
- prn nebs
- hold Budesonide BID; prescribe steroid inhaler at DC
- OP Pulm referral
Reactive thrombocytosis
- monitor
DVT ppx: Lovenox
Code: Full
transfer to ICU, critically ill with acute anemia, unstable vitals, active GI bleed. Family updated.
Total Critical Care Time 62 minutes. I was immediately available to the patient and staff. I personally examined, reviewed labs, diagnostic images/reports, interpretations, treatment plans, discussed patient care with other providers and family
or caregivers (if patient is unable to make decisions), entered orders as appropriate and documented the medical record.
Anticipated Discharge: > 48 hours
Subjective/Interval History
-
Date of Service: August 02, 2024
overnight with hypotension, reported burgundy stools x 2, 3 gram drop in Hb in labs
remains with NGT clamped
Objective Data
-
Labs:
Laboratory Results
08/02/24 08/02/24
04:29 08:27
WBC 13.3 H 9.5
Hgb 7.9 L D 7.1 L
Hct 24.5 L 21.7 L
Plt Count 489 H 375 D
Sodium 136
Potassium 4.5
Chloride 105
Carbon Dioxide 25
BUN 39 H
Creatinine 1.1
Glucose 125 H
Calcium 8.1 L
Vital Signs:
Vital Signs
Temp Pulse Resp BP Pulse Ox
98.1 F 104 20 100/62 95
08/02/24 03:09 08/02/24 07:29 08/02/24 07:29 08/02/24 07:29 08/02/24 07:29
I&O
08/01/24 08/02/24 08/03/24
06:59 06:59 06:59
Intake Total 2027 1020 / 1020
Output Total 1350 / 1350 520 / 520
Balance 678 / 678 500 / 500
Physical Exam
-
General: Appears in Distress
HEENT: Normocephalic, Atraumatic and Other (+NGT)
Respiratory: Negative Wheezes
Cardiac: Regular Rhythm, S1/S2 and Tachycardic
GI: Soft and Nontender
Genito-urinary: No Costovertebral Tender
Musculoskeletal: No Edema
Neuro: AO x 3
Psych: Calm
Data Reviewed
-
Critical Care Time (in minutes): 62
Labs: Labs Reviewed by me
[2024-08-02] MEDS: PLAVIX PO (10:32)
[2024-08-02] MEDS: ASPIR LOW (ENTERIC COATED) PO (10:32)
[2024-08-02] MEDS: PROTONIX IV 40 MG IV (10:32)
[2024-08-02] MEDS: NSS (PRESERVATIVE FREE) 10 ML IV (10:32)
--- NOTE | 2024-08-02 10:50 | W.PN.INTV ---
Today's Communication / Plan
Recommendations
Transfused 2 units
N.p.o., NG tube
Plavix/aspirin held
Would also hold enoxaparin. Mechanical prophylaxis for now
Await CT angiogram
Labile blood pressure noted, hold antihypertensive therapy as appropriate
Remains on Zosyn
Assessment
-
54 y/o male with PMHx GERD, current smoker, s/p appendectomy with no other known PMHx presented to the emergency department on 07/17/24 at night with approximately 5 days of ongoing abdominal pain, nausea, vomiting, diarrhea and excruciating back
pain. Work up revealed type B aortic dissection and possible small bowel ischemia. Upon evaluation by vascular team, patient's abdomen was soft and nontender but complains of pain. Easily palpable left lower extremity pulses. They could not
appreciate Doppler signal to the right lower extremity at any pulse sites. LA ordered and was 2.5. Dr. Cooley recommended emergency TEVAR immediately and discussed risk and benefits with the patient. General surgery was also consulted for concern of
visceral malperfusion. Dr. Linn spoke to patient about plan for exploratory laparotomy with possible bowel resection possible open abdomen following vascular surgery endovascular repair of his type B aortic dissection. Patient agreed to all of
the above. Post-op pulses palpated bilaterally now in the CVICU for further monitoring on multiple pressors and mechanical ventilation.
Patient was subsequently transferred out of ICU 07/22/2024
Transferred back to ICU 08/02/2024
Briefly, patient admitted to 07/17, underwent type B aortic dissection repair, developed possible pneumatosis of small bowel concerning for ischemia status post exploratory laparotomy without evidence of ischemia. Was extubated 07/19, transferred
out of ICU 07/22. Hospital stay was reviewed in the interim. Patient continue with TPN therapy, regular diet started 07/24. Patient subsequently developed some nausea and abdominal distention with nonbloody liquid stool. Stool cultures negative.
Patient also developed increased leukocytosis. Follow-up imaging 07/26/2024 concerning for pneumatosis and bowel wall thickening and mesenteric edema. Patient continues to have nonbloody stool, flatus without nausea emesis on 07/28. Continue with
TPN and bowel rest given CT findings per surgery. Per surgery correspondence, stool becoming more formed, no bloody stool as of 07/31. Repeat CT abdomen 07/31/2024 revealed significant improvement in small bowel thickening and pneumatosis compared
to prior imaging. Patient subsequently developed bloody stool overnight into 08/02, marginal hypotension, progressive drop in hemoglobin to 7.1. Patient was transferred to ICU for further management. CT angiogram ordered. We are asked to help
from critical care standpoint
Impression:
#GI bleed, bloody bowel movement 08/02
Drop in hemoglobin to 7.1
Marginal blood pressure
#Type B aortic dissection
#Absent right lower extremity pulses
#Thoracic endovascular aortic repair using GORE Thoracic Branch Endoprosthesis device POD 3
#Possible pneumatosis of small bowel concerning for ischemia - exploratory laparotomy no signs of ischemia POD 3
#Post-op acute respiratory failure on mechanical vent ventilation intubated 07/18/2024 - extubated 07/19/2024
Transfer out of ICU 07/22
#Severe changes of emphysema in both lungs
#Leukocytosis
#Hyponatremia
#Elevated LA
#Tobacco use
#Anxiety
#1.7 cm hypoattenuating upper pole left renal lesion
#Cholelithiasis with no acute cholecystitis
#Incomplete bundle branch block
Plan/ Recommendations
At this time, patient remains critically ill
Reviewed hospital course since transfer out of ICU 07/[address] abdomen 07/31 which showed significant improvement
Developed bloody bowel movement overnight, drop in hemoglobin to 7.1, marginal blood pressure
NG tube in place, no evidence of bloody return
CTA pending
Moving forward
Continue with supportive care
Agree with 2 units transfusion, ordered by hospitalist
Adequate access, PICC line in place, double-lumen
Patient was on Plavix/aspirin, currently being held
Await CT angiogram
Surgery following, vascular, GI also following. Interventional radiology consulted as well
History of Type B aortic dissection, admitted 07/17/2024
Possible pneumatosis of small bowel concerning for ischemia - exploratory laparotomy ruled out POD [address] abdomen 07/31 with improvement of ischemic changes
Remains n.p.o., NG tube in place, bowel rest
TPN continues
Patient remains on Zosyn therapy
Patient with episodic hypertension during hospital stay
Hold antihypertensive therapy for now
Follow
Post-op acute respiratory failure on mechanical ventilation intubated 07/18/2024 - extubated 07/19/2024
Adequate saturation at this time
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
Severe emphysema
No wheezing at this time
The above was reviewed with critical care nursing, respiratory care, multiple providers
TCCT 35 min

Diagnostic imaging:
CT chest/abdomen/pelvis angiogram 08/02/2024: No evidence of active GI bleed. Stable appearance of endovascular stent graft repair. Probable enteritis/ileus similar to prior.
CT chest/abdomen/pelvis angiogram 07/31/24: Small bowel malrotation with midgut volvulus, element of small bowel obstruction, mucosal/submucosal pneumatosis noted. Difficulty rule out obstruction
CT chest/abdomen/pelvis angiogram 07/25/24: Improved perfusion of distal arteries and right common iliac artery. Fluid-filled small bowel, thickening of the small bowel loop, no intraperitoneal air. Mild atelectasis.
Chest/Ab/pelvic CT 07/18/24: Thoracic and abdominal aortic dissection, [place] type B.
Dissection flap is along the anterior margin of the abdominal aorta, and appears to contribute to significant narrowing at the origins of the celiac artery and the SMA. Additionally, there is luminal irregularity in the proximal SMA, suggestive of a
small amount of thrombus, nonocclusive.
Dissection flap traverses the origin of the right common iliac artery, and appears to result in narrowing of caliber of the artery, although contrast enhancement extends beyond the dissection flap.
Tortuosity of the proximal left common iliac artery, but no evidence for dissection flap traversing the origin of the left common iliac artery.
Dilated air and fluid-filled small bowel loops with small bowel wall thickening. Possible pneumatosis involving the wall of small bowel loops. There is also thickening of the wall of the right side of the colon. These findings raise concern for
ischemia.
No evidence for free intraperitoneal air. No evidence for portal venous air.
Severe changes of emphysema within both lungs.
Focal parenchymal opacity within the posterior right lower lobe, predominantly linear morphology, most likely atelectasis based on morphology. Linear scarring within both lungs
Cholelithiasis. Mild distention of the gallbladder with no evidence for gallbladder wall thickening or pericholecystic edema. No evidence for biliary ductal dilation.
CT angiography 07/17/2024:
1. [place] type B thoracic aortic dissection. No involvement of the ascending thoracic aorta or great arch vessels.
2. Emphysema.
Ab/pelvis CT 07/17/24:
1. Partially visualized dissection of the lower thoracic aorta with dissection flap terminating just proximal to the celiac artery origin in the upper abdomen. Recommend dedicated CTA chest for complete evaluation.
2. Cholelithiasis.
3. A 1.7 cm hypoattenuating upper pole left renal lesion measures slightly higher than simple fluid and may represent a mildly proteinaceous/hemorrhagic cyst, although indeterminate. Recommend outpatient initial further workup with dedicated renal
ultrasound.
Subjective Dataa
Subjective Data
Date of Service:
Date of Service: August 02, 2024
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
Subjective:
Patient admitted to 07/17, underwent type B aortic dissection repair, developed possible pneumatosis of small bowel concerning for ischemia status post exploratory laparotomy without evidence of ischemia. Was extubated 07/19, transferred out of ICU
07/22. Hospital stay was reviewed in the interim. Patient continue with TPN therapy, regular diet started 07/24. Patient subsequently developed some nausea and abdominal distention with nonbloody liquid stool. Stool cultures negative. Patient
also developed increased leukocytosis. Follow-up imaging 07/26/2024 concerning for pneumatosis and bowel wall thickening and mesenteric edema. Patient continues to have nonbloody stool, flatus without nausea emesis on 07/28. Continue with TPN and
bowel rest given CT findings per surgery. Per surgery correspondence, stool becoming more formed, no bloody stool as of 07/31. Repeat CT abdomen 07/31/2024 revealed significant improvement in small bowel thickening and pneumatosis compared to
prior imaging. Patient subsequently developed bloody stool overnight into 08/02, marginal hypotension, progressive drop in hemoglobin to 7.1. Patient was transferred to ICU for further management. CT angiogram ordered. We are asked to help from
critical care standpoint
Presently patient is without nausea, abdominal pain, chest pain. He feels improved with NG tube
Objective Data
Data Reviewed
Vital Signs / I&O / Oxygen:
Vital Signs
Temp Pulse Resp BP Pulse Ox
98.3 F 105 13 97/65 97
08/02/24 07:00 08/02/24 10:00 08/02/24 10:00 08/02/24 10:00 08/02/24 10:00
Intake and Output
08/01/24 08/02/24 08/03/24
06:59 06:59 06:59
Intake Total 2027 1020 / 1020 108 / 108
Output Total 1350 / 1350 520 / 520
Balance 678 / 678 500 / 500 108 / 108
SaO2 [CPAP/PSV] 96
SaO2 [A/C] 97
SaO2 [SIMV] 97
SaO2 97
Nasal Cannula flow liters per 2
minute
Physical Exam
General: Comfortable and Other (Right upper extremity PICC)
HEENT: Normocephalic and Anicteric
Cardiovascular: S1-S2, Regular Rhythm, Peripheral Edema (slight bilateral lower extremity edema ) and Other (Peripheral pulses intact )
Respiratory: Clear, Wheeze (n), Crackles (n), Rhonchi (n) and Non-Labored Respirations
GI: Soft, Non Distended, Non Tender, NG Tube, Other (Decreased bowel sounds) and Other (Incision intact)
Neurology: AO x 3 and No Motor Deficits (Moves all extremities)
Skin: Warm, Cyanosis (n), Jaundice (n) and Other (Mild pallor, capillary refill intact)
Labs/Micro/Reports
Lab Data
08/02/24 08:27
08/02/24 04:29
Microbiology
07/25/24 22:47 Blood/Venous Blood Culture - Final
No Growth - Final Report
--- NOTE | 2024-08-02 11:01 | PTCARENOTE ---
Late entry: Received this am BPs 70s-100s/40-60s- AAO x3, pale denies dizziness. NGT is clamped, denied nausea. Taking sips of clear liqs. AM labs noted d/w Dr. Almanza- had 1 more liquid bloody stool- taken for stat CT and transferred to ICU [id number]
[2024-08-02 11:20] LABS: INR 1.11; PT 14.8 Sec (11.4-14.6)
[2024-08-02] MEDS: LOPRESSOR 10 MG IV (11:23)
[2024-08-02] MEDS: CARDIZEM 15 MG IV (11:26)
--- NOTE | 2024-08-02 11:40 | W.PN.UPDATE ---
Update Note
Progress Note Update
Attempted to see pt, off floor for imaging. New bleeding per rectum noted. NGT without bloody output.
CTA reviewed, no obvious bleeding, no target for IR or surgery at this time
D/w clinical team, GI considering possible c-scope to localize bleeding
TPN renewed.
[2024-08-02 11:51] LABS: Iron 34 ug/dl (49-181)
[2024-08-02 12:01] LABS: Percent Saturation 14 % (20-50); Total Iron Binding Capacity 235 ug/dl (261-462)
[2024-08-02] MEDS: NOVOLOG FLEXPEN-LOW RESISTANCE SC ×2 (12:47→17:53)
[2024-08-02 12:57] LABS: Folate 6.9 ng/ml (2.76-20); Vitamin B12 327 pg/ml (239-931)
--- NOTE | 2024-08-02 13:03 | PTCARENOTE ---
Updated assessment. Vital signs ongoing with assessment trends. Follow up blood transfusion signs and trends as per protocol. Continue with teaching and supportive cares. Follow up bedside plan of cares and transfer. Translator [employer] team at bedside for
patient updated assessment. PRBC up and transfusing. GI team at bedside discussing options and plan fo follow gi evaluation/intervention. Continue supportive cares. TPN continnues as per surgery. Continue follow up assessment trends.
--- NOTE | 2024-08-02 15:13 | W.PN.GI.CBS2 ---
Today's Communication / Plan
-
Colon prep via NGT for colonoscopy tomorrow
Assessment / Plan
-
54yo admitted on 07/17 undergoing type B aortic dissection repair with concern for possible pneumoatosis of the small bowel c/d ischemia taken for emergent ex lap but no findings of ischemia now with GI bleeding of unclear etiology, but high
suspicion of ischemia. CT Angio with evidence of large complex fluid in the colon but w/o active extravasation. Hemoglobin dropped from 10 --> 7.1 with borderline hypotension.
--CT chest/abdomen/pelvis angiogram 08/02/2024: No evidence of active GI bleed. Stable appearance of endovascular stent graft repair. Probable enteritis/ileus similar to prior.
--CT chest/abdomen/pelvis angiogram 07/31/24: Small bowel malrotation with midgut volvulus, element of small bowel obstruction, mucosal/submucosal pneumatosis noted. Difficulty rule out obstruction
--CT chest/abdomen/pelvis angiogram 07/25/24: Improved perfusion of distal arteries and right common iliac artery. Fluid-filled small bowel, thickening of the small bowel loop, no intraperitoneal air. Mild atelectasis
--Chest/Ab/pelvic CT 07/18/24: Thoracic and abdominal aortic dissection, [place] type B.
NG tube with clear secretions, no bloody output. Recommend colonoscopy tomorrow, however, given last dose of plavix was yesterday (08/01), this will be purely diagnostic.
Plan:
-2 large peripheral gauge IVs
-Trend H&H q8 hours, transfuse for hemglobin <8, 2 units PRBC ordered
-Colon prep via NGT
-Colonoscopy with Dr. Del Angel tomorrow
-Discussed with primary hospitalist, general surgery and vascular surgery
Subjective
Subjective
Date of Service: August 02, 2024
Patient was initially admitted on 07/17/2024 and underwent type B aortic dissection repair, developed possible pneumatosis of the small bowel concerning for ischemia status post ex lap with out evidence of ischemia. He was extubated on 07/19 and
then transferred out of the ICU on 07/22 he subsequently developed an increase leukocytosis and repeat imaging on 07/26/2024 with concern for pneumatosis and bowel wall thickening and mesenteric edema. Repeat CT abdomen 07/31/2024 revealed
significant improvement in small bowel thickening and pneumatosis compared to prior imaging. He was initially seen by GI on 07/20 due to concerns of GI bleeding, deferred at that time as did not appear he had any active bleeding. GI called back to
see patient as overnight, he had multiple episodes of large volume hematochezia with drop in hemoglobin with soft pressures, but never required pressors. Since 07/31, Hgb has been dropping, 10.8 --> 10 yesterday, then to 7.9 this morning, repeat
7.1. CT angiogram obtained which was negative for active bleeding, however, it did demonstrate large complex fluid within the colon.
Objective
Data Reviewed
Laboratory Data:
Laboratory Results
08/02/24 04:29
Laboratory Results
PT 14.8 Sec (11.4-14.6) H 08/02/24 10:59
INR 1.11 08/02/24 10:59
APTT 36.0 Sec (23.4-35.0) H 08/02/24 10:59
Phosphorus 3.6 mg/dl (2.5-4.5) 07/31/24 04:13
Magnesium 2.1 mg/dl (1.6-2.3) 08/01/24 06:03
Total Bilirubin 0.3 mg/dl (0.2-1.3) 07/31/24 04:13
AST 13 U/L (17-59) L 07/31/24 04:13
ALT 14 U/L (0-50) 07/31/24 04:13
Alkaline Phosphatase 65 U/L (38-126) 07/31/24 04:13
Amylase 31 U/L (30-110) 07/19/24 01:33
Lipase 45 U/L (23-300) 07/19/24 02:58
Vital Signs and I&O:
Vital Signs
Temp Pulse Resp BP Pulse Ox
97.8 F 93 20 120/67 94
08/02/24 14:57 08/02/24 14:57 08/02/24 14:57 08/02/24 14:57 08/02/24 14:57
I&O
08/01/24 08/02/24 08/03/24
06:59 06:59 06:59
Intake Total 2027 1020 / 1020 915 / 915
Output Total 1350 / 1350 520 / 520 750 / 750
Balance 678 / 678 500 / 500 165 / 165
--- NOTE | 2024-08-02 15:58 | PTCARENOTE ---
Second unit prbc up and infusing at this time. One water dark brown, burgundy ringed stool, heme tested positive at this assessment. Await prep to start via NGT as ordered by GI time. Will follow up hgb/hct trends. TPN as ordered. Patient assessment
unchanged. VSS and as documented. Nursing hourly rounds ongoing. Patient with no complaints at this time. Call albert in reach and in use prn.
[2024-08-02] MEDS: NULYTELY SOLUTION 4 LITERS PO (17:13)
--- NOTE | 2024-08-02 17:51 | PTCARENOTE ---
Repeat H/H pending. TPN continues. Start Co-Lyte prep. Patient anxious about volume and nausea. Continue to reinforce purpose procedure and supportive care ongoing. Patient sleeping and watching tv intermittently.
[2024-08-02 17:52] LABS: Glucose - Point of Care 133 mg/dl (70-99)
[2024-08-02 17:53] LABS: Hemoglobin 8.2 g/dL (13.0-18.0)
[2024-08-02] MEDS: ZOFRAN 4 MG IV (21:34)
[2024-08-02] MEDS: Parenteral Nutrition, Central 1380 IV (21:47)
--- NOTE | 2024-08-02 22:21 | PTCARENOTE ---
Assumed care of pt at 1900. Pt is A/O x4, with flat/depressed affect. Repeatedly making statements such as 'am I going to make it?', 'I don't think I'm going to make it out of the hospital' and 'does my situation scare you?'. Pt fixated on 'bleeding
in my stomach'. Pt denies any thoughts of harming himself when asked directly. No current c/o pain, is experiencing nausea but no vomiting so far. Medicated with PRN Zofran, see EMAR for details. Go-Lyteley being administered as tolerated and NGT
currently clamped. See nursing shift assessment flowsheet for full physical assessment details.
--- NOTE | 2024-08-02 22:51 | PTCARENOTE ---
Entered room shortly after 2229, attempted to give pt more Go-Lytely, 240mL administered and pt started c/o more nausea and feeling that his 'stomach was going to explode'. Pt then proceeded to vomit approximately 300mL of dark brown emesis into a
bag, suction turned back on to NGT and pt's vomiting resolved. [place] text sent to continuity person GI provider Dr. Ashly Gordon notifying her that pt had a total of just under a liter of Go-Lytely between myself and the dayshift RN but pt is no longer
tolerating it, also made her aware that he has not had a BM yet since starting the prep. Awaiting reply at this time.
[2024-08-03] VITALS (32 sets, daily range): BP systolic 90–131; BP diastolic 43–93; BMI 21.2
[2024-08-03] MEDS: NOVOLOG FLEXPEN-LOW RESISTANCE 1 UNITS SC ×4 (00:26→17:21)
[2024-08-03] MEDS: CARDIZEM IV ×3 (00:27→06:07)
[2024-08-03] MEDS: LOPRESSOR 10 MG IV ×4 (00:27→17:10)
[2024-08-03 00:37] LABS: Glucose - Point of Care 153 mg/dl (70-99)
--- NOTE | 2024-08-03 00:48 | PTCARENOTE ---
Assessment unchanged except for NGT drainage is more coffee-ground appearance (dark brown) versus the green color it was earlier in the shift. NGT to LIS at this time, since pt started vomiting after last administration of Go-Lytely. Pt continues
with nausea some and dry heaving. ST on monitor, 100-120s. Repeat H&H sent to lab, pending. Pt continues to be fixated on the fact that he is bleeding and that he thinks he is dying, continuously looking at the color of his NGT output or the numbers
on the monitor. Encouraged patient to try to get some rest and to let us be the ones to worry about what is going on with him, and that he is in the right place if anything were to happen (continuous monitoring, trending labs, etc).
[2024-08-03 01:02] LABS: Hematocrit 24.5 % (39.0-52.0); Hemoglobin 8.1 g/dL (13.0-18.0)
[2024-08-03] MEDS: VASOTEC IV ×2 (01:04→06:07)
--- NOTE | 2024-08-03 01:20 | PTCARENOTE ---
Metoprolol administered at midnight (scheduled), then waited to see how pt's BP and HR reacted--looking back pt had received all 3 meds (metoprolol, enalapril, and cardizem) at midnight last night and then dropped his BP to the 80s. After receiving
Metoprolol this time, BP was 96/66, discussed with ICU COMM[employer] WORKER Joel Garnett, said to hold the Cardizem and Enalapril for tonight.
[2024-08-03] MEDS: ZOSYN 50 IV ×4 (03:21→22:31)
[2024-08-03] MEDS: ZOFRAN 4 MG IV (03:21)
--- NOTE | 2024-08-03 03:27 | PTCARENOTE ---
Pt vomited 400mL of dark brown/coffee ground emesis. PRN dose of Zofran administered, see EMAR. NGT flushed and briefly put to low continuous suction to help it drain faster d/t pt's n/v, now back to low intermittent suction.
--- NOTE | 2024-08-03 04:30 | PTCARENOTE ---
assumed care of pt from previous RN. pt A&Ox4, resting in bed at time of assessment. flat, withdrawn affect noted. SR/ST w/ occasional PVCs on tele-monitor. POX 94-97% on RA. NGT to low intermittent suction. voiding julian urine in the urinal. all
surgical sites stable, CDI. R PICC intact. see worklist for complete nursing assessment, interventions, VS, and I&Os.
--- NOTE | 2024-08-03 04:56 | PTCARENOTE ---
0400 assessment unchanged. Report given to CALUDIA Reid who is assuming care as of 429.
[2024-08-03 05:19] LABS: Glucose - Point of Care 184 mg/dl (70-99)
[2024-08-03 05:51] LABS: Hemoglobin 7.4 g/dL (13.0-18.0); Mean Corp Hgb Conc. 32.2 g/dL (33.0-37.0); Mean Corpuscular Volume 93.1 fL (80.0-94.0); Platelet Count 377 10^3/uL (130-400); Red Blood Cell Count 2.47 10^6/uL (4.70-6.10); Red Cell Dist. Width 13.1 % (11.5-14.5); White Blood Cell Count 11.1 10^3/uL (4.8-10.8)
[2024-08-03 06:30] LABS: Blood Urea Nitrogen 31 mg/dl (9-20); Calcium 8.1 mg/dl (8.4-10.2); Carbon Dioxide 26 mmol/L (22-30); Chloride 104 mmol/L (98-107); Estimated Creatinine Clearance 121 ml/min; Glucose 155 mg/dl (70-99); Sodium 136 mmol/L (135-145); eGFR > 60.00
[2024-08-03 06:46] LABS: Potassium 4.7 mmol/L (3.5-5.1)
[2024-08-03] MEDS: NSS (PRESERVATIVE FREE) IV (08:07)
--- NOTE | 2024-08-03 08:19 | W.PN.INTV ---
Today's Communication / Plan
Recommendations
No plans for endoscopy per GI. Follow-up
TPN continues
Continue PPI
Remains n.p.o., NG tube in place
Antihypertensive therapy remains on hold.
Assessment
-
54 y/o male with PMHx GERD, current smoker, s/p appendectomy with no other known PMHx presented to the emergency department on 07/17/24 at night with approximately 5 days of ongoing abdominal pain, nausea, vomiting, diarrhea and excruciating back
pain. Work up revealed type B aortic dissection and possible small bowel ischemia. Upon evaluation by vascular team, patient's abdomen was soft and nontender but complains of pain. Easily palpable left lower extremity pulses. They could not
appreciate Doppler signal to the right lower extremity at any pulse sites. LA ordered and was 2.5. Dr. Cooley recommended emergency TEVAR immediately and discussed risk and benefits with the patient. General surgery was also consulted for concern of
visceral malperfusion. Dr. Linn spoke to patient about plan for exploratory laparotomy with possible bowel resection possible open abdomen following vascular surgery endovascular repair of his type B aortic dissection. Patient agreed to all of
the above. Post-op pulses palpated bilaterally now in the CVICU for further monitoring on multiple pressors and mechanical ventilation.
Patient was subsequently transferred out of ICU 07/22/2024
Transferred back to ICU 08/02/2024
Briefly, patient admitted to 07/17, underwent type B aortic dissection repair, developed possible pneumatosis of small bowel concerning for ischemia status post exploratory laparotomy without evidence of ischemia. Was extubated 07/19, transferred
out of ICU 07/22. Hospital stay was reviewed in the interim. Patient continue with TPN therapy, regular diet started 07/24. Patient subsequently developed some nausea and abdominal distention with nonbloody liquid stool. Stool cultures negative.
Patient also developed increased leukocytosis. Follow-up imaging 07/26/2024 concerning for pneumatosis and bowel wall thickening and mesenteric edema. Patient continues to have nonbloody stool, flatus without nausea emesis on 07/28. Continue with
TPN and bowel rest given CT findings per surgery. Per surgery correspondence, stool becoming more formed, no bloody stool as of 07/31. Repeat CT abdomen 07/31/2024 revealed significant improvement in small bowel thickening and pneumatosis compared
to prior imaging. Patient subsequently developed bloody stool overnight into 08/02, marginal hypotension, progressive drop in hemoglobin to 7.1. Patient was transferred to ICU for further management. CT angiogram ordered. We are asked to help
from critical care standpoint
Impression:
#GI bleed, bloody bowel movement 08/02
Drop in hemoglobin to 7.1
Marginal blood pressure
s/p Tx 3U as of 08/03
#Type B aortic dissection
Absent right lower extremity pulses
Thoracic endovascular aortic repair using GORE Thoracic Branch Endoprosthesis device POD 3
#Possible pneumatosis of small bowel concerning for ischemia - exploratory laparotomy no signs of ischemia POD 3
#Post-op acute respiratory failure on mechanical vent ventilation intubated 07/18/2024 - extubated 07/19/2024
Transfer out of ICU 07/22
Tx back to ICu 08/01
#Severe changes of emphysema in both lungs
#Leukocytosis
#Hyponatremia
#Elevated LA
#Tobacco use
#Anxiety
#1.7 cm hypoattenuating upper pole left renal lesion
#Cholelithiasis with no acute cholecystitis
#Incomplete bundle branch block
Plan/ Recommendations
At this time, patient appears to be comfortable and at least stable from a hemodynamic standpoint
Antihypertensive therapy remains held
Blood pressure adequate, low blood pressure in the 90s noted
Patient did not tolerate oral prep for endoscopy
Had bowel movement this morning, dark stool, no bernie blood
NG tube remains in place
Moving forward
Continue with supportive care
Received third unit of blood transfusion this a.m.
Adequate access, PICC line in place, double-lumen
Follow hemoglobin
Patient was on Plavix/aspirin, currently being held
CT angiogram negative for acute bleeding
Surgery following, vascular, GI also following.
History of Type B aortic dissection, admitted 07/17/2024
Possible pneumatosis of small bowel concerning for ischemia - exploratory laparotomy ruled out POD [address] abdomen 07/31 with improvement of ischemic changes
Remains n.p.o., NG tube in place, bowel rest
TPN continues
Patient remains on Zosyn therapy
Patient with episodic hypertension during hospital stay
Hold antihypertensive therapy for now
systolic blood pressure ranging between 90s and 130s
Follow
Post-op acute respiratory failure on mechanical ventilation intubated 07/18/2024 - extubated 07/19/2024
Adequate saturation at this time
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
Severe emphysema
No wheezing at this time
The above was reviewed with critical care nursing, respiratory care, multiple providers

Diagnostic imaging:
CT chest/abdomen/pelvis angiogram 08/02/2024: No evidence of active GI bleed. Stable appearance of endovascular stent graft repair. Probable enteritis/ileus similar to prior.
CT chest/abdomen/pelvis angiogram 07/31/24: Small bowel malrotation with midgut volvulus, element of small bowel obstruction, mucosal/submucosal pneumatosis noted. Difficulty rule out obstruction
CT chest/abdomen/pelvis angiogram 07/25/24: Improved perfusion of distal arteries and right common iliac artery. Fluid-filled small bowel, thickening of the small bowel loop, no intraperitoneal air. Mild atelectasis.
Chest/Ab/pelvic CT 07/18/24: Thoracic and abdominal aortic dissection, [place] type B.
Dissection flap is along the anterior margin of the abdominal aorta, and appears to contribute to significant narrowing at the origins of the celiac artery and the SMA. Additionally, there is luminal irregularity in the proximal SMA, suggestive of a
small amount of thrombus, nonocclusive.
Dissection flap traverses the origin of the right common iliac artery, and appears to result in narrowing of caliber of the artery, although contrast enhancement extends beyond the dissection flap.
Tortuosity of the proximal left common iliac artery, but no evidence for dissection flap traversing the origin of the left common iliac artery.
Dilated air and fluid-filled small bowel loops with small bowel wall thickening. Possible pneumatosis involving the wall of small bowel loops. There is also thickening of the wall of the right side of the colon. These findings raise concern for
ischemia.
No evidence for free intraperitoneal air. No evidence for portal venous air.
Severe changes of emphysema within both lungs.
Focal parenchymal opacity within the posterior right lower lobe, predominantly linear morphology, most likely atelectasis based on morphology. Linear scarring within both lungs
Cholelithiasis. Mild distention of the gallbladder with no evidence for gallbladder wall thickening or pericholecystic edema. No evidence for biliary ductal dilation.
CT angiography 07/17/2024:
1. [place] type B thoracic aortic dissection. No involvement of the ascending thoracic aorta or great arch vessels.
2. Emphysema.
Ab/pelvis CT 07/17/24:
1. Partially visualized dissection of the lower thoracic aorta with dissection flap terminating just proximal to the celiac artery origin in the upper abdomen. Recommend dedicated CTA chest for complete evaluation.
2. Cholelithiasis.
3. A 1.7 cm hypoattenuating upper pole left renal lesion measures slightly higher than simple fluid and may represent a mildly proteinaceous/hemorrhagic cyst, although indeterminate. Recommend outpatient initial further workup with dedicated renal
ultrasound.
Subjective Dataa
Subjective Data
Date of Service:
Date of Service: August 03, 2024
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
Subjective:
Patient did not tolerate oral prep for endoscopy. Episode of emesis through the night, possibly coffee-ground. NG tube remains in place. Received third unit of blood this morning. Had small bowel movement this morning, dark, no bernie blood
Objective Data
Data Reviewed
Vital Signs / I&O / Oxygen:
Vital Signs
Temp Pulse Resp BP Pulse Ox
98.5 F 95 16 119/80 96
08/03/24 07:00 08/03/24 07:00 08/03/24 07:00 08/03/24 07:00 08/03/24 07:37
Intake and Output
08/02/24 08/03/24 08/04/24
06:59 06:59 06:59
Intake Total 1020 / 1020 3208 / 3208
Output Total 520 / 520 3450 / 3450
Balance 500 / 500 -242 / -242
SaO2 [CPAP/PSV] 96
SaO2 [A/C] 97
SaO2 [SIMV] 97
SaO2 96
Nasal Cannula flow liters per 2
minute
Physical Exam
General: Comfortable and Other (Right upper extremity PICC)
HEENT: Normocephalic and Anicteric
Cardiovascular: S1-S2, Regular Rhythm, Peripheral Edema (slight bilateral lower extremity edema ) and Other (Peripheral pulses intact )
Respiratory: Clear, Wheeze (n), Crackles (n), Rhonchi (n) and Non-Labored Respirations
GI: Soft, Non Distended, Non Tender, NG Tube, Other (Decreased bowel sounds) and Other (Incision intact)
Neurology: Awake, Alert and No Motor Deficits (Moves all extremities)
Skin: Warm, Cyanosis (n), Jaundice (n) and Other (Mild pallor)
Labs/Micro/Reports
Lab Data
08/03/24 05:17
08/03/24 05:17
Laboratory Results
08/02/24
10:59
PT 14.8 H
INR 1.11
APTT 36.0 H
--- NOTE | 2024-08-03 08:38 | PTCARENOTE ---
Pt received in bed @ 0700. AAOx3. Denying pain and nausea. Depressed affect. Stating, 'I'm going to lay in bed bleeding and there's nothing anyone can do to help me.' Emotional support provided. SaO2 95% on room air. Diminished lung sounds. Sinus
tach with PAC's and PVC's on groundwater monitoring technician. No edema. Palpable pedal pulses. Right nare NGT to LIWS. Brown output. 450ml total from last night after suction started for episodes of emesis. Flushed with NSS per order and returned to LIWS. Pt
without bowel movement since yesterday. Hgb returned 7.4 this morning. 1 unit of PRBC's ordered and infusing. No transfusion reaction apparent. TPN infusing through (R) DL PICC.
[2024-08-03] MEDS: PROTONIX IV 40 MG IV ×2 (09:17→19:48)
[2024-08-03] MEDS: NSS (PRESERVATIVE FREE) 10 ML IV ×2 (09:18→19:48)
--- NOTE | 2024-08-03 09:21 | W.PN.HOSP.TC ---
Today's Communication/Plan
-
1 unit PRBC
monitor BP - consider Cardene drip if labile BPs. d/w Clinical Exercise Physiologist as well
follow GI recs regarding bowel prep, diagnostic colonoscopy
Assessment / Plan
Assessment / Plan
HPI: 54-year-old with no known significant past medical history presented to the emergency department with approximately 5 days of ongoing abdominal symptoms.
Patient reported that he abruptly began to have episodes of vomiting then followed by diarrhea that started 5 days PAYROLL LEAD. He c/o crampy abdominal pain and reported melanotic appearing diarrhea.
In the emergency department, his CT angio was done showing a [place] type B thoracic aortic dissection. No involvement of the ascending thoracic aorta or great arch vessels. Vascular surgeon contacted by ED.
Assessment:
Acute hypotension
Acute blood loss anemia 3 grams drop on 08/02
- hold ASA/Plavix - high risk given recent aortic procedure
- stat CT angio negative; no role for IR intervention. CT with complex fluid in colon. No role for surgery
- GI consulted; for diagnostic colonoscopy pending adequate prep
- s/p 2 units PRBC, Hb 7.4 today; 1 additional unit ordered
- continue ICU level
[place] B aortic dissection. No aneurysm. HD stable. No chest pain.
- s/p CT Angio confirming thoracic/abdominal aortic dissection, [place] type B.
- life threatening diagnosis
- s/p emergent thoracic endovascular aortic repair on 07/18
- Also had concurrently ex-lap for concern of bowel ischemic (no necrosis, viable SB/colon seen)
- s/p 5 day empiric Zosyn course post-ex-lap (now back on Zosyn see below)
- hold ASA/Plavix - high risk given recent aortic procedure
- IV Cardizem, IV Metoprolol and IV enalaprilat while NPO and GI bleeding; Cardiology managing and following BP/MAP goals as outlined in their notes. Consider Nicardipine drip if indicated
Leukocytosis
Abd distention
- repeat CT 07/25: pneumatosis with bowel wall thickening and mesenteric edema
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
- AXR: 08/01: small volume contrast in rectum
- continue NGT decompression
- IVF, NPO
- TPN continues
- continue Zosyn day 10
- GS following
Diarrhea
- stool studies including C. Diff and Norovirus negative
- monitor I/Os
Anemia, multi-factorial from acute blood loss from operations, dilution from IVF
- monitor Hb
- GI evaluated; no concern for active GI bleed
- continue PPI IV BID
Chronic SOB
Exposure to asbestos/acetone per patient
- prn nebs
- hold Budesonide BID; prescribe steroid inhaler at DC
- OP Pulm referral
Reactive thrombocytosis
- monitor
DVT ppx: Lovenox
Code: Full
Total Critical Care Time 42 minutes. I was immediately available to the patient and staff. I personally examined, reviewed labs, diagnostic images/reports, interpretations, treatment plans, discussed patient care with other providers and family
or caregivers (if patient is unable to make decisions), entered orders as appropriate and documented the medical record.
Anticipated Discharge: > 48 hours
Subjective/Interval History
-
Date of Service: August 03, 2024
reported CGE overnight
did not tolerate bowel prep <1L taken in
Hb 7.4 this AM; 1 unit PRBC given
anxious over clinical status
Objective Data
-
Labs:
Laboratory Results
08/03/24 08/03/24
00:35 05:17
WBC 11.1 H
Hgb 8.1 L 7.4 L
Hct 24.5 L 23.0 L
Plt Count 377
Sodium 136
Potassium 4.7
Chloride 104
Carbon Dioxide 26
BUN 31 H
Creatinine 0.7
Glucose 155 H
Calcium 8.1 L
Vital Signs:
Vital Signs
Temp Pulse Resp BP Pulse Ox
98.4 F 105 18 107/68 94
08/03/24 09:03 08/03/24 09:03 08/03/24 09:03 08/03/24 09:03 08/03/24 09:03
I&O
08/02/24 08/03/24 08/04/24
06:59 06:59 06:59
Intake Total 1020 / 1020 3208 / 3266 646 / 646
Output Total 520 / 520 3450 / 3450
Balance 500 / 500 -242 / -184 646 / 646
Physical Exam
-
General: Appears in Distress (anxious); Negative Pain
HEENT: Normocephalic, Atraumatic and Other (+NGT coffee ground/bilious output)
Cardiac: Regular Rhythm, S1/S2 and Tachycardic
GI: Soft and Nontender
Genito-urinary: No Costovertebral Tender
Neuro: AO x 3
Hematologic / Lymphatic: No Lymphadenopathy
Psych: Calm
Data Reviewed
-
Critical Care Time (in minutes): 42
Labs: Labs Reviewed by me
--- NOTE | 2024-08-03 09:53 | W.PN.CD ---
Today's Communication / Plan
-
holding DAPT and anti-hypertensives due to bleeding
plan for colonoscopy per GI notes: high, but not prohibitive, risk
Impression / Plan
-
GI bleeding
Active bleeding with significant drop in hemoglobin
Transferred to ICU
Ischemic workup for possible bowel ischemia
Intervention radiology, general surgery, primary team is working
Management as per primary team
Plan for colonoscopy: high, but not prohibitive, risk
[place] type B thoracic aortic dissection:
-this diagnosis is threat to life
-s/p endovascular thoracic aortic repair 07/18/24- vascular following. Also with ex-lap same day to assess for ischemic bowel (viable tissue noted).
-goal MAP is 75-90 currently per vascular note
-IV metoprolol 10 mg every 6 hours, IV Diltiazem 15 mg every 6 hours, and IV enalaprilat 1.25 mg every 6 hours: on hold due to hypotension
-previously receiving plavix by mouth; and ASA rectally
-With active GI bleeding, we will have to hold aspirin Plavix and heparin.
HTN
-Hypotensive with active GI bleeding
-Holding antihypertensives
-Resume once stable.
Ischemic bowel
-Pt now NPO with NGT in place based on CT scan results from 07/25. Plan is supportive care as of now.
-Surgery following
Subjective: working on bowel prep, +nausea
CCT 32 minutes
Physical Exam
Vital Signs/Labs
Vital Signs
Temp Pulse Resp BP Pulse Ox
98.4 F 105 18 107/68 94
08/03/24 09:03 08/03/24 09:03 08/03/24 09:03 08/03/24 09:03 08/03/24 09:03
08/02/24 08/03/24 08/04/24
06:59 06:59 06:59
Actual Weight 71.1 kg 70.9 kg
08/03/24 05:17
08/03/24 05:17
PT 14.8 Sec (11.4-14.6) H 08/02/24 10:59
INR 1.11 08/02/24 10:59
APTT 36.0 Sec (23.4-35.0) H 08/02/24 10:59
Magnesium 2.1 mg/dl (1.6-2.3) 08/01/24 06:03
Triglycerides 68 mg/dl (10-149) 07/31/24 04:13
LDL Cholesterol, Calc 62 mg/dl 07/18/24 04:14
VLDL Cholesterol, Calc 14 mg/dl (0-30) 07/18/24 04:14
HDL Cholesterol 28 mg/dl 07/18/24 04:14
TSH 1.06 uIU/ml (0.47-4.68) 07/19/24 08:39
Free T4 1.18 ng/dl (0.78-2.19) 07/19/24 08:39
Physical Exam
Constitutional: No acute distress
EENT: Moist mucous membranes
Cardiovascular: Rhythm & rate is regular, Pedal edema is absent, JVD pressure is normal and Systolic murmur absent
Respiratory: Respiratory effort normal and Lungs clear to auscul.
Neuro/Psych: AO x 3
Data Reviewed
-
Date of Service: August 03, 2024
EKG: Other (Tele: SR/ST)
Labs: Labs Reviewed by me
--- NOTE | 2024-08-03 10:55 | W.PN.GS2 ---
Today's Communication / Plan
-
TPN renewed
possible scope today with GI
Assessment / Plan
-
Assessment: Patient is a 54 yo M POD #14 07/18/24 ex lap (at time of FEVAR with vascular for aortic dissection)
Nausea, vomiting, distention with attempts at dietary advancement 07/25/[address] imaging 07/26/2024 concerning for pneumatosis with bowel wall thickening and mesenteric edema; most likely causes ischemia given patient's history less likely infectious. CTA on 07/24 demonstrates patent mesenteric vasculature and in
hindsight likely had some small less appreciated elements of the above which are better appreciated with oral contrast. Oral contrast does make its way beyond the area of concern though has not reached the colon.
Clinically patient is not obstructed and is passing stools and flatus. Pneumatosis on recent CT imaging may be reflective of either degree of subacute mesenteric ischemia or of previous acute ischemic event with subsequent mucosal sloughing during
bowel recovery process. Given clinical stability and significant improvement with bowel rest and NG tube decompression higher clinical suspicion that CT imaging findings are more reflective of mucosal sloughing and recovery from previous
temporarily reversible bowel ischemia during acute aortic dissection event of the pneumatosis due to progressive/nonreversible bowel ischemia
Continue with medical management - bowel rest, resumption of TPN and close monitoring. With time mucosal sloughing would likely heal and slowly improved but this may be a more prolonged process, 4 to 6 weeks. There is the risk that may may develop
future strictures in the area of affected small bowel as well which will have to be monitored for during recovery.
Stools becoming more formed - hopeful improvement. More bloody BMs yesterday, CTA without evidence of localized bleeding. Dark but not bloody BMs today.
AFVSS
Leukocytosis persists, trending down
Labs stable on TPN
Plan:
-- Tentatively for c-scope with GI
-- NPO, IVF, NGT decompression
-- TPN renewed
-- Abx: Zosyn - given risk for bacterial translocation, trend WBC
-- PPI daily for GI ppx
Subjective Data
-
Date of Service: August 03, 2024
C/o ongoing vague abd pain and ttp, endorses nausea with colon prep via NGT, passing dark loose BMs without bernie blood today
Objective Data
-
Intake and Output
08/02/24 08/03/24 08/04/24
06:59 06:59 06:59
Intake Total 1020 / 1020 3208 / 3266 812 / 812
Output Total 520 / 520 3450 / 3450 200 / 200
Balance 500 / 500 -242 / -184 612 / 612
Intake:
Oral fluids 120 / 120
IV fluids (Total) 174 / 232 232 / 232
TPN 174 / 232 232 / 232
IV piggybacks 200 / 200 175 / 175 50 / 50
TPN/PPN 700 / 700 1044 / 1044
Amount instilled into GI Tube ( 790 / 790 30 / 30
Total)
Atkinson Sump 790 / 790 30 / 30
Blood Products 525 / 525 250 / 250
Packed red blood cells 525 / 525 250 / 250
Blood Product Amount Infused ( 500 / 500 250 / 250
mL)
Packed Rbc Leukoreduced Unit 250 / 250
[id number]
Packed Rbc Leukoreduced Unit 250 / 250
[id number]
Packed Rbc Leukoreduced Unit 0 / 0 250 / 250
[id number]
Output:
Emesis 700 / 700
Gastrointestinal tube output ( 650 / 650
Total)
Atkinson Sump 650 / 650
Urine, Voided 520 / 520 2100 / 2100 200 / 200
Other:
Number of approximated LARGE 4
amounts of urine
How many times incontinent 1
MODERATE amount urine
Vital Signs
Temp Pulse Resp BP Pulse Ox
98.4 F 105 18 107/68 94
08/03/24 09:03 08/03/24 09:03 08/03/24 09:03 08/03/24 09:03 08/03/24 09:03
Lab Results
08/03/24 05:17
08/03/24 05:17
Calcium 8.1 mg/dl (8.4-10.2) L 08/03/24 05:17
Phosphorus 3.6 mg/dl (2.5-4.5) 07/31/24 04:13
Magnesium 2.1 mg/dl (1.6-2.3) 08/01/24 06:03
Total Bilirubin 0.3 mg/dl (0.2-1.3) 07/31/24 04:13
Direct Bilirubin 0.8 mg/dl (0.0-0.4) H 07/19/24 02:58
AST 13 U/L (17-59) L 07/31/24 04:13
ALT 14 U/L (0-50) 07/31/24 04:13
Alkaline Phosphatase 65 U/L (38-126) 07/31/24 04:13
Total Protein 5.9 g/dl (6.3-8.2) L 07/31/24 04:13
Albumin 2.7 g/dl (3.5-5.0) L 07/31/24 04:13
Physical Exam
-
Gen: NAd
Abd: soft, incision cdi, mild distention, mild ttp diffusely
--- NOTE | 2024-08-03 11:32 | W.PN.GI.CBS2 ---
Addendum entered and electronically signed by Saloni Del Angel MD 08/03/24 15:01:
I saw and examined the patient.
The CHARGE AIDE or PA's note was reviewed and I agree with the note.
Comment:
Pt in bed reading mail. Biggest concern diarrhea, did have NGT in and out with some coffee ground material. Did not tolerate prep and had vomiting despite NGT
abd: soft,
impression:
aortic dissection repair
ileus
diarrhea
coffee grounds
plan:
monitor hgb
coffee grounds and vomiting are likely from being given a prep with an ileus, would hold on further prep
diarrhea likely from ischemic colitis or ileus and hasn't worsened
will monitor and will consider egd/flex sig based on how he clinically responds
continue TPN
Original Note:
Today's Communication / Plan
-
As per plan
Assessment / Plan
-
54yo admitted on 07/17 undergoing type B aortic dissection repair with concern for possible pneumoatosis of the small bowel c/d ischemia taken for emergent ex lap but no findings of ischemia now with GI bleeding of unclear etiology, but high
suspicion of ischemia. CT Angio with evidence of large complex fluid in the colon but w/o active extravasation. Hemoglobin dropped from 10 --> 7.1 with borderline hypotension. Now hemoglobin down to 7.4 this a.m. plan was to prep patient for
possible colonoscopy today via NG tube. Patient was given 1 L of prep with 2 episodes of clear vomitus. NG tube placed to suction with 600 cc of dark material removed he continues with NG tube drainage at this point. Patient did not start having
bowel movements until this a.m. which were dark brown in nature, 2. OB positive. No signs of bleeding noted. The patient stated to me when he was given the prep he felt like he had 'ripping inside of me'. Plavix as well as aspirin were held
yesterday. He continues on pantoprazole 40 mg IV twice daily. He continues on TPN.
--CT chest/abdomen/pelvis angiogram 08/02/2024: No evidence of active GI bleed. Stable appearance of endovascular stent graft repair. Probable enteritis/ileus similar to prior.
--CT chest/abdomen/pelvis angiogram 07/31/24: Small bowel malrotation with midgut volvulus, element of small bowel obstruction, mucosal/submucosal pneumatosis noted. Difficulty rule out obstruction
--CT chest/abdomen/pelvis angiogram 07/25/24: Improved perfusion of distal arteries and right common iliac artery. Fluid-filled small bowel, thickening of the small bowel loop, no intraperitoneal air. Mild atelectasis
--Chest/Ab/pelvic CT 07/18/24: Thoracic and abdominal aortic dissection, Juice type B.
Plan:
-2 large peripheral gauge IVs
-Trend H&H q8 hours, transfuse for hemglobin <8
-Continue pantoprazole
-Patient continues with NG tube drainage, did not tolerate prep.
-Will hold on any kind of colonoscopy prepping at this point. No signs of active GI bleeding.
-Continue TPN as per surgery
Subjective
Subjective
Date of Service: August 03, 2024
54yo admitted on 07/17 undergoing type B aortic dissection repair with concern for possible pneumatosis of the small bowel c/d ischemia taken for emergent ex lap but no findings of ischemia now with GI bleeding of unclear etiology, but high suspicion
of ischemia. CT Angio with evidence of large complex fluid in the colon but w/o active extravasation. Hemoglobin dropped from 10 --> 7.1 with borderline hypotension on 08/02/2024. Was given 2 units packed red blood cells with hemoglobin increasing
to 8.2. Now hemoglobin down to 7.4 this a.m. plan was to prep patient for possible colonoscopy today via NG tube. Patient was given 1 L of prep with 2 episodes of clear vomitus. NG tube placed to suction with 600 cc of dark material removed he
continues with NG tube drainage at this point. Patient did not start having bowel movements until this a.m. which were dark brown in nature, 2. OB positive. No signs of bleeding noted. The patient stated to me when he was given the prep he felt
like he had 'ripping inside of me'. Plavix as well as aspirin were held yesterday. He continues on pantoprazole 40 mg IV twice daily. He continues on TPN.
Objective
Data Reviewed
Laboratory Data:
Laboratory Results
08/03/24 05:17
08/03/24 05:17
Laboratory Results
PT 14.8 Sec (11.4-14.6) H 08/02/24 10:59
INR 1.11 08/02/24 10:59
APTT 36.0 Sec (23.4-35.0) H 08/02/24 10:59
Phosphorus 3.6 mg/dl (2.5-4.5) 07/31/24 04:13
Magnesium 2.1 mg/dl (1.6-2.3) 08/01/24 06:03
Total Bilirubin 0.3 mg/dl (0.2-1.3) 07/31/24 04:13
AST 13 U/L (17-59) L 07/31/24 04:13
ALT 14 U/L (0-50) 07/31/24 04:13
Alkaline Phosphatase 65 U/L (38-126) 07/31/24 04:13
Amylase 31 U/L (30-110) 07/19/24 01:33
Lipase 45 U/L (23-300) 07/19/24 02:58
Vital Signs and I&O:
Vital Signs
Temp Pulse Resp BP Pulse Ox
98.4 F 105 18 107/68 94
08/03/24 09:03 08/03/24 09:03 08/03/24 09:03 08/03/24 09:03 08/03/24 09:03
I&O
08/02/24 08/03/24 08/04/24
06:59 06:59 06:59
Intake Total 1020 / 1020 3208 / 3266 812 / 812
Output Total 520 / 520 3450 / 3450 200 / 200
Balance 500 / 500 -242 / -184 612 / 612
Physical Exam
Physical Exam
HEENT: Anicteric
Cardiology: Normal Sinus Rhythm
Pulmonary: Clear
GI: Soft, Non Distended, Non Tender and Normal Bowel Sounds
Rectal: Other (Liquid brown stool in bedpan)
Neuro: Non Focal
[2024-08-03 12:39] LABS: Glucose - Point of Care 154 mg/dl (70-99)
--- NOTE | 2024-08-03 13:47 | PTCARENOTE ---
Pt reassessed. Pt now with loose watery brown bowel movements. Testing heme (+). NG tube remains to LIWS. 800ml of brown output. Ordered unit of PRBC's infused. Follow up Hgb ordered for 18:00.
--- NOTE | 2024-08-03 17:10 | CM ---
Patient cont with TPN
Was to have colonoscopy today
Did not tolerate prep
monitor hgb
Plan: Discharge when stable, home ?TPN
[2024-08-03 17:21] LABS: Glucose - Point of Care 168 mg/dl (70-99)
--- NOTE | 2024-08-03 17:45 | PTCARENOTE ---
Pt reassessed. Remains anxious. Emotional support provided. Ольга linda draining brown output. Pt denying pain or nausea. TPN infusing through right DL PICC.
[2024-08-03] MEDS: Parenteral Nutrition, Central 1380 IV (19:48)
--- NOTE | 2024-08-03 20:20 | PTCARENOTE ---
On assessment pt AAOx3, denies pain and SOB, denies N/V at this time, SR on the monitor, 95% RA, R rony NGT, TPN running through PICC line per orders, midline incision C/D/I with steri strips, call albert in reach
[2024-08-03 22:45] LABS: Hematocrit 20.9 % (39.0-52.0); Hemoglobin 6.8 g/dL (13.0-18.0)
[2024-08-03] MEDS: LOPRESSOR IV (23:44)
[2024-08-04] VITALS (34 sets, daily range): BP systolic 92–141; BP diastolic 46–76; BMI 21.1
[2024-08-04 00:26] LABS: Glucose - Point of Care 135 mg/dl (70-99)
[2024-08-04] MEDS: NOVOLOG FLEXPEN-LOW RESISTANCE SC ×4 (00:50→23:30)
--- NOTE | 2024-08-04 01:00 | PTCARENOTE ---
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
[2024-08-04] MEDS: ZOSYN 50 IV (04:33)
--- NOTE | 2024-08-04 04:45 | PTCARENOTE ---
no changes from prior assessment, pt resting comfortably in bed, call albert in reach
[2024-08-04 05:10] LABS: Hematocrit 21.4 % (39.0-52.0); Hemoglobin 7.2 g/dL (13.0-18.0); Mean Corp Hgb Conc. 33.6 g/dL (33.0-37.0); Mean Corpuscular Hgb 30.9 pg (27.0-31.0); Mean Corpuscular Volume 91.8 fL (80.0-94.0); Mean Platelet Volume 9.3 fL (7.4-10.4); Platelet Count 257 10^3/uL (130-400); Red Blood Cell Count 2.33 10^6/uL (4.70-6.10); Red Cell Dist. Width 13.6 % (11.5-14.5)
[2024-08-04 05:34] LABS: Blood Urea Nitrogen 32 mg/dl (9-20); Calcium 7.7 mg/dl (8.4-10.2); Carbon Dioxide 27 mmol/L (22-30); Chloride 103 mmol/L (98-107); Estimated Creatinine Clearance > 125 ml/min; Glucose 133 mg/dl (70-99); Potassium 4.1 mmol/L (3.5-5.1); Sodium 135 mmol/L (135-145); eGFR > 60.00
[2024-08-04] MEDS: LOPRESSOR 10 MG IV ×4 (06:05→23:34)
[2024-08-04] MEDS: NOVOLOG FLEXPEN-LOW RESISTANCE 1 UNITS SC (06:06)
[2024-08-04 06:18] LABS: Glucose - Point of Care 154 mg/dl (70-99)
--- NOTE | 2024-08-04 07:51 | W.PN.HOSP.TC ---
Today's Communication/Plan
-
see A/P
Assessment / Plan
Assessment / Plan
HPI: 54-year-old with no known significant past medical history presented to the emergency department with approximately 5 days of ongoing abdominal symptoms.
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 He c/o crampy abdominal pain and reported melanotic appearing diarrhea.
In the emergency department, his CT angio was done showing a Juice type B thoracic aortic dissection. No involvement of the ascending thoracic aorta or great arch vessels. Vascular surgeon contacted by ED.
A/P:
# Acute hypotension
# Acute blood loss anemia 3 grams drop on 08/02
hold ASA/Plavix - high risk given recent aortic procedure
stat CT angio negative; no role for IR intervention. CT with complex fluid in colon. No role for surgery
GI consulted; holding off further prep with coffee ground vomiting (likely from prep with ileus), ?EGD/flex sig - to be determined
s/p 6 units PRBC total
Hgb 7.2 today; would give 1 additional unit
continue ICU level
# Loa B aortic dissection. No aneurysm. HD stable. No chest pain.
s/p CT Angio confirming thoracic/abdominal aortic dissection, Loa type B.
life threatening diagnosis
s/p emergent thoracic endovascular aortic repair on 07/18
Also had concurrently ex-lap for concern of bowel ischemic (no necrosis, viable SB/colon seen)
s/p 5 day empiric Zosyn course post-ex-lap (now back on Zosyn see below)
hold ASA/Plavix with severe anemia- high risk given recent aortic procedure
IV Cardizem, IV Metoprolol and IV enalaprilat while NPO;
Cardiology managing and following BP/MAP goals as outlined in their notes. Consider Nicardipine drip if indicated
# Leukocytosis
# Abd distention
repeat CT 07/25: pneumatosis with bowel wall thickening and mesenteric edema
repeat CT 07/31: Small bowel malrotation is again seen, indicative volvulus slightly less prominent as well as decreased small bowel wall thickening and decreased small bowel pneumatosis
AXR: 08/01: small volume contrast in rectum
continue NGT decompression
IVF, NPO
TPN continues
s/p Zosyn 10 days, observe off further
GS following
# Diarrhea
stool studies including C. Diff and Norovirus negative
monitor I/Os
# Anemia, multi-factorial from acute blood loss from operations, dilution from IVF
monitor Hb
GI on board
continue PPI IV BID
# Chronic SOB
# Exposure to asbestos/acetone per patient
prn nebs
hold Budesonide BID; prescribe steroid inhaler at DC
OP Pulm referral
# Reactive thrombocytosis, resolved
DVT ppx: Lovenox SQ on hold, use SCD
Code: Full
Extensive discussion with brother and ROD on the phone. I tried to answer all questions
Total Critical Care Time 45 minutes. I was immediately available to the patient and staff. I personally examined, reviewed labs, diagnostic images/reports, interpretations, treatment plans, discussed patient care with other providers and family
or caregivers (if patient is unable to make decisions), entered orders as appropriate and documented the medical record.
Anticipated Discharge: > 48 hours
Subjective/Interval History
-
Date of Service: August 04, 2024
Objective Data
-
Labs:
Laboratory Results
08/03/24 08/04/24
22:27 04:32
WBC 7.0
Hgb 6.8 L* 7.2 L
Hct 20.9 L* 21.4 L
Plt Count 257 D
Sodium 135
Potassium 4.1
Chloride 103
Carbon Dioxide 27
BUN 32 H
Creatinine 0.6 L
Glucose 133 H
Calcium 7.7 L
Vital Signs:
Vital Signs
Temp Pulse Resp BP Pulse Ox
36.9 C 77 18 107/60 96
08/04/24 03:15 08/04/24 07:00 08/04/24 07:00 08/04/24 07:00 08/04/24 06:00
I&O
08/03/24 08/04/24 08/05/24
06:59 06:59 06:59
Intake Total 3208 / 3266 2474 / 2474
Output Total 3450 / 3450 2250 / 2250
Balance -242 / -184 224 / 224
Review of Systems
-
Constitutional: Reports Weakness
Physical Exam
-
General: Well Developed and Appears Chronically Ill
HEENT: Normocephalic, Atraumatic and Other (NGT)
Respiratory: Non Labored Respirations; Negative Accessory Resp Muscle Use
Cardiac: Regular Rhythm and S1/S2
GI: Soft and Nontender
Neuro: Awake and Alert
Psych: Calm and Intact Judgement/Insight
Data Reviewed
-
Critical Care Time (in minutes): 42
Labs: Labs Reviewed by me
--- NOTE | 2024-08-04 07:52 | W.PN.INTV ---
Today's Communication / Plan
Recommendations
Continue to monitor hemoglobin
Transfuse to maintain hemoglobin greater than 7.5
Mechanical DVT prophylaxis
Out of bed to chair
Assessment
-
54 y/o male with PMHx GERD, current smoker, s/p appendectomy with no other known PMHx presented to the emergency department on 07/17/24 at night with approximately 5 days of ongoing abdominal pain, nausea, vomiting, diarrhea and excruciating back
pain. Work up revealed type B aortic dissection and possible small bowel ischemia. Upon evaluation by vascular team, patient's abdomen was soft and nontender but complains of pain. Easily palpable left lower extremity pulses. They could not
appreciate Doppler signal to the right lower extremity at any pulse sites. LA ordered and was 2.5. Dr. Cooley recommended emergency TEVAR immediately and discussed risk and benefits with the patient. General surgery was also consulted for concern of
visceral malperfusion. Dr. Linn spoke to patient about plan for exploratory laparotomy with possible bowel resection possible open abdomen following vascular surgery endovascular repair of his type B aortic dissection. Patient agreed to all of
the above. Post-op pulses palpated bilaterally now in the CVICU for further monitoring on multiple pressors and mechanical ventilation.
Patient was subsequently transferred out of ICU 07/22/2024
Transferred back to ICU 08/02/2024
Briefly, patient admitted to 07/17, underwent type B aortic dissection repair, developed possible pneumatosis of small bowel concerning for ischemia status post exploratory laparotomy without evidence of ischemia. Was extubated 07/19, transferred
out of ICU 07/22. Hospital stay was reviewed in the interim. Patient continue with TPN therapy, regular diet started 07/24. Patient subsequently developed some nausea and abdominal distention with nonbloody liquid stool. Stool cultures negative.
Patient also developed increased leukocytosis. Follow-up imaging 07/26/2024 concerning for pneumatosis and bowel wall thickening and mesenteric edema. Patient continues to have nonbloody stool, flatus without nausea emesis on 07/28. Continue with
TPN and bowel rest given CT findings per surgery. Per surgery correspondence, stool becoming more formed, no bloody stool as of 07/31. Repeat CT abdomen 07/31/2024 revealed significant improvement in small bowel thickening and pneumatosis compared
to prior imaging. Patient subsequently developed bloody stool overnight into 08/02, marginal hypotension, progressive drop in hemoglobin to 7.1. Patient was transferred to ICU for further management. CT angiogram ordered. We are asked to help
from critical care standpoint
Impression:
#GI bleed, bloody bowel movement 08/02
Drop in hemoglobin to 7.1
Marginal blood pressure
s/p Tx 7U as of 08/04
#Type B aortic dissection
Absent right lower extremity pulses
Thoracic endovascular aortic repair using GORE Thoracic Branch Endoprosthesis device POD 3
#Possible pneumatosis of small bowel concerning for ischemia - exploratory laparotomy no signs of ischemia POD 3
#Post-op acute respiratory failure on mechanical vent ventilation intubated 07/18/2024 - extubated 07/19/2024
Transfer out of ICU 07/22
Tx back to ICu 08/01
#Severe changes of emphysema in both lungs
#Leukocytosis
#Hyponatremia
#Elevated LA
#Tobacco use
#Anxiety
#1.7 cm hypoattenuating upper pole left renal lesion
#Cholelithiasis with no acute cholecystitis
#Incomplete bundle branch block
Plan/ Recommendations
At this time, patient appears to be comfortable and at least stable from a hemodynamic standpoint
Antihypertensive therapy remains held
Blood pressure adequate
Patient did not tolerate oral prep for endoscopy
Had bowel movement 08/03, dark stool, no bernie blood
NG tube remains in place
Moving forward
Continue with supportive care
Continues to receive intermittent transfusion
Adequate access, PICC line in place, double-lumen
Follow hemoglobin
Patient was on Plavix/aspirin, currently being held
CT angiogram negative for acute bleeding
Surgery following, vascular, GI also following.
History of Type B aortic dissection, admitted 07/17/2024
Possible pneumatosis of small bowel concerning for ischemia - exploratory laparotomy ruled out POD [address] abdomen 07/31 with improvement of ischemic changes
Remains n.p.o., NG tube in place, bowel rest
TPN continues
Patient remains on Zosyn therapy
Patient with episodic hypertension during hospital stay
Hold antihypertensive therapy for now
systolic blood pressure ranging between 90s and 130s
Follow
Post-op acute respiratory failure on mechanical ventilation intubated 07/18/2024 - extubated 07/19/2024
Adequate saturation at this time
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
Continue DuoNebs, budesonide
Severe emphysema
No wheezing at this time
DVT prophylaxis: Mechanical prophylaxis for now. Lovenox being held
GI prophylaxis: Remains on pantoprazole twice daily
The above was reviewed with critical care nursing, respiratory care, multiple providers
Okay for transfer out of ICU from critical care standpoint. Hospitalist prefers to keep in ICU for another 24 hours

Diagnostic imaging:
CT chest/abdomen/pelvis angiogram 08/02/2024: No evidence of active GI bleed. Stable appearance of endovascular stent graft repair. Probable enteritis/ileus similar to prior.
CT chest/abdomen/pelvis angiogram 07/31/24: Small bowel malrotation with midgut volvulus, element of small bowel obstruction, mucosal/submucosal pneumatosis noted. Difficulty rule out obstruction
CT chest/abdomen/pelvis angiogram 07/25/24: Improved perfusion of distal arteries and right common iliac artery. Fluid-filled small bowel, thickening of the small bowel loop, no intraperitoneal air. Mild atelectasis.
Chest/Ab/pelvic CT 07/18/24: Thoracic and abdominal aortic dissection, Juice type B.
Dissection flap is along the anterior margin of the abdominal aorta, and appears to contribute to significant narrowing at the origins of the celiac artery and the SMA. Additionally, there is luminal irregularity in the proximal SMA, suggestive of a
small amount of thrombus, nonocclusive.
Dissection flap traverses the origin of the right common iliac artery, and appears to result in narrowing of caliber of the artery, although contrast enhancement extends beyond the dissection flap.
Tortuosity of the proximal left common iliac artery, but no evidence for dissection flap traversing the origin of the left common iliac artery.
Dilated air and fluid-filled small bowel loops with small bowel wall thickening. Possible pneumatosis involving the wall of small bowel loops. There is also thickening of the wall of the right side of the colon. These findings raise concern for
ischemia.
No evidence for free intraperitoneal air. No evidence for portal venous air.
Severe changes of emphysema within both lungs.
Focal parenchymal opacity within the posterior right lower lobe, predominantly linear morphology, most likely atelectasis based on morphology. Linear scarring within both lungs
Cholelithiasis. Mild distention of the gallbladder with no evidence for gallbladder wall thickening or pericholecystic edema. No evidence for biliary ductal dilation.
CT angiography 07/17/2024:
1. [place] type B thoracic aortic dissection. No involvement of the ascending thoracic aorta or great arch vessels.
2. Emphysema.
Ab/pelvis CT 07/17/24:
1. Partially visualized dissection of the lower thoracic aorta with dissection flap terminating just proximal to the celiac artery origin in the upper abdomen. Recommend dedicated CTA chest for complete evaluation.
2. Cholelithiasis.
3. A 1.7 cm hypoattenuating upper pole left renal lesion measures slightly higher than simple fluid and may represent a mildly proteinaceous/hemorrhagic cyst, although indeterminate. Recommend outpatient initial further workup with dedicated renal
ultrasound.
Subjective Dataa
Subjective Data
Date of Service:
Date of Service: August 04, 2024
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
Subjective:
No major issues overnight. Hemoglobin continues to be on the low side, requiring intermittent transfusion. Urine output adequate, blood work stable. Patient has received total of 7 units as of this morning
Objective Data
Data Reviewed
Vital Signs / I&O / Oxygen:
Vital Signs
Temp Pulse Resp BP Pulse Ox
98.5 F 77 18 107/60 96
08/04/24 03:15 08/04/24 07:00 08/04/24 07:00 08/04/24 07:00 08/04/24 06:00
Intake and Output
08/03/24 08/04/24 08/05/24
06:59 06:59 06:59
Intake Total 3208 / 3266 2474 / 2474
Output Total 3450 / 3450 2250 / 2250
Balance -242 / -184 224 / 224
SaO2 [CPAP/PSV] 96
SaO2 [A/C] 97
SaO2 [SIMV] 97
SaO2 96
Nasal Cannula flow liters per 2
minute
Physical Exam
General: Comfortable and Other (Right upper extremity PICC)
HEENT: Normocephalic and Anicteric
Cardiovascular: S1-S2, Regular Rhythm, Peripheral Edema (slight bilateral lower extremity edema ) and Other (Peripheral pulses intact )
Respiratory: Clear, Wheeze (n), Crackles (n), Rhonchi (n) and Non-Labored Respirations
GI: Soft, Non Distended, Non Tender, NG Tube, Other (Decreased bowel sounds) and Other (Incision intact)
Neurology: Lethargic (Presently sleeping, did not awaken during exam)
Skin: Warm, Cyanosis (n) and Other (Mild pallor)
Labs/Micro/Reports
Lab Data
08/04/24 04:32
08/04/24 04:32
[2024-08-04] MEDS: PROTONIX IV 40 MG IV ×2 (08:41→19:34)
[2024-08-04] MEDS: NSS (PRESERVATIVE FREE) 10 ML IV ×2 (08:41→19:35)
[2024-08-04 09:05] LABS: Haptoglobin 340 mg/dL (30-200)
--- NOTE | 2024-08-04 09:19 | PTCARENOTE ---
Rec'd care of patient at 0700. Patient alert and oriented. Anxious and flat. MAEx4. Goal made to try and get oob to chair today. NSR with BBB and pvcs on tele monitor. Lung sounds diminished throughout. Pulse ox 95% on RA. +BS. NGT to low
intermittent suction. Green output. No BM. Voiding via urinal. Midline incision approximated, steri strips intact. TPN infusing through right dual lumen PICC. Hgb in am 7.2. 1 unit of PRBCs ordered by Hospitalist. VSS. Patient requesting lights to
be off and door closed. Emotional support and reassurance provided. Patient agreeable to put music on.
--- NOTE | 2024-08-04 09:54 | PTCARENOTE ---
1 unit of PRBCs transfusing. VSS.
--- NOTE | 2024-08-04 10:07 | W.PN.CD ---
Today's Communication / Plan
-
Cont holding anti-platelets and anti-HTN meds given marginal BP and bleeding
Impression / Plan
-
GI bleeding
Bleeding may have stopped?
Ischemic workup for possible bowel ischemia
Intervention radiology, general surgery, primary team is working
Management as per primary team
Plan for colonoscopy: high, but not prohibitive, risk
Juice type B thoracic aortic dissection:
-this diagnosis is threat to life
-s/p endovascular thoracic aortic repair 07/18/24- vascular following. Also with ex-lap same day to assess for ischemic bowel (viable tissue noted).
-goal MAP is 75-90 currently per vascular note
-IV metoprolol 10 mg every 6 hours, IV Diltiazem 15 mg every 6 hours, and IV enalaprilat 1.25 mg every 6 hours: on hold due to hypotension
-previously receiving plavix by mouth; and ASA rectally
-With active GI bleeding, we will have to hold aspirin Plavix and heparin.
HTN
-Hypotensive with active GI bleeding
-Holding antihypertensives
-Resume once stable.
Ischemic bowel
-Pt now NPO with NGT in place based on CT scan results from 07/25. Plan is supportive care as of now.
-Surgery following
Subjective: feels OK with bowel prep had significant abdominal distension/nausea
CCT 32 minutes
Physical Exam
Vital Signs/Labs
Vital Signs
Temp Pulse Resp BP Pulse Ox
98.0 F 90 17 101/68 95
08/04/24 09:47 08/04/24 09:47 08/04/24 09:47 08/04/24 09:47 08/04/24 08:40
08/03/24 08/04/24 08/05/24
06:59 06:59 06:59
Actual Weight 156 lb 4.924 oz 155 lb 6.814 oz
08/04/24 04:32
08/04/24 04:32
PT 14.8 Sec (11.4-14.6) H 08/02/24 10:59
INR 1.11 08/02/24 10:59
APTT 36.0 Sec (23.4-35.0) H 08/02/24 10:59
Magnesium 2.1 mg/dl (1.6-2.3) 08/01/24 06:03
Triglycerides 68 mg/dl (10-149) 07/31/24 04:13
LDL Cholesterol, Calc 62 mg/dl 07/18/24 04:14
VLDL Cholesterol, Calc 14 mg/dl (0-30) 07/18/24 04:14
HDL Cholesterol 28 mg/dl 07/18/24 04:14
TSH 1.06 uIU/ml (0.47-4.68) 07/19/24 08:39
Free T4 1.18 ng/dl (0.78-2.19) 07/19/24 08:39
Physical Exam
Constitutional: No acute distress
EENT: Anicteric
Cardiovascular: Rhythm & rate is regular and Pedal edema is absent
Respiratory: Respiratory effort normal and Lungs clear to auscul.
GI: Other (decreased BS )
Neuro/Psych: AO x 3
Data Reviewed
-
Date of Service: August 04, 2024
EKG: Tracing Personally Visualized and interpreted (sr)
Echo: Report Reviewed by me
Labs: Labs Reviewed by me
[2024-08-04 12:30] LABS: Glucose - Point of Care 139 mg/dl (70-99)
--- NOTE | 2024-08-04 12:55 | PTCARENOTE ---
Blood transfusion completed. Vitals stable. Patient agreeable to sit at side of bed. RW provided to stand. Patient sitting/standing as tolerated for 20+ minutes. No other changes. IS encouraged.
--- NOTE | 2024-08-04 15:56 | W.PN.GI.CBS2 ---
Addendum entered and electronically signed by Dwayne Mandel MD 08/04/24 18:50:
I saw and examined the patient.
The PA's note was reviewed and I agree with the note.
Comment:
Ileus may be resolving. Brown stool this PM. Would hold off on endo eval for now. Continue to monitor Hgb.
Original Note:
Today's Communication / Plan
-
As per plan
Assessment / Plan
-
54yo admitted on 07/17 undergoing type B aortic dissection repair with concern for possible pneumoatosis of the small bowel c/d ischemia taken for emergent ex lap but no findings of ischemia now with GI bleeding of unclear etiology, but high
suspicion of ischemia. CT Angio with evidence of large complex fluid in the colon but w/o active extravasation. Hemoglobin dropped from 10 --> 7.1 with borderline hypotension. Now hemoglobin down to 7.4 this a.m. plan was to prep patient for
possible colonoscopy today via NG tube. Patient was given 1 L of prep with 2 episodes of clear vomitus. NG tube placed to suction with 600 cc of dark material removed he continues with NG tube drainage at this point. Patient did not start having
bowel movements until this a.m. which were dark brown in nature, 2. OB positive. No signs of bleeding noted. The patient stated to me when he was given the prep he felt like he had 'ripping inside of me'. Plavix as well as aspirin were held
yesterday. He continues on pantoprazole 40 mg IV twice daily. He continues on TPN. (08/04/2024): Patient with bilious NG tube output, decreased. Passing flatus. No abdominal pain. Hemoglobin did decrease and received 2 units packed red blood
cells. Vital signs stable. Continues on PPI twice daily.
--CT chest/abdomen/pelvis angiogram 08/02/2024: No evidence of active GI bleed. Stable appearance of endovascular stent graft repair. Probable enteritis/ileus similar to prior.
--CT chest/abdomen/pelvis angiogram 07/31/24: Small bowel malrotation with midgut volvulus, element of small bowel obstruction, mucosal/submucosal pneumatosis noted. Difficulty rule out obstruction
--CT chest/abdomen/pelvis angiogram 07/25/24: Improved perfusion of distal arteries and right common iliac artery. Fluid-filled small bowel, thickening of the small bowel loop, no intraperitoneal air. Mild atelectasis
--Chest/Ab/pelvic CT 07/18/24: Thoracic and abdominal aortic dissection, [place] type B.
Plan:
-2 large peripheral gauge IVs
-Trend H&H q8 hours, transfuse for hemoglobin <8
-Continue pantoprazole 40 mg IV twice daily
-Patient continues with NG tube drainage, decreased. Bilious in nature
-Will hold on any endoscopic intervention at this point. NG tube bilious. Stools dark brown.
-Continue TPN as per surgery.
Subjective
Subjective
Date of Service: August 04, 2024
Patient states he is feeling better today. He was passing flatus last evening. NG tube with 400 cc bilious fluid today. Currently suctioning green/light brown bilious fluid. Patient without any bowel movement today. Denies any abdominal pain.
Yesterday I witnessed large brown bowel movement with RN. Patient feels as if he is going to have a bowel movement now. I communicated this with nursing. Continues on pantoprazole 40 mg IV twice daily. Hemoglobin 6.8 overnight, transfuse 1 unit
packed red blood cells. Repeat 7.2 this a.m. Was transfused 1 unit packed red blood cells. Patient continues on TPN at this time.
Objective
Data Reviewed
Laboratory Data:
Laboratory Results
08/04/24 04:32
08/04/24 04:32
Laboratory Results
PT 14.8 Sec (11.4-14.6) H 08/02/24 10:59
INR 1.11 08/02/24 10:59
APTT 36.0 Sec (23.4-35.0) H 08/02/24 10:59
Phosphorus 3.6 mg/dl (2.5-4.5) 07/31/24 04:13
Magnesium 2.1 mg/dl (1.6-2.3) 08/01/24 06:03
Total Bilirubin 0.3 mg/dl (0.2-1.3) 07/31/24 04:13
AST 13 U/L (17-59) L 07/31/24 04:13
ALT 14 U/L (0-50) 07/31/24 04:13
Alkaline Phosphatase 65 U/L (38-126) 07/31/24 04:13
Amylase 31 U/L (30-110) 07/19/24 01:33
Lipase 45 U/L (23-300) 07/19/24 02:58
Vital Signs and I&O:
Vital Signs
Temp Pulse Resp BP Pulse Ox
98.0 F 83 17 141/70 94
08/04/24 12:10 08/04/24 15:00 08/04/24 15:00 08/04/24 15:00 08/04/24 14:00
I&O
08/03/24 08/04/24 08/05/24
06:59 06:59 06:59
Intake Total 3208 / 3266 2474 / 2532 714 / 714
Output Total 3450 / 3450 2250 / 2250 500 / 500
Balance -242 / -184 224 / 282 214 / 214
Physical Exam
Physical Exam
HEENT: Anicteric and Other (NG tube in place, green/light brown bilious fluid being withdrawn, 400 cc in canister)
Cardiology: Normal Sinus Rhythm
Pulmonary: Clear (Anterior)
GI: Soft, Non Distended, Non Tender, Normal Bowel Sounds and Other (Midline incision)
Extremities: No Edema
Neuro: Non Focal
--- NOTE | 2024-08-04 16:25 | PTCARENOTE ---
No major changes in assessment. Vitals stable. Patient assisted on bedpan for 1 dark brown BM. No other changes.
--- NOTE | 2024-08-04 17:49 | W.PN.GS2 ---
Today's Communication / Plan
-
TPN renewed
Assessment / Plan
-
Assessment: Patient is a 54 yo M POD #15 07/18/24 ex lap (at time of FEVAR with vascular for aortic dissection)
Nausea, vomiting, distention with attempts at dietary advancement 07/25/[address] imaging 07/26/2024 concerning for pneumatosis with bowel wall thickening and mesenteric edema; most likely causes ischemia given patient's history less likely infectious. CTA on 07/24 demonstrates patent mesenteric vasculature and in
hindsight likely had some small less appreciated elements of the above which are better appreciated with oral contrast. Oral contrast does make its way beyond the area of concern though has not reached the colon.
Clinically patient is not obstructed and is passing stools and flatus. Pneumatosis on recent CT imaging may be reflective of either degree of subacute mesenteric ischemia or of previous acute ischemic event with subsequent mucosal sloughing during
bowel recovery process. Given clinical stability and significant improvement with bowel rest and NG tube decompression higher clinical suspicion that CT imaging findings are more reflective of mucosal sloughing and recovery from previous
temporarily reversible bowel ischemia during acute aortic dissection event of the pneumatosis due to progressive/nonreversible bowel ischemia
Continue with medical management - bowel rest, resumption of TPN and close monitoring. With time mucosal sloughing would likely heal and slowly improved but this may be a more prolonged process, 4 to 6 weeks. There is the risk that may may develop
future strictures in the area of affected small bowel as well which will have to be monitored for during recovery.
Stools becoming more formed - hopeful improvement. More bloody BMs yesterday, CTA without evidence of localized bleeding. Dark but not bloody BMs today.
AFVSS
Leukocytosis persists, trending down
Labs stable on TPN
Plan:
--Agree with blood transfusion as needed. GI following for possible endoscopy.
-- NPO, IVF, NGT decompression
-- TPN renewed
-- Abx: Zosyn - given risk for bacterial translocation, trend WBC
-- PPI daily for GI ppx
Time Spent
Total Time Spent with Patient (in minutes): 15
Subjective Data
-
Date of Service: August 04, 2024
Interval Events:
No acute events overnight. Slept well. Pain Controlled. Denies Nausea/Vomiting, +bowel function. Tolerating diet.
Objective Data
-
Intake and Output
08/03/24 08/04/24 08/05/24
06:59 06:59 06:59
Intake Total 3208 / 3266 2474 / 2532 830 / 830
Output Total 3450 / 3450 2250 / 2250 500 / 500
Balance -242 / -184 224 / 282 330 / 330
Intake:
IV fluids (Total) 174 / 232 1334 / 1392 580 / 580
TPN 174 / 232 1334 / 1392 580 / 580
IV piggybacks 175 / 175 50 / 50
TPN/PPN 1044 / 1044
Amount instilled into GI Tube ( 790 / 790 90 / 90
Total)
[place] Sump 790 / 790 90 / 90
Blood Products 525 / 525 500 / 500
Packed red blood cells 525 / 525 500 / 500
Blood Product Amount Infused ( 500 / 500 500 / 500 250 / 250
mL)
Packed Rbc Leukoreduced Unit 250 / 250
[id number]
Packed Rbc Leukoreduced Unit 250 / 250
[id number]
Packed Rbc Leukoreduced Unit 0 / 0 250 / 250
[id number]
Packed Rbc Leukoreduced Unit 250 / 250 250 / 250
[id number]
Output:
Emesis 700 / 700
Gastrointestinal tube output ( 650 / 650 1200 / 1200
Total)
[place] Sump 650 / 650 1200 / 1200
Urine, Voided 2100 / 2100 1050 / 1050 500 / 500
Other:
How many times incontinent 1
MODERATE amount urine
Number of unmeasured liquid
stools
Rectum 1
Vital Signs
Temp Pulse Resp BP Pulse Ox
97.9 F 89 17 115/75 95
08/04/24 17:13 08/04/24 17:00 08/04/24 17:00 08/04/24 17:00 08/04/24 16:00
Lab Results
08/04/24 04:32
08/04/24 04:32
Calcium 7.7 mg/dl (8.4-10.2) L 08/04/24 04:32
Phosphorus 3.6 mg/dl (2.5-4.5) 07/31/24 04:13
Magnesium 2.1 mg/dl (1.6-2.3) 08/01/24 06:03
Total Bilirubin 0.3 mg/dl (0.2-1.3) 07/31/24 04:13
Direct Bilirubin 0.8 mg/dl (0.0-0.4) H 07/19/24 02:58
AST 13 U/L (17-59) L 07/31/24 04:13
ALT 14 U/L (0-50) 07/31/24 04:13
Alkaline Phosphatase 65 U/L (38-126) 07/31/24 04:13
Total Protein 5.9 g/dl (6.3-8.2) L 07/31/24 04:13
Albumin 2.7 g/dl (3.5-5.0) L 07/31/24 04:13
Physical Exam
-
GENERAL/NEURO: Awake, Alert, no distress
CHEST: Unlabored breathing on RA
ABDOMEN: Soft, mild tenderness, mildly distended, incision is clean dry and intact.
[2024-08-04 18:08] LABS: Glucose - Point of Care 117 mg/dl (70-99)
[2024-08-04] MEDS: PULMICORT INH (20:10)
--- NOTE | 2024-08-04 20:10 | RESPNOTE ---
Addendum entered by Tere Ricks, RT 08/04/24 20:13:
He wanted to know who ordered it and said that we are all trying to add to his hospital bill. I explained that he could refuse and he continued to berate me about it until I walked out of the room.
Original Note:
I walked into this PTS room in order to administer pulmicort 0.5 mg as ordered and PT adamantly refused and wanted to fight. I explained to him what the med was and why it would be administered and he REFUSED.
--- NOTE | 2024-08-04 20:30 | PTCARENOTE ---
Pt received start of shift, HR SR w/ BBB + PVCs. TPN infusing. OG tube at 70cm at nare, connected to LIS. Pt voiding into urinal. Midline incision intact. Nephew at bedside. Pt very concerned with timing of care. Updated pt on plan of care. Pt
states no further questions.
[2024-08-04] MEDS: Parenteral Nutrition, Central 1380 IV (21:20)
[2024-08-04 23:40] LABS: Glucose - Point of Care 130 mg/dl (70-99)
[2024-08-05] VITALS (24 sets, daily range): BP systolic 84–151; BP diastolic 46–120; BMI 21.1
--- NOTE | 2024-08-05 | PTCARENOTE ---
Pt aggravated with how often he is bothered in his room stating 'how the hell am I supposed to sleep or get a moment to myself'. Provided emotional support. Assessment otherwise unchanged.
--- NOTE | 2024-08-05 04:00 | PTCARENOTE ---
Pt agitated w/ morning labs, stating 'blood is giselle'. Educated pt on importance of checking daily labs. Pt states understanding. Urinating in urinal. Pt assessment otherwise unchanged.
[2024-08-05 04:23] LABS: Hematocrit 22.4 % (39.0-52.0); Hemoglobin 7.7 g/dL (13.0-18.0); Mean Corp Hgb Conc. 34.4 g/dL (33.0-37.0); Mean Corpuscular Hgb 31.7 pg (27.0-31.0); Mean Corpuscular Volume 92.2 fL (80.0-94.0); Mean Platelet Volume 9.4 fL (7.4-10.4); Platelet Count 260 10^3/uL (130-400); Red Blood Cell Count 2.43 10^6/uL (4.70-6.10); Red Cell Dist. Width 14.1 % (11.5-14.5); White Blood Cell Count 6.1 10^3/uL (4.8-10.8)
[2024-08-05 05:53] LABS: Blood Urea Nitrogen 30 mg/dl (9-20); Calcium 7.8 mg/dl (8.4-10.2); Carbon Dioxide 26 mmol/L (22-30); Chloride 104 mmol/L (98-107); Estimated Creatinine Clearance > 125 ml/min; Glucose 100 mg/dl (70-99); Magnesium 2.2 mg/dl (1.6-2.3); Potassium 4.2 mmol/L (3.5-5.1); Sodium 135 mmol/L (135-145); eGFR > 60.00
[2024-08-05] MEDS: LOPRESSOR IV ×2 (06:25→17:11)
[2024-08-05] MEDS: NOVOLOG FLEXPEN-LOW RESISTANCE SC ×3 (06:26→18:56)
[2024-08-05 06:35] LABS: Glucose - Point of Care 132 mg/dl (70-99)
[2024-08-05] MEDS: PULMICORT INH ×2 (07:42→21:26)
--- NOTE | 2024-08-05 07:46 | W.PN.HOSP.TC ---
Today's Communication/Plan
-
see A/P
Assessment / Plan
Assessment / Plan
HPI: 54-year-old with no known significant past medical history presented to the emergency department with approximately 5 days of ongoing abdominal symptoms.
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 He c/o crampy abdominal pain and reported melanotic appearing diarrhea.
In the emergency department, his CT angio was done showing a [place] type B thoracic aortic dissection. No involvement of the ascending thoracic aorta or great arch vessels. Vascular surgeon contacted by ED.
A/P:
# Acute hypotension
# Acute blood loss anemia 3 grams drop on 08/02
hold ASA/Plavix - high risk given recent aortic procedure
stat CT angio negative; no role for IR intervention. CT with complex fluid in colon. No role for surgery
GI consulted; holding off further prep with coffee ground vomiting (likely from prep with ileus), Ileus may be resolving. No plan for EGD now
s/p total 7 units PRBC, last transfusion 08/04, Hgb 7.7 today (was 7.2 the day prior)
continue ICU level with less than ideal Hgb improvement after transfusion
# [place] B aortic dissection. No aneurysm. HD stable. No chest pain.
s/p CT Angio confirming thoracic/abdominal aortic dissection, [place] type B.
life threatening diagnosis
s/p emergent thoracic endovascular aortic repair on 07/18
Also had concurrently ex-lap for concern of bowel ischemic (no necrosis, viable SB/colon seen)
s/p 5 day empiric Zosyn course post-ex-lap (now back on Zosyn see below)
hold ASA/Plavix with severe anemia- high risk given recent aortic procedure
IV Cardizem, IV Metoprolol and IV enalaprilat while NPO;
Cardiology managing and following BP/MAP goals as outlined in their notes. Consider Nicardipine drip if indicated
# Leukocytosis
# Abd distention 2/[address] 07/25: pneumatosis with bowel wall thickening and mesenteric edema
repeat CT 07/31: Small bowel malrotation is again seen, indicative volvulus slightly less prominent as well as decreased small bowel wall thickening and decreased small bowel pneumatosis
AXR: 08/01: small volume contrast in rectum
continue NGT decompression
NPO, IVF, cont TPN
s/p Zosyn 10 days, observe off further
GS following
Stools becoming more formed - hopeful improvement
# Diarrhea
stool studies including C. Diff and Norovirus negative
monitor I/Os
# Anemia, multi-factorial from acute blood loss from operations, dilution from IVF
monitor Hb
GI on board
continue PPI IV BID
# Chronic SOB
# Exposure to asbestos/acetone per patient
prn nebs
hold Budesonide BID; prescribe steroid inhaler at DC
OP Pulm referral
# Reactive thrombocytosis, resolved
DVT ppx: Lovenox SQ on hold, use SCD
Code: Full
Extensive discussion with brother and ROD on the phone. Answered all questions
Anticipated Discharge: > 48 hours
Subjective/Interval History
-
Date of Service: August 05, 2024
Objective Data
-
Labs:
Laboratory Results
08/05/24 08/05/24
04:11 05:22
WBC 6.1
Hgb 7.7 L
Hct 22.4 L
Plt Count 260
Sodium Cancelled 135
Potassium Cancelled 4.2
Chloride Cancelled 104
Carbon Dioxide Cancelled 26
BUN Cancelled 30 H
Creatinine Cancelled 0.6 L
Glucose Cancelled 100 H
Calcium Cancelled 7.8 L
Vital Signs:
Vital Signs
Temp Pulse Resp BP Pulse Ox
36.8 C 90 21 92/51 93
08/05/24 03:06 08/05/24 06:00 08/05/24 06:00 08/05/24 06:25 08/05/24 05:00
I&O
08/04/24 08/05/24 08/06/24
06:59 06:59 06:59
Intake Total 8754 / 9772 1706 / 1706
Output Total 2250 / 2250 1700 / 1700
Balance 224 / 282
Review of Systems
-
Constitutional: Reports Weakness
Physical Exam
-
General: Well Developed and Appears Chronically Ill
HEENT: Normocephalic, Atraumatic and Other (NGT)
Respiratory: Non Labored Respirations; Negative Accessory Resp Muscle Use
Cardiac: Regular Rhythm and S1/S2
GI: Soft and Nontender
Neuro: Awake and Alert
Psych: Calm and Intact Judgement/Insight
Data Reviewed
-
Critical Care Time (in minutes): 42
Labs: Labs Reviewed by me
--- NOTE | 2024-08-05 07:47 | W.PN.INTV ---
Today's Communication / Plan
Recommendations
Hemoglobin 7.7, continue to follow
Observed patient ambulating in the hallways with PT/OT, looks good
Continue with supportive care
Assessment
-
54 y/o male with PMHx GERD, current smoker, s/p appendectomy with no other known PMHx presented to the emergency department on 07/17/24 at night with approximately 5 days of ongoing abdominal pain, nausea, vomiting, diarrhea and excruciating back
pain. Work up revealed type B aortic dissection and possible small bowel ischemia. Upon evaluation by vascular team, patient's abdomen was soft and nontender but complains of pain. Easily palpable left lower extremity pulses. They could not
appreciate Doppler signal to the right lower extremity at any pulse sites. LA ordered and was 2.5. Dr. Cooley recommended emergency TEVAR immediately and discussed risk and benefits with the patient. General surgery was also consulted for concern of
visceral malperfusion. Dr. Linn spoke to patient about plan for exploratory laparotomy with possible bowel resection possible open abdomen following vascular surgery endovascular repair of his type B aortic dissection. Patient agreed to all of
the above. Post-op pulses palpated bilaterally now in the CVICU for further monitoring on multiple pressors and mechanical ventilation.
Patient was subsequently transferred out of ICU 07/22/2024
Transferred back to ICU 08/02/2024
Briefly, patient admitted to 07/17, underwent type B aortic dissection repair, developed possible pneumatosis of small bowel concerning for ischemia status post exploratory laparotomy without evidence of ischemia. Was extubated 07/19, transferred
out of ICU 07/22. Hospital stay was reviewed in the interim. Patient continue with TPN therapy, regular diet started 07/24. Patient subsequently developed some nausea and abdominal distention with nonbloody liquid stool. Stool cultures negative.
Patient also developed increased leukocytosis. Follow-up imaging 07/26/2024 concerning for pneumatosis and bowel wall thickening and mesenteric edema. Patient continues to have nonbloody stool, flatus without nausea emesis on 07/28. Continue with
TPN and bowel rest given CT findings per surgery. Per surgery correspondence, stool becoming more formed, no bloody stool as of 07/31. Repeat CT abdomen 07/31/2024 revealed significant improvement in small bowel thickening and pneumatosis compared
to prior imaging. Patient subsequently developed bloody stool overnight into 08/02, marginal hypotension, progressive drop in hemoglobin to 7.1. Patient was transferred to ICU for further management. CT angiogram ordered. We are asked to help
from critical care standpoint
Impression:
#GI bleed, bloody bowel movement 08/02
Drop in hemoglobin to 7.1
Marginal blood pressure
s/p Tx 7U as of 08/04
#Type B aortic dissection
Absent right lower extremity pulses
Thoracic endovascular aortic repair using GORE Thoracic Branch Endoprosthesis device POD 3
#Possible pneumatosis of small bowel concerning for ischemia - exploratory laparotomy no signs of ischemia POD 3
#Post-op acute respiratory failure on mechanical vent ventilation intubated 07/18/2024 - extubated 07/19/2024
Transfer out of ICU 07/22
Tx back to ICu 08/01
#Severe changes of emphysema in both lungs
#Leukocytosis
#Hyponatremia
#Elevated LA
#Tobacco use
#Anxiety
#1.7 cm hypoattenuating upper pole left renal lesion
#Cholelithiasis with no acute cholecystitis
#Incomplete bundle branch block
Plan/ Recommendations
At this time, patient appears to be comfortable and at least stable from a hemodynamic standpoint
Antihypertensive therapy remains held
Blood pressure adequate
Patient did not tolerate oral prep for endoscopy
Had bowel movement 08/03, dark stool, no bernie blood
NG tube remains in place
Moving forward
Continue with supportive care
Continues to receive intermittent transfusion
Adequate access, PICC line in place, double-lumen
Follow hemoglobin
Patient was on Plavix/aspirin, currently being held
CT angiogram negative for acute bleeding
Surgery following, vascular, GI also following.
History of Type B aortic dissection, admitted 07/17/2024
Possible pneumatosis of small bowel concerning for ischemia - exploratory laparotomy ruled out POD [address] abdomen 07/31 with improvement of ischemic changes
Remains n.p.o., NG tube in place, bowel rest
TPN continues
Patient remains on Zosyn therapy
Patient with episodic hypertension during hospital stay
Hold antihypertensive therapy for now
systolic blood pressure ranging between 90s and 130s
Follow
Post-op acute respiratory failure on mechanical ventilation intubated 07/18/2024 - extubated 07/19/2024
Adequate saturation at this time
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
Continue DuoNebs, budesonide
Severe emphysema
No wheezing at this time
DVT prophylaxis: Mechanical prophylaxis for now. Lovenox being held
GI prophylaxis: Remains on pantoprazole twice daily
The above was reviewed with critical care nursing, respiratory care, multiple providers
Okay for transfer out of ICU from critical care standpoint. Hospitalist prefers to keep in ICU for another 24 hours

Diagnostic imaging:
CT chest/abdomen/pelvis angiogram 08/02/2024: No evidence of active GI bleed. Stable appearance of endovascular stent graft repair. Probable enteritis/ileus similar to prior.
CT chest/abdomen/pelvis angiogram 07/31/24: Small bowel malrotation with midgut volvulus, element of small bowel obstruction, mucosal/submucosal pneumatosis noted. Difficulty rule out obstruction
CT chest/abdomen/pelvis angiogram 07/25/24: Improved perfusion of distal arteries and right common iliac artery. Fluid-filled small bowel, thickening of the small bowel loop, no intraperitoneal air. Mild atelectasis.
Chest/Ab/pelvic CT 07/18/24: Thoracic and abdominal aortic dissection, [place] type B.
Dissection flap is along the anterior margin of the abdominal aorta, and appears to contribute to significant narrowing at the origins of the celiac artery and the SMA. Additionally, there is luminal irregularity in the proximal SMA, suggestive of a
small amount of thrombus, nonocclusive.
Dissection flap traverses the origin of the right common iliac artery, and appears to result in narrowing of caliber of the artery, although contrast enhancement extends beyond the dissection flap.
Tortuosity of the proximal left common iliac artery, but no evidence for dissection flap traversing the origin of the left common iliac artery.
Dilated air and fluid-filled small bowel loops with small bowel wall thickening. Possible pneumatosis involving the wall of small bowel loops. There is also thickening of the wall of the right side of the colon. These findings raise concern for
ischemia.
No evidence for free intraperitoneal air. No evidence for portal venous air.
Severe changes of emphysema within both lungs.
Focal parenchymal opacity within the posterior right lower lobe, predominantly linear morphology, most likely atelectasis based on morphology. Linear scarring within both lungs
Cholelithiasis. Mild distention of the gallbladder with no evidence for gallbladder wall thickening or pericholecystic edema. No evidence for biliary ductal dilation.
CT angiography 07/17/2024:
1. [place] type B thoracic aortic dissection. No involvement of the ascending thoracic aorta or great arch vessels.
2. Emphysema.
Ab/pelvis CT 07/17/24:
1. Partially visualized dissection of the lower thoracic aorta with dissection flap terminating just proximal to the celiac artery origin in the upper abdomen. Recommend dedicated CTA chest for complete evaluation.
2. Cholelithiasis.
3. A 1.7 cm hypoattenuating upper pole left renal lesion measures slightly higher than simple fluid and may represent a mildly proteinaceous/hemorrhagic cyst, although indeterminate. Recommend outpatient initial further workup with dedicated renal
ultrasound.
Subjective Dataa
Subjective Data
Date of Service:
Date of Service: August 05, 2024
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
Subjective:
Patient sitting in chair, feels well. Denies shortness of breath, cough. Denies chest pain. Asking questions about his bleeding and aortic aneurysm. Conversing. Has bowel movement, dark stool, no bright red blood. Patient refusing nebulized
therapy
Objective Data
Data Reviewed
Vital Signs / I&O / Oxygen:
Vital Signs
Temp Pulse Resp BP Pulse Ox
98.3 F 90 21 92/51 93
08/05/24 03:06 08/05/24 06:00 08/05/24 06:00 08/05/24 06:25 08/05/24 05:00
Intake and Output
08/04/24 08/05/24 08/06/24
06:59 06:59 06:59
Intake Total 2474 / 2532 1706 / 1706
Output Total 2250 / 2250 1700 / 1700
Balance 224 / 282 6
SaO2 [CPAP/PSV] 96
SaO2 [A/C] 97
SaO2 [SIMV] 97
SaO2 93
Nasal Cannula flow liters per 2
minute
Physical Exam
General: Comfortable and Other (Right upper extremity PICC)
HEENT: Normocephalic and Anicteric
Cardiovascular: S1-S2, Regular Rhythm, Peripheral Edema (slight bilateral lower extremity edema ) and Other (Peripheral pulses intact )
Respiratory: Clear, Wheeze (n), Crackles (n), Rhonchi (n) and Non-Labored Respirations
GI: Soft, Non Distended, Non Tender, NG Tube, Other (Decreased bowel sounds) and Other (Incision intact)
Neurology: Lethargic (Presently sleeping, did not awaken during exam)
Skin: Warm, Cyanosis (n) and Other (Mild pallor)
Labs/Micro/Reports
Lab Data
08/05/24 04:11
08/05/24 05:22
[2024-08-05] MEDS: NSS (PRESERVATIVE FREE) 10 ML IV ×2 (09:00→19:51)
[2024-08-05] MEDS: PROTONIX IV 40 MG IV ×2 (09:00→19:51)
--- NOTE | 2024-08-05 09:59 | W.PN.CD ---
Today's Communication / Plan
-
Holding DAPT until OK from bleeding perspective
BP marginal holding anti-HTN meds
NG tube
Impression / Plan
-
GI bleeding
Bleeding may have stopped?
Ischemic workup for possible bowel ischemia
Intervention radiology, general surgery, primary team is working
Management as per primary team
Plan for colonoscopy: high, but not prohibitive, risk
Superior type B thoracic aortic dissection:
-this diagnosis is threat to life
-s/p endovascular thoracic aortic repair 07/18/24- vascular following. Also with ex-lap same day to assess for ischemic bowel (viable tissue noted).
-goal MAP is 75-90 currently per vascular note
-IV metoprolol 10 mg every 6 hours, IV Diltiazem 15 mg every 6 hours, and IV enalaprilat 1.25 mg every 6 hours: on hold due to hypotension
-previously receiving plavix by mouth; and ASA rectally
-Holding aspirin plavix until OK from bleeding perspective
HTN
-BP is now marginal
-Holding antihypertensives
-Resume once stable.
Ischemic bowel
-Pt now NPO with NGT in place based on CT scan results from 07/25. Plan is supportive care as of now.
-Surgery following
Subjective: feels improved today
CCT 32 minutes
Physical Exam
Vital Signs/Labs
Vital Signs
Temp Pulse Resp BP Pulse Ox
98.2 F 91 18 98/58 95
08/05/24 08:00 08/05/24 08:00 08/05/24 08:00 08/05/24 08:00 08/05/24 09:49
08/04/24 08/05/24 08/06/24
06:59 06:59 06:59
Actual Weight 155 lb 6.814 oz
08/05/24 04:11
08/05/24 05:22
PT 14.8 Sec (11.4-14.6) H 08/02/24 10:59
INR 1.11 08/02/24 10:59
APTT 36.0 Sec (23.4-35.0) H 08/02/24 10:59
Magnesium 2.2 mg/dl (1.6-2.3) 08/05/24 05:22
Triglycerides 68 mg/dl (10-149) 07/31/24 04:13
LDL Cholesterol, Calc 62 mg/dl 07/18/24 04:14
VLDL Cholesterol, Calc 14 mg/dl (0-30) 07/18/24 04:14
HDL Cholesterol 28 mg/dl 07/18/24 04:14
TSH 1.06 uIU/ml (0.47-4.68) 07/19/24 08:39
Free T4 1.18 ng/dl (0.78-2.19) 07/19/24 08:39
Physical Exam
Constitutional: No acute distress
EENT: Anicteric
Cardiovascular: Rhythm & rate is regular and Pedal edema is absent
Respiratory: Other (decreased b/s b/l)
GI: Soft
Neuro/Psych: AO x 3
Data Reviewed
-
Date of Service: August 05, 2024
Medical Decision Making: Reviewed Test Results
EKG: Tracing Personally Visualized and interpreted (sr)
Echo: Report Reviewed by me
Labs: Labs Reviewed by me
--- NOTE | 2024-08-05 10:03 | PTCARENOTE ---
pt awake and alert, agitated, pt encouraged to get oob and walk with assistance , pt already ambulated in hallway with assistance , pt NST on monitor with pvcs , BP marginal , Lopressor held this am 87/47 , pt is asymptomatic , NGT with bile
drainage , abdomen faint bowel sounds , non tender , soft , pt had a black stool heme positive this am , labs noted hemoglobin stable at 7.7
--- NOTE | 2024-08-05 12:04 | W.PN.SURGUPD ---
Surgical Update
Surgical Update
Well known to surgery service OR on 07/18/24: ex lap (at time of FEVAR with vascular for aortic dissection)
Post op CT imaging findings reflective of mucosal sloughing and recovery from previous temporarily reversible bowel ischemia during acute aortic dissection event of the pneumatosis due to progressive/nonreversible bowel ischemia. With time mucosal
sloughing would likely heal and slowly improved but this may be a more prolonged process, 4 to 6 weeks. There is the risk that may may develop future strictures in the area of affected small bowel as well which will have to be monitored for during
recovery.
GI following for possible future endoscopic eval
Continue with medical management - bowel rest, NGT, TPN and close monitoring.
TPN renewed, will follow labs
[2024-08-05] MEDS: LOPRESSOR 10 MG IV (12:53)
[2024-08-05 12:57] LABS: Glucose - Point of Care 130 mg/dl (70-99)
--- NOTE | 2024-08-05 16:46 | W.PN.GI.CBS2 ---
Today's Communication / Plan
-
continue current mx
Assessment / Plan
-
54yo admitted on 07/17 undergoing type B aortic dissection repair with concern for possible pneumoatosis of the small bowel c/d ischemia taken for emergent ex lap but no findings of ischemia now with GI bleeding of unclear etiology, but high
suspicion of ischemia. CT Angio with evidence of large complex fluid in the colon but w/o active extravasation. Hemoglobin dropped from 10 --> 7.1 with borderline hypotension. Now hemoglobin down to 7.4 this a.m. plan was to prep patient for
possible colonoscopy today via NG tube. Patient was given 1 L of prep with 2 episodes of clear vomitus. NG tube placed to suction with 600 cc of dark material removed he continues with NG tube drainage at this point. Patient did not start having
bowel movements until this a.m. which were dark brown in nature, 2. OB positive. No signs of bleeding noted. The patient stated to me when he was given the prep he felt like he had 'ripping inside of me'. Plavix as well as aspirin were held
yesterday. He continues on pantoprazole 40 mg IV twice daily. He continues on TPN. (08/04/2024): Patient with bilious NG tube output, decreased. Passing flatus. No abdominal pain. Hemoglobin did decrease and received 2 units packed red blood
cells. Vital signs stable. Continues on PPI twice daily.
--CT chest/abdomen/pelvis angiogram 08/02/2024: No evidence of active GI bleed. Stable appearance of endovascular stent graft repair. Probable enteritis/ileus similar to prior.
--CT chest/abdomen/pelvis angiogram 07/31/24: Small bowel malrotation with midgut volvulus, element of small bowel obstruction, mucosal/submucosal pneumatosis noted. Difficulty rule out obstruction
--CT chest/abdomen/pelvis angiogram 07/25/24: Improved perfusion of distal arteries and right common iliac artery. Fluid-filled small bowel, thickening of the small bowel loop, no intraperitoneal air. Mild atelectasis
--Chest/Ab/pelvic CT 07/18/24: Thoracic and abdominal aortic dissection, Juice type B.
Plan:
Hemoglobin stable. Overall clinical picture suggestive of GI bleed secondary to bowel ischemia/mucosal sloughing with aortic dissection. Currently no active bleeding
-Trend H&H q8 hours, transfuse for hemoglobin <8
-Continue pantoprazole 40 mg bid
-Will hold on any endoscopic intervention at this point. will recommend outpatient GI follow up
-NGT management as per surgery
-Continue TPN as per surgery.
-Okay to resume aspirin if no bleeding and stable Hb
-No further recommendation at this point. Please call us back if any question. will s/o
Total Time Spent with Patient (in minutes): 35
Subjective
Subjective
Date of Service: August 05, 2024
Denies any abdominal pain/nausea/vomiting. Denies any bleeding
Objective
Data Reviewed
Laboratory Data:
Laboratory Results
08/05/24 04:11
08/05/24 05:22
Laboratory Results
PT 14.8 Sec (11.4-14.6) H 08/02/24 10:59
INR 1.11 08/02/24 10:59
APTT 36.0 Sec (23.4-35.0) H 08/02/24 10:59
Phosphorus 3.6 mg/dl (2.5-4.5) 07/31/24 04:13
Magnesium 2.2 mg/dl (1.6-2.3) 08/05/24 05:22
Total Bilirubin 0.3 mg/dl (0.2-1.3) 07/31/24 04:13
AST 13 U/L (17-59) L 07/31/24 04:13
ALT 14 U/L (0-50) 07/31/24 04:13
Alkaline Phosphatase 65 U/L (38-126) 07/31/24 04:13
Amylase 31 U/L (30-110) 07/19/24 01:33
Lipase 45 U/L (23-300) 07/19/24 02:58
Vital Signs and I&O:
Vital Signs
Temp Pulse Resp BP Pulse Ox
97.8 F 92 18 94/51 95
08/05/24 16:09 08/05/24 15:00 08/05/24 15:00 08/05/24 15:00 08/05/24 09:49
I&O
08/04/24 08/05/24 08/06/24
06:59 06:59 06:59
Intake Total 2474 / 2532 1706 / 1764 582 / 582
Output Total 2250 / 2250 1700 / 1700
Balance 224 / 282 6 / 64 582 / 582
--- NOTE | 2024-08-05 16:55 | PTCARENOTE ---
no change in assessments
[2024-08-05 17:57] LABS: Glucose - Point of Care 139 mg/dl (70-99)
--- NOTE | 2024-08-05 20:00 | PTCARENOTE ---
Resumed care of pt this evening. Received pt on TPN gtt infusing via Right PICC. Pt is A&Ox3, can move all 4 extremities, and can make needs known. Pt is NSR on tele monitor w/ a BBB, and PVCs. Pt has no edema and palpable pedal pulses. Pt is on RA
satting at 95% pulse ox. On auscultation pt lungs sound diminished at the bases, otherwise clear. Pt's abdomen is round w/ hypoactive BS. Pt has a NG tube in the right nare connected to low intermittent suctioning, drainage is green in color. Pt has
steri strips on abdomen that are C/D/I.
--- NOTE | 2024-08-05 20:30 | PTCARENOTE ---
Pt ambulated w/ rolling walker and standby assist to bathroom and passed a moderate sized loose black/green BM. Pt denied dizziness or pain during episode.
[2024-08-05] MEDS: Parenteral Nutrition, Central 1390 IV (21:02)
[2024-08-06] VITALS (21 sets, daily range): BP systolic 93–130; BP diastolic 52–85
[2024-08-06] MEDS: NOVOLOG FLEXPEN-LOW RESISTANCE SC ×5 (00:47→23:14)
[2024-08-06] MEDS: LOPRESSOR 10 MG IV (00:56)
[2024-08-06 00:57] LABS: Glucose - Point of Care 126 mg/dl (70-99)
--- NOTE | 2024-08-06 04:00 | PTCARENOTE ---
Upon reassessment pt is resting comfortably.
[2024-08-06 04:18] LABS: Hematocrit 21.6 % (39.0-52.0); Hemoglobin 7.4 g/dL (13.0-18.0); Mean Corp Hgb Conc. 34.3 g/dL (33.0-37.0); Mean Corpuscular Hgb 31.5 pg (27.0-31.0); Mean Corpuscular Volume 91.9 fL (80.0-94.0); Mean Platelet Volume 9.3 fL (7.4-10.4); Platelet Count 249 10^3/uL (130-400); Red Blood Cell Count 2.35 10^6/uL (4.70-6.10); Red Cell Dist. Width 13.9 % (11.5-14.5); White Blood Cell Count 6.2 10^3/uL (4.8-10.8)
[2024-08-06 04:22] LABS: Blood Urea Nitrogen 27 mg/dl (9-20); Calcium 7.8 mg/dl (8.4-10.2); Carbon Dioxide 27 mmol/L (22-30); Chloride 101 mmol/L (98-107); Estimated Creatinine Clearance > 125 ml/min; Glucose 119 mg/dl (70-99); Potassium 3.8 mmol/L (3.5-5.1); Sodium 135 mmol/L (135-145); eGFR > 60.00
[2024-08-06] MEDS: LOPRESSOR IV ×2 (05:50→14:09)
[2024-08-06 06:24] LABS: Glucose - Point of Care 116 mg/dl (70-99)
--- NOTE | 2024-08-06 07:41 | W.PN.INTV ---
Today's Communication / Plan
Recommendations
Continue with supportive care
Ambulate when able
NG tube remains in place
Remains off antiplatelet therapy
Follow hemoglobin
Remains on PPI
For transfer out of ICU. We will sign off. Please call with questions
Assessment
-
54 y/o male with PMHx GERD, current smoker, s/p appendectomy with no other known PMHx presented to the emergency department on 07/17/24 at night with approximately 5 days of ongoing abdominal pain, nausea, vomiting, diarrhea and excruciating back
pain. Work up revealed type B aortic dissection and possible small bowel ischemia. Upon evaluation by vascular team, patient's abdomen was soft and nontender but complains of pain. Easily palpable left lower extremity pulses. They could not
appreciate Doppler signal to the right lower extremity at any pulse sites. LA ordered and was 2.5. Dr. Cooley recommended emergency TEVAR immediately and discussed risk and benefits with the patient. General surgery was also consulted for concern of
visceral malperfusion. Dr. Linn spoke to patient about plan for exploratory laparotomy with possible bowel resection possible open abdomen following vascular surgery endovascular repair of his type B aortic dissection. Patient agreed to all of
the above. Post-op pulses palpated bilaterally now in the CVICU for further monitoring on multiple pressors and mechanical ventilation.
Patient was subsequently transferred out of ICU 07/22/2024
Transferred back to ICU 08/02/2024
Briefly, patient admitted 07/17, underwent type B aortic dissection repair, developed possible pneumatosis of small bowel concerning for ischemia status post exploratory laparotomy without evidence of ischemia. Was extubated 07/19, transferred out
of ICU 07/22. Hospital stay was reviewed in the interim. Patient continue with TPN therapy, regular diet started 07/24. Patient subsequently developed some nausea and abdominal distention with nonbloody liquid stool. Stool cultures negative.
Patient also developed increased leukocytosis. Follow-up imaging 07/26/2024 concerning for pneumatosis and bowel wall thickening and mesenteric edema. Patient continues to have nonbloody stool, flatus without nausea emesis on 12/20. Continue with
TPN and bowel rest given CT findings per surgery. Per surgery correspondence, stool becoming more formed, no bloody stool as of 07/31. Repeat CT abdomen 07/31/2024 revealed significant improvement in small bowel thickening and pneumatosis compared
to prior imaging. Patient subsequently developed bloody stool overnight into 08/02, marginal hypotension, progressive drop in hemoglobin to 7.1. Patient was transferred to ICU for further management. CT angiogram ordered. We are asked to help
from critical care standpoint
Impression:
#GI bleed, bloody bowel movement 08/02
Drop in hemoglobin to 7.1
Marginal blood pressure
s/p Tx 7U as of 08/04
#Type B aortic dissection
Absent right lower extremity pulses
Thoracic endovascular aortic repair using GORE Thoracic Branch Endoprosthesis device POD 3
#Possible pneumatosis of small bowel concerning for ischemia - exploratory laparotomy no signs of ischemia POD 3
#Post-op acute respiratory failure on mechanical vent ventilation intubated 07/18/2024 - extubated 07/19/2024
Transfer out of ICU 07/22
Tx back to ICu 08/01
#Severe changes of emphysema in both lungs
#Leukocytosis
#Hyponatremia
#Elevated LA
#Tobacco use
#Anxiety
#1.7 cm hypoattenuating upper pole left renal lesion
#Cholelithiasis with no acute cholecystitis
#Incomplete bundle branch block
Plan/ Recommendations
At this time, patient appears to be comfortable and at least stable from a hemodynamic standpoint
Antihypertensive therapy remains held
Blood pressure adequate
Patient did not tolerate oral prep for endoscopy
Had bowel movement 08/05, dark stool, green, no bernie blood
NG tube remains in place
Patient ambulating without difficulty
Last transfused 08/04 which I suspect is a good sign
Moving forward
Continue with supportive care
Continues to receive intermittent transfusion
Adequate access, PICC line in place, double-lumen
Follow hemoglobin
Patient was on Plavix/aspirin, currently being held
CT angiogram negative for acute bleeding
Surgery following, vascular, GI also following.
History of Type B aortic dissection, admitted 07/17/2024
Possible pneumatosis of small bowel concerning for ischemia - exploratory laparotomy ruled out POD [address] abdomen 07/31 with improvement of ischemic changes
Remains n.p.o., NG tube in place, bowel rest
TPN continues
Patient remains on Zosyn therapy
Patient with episodic hypertension during hospital stay
Hold antihypertensive therapy for now
systolic blood pressure ranging between 90s and 130s
Follow
Post-op acute respiratory failure on mechanical ventilation intubated 07/18/2024 - extubated 07/19/2024
Adequate saturation at this time
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
DuoNebs, budesonide. We will discontinue as patient is refusing
Severe emphysema
No wheezing at this time
DVT prophylaxis: Mechanical prophylaxis for now. Lovenox being held
GI prophylaxis: Remains on pantoprazole twice daily
The above was reviewed with critical care nursing, respiratory care, multiple providers
Okay for transfer out of ICU from critical care standpoint. Once transferred, we will sign off. Please call with questions

Diagnostic imaging:
CT chest/abdomen/pelvis angiogram 08/02/2024: No evidence of active GI bleed. Stable appearance of endovascular stent graft repair. Probable enteritis/ileus similar to prior.
CT chest/abdomen/pelvis angiogram 07/31/24: Small bowel malrotation with midgut volvulus, element of small bowel obstruction, mucosal/submucosal pneumatosis noted. Difficulty rule out obstruction
CT chest/abdomen/pelvis angiogram 07/25/24: Improved perfusion of distal arteries and right common iliac artery. Fluid-filled small bowel, thickening of the small bowel loop, no intraperitoneal air. Mild atelectasis.
Chest/Ab/pelvic CT 07/18/24: Thoracic and abdominal aortic dissection, Juice type B.
Dissection flap is along the anterior margin of the abdominal aorta, and appears to contribute to significant narrowing at the origins of the celiac artery and the SMA. Additionally, there is luminal irregularity in the proximal SMA, suggestive of a
small amount of thrombus, nonocclusive.
Dissection flap traverses the origin of the right common iliac artery, and appears to result in narrowing of caliber of the artery, although contrast enhancement extends beyond the dissection flap.
Tortuosity of the proximal left common iliac artery, but no evidence for dissection flap traversing the origin of the left common iliac artery.
Dilated air and fluid-filled small bowel loops with small bowel wall thickening. Possible pneumatosis involving the wall of small bowel loops. There is also thickening of the wall of the right side of the colon. These findings raise concern for
ischemia.
No evidence for free intraperitoneal air. No evidence for portal venous air.
Severe changes of emphysema within both lungs.
Focal parenchymal opacity within the posterior right lower lobe, predominantly linear morphology, most likely atelectasis based on morphology. Linear scarring within both lungs
Cholelithiasis. Mild distention of the gallbladder with no evidence for gallbladder wall thickening or pericholecystic edema. No evidence for biliary ductal dilation.
CT angiography 07/17/2024:
1. Juice type B thoracic aortic dissection. No involvement of the ascending thoracic aorta or great arch vessels.
2. Emphysema.
Ab/pelvis CT 07/17/24:
1. Partially visualized dissection of the lower thoracic aorta with dissection flap terminating just proximal to the celiac artery origin in the upper abdomen. Recommend dedicated CTA chest for complete evaluation.
2. Cholelithiasis.
3. A 1.7 cm hypoattenuating upper pole left renal lesion measures slightly higher than simple fluid and may represent a mildly proteinaceous/hemorrhagic cyst, although indeterminate. Recommend outpatient initial further workup with dedicated renal
ultrasound.
Subjective Dataa
Subjective Data
Date of Service:
Date of Service: August 06, 2024
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
Subjective:
Overall, patient appears to be stable. Observed ambulating yesterday afternoon without difficulty. NG tube was clamped. Continues to have concerns about his overall progress. It is encouraging that his hemoglobin is at least stable, last
transfusion 08/04
Objective Data
Data Reviewed
Vital Signs / I&O / Oxygen:
Vital Signs
Temp Pulse Resp BP Pulse Ox
98.8 F 93 20 94/52 91
08/06/24 07:00 08/06/24 06:00 08/06/24 06:00 08/06/24 06:00 08/06/24 06:00
Intake and Output
08/05/24 08/06/24 08/07/24
06:59 06:59 06:59
Intake Total 1706 / 1764 1554 / 1554
Output Total 1700 / 1700 555 / 555
Balance 6 999 / 999
SaO2 [CPAP/PSV] 96
SaO2 [A/C] 97
SaO2 [SIMV] 97
SaO2 91
Nasal Cannula flow liters per 95
minute
Physical Exam
General: Comfortable and Other (Right upper extremity PICC)
HEENT: Normocephalic and Anicteric
Cardiovascular: S1-S2, Regular Rhythm, Peripheral Edema (slight bilateral lower extremity edema ) and Other (Peripheral pulses intact )
Respiratory: Clear, Wheeze (n), Crackles (n), Rhonchi (n) and Non-Labored Respirations
GI: Soft, Non Distended, Non Tender, NG Tube, Other (Decreased bowel sounds) and Other (Incision intact)
Neurology: Lethargic (Presently sleeping, did not awaken during exam)
Skin: Warm, Cyanosis (n) and Other (Mild pallor)
Labs/Micro/Reports
Lab Data
08/06/24 03:28
08/06/24 03:28
--- NOTE | 2024-08-06 08:11 | W.PN.HOSP.TC ---
Today's Communication/Plan
-
downgrade to IMU
Assessment / Plan
Assessment / Plan
HPI: 54-year-old with no known significant past medical history presented to the emergency department with approximately 5 days of ongoing abdominal symptoms.
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 He c/o crampy abdominal pain and reported melanotic appearing diarrhea.
In the emergency department, his CT angio was done showing a Gable type B thoracic aortic dissection. No involvement of the ascending thoracic aorta or great arch vessels. Vascular surgeon contacted by ED.
A/P:
# Acute hypotension
# Acute blood loss anemia 3 grams drop on 08/02
# GI bleed likely secondary to bowel ischemia/mucosal sloughing with aortic dissection.
stat CT angio negative; no role for IR intervention. CT with complex fluid in colon. No role for surgery
GI consulted. No plan for EGD now
s/p total 7 units PRBC since admission
ASA/Plavix on hold
# Gable B aortic dissection. No aneurysm. HD stable. No chest pain.
s/p CT Angio confirming thoracic/abdominal aortic dissection, Gable type B.
life threatening diagnosis
s/p emergent thoracic endovascular aortic repair on 07/18
Also had concurrently ex-lap for concern of bowel ischemic (no necrosis, viable SB/colon seen)
s/p 10 days empiric Zosyn
hold ASA/Plavix with severe anemia- high risk given recent aortic procedure
IV Cardizem, IV Metoprolol and IV enalaprilat while NPO;
Cardiology managing and following BP/MAP goals as outlined in their notes. Consider Nicardipine drip if indicated
# Leukocytosis
# Abd distention 2/[address] 07/25: pneumatosis with bowel wall thickening and mesenteric edema
repeat CT 07/31: Small bowel malrotation is again seen, indicative volvulus slightly less prominent as well as decreased small bowel wall thickening and decreased small bowel pneumatosis
AXR: 08/01: small volume contrast in rectum
continue NGT decompression, GS directing
NPO, IVF, cont TPN
s/p Zosyn 10 days, observe off further
GS following
Stools becoming more formed - hopeful for improvement
# Diarrhea, resolved
stool studies including C. Diff and Norovirus negative
monitor I/Os
# Anemia, multi-factorial from acute blood loss from operations, dilution from IVF
monitor Hb
GI on board
continue PPI IV BID
# Chronic SOB
# Exposure to asbestos/acetone per patient
prn nebs
hold Budesonide BID; prescribe steroid inhaler at DC
OP Pulm referral
# Reactive thrombocytosis, resolved
DVT ppx: Lovenox SQ on hold, use SCD
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
Extensive discussion with brother and ROD on the phone. Answered all questions
total time spent 51 min
Anticipated Discharge: > 48 hours
Subjective/Interval History
-
Date of Service: August 06, 2024
Objective Data
-
Labs:
Laboratory Results
08/06/24
03:28
WBC 6.2
Hgb 7.4 L
Hct 21.6 L
Plt Count 249
Sodium 135
Potassium 3.8
Chloride 101
Carbon Dioxide 27
BUN 27 H
Creatinine 0.6 L
Glucose 119 H
Calcium 7.8 L
Vital Signs:
Vital Signs
Temp Pulse Resp BP Pulse Ox
37.1 C 93 20 94/52 91
08/06/24 07:00 08/06/24 06:00 08/06/24 06:00 08/06/24 06:00 08/06/24 06:00
I&O
08/05/24 08/06/24 08/07/24
06:59 06:59 06:59
Intake Total 1706 / 1764 1554 / 1554
Output Total 1700 / 1700 555 / 555
Balance 999 / 999
Review of Systems
-
Constitutional: Reports Weakness
Physical Exam
-
General: Well Developed and Appears Chronically Ill
HEENT: Normocephalic, Atraumatic and Other (NGT)
Respiratory: Non Labored Respirations; Negative Accessory Resp Muscle Use
Cardiac: Regular Rhythm and S1/S2
GI: Soft and Nontender
Neuro: Awake and Alert
Psych: Calm and Intact Judgement/Insight
Data Reviewed
-
Critical Care Time (in minutes): 42
Labs: Labs Reviewed by me
[2024-08-06] MEDS: NSS (PRESERVATIVE FREE) 10 ML IV ×2 (09:00→20:57)
[2024-08-06] MEDS: PROTONIX IV 40 MG IV ×2 (09:00→20:58)
--- NOTE | 2024-08-06 09:00 | PTCARENOTE ---
pt has no complaints , hemoglobin stable 7.4 , NSR - ST on monitor , BP ok , several doses of Metoprol held due to BP over the last few days , Dr Mcallister aware and decrease dose down to 5mg Q 6 hours , ambulated in hallway this am , pt encouraged to
increase activity , pt NGT draining bile with low outputs , continues with TPN , pt is now written IMU level of care
--- NOTE | 2024-08-06 11:41 | W.PN.SURGUPD ---
Surgical Update
Surgical Update
Well known to surgery service: OR on 07/18/24: ex lap (at time of FEVAR with vascular for aortic dissection)
Post op CT imaging findings reflective of mucosal sloughing and recovery from previous temporarily reversible bowel ischemia during acute aortic dissection event of the pneumatosis due to progressive/nonreversible bowel ischemia. With time mucosal
sloughing would likely heal and slowly improved but this may be a more prolonged process, 4 to 6 weeks. There is the risk that may may develop future strictures in the area of affected small bowel as well which will have to be monitored for during
recovery.
GI following for possible future endoscopic eval
Continue with medical management - bowel rest, NGT, TPN and close monitoring.
TPN renewed, will follow labs
--- NOTE | 2024-08-06 11:47 | W.PN.CD ---
Today's Communication / Plan
-
Continue hold DAPT
BP are marginal hold anti-HTN meds
Impression / Plan
-
GI bleeding
Bleeding may have stopped?
Ischemic workup for possible bowel ischemia
Intervention radiology, general surgery, primary team is working
Management as per primary team
Plan for colonoscopy at some point?: high, but not prohibitive, risk
[place] type B thoracic aortic dissection:
-this diagnosis is threat to life
-s/p endovascular thoracic aortic repair 07/18/24- vascular following. Also with ex-lap same day to assess for ischemic bowel (viable tissue noted).
-goal MAP is 75-90 currently per vascular note
-IV metoprolol 10 mg every 6 hours, IV Diltiazem 15 mg every 6 hours, and IV enalaprilat 1.25 mg every 6 hours: on hold due to hypotension
-previously receiving plavix by mouth; and ASA rectally
-Holding aspirin plavix until OK from bleeding perspective
HTN
-BP is now marginal
-Holding antihypertensives
-Resume once stable.
Ischemic bowel
-Pt now NPO with NGT in place based on CT scan results from 07/25. Plan is supportive care as of now.
-Surgery following
Subjective: tired and frustrated
Physical Exam
Vital Signs/Labs
Vital Signs
Temp Pulse Resp BP Pulse Ox
98.8 F 93 20 94/52 91
08/06/24 07:00 08/06/24 06:00 08/06/24 06:00 08/06/24 06:00 08/06/24 06:00
08/05/24 08/06/24 08/07/24
06:59 06:59 06:59
Actual Weight 155 lb 6.814 oz
08/06/24 03:28
08/06/24 03:28
PT 14.8 Sec (11.4-14.6) H 12/25/24 10:59
INR 1.11 08/02/24 10:59
APTT 36.0 Sec (23.4-35.0) H 08/02/24 10:59
Magnesium 2.2 mg/dl (1.6-2.3) 08/05/24 05:22
Triglycerides 68 mg/dl (10-149) 07/31/24 04:13
LDL Cholesterol, Calc 62 mg/dl 07/18/24 04:14
VLDL Cholesterol, Calc 14 mg/dl (0-30) 07/18/24 04:14
HDL Cholesterol 28 mg/dl 07/18/24 04:14
TSH 1.06 uIU/ml (0.47-4.68) 07/19/24 08:39
Free T4 1.18 ng/dl (0.78-2.19) 07/19/24 08:39
Physical Exam
Constitutional: No acute distress
EENT: Anicteric
Cardiovascular: Rhythm & rate is regular and Pedal edema is absent
Respiratory: Lungs clear to auscul. and Other (decreased b/s b/l )
GI: Soft
Neuro/Psych: Alert and Oriented
Data Reviewed
-
Date of Service: August 06, 2024
EKG: Tracing Personally Visualized and interpreted (sr)
Labs: Labs Reviewed by me
[2024-08-06 11:55] LABS: Glucose - Point of Care 113 mg/dl (70-99)
--- NOTE | 2024-08-06 16:29 | PTCARENOTE ---
no change in assessment , pt is encouraged to increase activity , he has walked the hallway but is refusing to get oob to chair
[2024-08-06] MEDS: LOPRESSOR 5 MG IV ×2 (17:25→23:13)
[2024-08-06 17:34] LABS: Glucose - Point of Care 114 mg/dl (70-99)
[2024-08-06] MEDS: Parenteral Nutrition, Central 1390 IV (20:58)
[2024-08-06 23:28] LABS: Glucose - Point of Care 130 mg/dl (70-99)
[2024-08-07] VITALS (13 sets, daily range): BP systolic 91–125; BP diastolic 56–88; BMI 20.7
[2024-08-07] MEDS: LOPRESSOR 5 MG IV ×4 (06:03→23:57)
[2024-08-07 06:11] LABS: Hematocrit 22.2 % (39.0-52.0); Hemoglobin 7.4 g/dL (13.0-18.0); Mean Corp Hgb Conc. 33.3 g/dL (33.0-37.0); Mean Corpuscular Hgb 30.8 pg (27.0-31.0); Mean Corpuscular Volume 92.5 fL (80.0-94.0); Mean Platelet Volume 9.3 fL (7.4-10.4); Platelet Count 250 10^3/uL (130-400); Red Cell Dist. Width 14.4 % (11.5-14.5); White Blood Cell Count 6.3 10^3/uL (4.8-10.8)
[2024-08-07 06:34] LABS: ALT (SGPT) 24 U/L (0-50); AST (SGOT) 17 U/L (17-59); Albumin 2.5 g/dl (3.5-5.0); Alkaline Phosphatase 73 U/L (38-126); Blood Urea Nitrogen 21 mg/dl (9-20); Calcium 7.9 mg/dl (8.4-10.2); Carbon Dioxide 27 mmol/L (22-30); Chloride 101 mmol/L (98-107); Estimated Creatinine Clearance 118 ml/min; Glucose 115 mg/dl (70-99); Magnesium 2.1 mg/dl (1.6-2.3); Phosphorus 3.1 mg/dl (2.5-4.5); Sodium 135 mmol/L (135-145); Total Bilirubin 0.2 mg/dl (0.2-1.3); Total Protein 5.4 g/dl (6.3-8.2); Triglycerides 80 mg/dl (10-149); eGFR > 60.00
[2024-08-07] MEDS: NOVOLOG FLEXPEN-LOW RESISTANCE SC ×4 (06:36→23:33)
[2024-08-07] MEDS: NSS (PRESERVATIVE FREE) 10 ML IV ×2 (09:34→21:30)
[2024-08-07] MEDS: PROTONIX IV 40 MG IV ×2 (09:35→21:28)
--- NOTE | 2024-08-07 09:45 | PTCARENOTE ---
Received patient from film processing shift supervisor RN; AAOx3, responds spontaneously to RN and follows commands; VSS; SR with PVC's and ST on monitor; +2 Radial and DP pulses; Lungs diminished TO; SpO2 94-96% on RA; Hypoactive BS but passing flatus; NGT secured at
70 cm in right nare - on LIS and draining green, bile drainage; Urinating clear, yellow urine in bathroom; Surgical sites intact; Generalized weakness; PICC line intact; TPN infusing - see nursing flowsheets for further details; See nursing
documentation for further details.
--- NOTE | 2024-08-07 10:46 | W.PN.CD ---
Today's Communication / Plan
-
IV metop when able
DAPT on hold
Impression / Plan
-
GI bleeding
Bleeding may have stopped?
Ischemic workup for possible bowel ischemia
Intervention radiology, general surgery, primary team is working
Management as per primary team
Plan for colonoscopy at some point?: high, but not prohibitive, risk
[place] type B thoracic aortic dissection:
-this diagnosis is threat to life
-s/p endovascular thoracic aortic repair 07/18/24- vascular following. Also with ex-lap same day to assess for ischemic bowel (viable tissue noted).
-goal MAP is 75-90 currently per vascular note
-IV metoprolol 10 mg every 6 hours, IV Diltiazem 15 mg every 6 hours, and IV enalaprilat 1.25 mg every 6 hours: periodically receiving IV metop when BP allows
-previously receiving plavix by mouth; and ASA rectally
-Holding aspirin plavix until OK from bleeding perspective
HTN
-BP is now marginal
-Holding antihypertensives
-Resume once stable.
Ischemic bowel
-Pt now NPO with NGT in place based on CT scan results from 07/25. Plan is supportive care as of now.
-Surgery following
Subjective: tired and frustrated
Physical Exam
Vital Signs/Labs
Vital Signs
Temp Pulse Resp BP Pulse Ox
99.2 F 108 21 113/59 95
08/07/24 09:42 08/07/24 10:00 08/07/24 10:00 08/07/24 10:00 08/07/24 10:00
08/06/24 08/07/24 08/08/24
06:59 06:59 06:59
Actual Weight 152 lb 5.431 oz
08/07/24 05:57
08/07/24 05:57
PT 14.8 Sec (11.4-14.6) H 08/02/24 10:59
INR 1.11 08/02/24 10:59
APTT 36.0 Sec (23.4-35.0) H 08/02/24 10:59
Magnesium 2.1 mg/dl (1.6-2.3) 08/07/24 05:57
Triglycerides 80 mg/dl (10-149) 08/07/24 05:57
LDL Cholesterol, Calc 62 mg/dl 07/18/24 04:14
VLDL Cholesterol, Calc 14 mg/dl (0-30) 07/18/24 04:14
HDL Cholesterol 28 mg/dl 07/18/24 04:14
TSH 1.06 uIU/ml (0.47-4.68) 07/19/24 08:39
Free T4 1.18 ng/dl (0.78-2.19) 07/19/24 08:39
Physical Exam
Constitutional: No acute distress
EENT: Anicteric
Cardiovascular: Rhythm & rate is regular
Respiratory: Respiratory effort normal and Other (poor air movement b/l )
GI: Soft
Neuro/Psych: AO x 3
Data Reviewed
-
Date of Service: August 07, 2024
EKG: Tracing Personally Visualized and interpreted
Echo: Report Reviewed by me
Labs: Labs Reviewed by me
--- NOTE | 2024-08-07 11:10 | W.PN.VS ---
Today's Communication / Plan
-
Patient seen with Dr. Victorino Cooley III, below plan reviewed with attending.
Assessment/Plan
-
Assessment: 54-year-old male s/p Thoracic endovascular aortic repair using GORE Thoracic Branch Endoprosthesis device:GORE TAG Thoracic Branch Endoprosthesis 37 mm x 150 mm,
GORE TAG Thoracic Branch for left subclavian artery 12 mm x 60 mm, GORE TAG 37 mm x 200 mm distal extension (proximal to celiac artery) on 07/18/24 with postoperative course complicated by ileus and GI bleed.
Plan:
Patient initially placed on DAPT (Plavix 75mg PO daily and ASA 81mg PO daily) due to smaller size stents required for branch extension into left subclavian artery. However, DAPT currently on hold in light of recent GI bleed requiring multiple
units of packed red blood cells for resuscitation of anemia. Would agree with initiation of aspirin as soon as medically cleared, understand given extent of GI bleed and inability to have colonoscopy done for evaluation of bleeding source that
Plavix will remain on hold.
Patient was scheduled to have 2-week follow-up in our office for incision check, he is currently at the 2-week andres thus does not require emergently establish outpatient appointment, will adjust outpatient follow-up accordingly and placed new
follow-up in discharge instructions.
Continue to encourage incentive spirometer
PT/OT
Subjective Data
-
Date of Service: August 07, 2024
Patient seen and examined at bedside, indicates continued intermittent nausea and vomiting which is being medically managed with TPN and NG tube. He denies pain to bilateral lower extremities.
Objective Data
-
Vital Signs
Temp Pulse Resp BP Pulse Ox
99.2 F 108 21 113/59 95
08/07/24 09:42 08/07/24 10:00 08/07/24 10:00 08/07/24 10:00 08/07/24 10:00
Intake and Output
08/06/24 08/07/2408/08/24
06:59 06:59 06:59
Intake Total 1554 / 1612 1416 / 1474 257 / 257
Output Total 555 / 555 1175 / 1175 100 / 100
Balance 999 / 1057 241 / 299 157 / 157
Intake:
IV fluids (Total) 1334 / 1392 1276 / 1334 232 / 232
TPN 1334 / 1392 1276 / 1334 232 / 232
Amount instilled into GI Tube ( 220 / 220 140 / 140 25 / 25
Total)
[place] Sump 220 / 220 140 / 140 25 / 25
Output:
Gastrointestinal tube output ( 275 / 275 200 / 200 100 / 100
Total)
[place] Sump 275 / 275 200 / 200 100 / 100
Urine, Voided 280 / 280 975 / 975
Other:
Number of approximated MODERATE 1 1 1
amounts of urine
Lab Results
08/07/24 05:57
08/07/24 05:57
Calcium 7.9 mg/dl (8.4-10.2) L 08/07/24 05:57
Phosphorus 3.1 mg/dl (2.5-4.5) 08/07/24 05:57
Magnesium 2.1 mg/dl (1.6-2.3) 08/07/24 05:57
Total Bilirubin 0.2 mg/dl (0.2-1.3) 08/07/24 05:57
Direct Bilirubin 0.8 mg/dl (0.0-0.4) H 07/19/24 02:58
AST 17 U/L (17-59) 08/07/24 05:57
ALT 24 U/L (0-50) 08/07/24 05:57
Alkaline Phosphatase 73 U/L (38-126) 08/07/24 05:57
Total Protein 5.4 g/dl (6.3-8.2) L 08/07/24 05:57
Albumin 2.5 g/dl (3.5-5.0) L 08/07/24 05:57
Physical Exam
-
AAOx3
No tachypnea on room air
Abdomen flat, ABD surgical incision healing well all annette removed, CDI, nontender to palpation
Groin sites flat and soft
Bilateral feet warm, palpable DP and PT pulses bilaterally
[2024-08-07 12:29] LABS: Glucose - Point of Care 131 mg/dl (70-99)
--- NOTE | 2024-08-07 13:00 | PTCARENOTE ---
Patient very upset about when speaking with MD Almanza about restarting aspirin - talked extensively with patient and answered all questions concerning need for aspirin. Patient adamantly refusing rectal aspirin so PO enteric coated aspirin ordered by
MD Almanza. NGT clamped for short time after taking PO aspirin.
[2024-08-07] MEDS: ASPIR LOW (ENTERIC COATED) 81 MG PO (13:08)
--- NOTE | 2024-08-07 14:50 | W.PN.GS2 ---
Addendum entered and electronically signed by KARLENE Colby 08/07/24 15:09:
discussed addition of PO ASA with patient, he states he is now agreeable to taking.
Original Note:
Today's Communication / Plan
-
Continue TPN
Assessment / Plan
-
Assessment: Patient is a 54 yo M who presented with aortic dissection with ex lap (at time of FEVAR with vascular) on 07/18/[address] imaging findings reflective of mucosal sloughing and recovery from previous temporarily reversible bowel ischemia during acute aortic dissection event of the pneumatosis due to progressive/nonreversible bowel ischemia. With time mucosal
sloughing would likely heal and slowly improved but this may be a more prolonged process, 4 to 6 weeks. There is the risk that may may develop future strictures in the area of affected small bowel as well which will have to be monitored for during
recovery.
GI following for possible future endoscopic eval, message sent regarding persistent tarry stools
Last transfusion was 08/04. H/H relatively stable.
Plan:
Continue with medical management - bowel rest, NGT, TPN and close monitoring.
TPN renewed, will follow labs
Subjective Data
-
Date of Service: August 07, 2024
Patient seen and examined at bedside. Some abdominal soreness after a lot of activity/ambulation, but otherwise not much pain. Did have a tarry stool yesterday.
Objective Data
-
Intake and Output
08/06/24 08/07/24 08/08/24
06:59 06:59 06:59
Intake Total 1554 / 1612 1416 / 1474 461 / 461
Output Total 555 / 555 1175 / 1175 275 / 275
Balance 999 / 1057 241 / 299 186 / 186
Intake:
Oral fluids 5 / 5
IV fluids (Total) 1334 / 1392 1276 / 1334 406 / 406
TPN 1334 / 1392 1276 / 1334 406 / 406
Amount instilled into GI Tube ( 220 / 220 140 / 140 50 / 50
Total)
[place] Sump 220 / 220 140 / 140 50 / 50
Output:
Gastrointestinal tube output ( 275 / 275 200 / 200 150 / 150
Total)
[place] Sump 275 / 275 200 / 200 150 / 150
Urine, Voided 280 / 280 975 / 975 125 / 125
Other:
Number of approximated MODERATE 1 1 1
amounts of urine
Vital Signs
Temp Pulse Resp BP Pulse Ox
98.1 F 85 17 111/72 96
08/07/24 11:24 08/07/24 14:00 08/07/24 14:00 08/07/24 14:00 08/07/24 14:00
Lab Results
08/07/24 05:57
08/07/24 05:57
Calcium 7.9 mg/dl (8.4-10.2) L 08/07/24 05:57
Phosphorus 3.1 mg/dl (2.5-4.5) 08/07/24 05:57
Magnesium 2.1 mg/dl (1.6-2.3) 08/07/24 05:57
Total Bilirubin 0.2 mg/dl (0.2-1.3) 08/07/24 05:57
Direct Bilirubin 0.8 mg/dl (0.0-0.4) H 07/19/24 02:58
AST 17 U/L (17-59) 08/07/24 05:57
ALT 24 U/L (0-50) 08/07/24 05:57
Alkaline Phosphatase 73 U/L (38-126) 08/07/24 05:57
Total Protein 5.4 g/dl (6.3-8.2) L 08/07/24 05:57
Albumin 2.5 g/dl (3.5-5.0) L 08/07/24 05:57
Physical Exam
-
GENERAL/NEURO: Awake, Alert, no distress
CHEST: Unlabored breathing on RA
ABDOMEN: Soft, ND, NT, incision healing well. Steris present. NGT with low volume bilious outputs.
--- NOTE | 2024-08-07 15:32 | W.PN.HOSP.TC ---
Today's Communication/Plan
-
resume ASA
monitor Hb, for bleeding
Assessment / Plan
Assessment / Plan
HPI: 54-year-old with no known significant past medical history presented to the emergency department with approximately 5 days of ongoing abdominal symptoms.
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 He c/o crampy abdominal pain and reported melanotic appearing diarrhea.
In the emergency department, his CT angio was done showing a [place] type B thoracic aortic dissection. No involvement of the ascending thoracic aorta or great arch vessels. Vascular surgeon contacted by ED.
Assessment:
Acute hypotension
Acute blood loss anemia 3 grams drop on 08/02
GI bleed likely secondary to bowel ischemia/mucosal sloughing with aortic dissection.
- stat CT angio negative; no role for IR intervention. CT with complex fluid in colon. No role for surgery
- GS consulted; scope plans
- monitoring clinically, no significant bleeding since 08/03
- s/p 7 total units this admission
- resume ASA - d/w GS and Vascular
[place] B aortic dissection. No aneurysm. HD stable. No chest pain.
- s/p CT Angio confirming thoracic/abdominal aortic dissection, [place] type B.
- life threatening diagnosis
- s/p emergent thoracic endovascular aortic repair on 07/18
- Also had concurrently ex-lap for concern of bowel ischemic (no necrosis, viable SB/colon seen)
- s/p 10 days empiric Zosyn
- resume ASA - d/w GS and Vascular. Holding Plavix indefinitely
- IV Cardizem, IV Metoprolol and IV enalaprilat while NPO; Cardiology managing and following BP/MAP goals as outlined in their notes. Consider Nicardipine drip if indicated
Leukocytosis
Abd distention 2/2 ileus
- repeat CT 07/25: pneumatosis with bowel wall thickening and mesenteric edema
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
- AXR: 08/01: small volume contrast in rectum
- continue NGT decompression, GS directing
- NPO, IVF, cont TPN
- s/p Zosyn 10 days, observe off further
- GS following
- Stools becoming more formed - hopeful for improvement
Diarrhea, resolved
Anemia, multi-factorial from acute blood loss from operations, dilution from IVF
- monitor Hb
- GI signed off
- continue PPI IV BID
Chronic SOB
Exposure to asbestos/acetone per patient
- prn nebs
- hold Budesonide BID; prescribe steroid inhaler at DC
- OP Pulm referral
Reactive thrombocytosis, resolved
DVT ppx: SCDs
Code: Full
Dispo: transfer to IMU
Anticipated Discharge: > 48 hours
Subjective/Interval History
-
Date of Service: August 07, 2024
reports abdominal soreness from ambulation yesterday, otherwise no complaints
no transfusions since 08/04; Hb 7.4
Objective Data
-
Labs:
Laboratory Results
08/07/24
05:57
WBC 6.3
Hgb 7.4 L
Hct 22.2 L
Plt Count 250
Sodium 135
Potassium 4.0
Chloride 101
Carbon Dioxide 27
BUN 21 H
Creatinine 0.7
Glucose 115 H
Calcium 7.9 L
Total Bilirubin 0.2
AST 17
ALT 24
Alkaline Phosphatase 73
Vital Signs:
Vital Signs
Temp Pulse Resp BP Pulse Ox
98.1 F 85 17 111/72 96
08/07/24 11:24 08/07/24 14:00 08/07/24 14:00 08/07/24 14:00 08/07/24 14:00
I&O
08/06/24 08/07/24 08/08/24
06:59 06:59 06:59
Intake Total 1554 / 1612 1416 / 1474 461 / 461
Output Total 555 / 555 1175 / 1175 275 / 275
Balance 999 / 1057 241 / 299 186 / 186
Physical Exam
-
General: No Apparent Distress
HEENT: Normocephalic and Atraumatic
Respiratory: Negative Wheezes
Cardiac: Regular Rhythm and S1/S2
GI: Soft
Genito-urinary: No Costovertebral Tender
Neuro: AO x 3
Hematologic / Lymphatic: No Lymphadenopathy
Psych: Calm
Data Reviewed
-
Total Time Spent with Patient (in minutes): 45
Labs: Labs Reviewed by me
--- NOTE | 2024-08-07 16:09 | PTCARENOTE ---
Received patient from ICU. Patient ambulated to room with assist x2. AAOx3, Right nare [place] sump to intermittent suction. Green bile drainage. Patient denies any n/v. TPN @ 58 MLS/HR. Midline incision with steri-strips. Abdomen tender, pain
tolerable. RA spo2 96%. VS stable,afebrile. SR 80's.
--- NOTE | 2024-08-07 16:14 | CM ---
Patient seen at bedside, now moved to IMU. Patient for a time of bowel rest per nursing. Patient indicated that he is very sleepy and requested time to rest. CM will continue to follow for discharge planning needs.
Plan; home with TPN vs SNF pending functional assessment
--- NOTE | 2024-08-07 17:30 | W.PN.GI.CBS2 ---
Addendum entered and electronically signed by Lola Hansen MD 08/07/24 19:25:
I saw and examined the patient.
The CLINICAL CYTOGENETICS DIRECTOR or PA's note was reviewed and I agree with the note.
Comment: 54-year-old male admitted July 17 with aortic dissection repair with possible pneumatosis of the small bowel taken to surgery for repair of aortic dissection and ex lap for concern for bowel ischemia (no necrosis/viable SB/colon seen).
Reviewing initial consultation on July 20, he had nausea, vomiting, diarrhea with dark stool prior to admission but none since then. Thought his hemoglobin drop is dilutional and postop. GI was then reconsulted August 02 with drop in
hemoglobin with borderline hypotension. He had large bowel and hematochezia at that time. CTA was negative for active bleeding but did show a large complex fluid within the colon. He was prepped for colonoscopy the next day but unfortunately he
started vomiting with coffee-ground emesis. Therefore colonoscopy was on hold. His hemoglobin remained stable and thought more likely GI bleed was due to bowel ischemia and mucosal sloughing with aortic dissection with no active bleeding and no
endoscopic evaluation was ever pursued. Reviewing the notes, his hemoglobin was as low as 6.8 on August 03 but this was in the setting of hematochezia. Since then, his hemoglobin has remained stable in the sevens. Last blood transfusion was
August 04. GI was asked to reconsult as he had a dark stool yesterday.
I discussed with the patient about endoscopic evaluation. He had wanted to hold off and discussed with Dr. Linn as he did his initial surgery. With his stable hemoglobin, I see no urgent need to do endoscopic evaluation at this time. If
endoscopic evaluation was pursued, may need to consider endoscopy with flex sig since he did have hematochezia previously. We will discuss with general surgery tomorrow see if Dr. Linn is able to discuss with patient. Continue protonix 40 IV
BID.
Original Note:
Today's Communication / Plan
-
as per plan
Assessment / Plan
-
54yo admitted on 07/17 undergoing type B aortic dissection repair with concern for possible pneumoatosis of the small bowel c/d ischemia taken for emergent ex lap but no findings of ischemia now with GI bleeding of unclear etiology, but high
suspicion of ischemia. CT Angio with evidence of large complex fluid in the colon but w/o active extravasation. Hemoglobin dropped from 10 --> 7.1 with borderline hypotension. Now hemoglobin down to 7.4 this a.m. plan was to prep patient for
possible colonoscopy today via NG tube. Patient was given 1 L of prep with 2 episodes of clear vomitus. NG tube placed to suction with 600 cc of dark material removed he continues with NG tube drainage at this point. Patient did not start having
bowel movements until this a.m. which were dark brown in nature, 2. OB positive. No signs of bleeding noted. The patient stated to me when he was given the prep he felt like he had 'ripping inside of me'. Plavix as well as aspirin were held
yesterday. He continues on pantoprazole 40 mg IV twice daily. He continues on TPN. (08/04/2024): Patient with bilious NG tube output, decreased. Passing flatus. No abdominal pain. Hemoglobin did decrease and received 2 units packed red blood
cells. Vital signs stable. Continues on PPI twice daily.
--CT chest/abdomen/pelvis angiogram 08/02/2024: No evidence of active GI bleed. Stable appearance of endovascular stent graft repair. Probable enteritis/ileus similar to prior.
--CT chest/abdomen/pelvis angiogram 07/31/24: Small bowel malrotation with midgut volvulus, element of small bowel obstruction, mucosal/submucosal pneumatosis noted. Difficulty rule out obstruction
--CT chest/abdomen/pelvis angiogram 07/25/24: Improved perfusion of distal arteries and right common iliac artery. Fluid-filled small bowel, thickening of the small bowel loop, no intraperitoneal air. Mild atelectasis
--Chest/Ab/pelvic CT 07/18/24: Thoracic and abdominal aortic dissection, [place] type B.
Plan:
Hemoglobin stable. Overall clinical picture suggestive of GI bleed secondary to bowel ischemia/mucosal sloughing with aortic dissection. Currently no active bleeding
-Continue pantoprazole 40 mg bid
-NGT management as per surgery
-Continue TPN as per surgery.
-Okay to resume aspirin if no bleeding and stable Hgb.
-Asked by Surgery to see patient, consider EGD? Discussed with patient. Unsure if he would like this given relative GI stability. He would like to think about it and discuss with Dr. Linn.
-Patient to resume ASA tomorrow.
-Will follow up with patient tomorrow to check Hgb and discuss after he speaks to Dr. Linn about consideration of EGD.
Subjective
Subjective
Date of Service: August 07, 2024
Asked to follow up with patient again from General Surgery. Patient with no BM today. Had black BM yesterday. Scant amount of green bilious drainage from NGT. Denies any abdominal pain. Passing flatus. Hgb 7.4 today, was previously 7.4-> 7.7-> 7.2
since 08/04/24. Patient continues on TPN. Continues on Pantoprazole 40 mg IV BID.
Objective
Data Reviewed
Laboratory Data:
Laboratory Results
08/07/24 05:57
08/07/24 05:57
Laboratory Results
PT 14.8 Sec (11.4-14.6) H 08/02/24 10:59
INR 1.11 08/02/24 10:59
APTT 36.0 Sec (23.4-35.0) H 08/02/24 10:59
Phosphorus 3.1 mg/dl (2.5-4.5) 08/07/24 05:57
Magnesium 2.1 mg/dl (1.6-2.3) 08/07/24 05:57
Total Bilirubin 0.2 mg/dl (0.2-1.3) 08/07/24 05:57
AST 17 U/L (17-59) 08/07/24 05:57
ALT 24 U/L (0-50) 08/07/24 05:57
Alkaline Phosphatase 73 U/L (38-126) 08/07/24 05:57
Amylase 31 U/L (30-110) 07/19/24 01:33
Lipase 45 U/L (23-300) 07/19/24 02:58
Vital Signs and I&O:
Vital Signs
Temp Pulse Resp BP Pulse Ox
98.1 F 88 15 108/68 96
08/07/24 11:24 08/07/24 16:00 08/07/24 16:00 08/07/24 16:00 08/07/24 16:18
I&O
08/06/24 08/07/24 08/08/24
06:59 06:59 06:59
Intake Total 1554 / 1612 1416 / 1474 461 / 461
Output Total 555 / 555 1175 / 1175 275 / 275
Balance 999 / 1057 241 / 299 186 / 186
Physical Exam
Physical Exam
HEENT: Anicteric
Cardiology: Normal Sinus Rhythm
Pulmonary: Clear (anterior)
GI: Soft, Non Distended, Non Tender, Normal Bowel Sounds (hypoactive) and Other (NGT with scant green bilious drainage in canister, midline incision well healing)
Extremities: No Edema
Neuro: Non Focal
[2024-08-07 17:59] LABS: Glucose - Point of Care 149 mg/dl (70-99)
[2024-08-07] MEDS: FLUSH (NSS) 2 FLUSH IV (18:28)
[2024-08-07] MEDS: Parenteral Nutrition, Central 1390 IV (21:28)
[2024-08-07 23:42] LABS: Glucose - Point of Care 148 mg/dl (70-99)
[2024-08-07] MEDS: ANESTHETIC LOZENGE 1 LOZENGE PO (23:54)
[2024-08-08] VITALS (23 sets, daily range): BP systolic 88–138; BP diastolic 47–95; PULSE 97; BMI 20.9
--- NOTE | 2024-08-08 00:14 | PTCARENOTE ---
Addendum entered by Morena Singer RN 08/08/24 05:28:
100.7 oral temp this morning. KARLENE Henderson aware.
Original Note:
Patient c/o 9/10 pain in his throat from NGT that has been going on the last few days. Pt states ice is not working and making it worse. KARLENE Henderson made aware and ordered throat lozenge PRN. Pt appreciative of care. Call albert and tray table within
reach.
--- NOTE | 2024-08-08 05:32 | W.PN.UPDATE ---
Update Note
Progress Note Update
Temp 100.7 no other associated symptoms. Incentive spirometer added for possible atelectasis. Will hold off on tylenol for now and await CBC this am.
[2024-08-08] MEDS: NOVOLOG FLEXPEN-LOW RESISTANCE SC ×3 (05:53→19:14)
[2024-08-08] MEDS: LOPRESSOR 5 MG IV ×3 (05:54→17:15)
[2024-08-08] MEDS: ANESTHETIC LOZENGE 1 LOZENGE PO ×4 (05:54→19:50)
[2024-08-08 06:00] LABS: Glucose - Point of Care 121 mg/dl (70-99)
[2024-08-08 06:17] LABS: Hematocrit 23.2 % (39.0-52.0); Hemoglobin 7.5 g/dL (13.0-18.0); Mean Corp Hgb Conc. 32.3 g/dL (33.0-37.0); Mean Corpuscular Hgb 30.4 pg (27.0-31.0); Mean Corpuscular Volume 93.9 fL (80.0-94.0); Mean Platelet Volume 9.3 fL (7.4-10.4); Platelet Count 271 10^3/uL (130-400); Red Blood Cell Count 2.47 10^6/uL (4.70-6.10); Red Cell Dist. Width 14.6 % (11.5-14.5); White Blood Cell Count 6.3 10^3/uL (4.8-10.8)
[2024-08-08 06:33] LABS: Blood Urea Nitrogen 21 mg/dl (9-20); Carbon Dioxide 28 mmol/L (22-30); Chloride 101 mmol/L (98-107); Estimated Creatinine Clearance 119 ml/min; Glucose 119 mg/dl (70-99); Sodium 136 mmol/L (135-145); eGFR > 60.00
--- NOTE | 2024-08-08 08:16 | W.PN.CD ---
Today's Communication / Plan
-
transfuse
continue iv bb
change to po when able
Impression / Plan
-
GI bleeding
Bleeding may have stopped?
Ischemic workup for possible bowel ischemia
Intervention radiology, general surgery, primary team is working
Management as per primary team
Plan for colonoscopy at some point?: high, but not prohibitive, risk
Juice type B thoracic aortic dissection:
-this diagnosis is threat to life
-s/p endovascular thoracic aortic repair 07/18/24- vascular following. Also with ex-lap same day to assess for ischemic bowel (viable tissue noted).
-goal MAP is 75-90 currently per vascular note
-Now just on IV metoprolol, po agents on hold for ileus
-restart po when ok with surgery
-HR control has not been ideal 2/2 to systemic factors, anemia and low grade fever
--would aggressively resuscitate to try and help with sinus tachycardia. D/w Dr Almanza who agrees, will transfuse
-previously receiving plavix by mouth; and ASA rectally
-back on asa
HTN
-BP is stable
-iv bb
-Resume once stable.
Ischemic bowel?
-now with ileus
-Pt now NPO with NGT in place based on CT scan results from 07/25. Plan is supportive care as of now.
-Surgery following
Subjective: tired, pain in side on wednesday with walking has not recurred
Physical Exam
Vital Signs/Labs
Vital Signs
Temp Pulse Resp BP Pulse Ox
100.7 F H 89 22 98/81 96
08/08/24 04:58 08/08/24 06:00 08/08/24 06:00 08/08/24 06:00 08/08/24 00:02
08/07/24 08/08/24 08/09/24
06:59 06:59 06:59
Actual Weight 69.1 kg 70 kg
08/08/24 05:50
08/08/24 05:50
PT 14.8 Sec (11.4-14.6) H 08/02/24 10:59
INR 1.11 08/02/24 10:59
APTT 36.0 Sec (23.4-35.0) H 08/02/24 10:59
Magnesium 2.1 mg/dl (1.6-2.3) 08/07/24 05:57
Triglycerides 80 mg/dl (10-149) 08/07/24 05:57
LDL Cholesterol, Calc 62 mg/dl 07/18/24 04:14
VLDL Cholesterol, Calc 14 mg/dl (0-30) 07/18/24 04:14
HDL Cholesterol 28 mg/dl 07/18/24 04:14
TSH 1.06 uIU/ml (0.47-4.68) 07/19/24 08:39
Free T4 1.18 ng/dl (0.78-2.19) 07/19/24 08:39
Physical Exam
Constitutional: No acute distress
Cardiovascular: Rhythm & rate is regular, Pedal edema is absent, JVD pressure is normal and Systolic murmur absent
Respiratory: Respiratory effort normal, Lungs clear to auscul., Wheeze Absent, Crackles Absent and Rhonchi Absent
Neuro/Psych: AO x 3
Data Reviewed
-
Date of Service: August 08, 2024
Medical Decision Making: Review of Case with other Provider (d/w Dr Almanza)
EKG: Other (sinus, sinus tachycardia with pvcs)
[2024-08-08] MEDS: PROTONIX IV 40 MG IV ×2 (09:00→20:16)
[2024-08-08] MEDS: ASPIR LOW (ENTERIC COATED) 81 MG PO (09:00)
[2024-08-08] MEDS: NSS (PRESERVATIVE FREE) 10 ML IV ×2 (09:00→20:16)
--- NOTE | 2024-08-08 09:26 | W.PN.HOSP.TC ---
Today's Communication/Plan
-
monitor fever curve, leukocytosis - if persistent fevers, panculture and resume Abx
2 unit PRBC to goal Hb >8.0; will help tachycardia/MAP Goals per Cardiology
follow GI and GS, Vascular recs
Assessment / Plan
Assessment / Plan
HPI: 54-year-old with no known significant past medical history presented to the emergency department with approximately 5 days of ongoing abdominal symptoms.
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 He c/o crampy abdominal pain and reported melanotic appearing diarrhea.
In the emergency department, his CT angio was done showing a Juice type B thoracic aortic dissection. No involvement of the ascending thoracic aorta or great arch vessels. Vascular surgeon contacted by ED.
Assessment:
Acute hypotension
Acute blood loss anemia 3 grams drop on 08/02
GI bleed likely secondary to bowel ischemia/mucosal sloughing with aortic dissection.
- stat CT angio negative; no role for IR intervention. CT with complex fluid in colon. No role for surgery
- GI consulted; scope not planned at present
- monitoring clinically, no significant bleeding since 08/03
- s/p 7 total units this admission. order 2 units further as Cardiology desires Hb >8.0
- resume ASA, rectally as patient agreeable - d/w GS and Vascular
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 HD stable. No chest pain.
- s/p CT Angio confirming thoracic/abdominal aortic dissection, Juice type B.
- life threatening diagnosis
- s/p emergent thoracic endovascular aortic repair on 07/18
- Also had concurrently ex-lap for concern of bowel ischemic (no necrosis, viable SB/colon seen)
- s/p Zosyn course
- resume ASA - d/w GS and Vascular. Holding Plavix indefinitely
- IV Cardizem, IV Metoprolol and IV enalaprilat while NPO; Cardiology managing and following BP/MAP goals as outlined in their notes. Consider Nicardipine drip if indicated
Leukocytosis
Abd distention 2/2 ileus
- repeat CT 07/25: pneumatosis with bowel wall thickening and mesenteric edema
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
- AXR: 08/01: small volume contrast in rectum
- continue NGT decompression, GS directing
- NPO, IVF, cont TPN
- s/p Zosyn 10 days, observe off further. If persistently febrile or leukocytosis, reculture and order Zosyn again.
- GS following
- Stools becoming more formed - hopeful for improvement
Diarrhea, resolved
Anemia, multi-factorial from acute blood loss from operations, dilution from IVF
- monitor Hb
- GI signed off
- continue PPI IV BID
Chronic SOB
Exposure to asbestos/acetone per patient
- prn nebs
- hold Budesonide BID; prescribe steroid inhaler at DC
- OP Pulm referral
Reactive thrombocytosis, resolved
DVT ppx: SCDs
Code: Full
Anticipated Discharge: > 48 hours
Subjective/Interval History
-
Date of Service: August 08, 2024
reports some mild RLQ discomfort which he states is from physical therapy
mild temp of 100.7 overnight, normal WBC today
now agreeable to rectal ASA
Objective Data
-
Labs:
Laboratory Results
08/08/24
05:50
WBC 6.3
Hgb 7.5 L
Hct 23.2 L
Plt Count 271
Sodium 136
Potassium 4.0
Chloride 101
Carbon Dioxide 28
BUN 21 H
Creatinine 0.7
Glucose 119 H
Calcium 8.0 L
Vital Signs:
Vital Signs
Temp Pulse Resp BP Pulse Ox
100.7 F H 90 21 88/47 96
08/08/24 04:58 08/08/24 08:00 08/08/24 08:00 08/08/24 08:00 08/08/24 00:02
I&O
08/07/24 08/08/24 08/09/24
06:59 06:59 06:59
Intake Total 1416 / 1474 1933 / 1933
Output Total 1175 / 1175 1400 / 1400
Balance 241 / 299 533 / 533
Physical Exam
-
General: No Apparent Distress
HEENT: Normocephalic, Atraumatic and Other (+NGT)
Respiratory: Clear to Auscultation; Negative Wheezes
Cardiac: Regular Rhythm and S1/S2
GI: Soft and Nontender
Genito-urinary: No Costovertebral Tender
Musculoskeletal: No Edema
Neuro: AO x 3
Psych: Calm
Data Reviewed
-
Total Time Spent with Patient (in minutes): 44
Labs: Labs Reviewed by me
--- NOTE | 2024-08-08 10:16 | W.PN.GI.CBS2 ---
Addendum entered and electronically signed by Jose Chavez, 08/08/24 15:31:
I saw and examined the patient.
The POULTRY PROCESSING SUPERVISOR's note was reviewed and I agree with the note.
Comment: Mr Caro is a 54-year-old male admitted July 17 with aortic dissection repair ([place] Type B) with possible pneumatosis of the small bowel taken to surgery for repair of aortic dissection and ex lap for concern for bowel ischemia
(no necrosis/viable SB/colon seen). See previous consultation dated back on 07/20 for additional details. During that time, he had nausea, vomiting, diarrhea with dark stool prior to admission but none since then. Thought his hemoglobin drop is
dilutional and postop. GI was then reconsulted August 02 with drop in hemoglobin with borderline hypotension. He had large bowel and hematochezia at that time. CTA was negative for active bleeding but did show a large complex fluid within the
colon. He was prepped for colonoscopy the next day but unfortunately he started vomiting with coffee-ground emesis. Therefore colonoscopy was on hold. His hemoglobin remained stable and thought more likely GI bleed was due to bowel ischemia and
mucosal sloughing with aortic dissection with no active bleeding and no endoscopic evaluation was ever pursued. Reviewing the notes, his hemoglobin was as low as 6.8 on August 03 but this was in the setting of hematochezia. Since then, his
hemoglobin has remained stable in the 7s (has received a total of 7 uPRBCs since admission). Last blood transfusion was August 04 where GI was reconsulted again on 08/07.
Currently patient is without any signs to suggest recurrent GI bleeding. No recent melena or maroon colored stools over the past 48 hours. Hgb remains stable and further with yellow-bilious fluid within the NG tubing this AM and without any evidence
of coffee grounds or overt blood. Doubt UGIB at this time and suspect patient's previous melena was likely old blood from prior hematochezia on 08/02 secondary to suspected bowel ischemia secondary to low-flow state and mucosal sloughing during
prior dissection. Would still favor empiric IV PPI 40 mg BiD with close monitoring if Aspirin is to be restarted and okay from GI standpoint to start ASA. If concern for recurrent GI bleeding, would consider limited flex-sig along with EGD with
possible push-enteroscopy if concern for potential SB bleeding. But for now would favor conservative management and defer any plans for endoscopic evaluation at this time given his overall clinical course. Surgery following and appreciate recs, will
follow-up UGIS later today.
GI team will continue to follow while inpatient. Agree with rest of care as outlined below.
Original Note:
Today's Communication / Plan
-
as per plan
Assessment / Plan
-
54yo admitted on 07/17 undergoing type B aortic dissection repair with concern for possible pneumoatosis of the small bowel c/d ischemia taken for emergent ex lap but no findings of ischemia now with GI bleeding of unclear etiology, but high
suspicion of ischemia. CT Angio with evidence of large complex fluid in the colon but w/o active extravasation. Hemoglobin dropped from 10 --> 7.1 with borderline hypotension. Initial plan was to prep for possible colonoscopy on 08/03 however
patient was unable to tolerate 1 L of prep. He had 2 episodes of clear vomitus. NG tube with 600 cc of dark material removed. At that time he felt like he had 'ripping inside me'. Plavix and aspirin were held at that point. He continued on NG
tube decompression. PPI IV twice daily was continued. He required 2 units of packed cells on 08/03/2024 for hemoglobin of 6.8. Subsequently hemoglobin went up to 7.2 on 08/04/2024. Has remained stable ever since. Slowly NG tube drainage has
gone from coffee grounds to green bile 08/04/2024. NG tube drainage has decreased and remains bilious, now green on 08/08/2024. No bowel movement since 08/06/2024, this was black in color. Patient continues to pass flatus. Hemoglobin remained
stable 7.5 and aspirin 81 milligrams resumed today 08/08/2024.
--CT chest/abdomen/pelvis angiogram 08/02/2024: No evidence of active GI bleed. Stable appearance of endovascular stent graft repair. Probable enteritis/ileus similar to prior.
--CT chest/abdomen/pelvis angiogram 07/31/24: Small bowel malrotation with midgut volvulus, element of small bowel obstruction, mucosal/submucosal pneumatosis noted. Difficulty rule out obstruction
--CT chest/abdomen/pelvis angiogram 07/25/24: Improved perfusion of distal arteries and right common iliac artery. Fluid-filled small bowel, thickening of the small bowel loop, no intraperitoneal air. Mild atelectasis
--Chest/Ab/pelvic CT 07/18/24: Thoracic and abdominal aortic dissection, Juice type B.
Plan:
Hemoglobin stable. Overall clinical picture suggestive of GI bleed secondary to bowel ischemia/mucosal sloughing with aortic dissection. Currently no active bleeding
-Continue pantoprazole 40 mg bid
-NGT management as per surgery
-Continue TPN as per surgery.
-Okay to resume aspirin if no bleeding and stable Hgb. Started aspirin 81 mg today 08/08/2024
-Patient currently would like to hold on EGD at present time.
-To consider eventual EGD if patient agreeable and discussed this with Dr. Linn.
Subjective
Subjective
Date of Service: August 08, 2024
Patient with 400 cc of green bile from NG tube overnight. Passing flatus. No bowel movement. Hemoglobin remained stable currently 7.5 today, up from 7.4 yesterday. Did run mild fever this a.m. 100.7. Patient to start aspirin 81 mg this morning.
Patient wishes to hold on EGD at present time.
Objective
Data Reviewed
Laboratory Data:
Laboratory Results
08/08/24 05:50
08/08/24 05:50
Laboratory Results
PT 14.8 Sec (11.4-14.6) H 08/02/24 10:59
INR 1.11 08/02/24 10:59
APTT 36.0 Sec (23.4-35.0) H 08/02/24 10:59
Phosphorus 3.1 mg/dl (2.5-4.5) 08/07/24 05:57
Magnesium 2.1 mg/dl (1.6-2.3) 08/07/24 05:57
Total Bilirubin 0.2 mg/dl (0.2-1.3) 08/07/24 05:57
AST 17 U/L (17-59) 08/07/24 05:57
ALT 24 U/L (0-50) 08/07/24 05:57
Alkaline Phosphatase 73 U/L (38-126) 08/07/24 05:57
Amylase 31 U/L (30-110) 07/19/24 01:33
Lipase 45 U/L (23-300) 07/19/24 02:58
Vital Signs and I&O:
Vital Signs
Temp Pulse Resp BP Pulse Ox
100.7 F H 90 21 88/47 96
08/08/24 04:58 08/08/24 08:00 08/08/24 08:00 08/08/24 08:00 08/08/24 00:02
I&O
08/07/24 08/08/24 08/09/24
06:59 06:59 06:59
Intake Total 1416 / 1474 1933 / 1933
Output Total 1175 / 1175 1400 / 1400
Balance 241 / 299 533 / 533
Physical Exam
Physical Exam
HEENT: Anicteric and Other (NG tube in place, green bile in canister)
Cardiology: Normal Sinus Rhythm
Pulmonary: Clear (Anterior)
GI: Soft, Non Distended, Non Tender and Normal Bowel Sounds
Neuro: Non Focal
--- NOTE | 2024-08-08 11:50 | W.PN.GS2 ---
Today's Communication / Plan
-
-- UGI
-- Continue with medical management - bowel rest, NGT, TPN and close monitoring.
-- TPN renewed, will follow labs
Assessment / Plan
-
Assessment: Patient is a 54 yo M who presented with aortic dissection with ex lap (at time of FEVAR with vascular) on 07/18/[address] imaging findings reflective of mucosal sloughing and recovery from previous temporarily reversible bowel ischemia during acute aortic dissection event of the pneumatosis due to progressive/nonreversible bowel ischemia. With time mucosal
sloughing would likely heal and slowly improved but this may be a more prolonged process, 4 to 6 weeks. There is the risk that may may develop future strictures in the area of affected small bowel as well which will have to be monitored for during
recovery.
GI following for possible future endoscopic eval, message sent regarding persistent tarry stools
Last transfusion was 08/04. H/H stable.
Uncertain clinical significance of low-grade fever. Patient asymptomatic. Unlikely abdominal given lack of changes in abdominal exam and continued passage of flatus, with no further bloody BMs.
Labs stable with no leukocytosis off antibiotics
No clinical signs of worsening SBO ischemia or continued significant mucosal bleeding given stable hemoglobin and lack of bloody bowel movements. Plan for UGI today to assess transit time. Possible removal of NGT tomorrow pending results.
Plan:
-- UGI
-- Continue with medical management - bowel rest, NGT, TPN and close monitoring.
-- TPN renewed, will follow labs
Subjective Data
-
Date of Service: August 08, 2024
No new complaints. Denies any abdominal pain. No nausea or vomiting. Passing flatus, no BM in 24 to 48 hours. No reports of bloody stools. Low-grade fever overnight.
Objective Data
-
Intake and Output
08/07/24 08/08/24 08/09/24
06:59 06:59 06:59
Intake Total 1416 / 1474 1933 / 1933 90 / 90
Output Total 1175 / 1175 1400 / 1400 200 / 200
Balance 241 / 299 533 / 533 -110 / -110
Intake:
Oral fluids 5 / 5 60 / 60
IV fluids (Total) 1276 / 1334 406 / 406
TPN 1276 / 1334 406 / 406
TPN/PPN 1392 / 1392
Amount instilled into GI Tube ( 140 / 140 130 / 130 30 / 30
Total)
[place] Sump 140 / 140 130 / 130 30 / 30
Output:
Gastrointestinal tube output ( 200 / 200 750 / 750
Total)
[place] Sump 200 / 200 750 / 750
Urine, Voided 975 / 975 650 / 650 200 / 200
Other:
Number of approximated MODERATE 1 1
amounts of urine
Vital Signs
Temp Pulse Resp BP Pulse Ox
98.4 F 89 19 136/95 96
08/08/24 07:05 08/08/24 11:00 08/08/24 11:00 08/08/24 10:06 08/08/24 00:02
Lab Results
08/08/24 05:50
08/08/24 05:50
Calcium 8.0 mg/dl (8.4-10.2) L 08/08/24 05:50
Phosphorus 3.1 mg/dl (2.5-4.5) 08/07/24 05:57
Magnesium 2.1 mg/dl (1.6-2.3) 08/07/24 05:57
Total Bilirubin 0.2 mg/dl (0.2-1.3) 08/07/24 05:57
Direct Bilirubin 0.8 mg/dl (0.0-0.4) H 07/19/24 02:58
AST 17 U/L (17-59) 08/07/24 05:57
ALT 24 U/L (0-50) 08/07/24 05:57
Alkaline Phosphatase 73 U/L (38-126) 08/07/24 05:57
Total Protein 5.4 g/dl (6.3-8.2) L 08/07/24 05:57
Albumin 2.5 g/dl (3.5-5.0) L 08/07/24 05:57
Physical Exam
-
Gen: NAD
HEENT: minimal non-bilious outputs
Abd: soft, NT, mild distension, non-peritoneal, incision c/d/i - no erythema, ecchymosis or drainage
[2024-08-08 12:48] LABS: Glucose - Point of Care 146 mg/dl (70-99)
--- NOTE | 2024-08-08 15:26 | PTCARENOTE ---
Very flat, quiet most of the day. Likes the room dark, sunglasses on at all times. Escorted to radiology for sm. bowel f/t with PRBC infusing. Completed during study. Asa given PO this am - clamped tube post with out difficulty. No complaints
of nausea while clamped. No BM this shift but states he is passing gas. Remains NPO with NGT - IV TPN infusing.
--- NOTE | 2024-08-08 17:55 | PTCARENOTE ---
Returned from radiology, NGT will stay clamped- flush q4. Ambulated to bathroom had mod amt dk brown stool with green residue noted when flushing. 2 nd unit PRBCs initiated- tolerating well. Had 2nd bout of liquid brown black stool again with
green residue when flushed- states he is alittle nauses but passing the stool relieved it. Will keep clamped for now- but will monitor closely.
[2024-08-08 19:10] LABS: Glucose - Point of Care 126 mg/dl (70-99)
[2024-08-08] MEDS: Parenteral Nutrition, Central 1390 IV (21:55)
--- NOTE | 2024-08-08 23:30 | PTCARENOTE ---
Pt received from previous RN. Pt AAOx3, engaging with staff, pt states he 'cant wait to have raspberry water ice'. NSR on monitor. RA. NGT clamped. irrigated per order. Pt c/o nausea once at start of shift, has subsided since. Assessing frequently.
pt having frequent watery green stools. Lozenge provided for throat discomfort per order, see mar. TPN infusing. Assessment as documented. Call light in reach.
[2024-08-09] VITALS (15 sets, daily range): BP systolic 93–121; BP diastolic 47–77; BMI 20.6
[2024-08-09] MEDS: NOVOLOG FLEXPEN-LOW RESISTANCE SC ×5 (01:21→23:50)
[2024-08-09] MEDS: LOPRESSOR 5 MG IV ×4 (01:22→18:09)
[2024-08-09 01:31] LABS: Glucose - Point of Care 141 mg/dl (70-99)
[2024-08-09] MEDS: ANESTHETIC LOZENGE 1 LOZENGE PO ×2 (01:40→06:33)
[2024-08-09 05:01] LABS: Hematocrit 28.2 % (39.0-52.0); Hemoglobin 9.4 g/dL (13.0-18.0); Mean Corp Hgb Conc. 33.3 g/dL (33.0-37.0); Mean Corpuscular Hgb 30.9 pg (27.0-31.0); Mean Corpuscular Volume 92.8 fL (80.0-94.0); Mean Platelet Volume 9.3 fL (7.4-10.4); Platelet Count 302 10^3/uL (130-400); Red Blood Cell Count 3.04 10^6/uL (4.70-6.10); Red Cell Dist. Width 14.6 % (11.5-14.5); White Blood Cell Count 7.6 10^3/uL (4.8-10.8)
[2024-08-09 05:06] LABS: Blood Urea Nitrogen 24 mg/dl (9-20); Calcium 8.2 mg/dl (8.4-10.2); Carbon Dioxide 27 mmol/L (22-30); Chloride 105 mmol/L (98-107); Estimated Creatinine Clearance 117 ml/min; Glucose 130 mg/dl (70-99); Potassium 4.2 mmol/L (3.5-5.1); Sodium 139 mmol/L (135-145); eGFR > 60.00
[2024-08-09 06:12] LABS: Glucose - Point of Care 137 mg/dl (70-99)
[2024-08-09] MEDS: NSS (PRESERVATIVE FREE) 10 ML IV ×2 (08:21→19:38)
[2024-08-09] MEDS: ASPIRIN 300 MG RECTAL (08:21)
[2024-08-09] MEDS: PROTONIX IV 40 MG IV ×2 (08:21→19:38)
--- NOTE | 2024-08-09 10:37 | PTCARENOTE ---
Assumed care of patient this morning. He denies any pain or nausea. His only complaint is discomfort in his throat from NGT. Pt asking for water ice frequently. Advised patient his is still NPO but may have sips of clears. BP soft 90s-100s systolic.
Pt has TPN infusing into PICC line. Assessment, care and VS as charted.
--- NOTE | 2024-08-09 11:27 | W.PN.GI.CBS2 ---
Today's Communication / Plan
-
- NGT and diet per surgery
- avoid hypotension
- GI will sign off please call if we can help
Assessment / Plan
-
54yo admitted on 07/17 undergoing type B aortic dissection repair with concern for possible pneumoatosis of the small bowel c/d ischemia taken for emergent ex lap but no findings of ischemia now with GI bleeding of unclear etiology, but high
suspicion of ischemia. CT Angio with evidence of large complex fluid in the colon but w/o active extravasation. Hemoglobin dropped from 10 --> 7.1 with borderline hypotension. Initial plan was to prep for possible colonoscopy on 08/03 however
patient was unable to tolerate 1 L of prep. He had 2 episodes of clear vomitus. NG tube with 600 cc of dark material removed. At that time he felt like he had 'ripping inside me'. Plavix and aspirin were held at that point. He continued on NG
tube decompression. PPI IV twice daily was continued. He required 2 units of packed cells on 08/03/2024 for hemoglobin of 6.8. Subsequently hemoglobin went up to 7.2 on 08/04/2024. Has remained stable ever since. Slowly NG tube drainage has
gone from coffee grounds to green bile 08/04/2024. NG tube drainage has decreased and remains bilious, now green on 08/08/2024. No bowel movement since 08/06/2024, this was black in color. Patient continues to pass flatus. Hemoglobin remained
stable 7.5 and aspirin 81 milligrams resumed today 08/08/2024.
--CT chest/abdomen/pelvis angiogram 08/02/2024: No evidence of active GI bleed. Stable appearance of endovascular stent graft repair. Probable enteritis/ileus similar to prior.
--CT chest/abdomen/pelvis angiogram 07/31/24: Small bowel malrotation with midgut volvulus, element of small bowel obstruction, mucosal/submucosal pneumatosis noted. Difficulty rule out obstruction
--CT chest/abdomen/pelvis angiogram 07/25/24: Improved perfusion of distal arteries and right common iliac artery. Fluid-filled small bowel, thickening of the small bowel loop, no intraperitoneal air. Mild atelectasis
--Chest/Ab/pelvic CT 07/18/24: Thoracic and abdominal aortic dissection, [place] type B.
Plan 08/09/24:
No overt bleeding with brown/mixed contrast stools today.
Overall clinical picture suggestive of GI bleed secondary to bowel ischemia/mucosal sloughing with aortic dissection. Currently no active bleeding - hgb responded to 2U on 08/08
- no n/v and clamped NGT since yesterday
- hopefully can start to use his bowel with liquid nutrition supplements to supplement calories
- AVOID hypotension and anything that could cause vasoconstriction
-Continue pantoprazole 40 mg BID, then decrease to once daily when bleeding is stable - we don't have a gastric source of bleed either, but didn't have EGD
-NGT management as per surgery
-Continue TPN as per surgery, hopefully, NGT to be d/c soon and start to use the bowel for at least liquid nutrition - calorie supplements
-Okay to resume aspirin if no bleeding and stable Hgb. Started aspirin 81 mg 08/08/2024
- discussed with Dr. Linn
- Gi will sign off, please call if we can help but this is highly likely small bowel related and unlikely EGD to be therapeutic
Subjective
Subjective
Date of Service: August 09, 2024
patient's NGT has been clamped since yesterday. denies n/v and wants water ice. Had BMs with the contrast yesterday and charted as brown and mixed.
on TPN with surgery following
Objective
Data Reviewed
Laboratory Data:
Laboratory Results
08/09/24 04:28
08/09/24 04:28
Laboratory Results
PT 14.8 Sec (11.4-14.6) H 08/02/24 10:59
INR 1.11 08/02/24 10:59
APTT 36.0 Sec (23.4-35.0) H 08/02/24 10:59
Phosphorus 3.1 mg/dl (2.5-4.5) 08/07/24 05:57
Magnesium 2.1 mg/dl (1.6-2.3) 08/07/24 05:57
Total Bilirubin 0.2 mg/dl (0.2-1.3) 08/07/24 05:57
AST 17 U/L (17-59) 08/07/24 05:57
ALT 24 U/L (0-50) 08/07/24 05:57
Alkaline Phosphatase 73 U/L (38-126) 08/07/24 05:57
Amylase 31 U/L (30-110) 07/19/24 01:33
Lipase 45 U/L (23-300) 07/19/24 02:58
Vital Signs and I&O:
Vital Signs
Temp Pulse Resp BP Pulse Ox
98.2 F 90 19 105/53 96
08/09/24 11:25 08/09/24 10:00 08/09/24 10:00 08/09/24 10:00 08/09/24 09:54
I&O
08/08/24 08/09/24 08/10/24
06:59 06:59 06:59
Intake Total 1933 / 1933 2262 / 2262
Output Total 1400 / 1400 500 / 500 150 / 150
Balance 533 / 533 1762 / 1762 -150 / -150
Physical Exam
Physical Exam
HEENT: Anicteric
GI: Soft, Non Distended and Non Tender
Extremities: No Edema
Neuro: Non Focal
[2024-08-09 12:19] LABS: Glucose - Point of Care 126 mg/dl (70-99)
--- NOTE | 2024-08-09 12:35 | W.PN.HOSP.TC ---
Today's Communication/Plan
-
clear liquids after NGT removal
Assessment / Plan
Assessment / Plan
HPI: 54-year-old with no known significant past medical history presented to the emergency department with approximately 5 days of ongoing abdominal symptoms.
Patient reported that he abruptly began to have episodes of vomiting then followed by diarrhea that started 5 days [employer]. He c/o crampy abdominal pain and reported melanotic appearing diarrhea.
In the emergency department, his CT angio was done showing a [place] type B thoracic aortic dissection. No involvement of the ascending thoracic aorta or great arch vessels. Vascular surgeon contacted by ED.
Assessment:
Acute hypotension
Acute blood loss anemia 3 grams drop on 08/02
GI bleed likely secondary to bowel ischemia/mucosal sloughing with aortic dissection.
- stat CT angio negative; no role for IR intervention. CT with complex fluid in colon. No role for surgery
- GI signed off; scope not planned at present
- monitoring clinically, no significant bleeding since 08/03
- s/p 9 total units this admission. hb 9.4
- continue ASA, rectally as patient agreeable - d/w GS and Vascular
[place] B aortic dissection. No aneurysm. HD stable. No chest pain.
- s/p CT Angio confirming thoracic/abdominal aortic dissection, [place] type B.
- life threatening diagnosis
- s/p emergent thoracic endovascular aortic repair on 07/18
- Also had concurrently ex-lap for concern of bowel ischemic (no necrosis, viable SB/colon seen)
- s/p Zosyn course
- continue ASA, rectally as patient agreeable - d/w GS and Vascular. Holding Plavix indefinitely
- IV Cardizem, IV Metoprolol and IV enalaprilat while NPO; Cardiology managing and following BP/MAP goals as outlined in their notes. Consider Nicardipine drip if indicated
Leukocytosis
Abd distention 2/2 ileus
- repeat CT 07/25: pneumatosis with bowel wall thickening and mesenteric edema
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
- AXR: 08/01: small volume contrast in rectum
- repeat SB Xray 08/08: no obstruction
- AXR 08/09: contrast passed into colon
- per GS, dc NGT and clears
- continue TPN
- s/p Zosyn 10 days, observe off further. If persistently febrile or leukocytosis, reculture and order Zosyn again.
- GS following
Diarrhea, resolved
Anemia, multi-factorial from acute blood loss from operations, dilution from IVF
- monitor Hb
- GI signed off
- continue PPI IV BID
Chronic SOB
Exposure to asbestos/acetone per patient
- prn nebs
- hold Budesonide BID; prescribe steroid inhaler at DC
- OP Pulm referral
Reactive thrombocytosis, resolved
DVT ppx: SCDs
Code: Full
Anticipated Discharge: > 48 hours
Subjective/Interval History
-
Date of Service: August 09, 2024
continues with clamped NG, no n/v. several BMS with contrast yesterday
remains on TPN
Objective Data
-
Labs:
Laboratory Results
08/09/24
04:28
WBC 7.6
Hgb 9.4 L D
Hct 28.2 L
Plt Count 302
Sodium 139
Potassium 4.2
Chloride 105
Carbon Dioxide 27
BUN 24 H
Creatinine 0.7
Glucose 130 H
Calcium 8.2 L
Vital Signs:
Vital Signs
Temp Pulse Resp BP Pulse Ox
98.2 F 94 18 102/54 96
08/09/24 11:25 08/09/24 12:15 08/09/24 12:00 08/09/24 12:15 08/09/24 09:54
I&O
08/08/24 08/09/24 08/10/24
06:59 06:59 06:59
Intake Total 1933 / 1933 2262 / 2262
Output Total 1400 / 1400 500 / 500 150 / 150
Balance 533 / 533 1762 / 1762 -150 / -150
Physical Exam
-
General: No Apparent Distress
HEENT: Normocephalic, Atraumatic and Other (+NGT)
Respiratory: Negative Wheezes
Cardiac: Regular Rhythm and S1/S2
GI: Soft and Nontender
Genito-urinary: No Costovertebral Tender
Musculoskeletal: No Edema
Neuro: AO x 3
Hematologic / Lymphatic: No Lymphadenopathy
Psych: Calm
Data Reviewed
-
Total Time Spent with Patient (in minutes): 45
Labs: Labs Reviewed by me
--- NOTE | 2024-08-09 13:23 | W.PN.GS2 ---
Today's Communication / Plan
-
-- DC NGT
-- Trial of clears
-- TPN renewed, will follow labs
Assessment / Plan
-
Assessment: Patient is a 54 yo M who presented with aortic dissection with ex lap (at time of FEVAR with vascular) on 07/18/[address] imaging findings reflective of mucosal sloughing and recovery from previous temporarily reversible bowel ischemia during acute aortic dissection event of the pneumatosis due to progressive/nonreversible bowel ischemia. With time mucosal
sloughing would likely heal and slowly improved but this may be a more prolonged process, 4 to 6 weeks. There is the risk that may may develop future strictures in the area of affected small bowel as well which will have to be monitored for during
recovery.
GI was following for possible future endoscopic eval, message sent regarding persistent tarry stools
Last transfusion was 08/04. H/H stable.
No further fevers. Patient asymptomatic. Unlikely abdominal given lack of changes in abdominal exam and continued passage of flatus, with no further bloody BMs.
Labs stable with no leukocytosis off antibiotics. No clinical signs of worsening SBO ischemia or continued significant mucosal bleeding given stable hemoglobin and lack of bloody bowel movements. UGI demonstrates transit to colon within 2 hours,
subtle mucosal changes appreciated within the jejunum, no evidence of stricturing or significantly delayed transit. No evidence of a bowel obstruction. Plan to DC NGT and trial slow dietary advancement over the next few days.
Plan:
-- DC NGT
-- Trial of clears
-- TPN renewed, will follow labs
Subjective Data
-
Date of Service: August 09, 2024
Resting comfortably. No complaints. Further bowel movements, nonbloody. No nausea or vomiting.
Objective Data
-
Intake and Output
08/08/24 08/09/24 08/10/24
06:59 06:59 06:59
Intake Total 1932 / 226
Output Total 1400 / 1400 500 / 500 150 / 150
Balance 533 / 533 1762 / 1762 -150 / -150
Intake:
Oral fluids 5 / 5 60 / 60
IV fluids (Total) 406 / 406
TPN 406 / 406
TPN/PPN 1392 / 1392 1392 / 1392
Amount instilled into GI Tube ( 130 / 130 60 / 60
Total)
[place] Sump 130 / 130 60 / 60
Blood products 250 / 250
Blood Product Amount Infused ( 500 / 500
mL)
Packed Rbc Leukoreduced Unit 250 / 250
[id number]
Packed Rbc Leukoreduced Unit 250 / 250
[id number]
Output:
Gastrointestinal tube output ( 750 / 750 100 / 100
Total)
[place] Sump 750 / 750 100 / 100
Urine, Voided 650 / 650 400 / 400 150 / 150
Other:
Number of approximated MODERATE 1 3
amounts of urine
Vital Signs
Temp Pulse Resp BP Pulse Ox
98.2 F 91 18 102/54 96
08/09/24 11:25 08/09/24 13:00 08/09/24 13:00 08/09/24 12:15 08/09/24 13:11
Lab Results
08/09/24 04:28
08/09/24 04:28
Calcium 8.2 mg/dl (8.4-10.2) L 08/09/24 04:28
Phosphorus 3.1 mg/dl (2.5-4.5) 08/07/24 05:57
Magnesium 2.1 mg/dl (1.6-2.3) 08/07/24 05:57
Total Bilirubin 0.2 mg/dl (0.2-1.3) 08/07/24 05:57
Direct Bilirubin 0.8 mg/dl (0.0-0.4) H 07/19/24 02:58
AST 17 U/L (17-59) 08/07/24 05:57
ALT 24 U/L (0-50) 08/07/24 05:57
Alkaline Phosphatase 73 U/L (38-126) 08/07/24 05:57
Total Protein 5.4 g/dl (6.3-8.2) L 08/07/24 05:57
Albumin 2.5 g/dl (3.5-5.0) L 08/07/24 05:57
Physical Exam
-
Gen: NAD
HEENT: NGT non-bilious
Abd: soft, NT/ND, non-peritoneal, incision c/d/i - no erythema, ecchymosis or drainage
--- NOTE | 2024-08-09 13:30 | W.PN.CD ---
Today's Communication / Plan
-
Continue IV metoprolol but read resume p.o. when able. Hopefully tomorrow morning
Impression / Plan
-
GI bleeding
Bleeding may have stopped?
Ischemic workup for possible bowel ischemia
Intervention radiology, general surgery, primary team is working
Management as per primary team
hgb improved after transfusion, no plan for scope at this time.
[place] type B thoracic aortic dissection:
-this diagnosis is threat to life
-s/p endovascular thoracic aortic repair 07/18/24- vascular following. Also with ex-lap same day to assess for ischemic bowel (viable tissue noted).
-goal MAP is 75-90 currently per vascular note
-Now just on IV metoprolol, po agents on hold for ileus--?resume tomorrow
-restart po when ok with surgery/medicine
-HR control has not been ideal 2/2 to systemic factors, anemia and low grade fever
-improved a bit today after transfusion and no feer
-previously receiving plavix by mouth; and ASA rectally
-back on asa
HTN
-BP is stable
-iv bb
-Resume once stable.
Ischemic bowel?
-now with ileus, NGT just d/c'd
-await to see if can tolerate clears.
-Surgery following
Subjective: He is feeling better, happy his NG tube is out. He is anxious about resuming oral medications, last time he states he was given 'a boatload' and then did not tolerate it. Would like to start back slowly.
Physical Exam
Vital Signs/Labs
Vital Signs
Temp Pulse Resp BP Pulse Ox
98.2 F 91 18 102/54 96
08/09/24 11:25 08/09/24 13:00 08/09/24 13:00 08/09/24 12:15 08/09/24 13:11
08/08/24 08/09/24 08/10/24
06:59 06:59 06:59
Actual Weight 70 kg 68.7 kg
08/09/24 04:28
08/09/24 04:28
PT 14.8 Sec (11.4-14.6) H 08/02/24 10:59
INR 1.11 08/02/24 10:59
APTT 36.0 Sec (23.4-35.0) H 08/02/24 10:59
Magnesium 2.1 mg/dl (1.6-2.3) 08/07/24 05:57
Triglycerides 80 mg/dl (10-149) 08/07/24 05:57
LDL Cholesterol, Calc 62 mg/dl 07/18/24 04:14
VLDL Cholesterol, Calc 14 mg/dl (0-30) 07/18/24 04:14
HDL Cholesterol 28 mg/dl 07/18/24 04:14
TSH 1.06 uIU/ml (0.47-4.68) 07/19/24 08:39
Free T4 1.18 ng/dl (0.78-2.19) 07/19/24 08:39
Physical Exam
Constitutional: No acute distress
Cardiovascular: Rhythm & rate is regular, Pedal edema is absent, JVD pressure is normal, Systolic murmur absent and Diastolic murmur absent
Respiratory: Respiratory effort normal, Lungs clear to auscul., Wheeze Absent, Crackles Absent and Rhonchi Absent
Neuro/Psych: AO x 3
Data Reviewed
-
Date of Service: August 09, 2024
Medical Decision Making: Review of Case with other Provider (Discussed with Dr. Almanza, will likely be able to tolerate p.o. beta-neeta tomorrow.)
[2024-08-09 17:45] LABS: Glucose - Point of Care 122 mg/dl (70-99)
--- NOTE | 2024-08-09 20:05 | PTCARENOTE ---
Pt received from previous RN. Pt AAOx3. NSR on monitor. RA, 99% sat. Pt tolerating clears. no n/v. normoactive bowel sounds. TPN infusing via PICC. Assessment as documented. Call light in reach.
[2024-08-09] MEDS: Parenteral Nutrition, Central 1390 IV (21:04)
[2024-08-10] VITALS (18 sets, daily range): BP systolic 86–144; BP diastolic 41–120; BMI 21.1
[2024-08-10 00:01] LABS: Glucose - Point of Care 132 mg/dl (70-99)
[2024-08-10] MEDS: LOPRESSOR 5 MG IV ×3 (00:15→18:01)
[2024-08-10 04:54] LABS: Hematocrit 28.2 % (39.0-52.0); Hemoglobin 8.8 g/dL (13.0-18.0); Mean Corp Hgb Conc. 31.2 g/dL (33.0-37.0); Mean Corpuscular Hgb 32.1 pg (27.0-31.0); Mean Corpuscular Volume 102.9 fL (80.0-94.0); Mean Platelet Volume 9.8 fL (7.4-10.4); Platelet Count 277 10^3/uL (130-400); Red Blood Cell Count 2.74 10^6/uL (4.70-6.10); Red Cell Dist. Width 14.7 % (11.5-14.5); White Blood Cell Count 6.1 10^3/uL (4.8-10.8)
[2024-08-10 05:22] LABS: Glucose - Point of Care 141 mg/dl (70-99)
[2024-08-10] MEDS: NOVOLOG FLEXPEN-LOW RESISTANCE SC ×3 (05:51→18:11)
[2024-08-10] MEDS: LOPRESSOR IV (06:03)
[2024-08-10 07:36] LABS: Glucose - Point of Care 119 mg/dl (70-99)
--- NOTE | 2024-08-10 07:51 | W.PN.CD ---
Today's Communication / Plan
-
Cont metop --> PO when able
cont aspirin
Impression / Plan
-
GI bleeding
Bleeding may have stopped?
Ischemic workup for possible bowel ischemia
Intervention radiology, general surgery, primary team is working
Management as per primary team
hgb improved after transfusion, no plan for scope at this time.
[place] type B thoracic aortic dissection:
-this diagnosis is threat to life
-s/p endovascular thoracic aortic repair 07/18/24- vascular following. Also with ex-lap same day to assess for ischemic bowel (viable tissue noted).
-goal MAP is 75-90 currently per vascular note
-Now just on IV metoprolol, po agents on hold for ileus--?resume tomorrow
-restart po when ok with surgery/medicine
-HR control has not been ideal 2/2 to systemic factors, anemia and low grade fever
-improved a bit today after transfusion and no feer
-previously receiving plavix by mouth; and ASA rectally
-back on asa plavix apparently being held indefinitely
HTN
-BP is stable
-iv bb
-Resume once stable.
Ischemic bowel?
-now with ileus, NGT just d/c'd
-await to see if can tolerate clears.
-Surgery following
Subjective: Wants to start meds back slowly, feeling improved from yesterday
Physical Exam
Vital Signs/Labs
Vital Signs
Temp Pulse Resp BP Pulse Ox
99.0 F 81 19 90/68 99
08/10/24 06:07 08/10/24 07:00 08/10/24 07:00 08/10/24 06:03 08/09/24 22:40
08/09/24 08/10/24 08/11/24
06:59 06:59 06:59
Actual Weight 151 lb 7.321 oz 155 lb 6.814 oz
08/10/24 04:11
PT 14.8 Sec (11.4-14.6) H 08/02/24 10:59
INR 1.11 08/02/24 10:59
APTT 36.0 Sec (23.4-35.0) H 08/02/24 10:59
Magnesium 2.1 mg/dl (1.6-2.3) 08/07/24 05:57
Triglycerides 80 mg/dl (10-149) 08/07/24 05:57
LDL Cholesterol, Calc 62 mg/dl 07/18/24 04:14
VLDL Cholesterol, Calc 14 mg/dl (0-30) 07/18/24 04:14
HDL Cholesterol 28 mg/dl 07/18/24 04:14
TSH 1.06 uIU/ml (0.47-4.68) 07/19/24 08:39
Free T4 1.18 ng/dl (0.78-2.19) 07/19/24 08:39
Physical Exam
Constitutional: No acute distress and Comfortable
EENT: Anicteric
Cardiovascular: Rhythm & rate is regular
Respiratory: Respiratory effort normal and Lungs clear to auscul.
GI: Soft
Neuro/Psych: AO x 3
Data Reviewed
-
Date of Service: August 10, 2024
Medical Decision Making: Reviewed Test Results
EKG: Tracing Personally Visualized and interpreted (sr)
Echo: Report Reviewed by me
Labs: Labs Reviewed by me
[2024-08-10] MEDS: PROTONIX IV 40 MG IV ×2 (08:44→20:58)
[2024-08-10] MEDS: ASPIRIN RECTAL ×2 (08:44→10:24)
[2024-08-10] MEDS: NSS (PRESERVATIVE FREE) 10 ML IV ×2 (08:44→20:57)
[2024-08-10 09:30] LABS: Blood Urea Nitrogen 22 mg/dl (9-20); Carbon Dioxide 29 mmol/L (22-30); Chloride 101 mmol/L (98-107); Estimated Creatinine Clearance 120 ml/min; Glucose 130 mg/dl (70-99); Potassium 3.9 mmol/L (3.5-5.1); Sodium 134 mmol/L (135-145); eGFR > 60.00
--- NOTE | 2024-08-10 10:25 | W.PN.HOSP.TC ---
Today's Communication/Plan
-
continue clears; follow GS recs
ASA orally; stop rectal
follow HB
Assessment / Plan
Assessment / Plan
HPI: 54-year-old with no known significant past medical history presented to the emergency department with approximately 5 days of ongoing abdominal symptoms.
Patient reported that he abruptly began to have episodes of vomiting then followed by diarrhea that started 5 days [employer]. He c/o crampy abdominal pain and reported melanotic appearing diarrhea.
In the emergency department, his CT angio was done showing a [place] type B thoracic aortic dissection. No involvement of the ascending thoracic aorta or great arch vessels. Vascular surgeon contacted by ED.
Assessment:
Acute hypotension
Acute blood loss anemia 3 grams drop on 08/02
GI bleed likely secondary to bowel ischemia/mucosal sloughing with aortic dissection.
- stat CT angio negative; no role for IR intervention. CT with complex fluid in colon. No role for surgery
- GI signed off; scope not planned at present
- monitoring clinically, no significant bleeding since 08/03
- s/p 9 total units this admission. hb 8.8
- continue ASA - ok for oral route per GS today
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 HD stable. No chest pain.
- s/p CT Angio confirming thoracic/abdominal aortic dissection, [place] type B.
- life threatening diagnosis
- s/p emergent thoracic endovascular aortic repair on 07/18
- Also had concurrently ex-lap for concern of bowel ischemic (no necrosis, viable SB/colon seen)
- s/p Zosyn course
- continue ASA - ok for oral route per GS today. Holding Plavix indefinitely; vascular aware
- IV Cardizem, IV Metoprolol and IV enalaprilat while NPO; Cardiology managing and following BP/MAP goals as outlined in their notes. Consider Nicardipine drip if indicated
Leukocytosis
Abd distention 2/2 ileus
- repeat CT 07/25: pneumatosis with bowel wall thickening and mesenteric edema
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
- AXR: 08/01: small volume contrast in rectum
- repeat SB Xray 08/08: no obstruction
- AXR 08/09: contrast passed into colon
- continue clears per GS
- continue TPN
- s/p Zosyn 10 days, observe off further. If persistently febrile or leukocytosis, reculture and order Zosyn again.
Diarrhea, resolved
Anemia, multi-factorial from acute blood loss from operations, dilution from IVF
- monitor Hb
- GI signed off
- continue PPI IV BID
Chronic SOB
Exposure to asbestos/acetone per patient
- prn nebs
- hold Budesonide BID; prescribe steroid inhaler at DC
- OP Pulm referral
Reactive thrombocytosis, resolved
DVT ppx: SCDs
Code: Full
Anticipated Discharge: > 48 hours
Subjective/Interval History
-
Date of Service: August 10, 2024
salty CLD
+ flatus, last BM was 08/09 no bleeding
Objective Data
-
Labs:
Laboratory Results
08/10/24 08/10/24 08/10/24
04:11 06:03 08:54
WBC 6.1
Hgb 8.8 L
Hct 28.2 L
Plt Count 277
Sodium Cancelled Cancelled 134 L
Potassium Cancelled Cancelled 3.9
Chloride Cancelled Cancelled 101
Carbon Dioxide Cancelled Cancelled 29
BUN Cancelled Cancelled 22 H
Creatinine Cancelled Cancelled 0.7
Glucose Cancelled Cancelled 130 H
Calcium Cancelled Cancelled 8.0 L
Vital Signs:
Vital Signs
Temp Pulse Resp BP Pulse Ox
98.4 F 97 15 122/77 97
08/10/24 07:20 08/10/24 09:00 08/10/24 09:00 08/10/24 08:00 08/10/24 09:09
I&O
08/09/24 08/10/24 08/11/24
06:59 06:59 06:59
Intake Total 2262 / 2262 1176 / 1176 240 / 240
Output Total 500 / 500 450 / 450
Balance 1762 / 1762 726 / 726 240 / 240
Physical Exam
-
General: No Apparent Distress
HEENT: Normocephalic and Atraumatic
Respiratory: Negative Wheezes
Cardiac: Regular Rhythm
GI: Soft
Genito-urinary: No Costovertebral Tender
Neuro: AO x 3
Hematologic / Lymphatic: No Lymphadenopathy
Psych: Calm
Data Reviewed
-
Total Time Spent with Patient (in minutes): 41
Labs: Labs Reviewed by me
[2024-08-10] MEDS: LOW STRENGTH ASPIRIN 81 MG PO (11:32)
[2024-08-10 12:03] LABS: Glucose - Point of Care 119 mg/dl (70-99)
--- NOTE | 2024-08-10 12:26 | W.PN.GS2 ---
Today's Communication / Plan
-
-- Fulls with supplement shakes
-- Hold on further TPN
Assessment / Plan
-
Assessment: Patient is a 54 yo M who presented with aortic dissection with ex lap (at time of FEVAR with vascular) on 07/18/[address] imaging findings reflective of mucosal sloughing and recovery from previous temporarily reversible bowel ischemia during acute aortic dissection event of the pneumatosis due to progressive/nonreversible bowel ischemia. With time mucosal
sloughing would likely heal and slowly improved but this may be a more prolonged process, 4 to 6 weeks. There is the risk that may may develop future strictures in the area of affected small bowel as well which will have to be monitored for during
recovery.
GI was following for possible future endoscopic eval, message sent regarding persistent tarry stools
Last transfusion was 08/04. H/H stable.
No further fevers. Patient asymptomatic. Unlikely abdominal given lack of changes in abdominal exam and continued passage of flatus, with no further bloody BMs.
Labs stable with no leukocytosis off antibiotics. No clinical signs of worsening SBO ischemia or continued significant mucosal bleeding given stable hemoglobin and lack of bloody bowel movements. UGI demonstrates transit to colon within 2 hours,
subtle mucosal changes appreciated within the jejunum, no evidence of stricturing or significantly delayed transit. No evidence of a bowel obstruction. Plan to DC NGT and trial slow dietary advancement over the next few days.
Plan:
-- Fulls with supplement shakes
-- Hold on further TPN
Subjective Data
-
Date of Service: August 10, 2024
No complaints. Denies any nausea or vomiting. Passing flatus and nonbloody stools. Ambulating. Voiding. Afebrile.
Objective Data
-
Intake and Output
08/09/24 08/10/24 08/11/24
06:59 06:59 06:59
Intake Total 2262 / 2262 1176 / 1176 240 / 240
Output Total 500 / 500 450 / 450
Balance 1762 / 1762 726 / 726 240 / 240
Intake:
Oral fluids 60 / 60 480 / 480 240 / 240
TPN/PPN 1392 / 1392 696 / 696
Amount instilled into GI Tube ( 60 / 60
Total)
[place] Sump 60 / 60
Blood products 250 / 250
Blood Product Amount Infused ( 500 / 500
mL)
Packed Rbc Leukoreduced Unit 250 / 250
[id number]
Packed Rbc Leukoreduced Unit 250 / 250
[id number]
Output:
Gastrointestinal tube output ( 100 / 100
Total)
[place] Sump 100 / 100
Urine, Voided 400 / 400 450 / 450
Other:
Number of approximated MODERATE 3 2
amounts of urine
Vital Signs
Temp Pulse Resp BP Pulse Ox
98.4 F 94 15 107/61 97
08/10/24 07:20 08/10/24 11:32 08/10/24 09:00 08/10/24 11:32 08/10/24 09:09
Lab Results
08/10/24 04:11
08/10/24 08:54
Calcium 8.0 mg/dl (8.4-10.2) L 08/10/24 08:54
Phosphorus 3.1 mg/dl (2.5-4.5) 08/07/24 05:57
Magnesium 2.1 mg/dl (1.6-2.3) 08/07/24 05:57
Total Bilirubin 0.2 mg/dl (0.2-1.3) 08/07/24 05:57
Direct Bilirubin 0.8 mg/dl (0.0-0.4) H 07/19/24 02:58
AST 17 U/L (17-59) 08/07/24 05:57
ALT 24 U/L (0-50) 08/07/24 05:57
Alkaline Phosphatase 73 U/L (38-126) 08/07/24 05:57
Total Protein 5.4 g/dl (6.3-8.2) L 08/07/24 05:57
Albumin 2.5 g/dl (3.5-5.0) L 08/07/24 05:57
Physical Exam
-
Gen: NAD
Abd: soft, NT/ND, non-peritoneal, incision c/d/i
--- NOTE | 2024-08-10 13:02 | PTCARENOTE ---
Assumed care of patient this morning. Pt aaox3. Denies any pain, nausea. Pt able to keep clear liquids down for breakfast. He was upgraded to full liquids for lunch by surgery. Pt able to take Aspirin by mouth without issue. Pt was unhappy to work
with PT this morning but still participated. Pt then asked to walk to the bathroom now rather than using the BSC. CHG bath performed this morning. Linens changed. Assessment, care and VS as charted.
[2024-08-10 18:15] LABS: Glucose - Point of Care 123 mg/dl (70-99)
--- NOTE | 2024-08-10 23:17 | PTCARENOTE ---
Pt received from previous RN. pt AAOx3. Ringing to ambulate to bathroom. Resting in bed. makes needs known. TPN disconnected once concluded this HS. tolerating PO full liquid diet. Call light in reach.
[2024-08-11] VITALS (16 sets, daily range): BP systolic 87–131; BP diastolic 52–89; BMI 21.5
[2024-08-11] MEDS: LOPRESSOR 5 MG IV (00:41)
[2024-08-11 04:55] LABS: Hematocrit 27.1 % (39.0-52.0); Hemoglobin 8.9 g/dL (13.0-18.0); Mean Corp Hgb Conc. 32.8 g/dL (33.0-37.0); Mean Corpuscular Hgb 30.7 pg (27.0-31.0); Mean Corpuscular Volume 93.4 fL (80.0-94.0); Mean Platelet Volume 9.1 fL (7.4-10.4); Platelet Count 273 10^3/uL (130-400); Red Cell Dist. Width 13.5 % (11.5-14.5)
[2024-08-11 05:11] LABS: Blood Urea Nitrogen 16 mg/dl (9-20); Carbon Dioxide 29 mmol/L (22-30); Chloride 101 mmol/L (98-107); Estimated Creatinine Clearance 120 ml/min; Glucose 95 mg/dl (70-99); Potassium 4.2 mmol/L (3.5-5.1); Sodium 134 mmol/L (135-145); eGFR > 60.00
[2024-08-11] MEDS: LOPRESSOR IV (06:10)
[2024-08-11] MEDS: LOW STRENGTH ASPIRIN 81 MG PO (08:44)
[2024-08-11] MEDS: NSS (PRESERVATIVE FREE) 10 ML IV ×2 (08:44→19:15)
[2024-08-11] MEDS: PROTONIX IV 40 MG IV ×2 (08:44→19:15)
--- NOTE | 2024-08-11 09:14 | W.PN.GS2 ---
Today's Communication / Plan
-
Will stay on a full liquid diet with supplements until outpatient follow-up with Dr. Linn.
Diet education by nutrition.
Discharge instructions updated
General Surgery will sign off
Assessment / Plan
-
Assessment: Patient is a 54 yo M who presented with aortic dissection with ex lap (at time of FEVAR with vascular) on 07/18/[address] imaging findings reflective of mucosal sloughing and recovery from previous temporarily reversible bowel ischemia during acute aortic dissection event of the pneumatosis due to progressive/nonreversible bowel ischemia. With time mucosal
sloughing would likely heal and slowly improved but this may be a more prolonged process, 4 to 6 weeks. There is the risk that may may develop future strictures in the area of affected small bowel as well which will have to be monitored for during
recovery.
GI was following for possible future endoscopic eval, message sent regarding persistent tarry stools
Last transfusion was 08/04. H/H stable.
No further fevers. Patient asymptomatic. Unlikely abdominal given lack of changes in abdominal exam and continued passage of flatus, with no further bloody BMs.
Labs stable with no leukocytosis off antibiotics. No clinical signs of worsening SBO ischemia or continued significant mucosal bleeding given stable hemoglobin and lack of bloody bowel movements. UGI demonstrates transit to colon within 2 hours,
subtle mucosal changes appreciated within the jejunum, no evidence of stricturing or significantly delayed transit. No evidence of a bowel obstruction. Plan to DC NGT and trial slow dietary advancement over the next few days.
Plan:
-- Fulls with supplement shakes (which he is tolerating now) until outpatient follow-up.
-- Nutrition consulted for education.
-- General Surgery will sign off for now, please call with any questions or concerns.
Time Spent
Total Time Spent with Patient (in minutes): 20
Subjective Data
-
Date of Service: August 11, 2024
Interval Events:
No acute events overnight. Slept well. Pain Controlled. Denies Nausea/Vomiting, +bowel function. Tolerating diet.
Objective Data
-
Intake and Output
08/10/24 08/11/24 08/12/24
06:59 06:59 06:59
Intake Total 1176 / 1176 960 / 960
Output Total 450 / 450
Balance 726 / 726 960 / 960
Intake:
Oral fluids 480 / 480 960 / 960
TPN/PPN 696 / 696
Output:
Urine, Voided 450 / 450
Other:
Number of approximated MODERATE 2
amounts of urine
Number of approximated LARGE 1
amounts of urine
Vital Signs
Temp Pulse Resp BP Pulse Ox
98.3 F 81 19 99/61 98
08/11/24 03:05 08/11/24 06:07 08/11/24 06:07 08/11/24 06:10 08/11/24 02:44
Lab Results
08/11/24 04:37
08/11/24 04:37
Calcium 8.0 mg/dl (8.4-10.2) L 08/11/24 04:37
Phosphorus 3.1 mg/dl (2.5-4.5) 08/07/24 05:57
Magnesium 2.1 mg/dl (1.6-2.3) 08/07/24 05:57
Total Bilirubin 0.2 mg/dl (0.2-1.3) 08/07/24 05:57
Direct Bilirubin 0.8 mg/dl (0.0-0.4) H 07/19/24 02:58
AST 17 U/L (17-59) 08/07/24 05:57
ALT 24 U/L (0-50) 08/07/24 05:57
Alkaline Phosphatase 73 U/L (38-126) 08/07/24 05:57
Total Protein 5.4 g/dl (6.3-8.2) L 08/07/24 05:57
Albumin 2.5 g/dl (3.5-5.0) L 08/07/24 05:57
Physical Exam
-
GENERAL/NEURO: Awake, Alert, no distress
CHEST: Unlabored breathing on RA
ABDOMEN: Soft, Non-Tender, Non-Distended, incision clean dry and intact.
--- NOTE | 2024-08-11 09:45 | PTCARENOTE ---
Assumed care of patient at beginning of this shift from previous RN; cannot verify accuracy of vital signs prior to 0700.
--- NOTE | 2024-08-11 10:08 | W.PN.CD ---
Today's Communication / Plan
-
start metop tartrate 25 mg q12 hr --> Uptitrate as BP and HR allow
on aspirin
Impression / Plan
-
GI bleeding
Hgb now stable
Ischemic workup for possible bowel ischemia
Intervention radiology, general surgery, primary team is working
Management as per primary team
hgb improved after transfusion, no plan for scope at this time.
Juice type B thoracic aortic dissection:
-this diagnosis is threat to life
-s/p endovascular thoracic aortic repair 07/18/24- vascular following. Also with ex-lap same day to assess for ischemic bowel (viable tissue noted).
-goal MAP is 75-90 currently per vascular note
-Resume 25 mg metop tartrate, uptitrate as BP and HR allow
-HR control has not been ideal 2/2 to systemic factors, anemia and low grade fever
-improved a bit today after transfusion and no feer
-previously receiving plavix by mouth; and ASA rectally
-back on asa plavix apparently being held indefinitely
HTN
-BP is stable
-metop tartrate 25 mg bid
Ischemic bowel?
-now with ileus, NGT just d/c'd
-await to see if can tolerate clears.
-Surgery following
Subjective: Feels improved discussed slow restart of BP meds
Physical Exam
Vital Signs/Labs
Vital Signs
Temp Pulse Resp BP Pulse Ox
98.3 F 93 18 99/52 98
08/11/24 03:05 08/11/24 09:00 08/11/24 09:00 08/11/24 08:00 08/11/24 02:44
08/10/24 08/11/24 08/12/24
06:59 06:59 06:59
Actual Weight 155 lb 6.814 oz 158 lb 4.67 oz
08/11/24 04:37
08/11/24 04:37
PT 14.8 Sec (11.4-14.6) H 08/02/24 10:59
INR 1.11 08/02/24 10:59
APTT 36.0 Sec (23.4-35.0) H 08/02/24 10:59
Magnesium 2.1 mg/dl (1.6-2.3) 08/07/24 05:57
Triglycerides 80 mg/dl (10-149) 08/07/24 05:57
LDL Cholesterol, Calc 62 mg/dl 07/18/24 04:14
VLDL Cholesterol, Calc 14 mg/dl (0-30) 07/18/24 04:14
HDL Cholesterol 28 mg/dl 07/18/24 04:14
TSH 1.06 uIU/ml (0.47-4.68) 07/19/24 08:39
Free T4 1.18 ng/dl (0.78-2.19) 07/19/24 08:39
Physical Exam
Constitutional: No acute distress and Comfortable
EENT: Anicteric
Cardiovascular: Rhythm & rate is regular and Pedal edema is absent
Respiratory: Respiratory effort normal and Lungs clear to auscul.
GI: Soft
Neuro/Psych: AO x 3
Data Reviewed
-
Date of Service: August 11, 2024
EKG: Tracing Personally Visualized and interpreted (sr)
Echo: Report Reviewed by me
Labs: Labs Reviewed by me
--- NOTE | 2024-08-11 11:17 | W.PN.HOSP.TC ---
Today's Communication/Plan
-
Fulls + supplements
monitor diarrhea
continue BP meds and follow BP/MAP goals
Assessment / Plan
Assessment / Plan
HPI: 54-year-old with no known significant past medical history presented to the emergency department with approximately 5 days of ongoing abdominal symptoms.
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 He c/o crampy abdominal pain and reported melanotic appearing diarrhea.
In the emergency department, his CT angio was done showing a Boelus type B thoracic aortic dissection. No involvement of the ascending thoracic aorta or great arch vessels. Vascular surgeon contacted by ED.
Assessment:
Acute hypotension
Acute blood loss anemia 3 grams drop on 08/02
GI bleed likely secondary to bowel ischemia/mucosal sloughing with aortic dissection.
- stat CT angio negative; no role for IR intervention. CT with complex fluid in colon. No role for surgery
- GI signed off; scope not planned at present
- monitoring clinically, no significant bleeding since 08/03
- s/p 9 total units this admission. hb 8.9
- continue ASA orally
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 HD stable. No chest pain.
- s/p CT Angio confirming thoracic/abdominal aortic dissection, Boelus type B.
- life threatening diagnosis
- s/p emergent thoracic endovascular aortic repair on 07/18
- Also had concurrently ex-lap for concern of bowel ischemic (no necrosis, viable SB/colon seen)
- s/p Zosyn course
- continue ASA orally.. Holding Plavix indefinitely; vascular aware
- PO Metoprolol; goal MAP is 75-90 currently per vascular note. Titrate as able.
Leukocytosis
Abd distention 2/2 ileus
- repeat CT 07/25: pneumatosis with bowel wall thickening and mesenteric edema
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
- AXR: 08/01: small volume contrast in rectum
- repeat SB Xray 08/08: no obstruction
- AXR 08/09: contrast passed into colon
- continue Full liquids + supplements per GS (GS signed off)
- s/p Zosyn 10 days, observe off further. If persistently febrile or leukocytosis, reculture and order Zosyn again.
Diarrhea
- monitor, suspect related to recent pneumatosis and as mucosal lining heals, could improve
Anemia, multi-factorial from acute blood loss from operations, dilution from IVF
- monitor Hb
- GI signed off
- continue PPI IV BID
Chronic SOB
Exposure to asbestos/acetone per patient
- prn nebs
- hold Budesonide BID; prescribe steroid inhaler at DC
- OP Pulm referral
Reactive thrombocytosis, resolved
DVT ppx: SCDs
Code: Full
Anticipated Discharge: > 48 hours
Subjective/Interval History
-
Date of Service: August 11, 2024
reports ongoing loose stools, no fevers
tolerating FLD without n/v
Objective Data
-
Labs:
Laboratory Results
08/11/24
04:37
WBC 6.0
Hgb 8.9 L
Hct 27.1 L
Plt Count 273
Sodium 134 L
Potassium 4.2
Chloride 101
Carbon Dioxide 29
BUN 16
Creatinine 0.7
Glucose 95
Calcium 8.0 L
Vital Signs:
Vital Signs
Temp Pulse Resp BP Pulse Ox
98.2 F 93 18 99/52 98
08/11/24 07:05 08/11/24 09:00 08/11/24 09:00 08/11/24 08:00 08/11/24 02:44
I&O
08/10/24 08/11/24 08/12/24
06:59 06:59 06:59
Intake Total 1176 / 1176 960 / 960
Output Total 450 / 450
Balance 726 / 726 960 / 960
Physical Exam
-
General: No Apparent Distress
HEENT: Normocephalic and Atraumatic
Respiratory: Negative Wheezes or Rales
Cardiac: Regular Rhythm and S1/S2
GI: Nondistended
Genito-urinary: No Costovertebral Tender
Musculoskeletal: No Edema
Neuro: AO x 3
Psych: Calm
Data Reviewed
-
Total Time Spent with Patient (in minutes): 41
Labs: Labs Reviewed by me
--- NOTE | 2024-08-11 16:29 | PTCARENOTE ---
Patient tolerated full liquid diet today. He took his time eating and finished late morning so he did not want to order lunch. No c/o pain or nausea. Quiet with flat affect; nervous about going home, emotional support provided. See worklist for full
assessment.
--- NOTE | 2024-08-11 17:17 | CM ---
Patient who is s/p emergent FEVAR/fenestrated endovascular aortic repair, ex lap 07/18. Room air. Full liquids. Receiving IV Cardizem, IV Lopressor, Zosyn. PT 07/28; home PT vs no needs, using RW. Refused OT x2. Receiving IV Protonix. PT Eval;
No skilled PT needed. OT; Therapy not warranted. Per nursing; A/O, ambulatory in room.
Met with patient who expressed numerous concerns about his health status and personal affairs including his finances and lack of family support.
Patient had concerns about whether application was submitted for Medicaid by [facility]. Called Bonny from [facility] while in patient room and discussed with patient via speaker phone; she informed patient that [facility] was submitted on 07/28/24 and it could
take 45 days for a decision from Medicaid, and she would follow up with patient to let him know the outcome.
Patient has no PCP - given brochure [facility], and also given [facility] phone #.
Patient expressed concerns that he has limited funds for his d/c meds. He says he can only afford $25/month for meds. He normally goes to [employer] with his brother to get food donations. He says his employer told him he is not eligible for
disability through work. Explained to him process of applying for medical disability if needed, which requires PCP to submit forms.
Message to Dr Almanza: Patient says he can only afford about $25/month for medications. On day of discharge will need list of meds and will need to check cost- the [facility] will only supply approximately 7 days of meds up to about $100 and this needs to be
setup Mon-Fri. He declined VN as he has no insurance.
Plan follow up with patient on day of d/c re; cost of meds through his [employer] -he may need assistance from the [facility] for d/c meds.
Plan home with referral to [facility] & [facility] phone # for follow-up.
[2024-08-11] MEDS: LOPRESSOR 25 MG PO (19:15)
--- NOTE | 2024-08-11 19:55 | PTCARENOTE ---
Pt received at beginning of shift resting in bed eyes closed, lights off. Obtained VS for medication administration. Pt opened eyes and this RN introduced herself to pt. Pt AAOx3. Flat affect/WD. Pt asked about which medication he was being given
and this RN educated pt on both meds - PO Metoprolol and IV Protonix. Pt appears anxious re: medication and overall his hospital stay (going on 1 month per pt). Pt c/o being 'told a couple days ago by some man that my hospital bill is now $1
million.' Pt stated 'I don't have health insurance and that when I was working I didn't make in a month what is owed now.' This RN explained to pt that case management can assist him in getting health insurance. Pt stated 'I tried to get health
insurance since I've been in the hospital and was told it would be $10/month but then found out it was a lie.' Pt stated 'I didn't want to be brought back when I on the OR table but here I am.' Offered pt something that could help him with his
anxiety or to talk with someone and pt stated he already spoke with someone. Pt assessment completed and as documented. When attempted to assess skin by touching blanket pt flailed about in the bed complaining he is sensitive. This RN asked pt to
explain what he meant by sensitive. Pt stated he is sensitive but did not explain further. Pt received HS meds. Has water at bedside. Call albert within reach. Will continue to monitor.
[2024-08-12] VITALS (11 sets, daily range): BP systolic 93–125; BP diastolic 59–90; BMI 20.9
[2024-08-12 05:08] LABS: Hemoglobin 9.9 g/dL (13.0-18.0); Mean Corpuscular Hgb 30.6 pg (27.0-31.0); Mean Corpuscular Volume 92.6 fL (80.0-94.0); Mean Platelet Volume 8.8 fL (7.4-10.4); Platelet Count 305 10^3/uL (130-400); Red Blood Cell Count 3.24 10^6/uL (4.70-6.10); Red Cell Dist. Width 13.4 % (11.5-14.5)
--- NOTE | 2024-08-12 05:17 | PTCARENOTE ---
Pt's RDLPicc without blood return either lumen. IVT made aware. Pt now off TPN. IVT will wait to see if Picc to be removed since no longer on TPN.
--- NOTE | 2024-08-12 05:19 | PTCARENOTE ---
Pt keeps removing BP cuff.
[2024-08-12 05:53] LABS: Blood Urea Nitrogen 15 mg/dl (9-20); Calcium 8.2 mg/dl (8.4-10.2); Carbon Dioxide 26 mmol/L (22-30); Chloride 103 mmol/L (98-107); Estimated Creatinine Clearance 119 ml/min; Glucose 92 mg/dl (70-99); Potassium 4.3 mmol/L (3.5-5.1); Sodium 136 mmol/L (135-145); eGFR > 60.00
[2024-08-12] MEDS: VISBIOME 1 CAP PO (08:09)
[2024-08-12] MEDS: LOPRESSOR 25 MG PO ×2 (08:09→20:04)
[2024-08-12] MEDS: LOW STRENGTH ASPIRIN 81 MG PO (08:09)
[2024-08-12] MEDS: PROTONIX IV 40 MG IV (08:11)
[2024-08-12] MEDS: NSS (PRESERVATIVE FREE) 10 ML IV (08:11)
--- NOTE | 2024-08-12 10:19 | W.PN.UPDATE ---
Update Note
Progress Note Update
-Hypertensive management: The patient can be transitioned to Toprol-XL 25 mg once daily.
-Can follow-up as outpatient.
--- NOTE | 2024-08-12 16:55 | W.PN.HOSP.TC ---
Today's Communication/Plan
-
dc planning to home
Assessment / Plan
Assessment / Plan
HPI: 54-year-old with no known significant past medical history presented to the emergency department with approximately 5 days of ongoing abdominal symptoms.
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 He c/o crampy abdominal pain and reported melanotic appearing diarrhea.
In the emergency department, his CT angio was done showing a Juice type B thoracic aortic dissection. No involvement of the ascending thoracic aorta or great arch vessels. Vascular surgeon contacted by ED.
Assessment:
Acute hypotension
Acute blood loss anemia 3 grams drop on 08/02
GI bleed likely secondary to bowel ischemia/mucosal sloughing with aortic dissection.
- stat CT angio negative; no role for IR intervention. CT with complex fluid in colon. No role for surgery
- GI signed off; scope not planned at present
- monitoring clinically, no significant bleeding since 08/03
- s/p 9 total units this admission. hb 9.9
- continue ASA orally
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 HD stable. No chest pain.
- s/p CT Angio confirming thoracic/abdominal aortic dissection, Juice type B.
- life threatening diagnosis
- s/p emergent thoracic endovascular aortic repair on 07/18
- Also had concurrently ex-lap for concern of bowel ischemic (no necrosis, viable SB/colon seen)
- s/p Zosyn course
- continue ASA orally.. Holding Plavix indefinitely; vascular aware
- transition to Toprol XL; goal MAP is 75-90 currently per vascular note. Titrate as able.
Leukocytosis
Abd distention 2/2 ileus
- repeat CT 07/25: pneumatosis with bowel wall thickening and mesenteric edema
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
- AXR: 12/24: small volume contrast in rectum
- repeat SB Xray 08/08: no obstruction
- AXR 08/09: contrast passed into colon
- continue Full liquids + supplements per GS (GS signed off)
- s/p Zosyn 10 days, observe off further. If persistently febrile or leukocytosis, reculture and order Zosyn again.
Diarrhea
- monitor, suspect related to recent pneumatosis and as mucosal lining heals, could improve
Anemia, multi-factorial from acute blood loss from operations, dilution from IVF
- monitor Hb
- GI signed off
- continue PPI BID
Chronic SOB
Exposure to asbestos/acetone per patient
- prn nebs
- OP Pulm referral
Reactive thrombocytosis, resolved
DVT ppx: SCDs
Code: Full
Anticipated Discharge: Within 24 hours
Subjective/Interval History
-
Date of Service: August 12, 2024
tolerating full liquids
Objective Data
-
Labs:
Laboratory Results
08/12/24
04:49
WBC 8.0
Hgb 9.9 L
Hct 30.0 L
Plt Count 305
Sodium 136
Potassium 4.3
Chloride 103
Carbon Dioxide 26
BUN 15
Creatinine 0.7
Glucose 92
Calcium 8.2 L
Vital Signs:
Vital Signs
Temp Pulse Resp BP Pulse Ox
97.9 F 81 17 103/77 99
08/12/24 11:05 08/12/24 14:00 08/12/24 14:00 08/12/24 14:00 08/12/24 14:49
I&O
08/11/24 08/12/24 08/13/24
06:59 06:59 06:59
Intake Total 960 / 960 240 / 240
Output Total 350 / 350
Balance 960 / 960 -110 / -110
Physical Exam
-
General: No Apparent Distress
HEENT: Normocephalic and Atraumatic
Respiratory: Negative Wheezes
Cardiac: Regular Rhythm and S1/S2
GI: Soft and Nontender
Neuro: AO x 3
Hematologic / Lymphatic: No Lymphadenopathy
Psych: Calm
Data Reviewed
-
Total Time Spent with Patient (in minutes): 42
Labs: Labs Reviewed by me
[2024-08-12] MEDS: PROTONIX 40 MG PO (20:04)
[2024-08-13] VITALS (7 sets, daily range): BP systolic 96–114; BP diastolic 41–73
[2024-08-13 04:04] LABS: Hematocrit 28.9 % (39.0-52.0); Hemoglobin 9.5 g/dL (13.0-18.0); Mean Corp Hgb Conc. 32.9 g/dL (33.0-37.0); Mean Corpuscular Hgb 29.8 pg (27.0-31.0); Mean Corpuscular Volume 90.6 fL (80.0-94.0); Mean Platelet Volume 8.9 fL (7.4-10.4); Platelet Count 288 10^3/uL (130-400); Red Blood Cell Count 3.19 10^6/uL (4.70-6.10); Red Cell Dist. Width 13.2 % (11.5-14.5); White Blood Cell Count 6.2 10^3/uL (4.8-10.8)
--- NOTE | 2024-08-13 04:15 | PTCARENOTE ---
Pt without complaint overnight. Still anxious re: discharge and medications but better than yesterday. All questions answered to pt's satisfaction. Able to sleep. Denies pain or discomfort. Assessment unchanged from previous. VSS. Afebrile. SR/PVC's
on CM. Turns self in bed. Call albert remains within reach. Will continue to monitor.
[2024-08-13 04:22] LABS: Blood Urea Nitrogen 13 mg/dl (9-20); Calcium 8.2 mg/dl (8.4-10.2); Carbon Dioxide 27 mmol/L (22-30); Chloride 102 mmol/L (98-107); Estimated Creatinine Clearance 119 ml/min; Glucose 93 mg/dl (70-99); Potassium 4.2 mmol/L (3.5-5.1); Sodium 137 mmol/L (135-145); eGFR > 60.00
[2024-08-13] MEDS: VISBIOME 1 CAP PO (08:53)
[2024-08-13] MEDS: LOW STRENGTH ASPIRIN 81 MG PO (08:53)
[2024-08-13] MEDS: PROTONIX 40 MG PO (08:53)
[2024-08-13] MEDS: TOPROL XL 25 MG PO (09:02)
--- NOTE | 2024-08-13 10:26 | W.PN.HOSP.TC ---
Addendum entered and electronically signed by Celestine Almanza MD 08/13/24 10:40:
no driving restrictions at discharge
discussed with patient; he will only drive himself - he refuses Uber. Spoke to brother Ed - he refuses to help stating he has sick children, spouse at home and cars have issues that prevent driving so unable to help. CM aware.
Original Note:
Today's Communication/Plan
-
dc to home
Assessment / Plan
Assessment / Plan
HPI: 54-year-old with no known significant past medical history presented to the emergency department with approximately 5 days of ongoing abdominal symptoms.
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 He c/o crampy abdominal pain and reported melanotic appearing diarrhea.
In the emergency department, his CT angio was done showing a Juice type B thoracic aortic dissection. No involvement of the ascending thoracic aorta or great arch vessels. Vascular surgeon contacted by ED.
Assessment:
Acute hypotension
Acute blood loss anemia 3 grams drop on 08/02
GI bleed likely secondary to bowel ischemia/mucosal sloughing with aortic dissection.
- stat CT angio negative; no role for IR intervention. CT with complex fluid in colon. No role for surgery
- GI signed off; scope not planned at present
- monitoring clinically, no significant bleeding since 08/03
- s/p 9 total units this admission. hb 9.5
- continue ASA orally
Manderson B aortic dissection. No aneurysm. HD stable. No chest pain.
- s/p CT Angio confirming thoracic/abdominal aortic dissection, Manderson type B.
- life threatening diagnosis
- s/p emergent thoracic endovascular aortic repair on 07/18
- Also had concurrently ex-lap for concern of bowel ischemic (no necrosis, viable SB/colon seen)
- s/p Zosyn course
- continue ASA orally.. Holding Plavix indefinitely due to life threatening GI bleed; vascular aware
- continue Toprol XL; goal MAP is 75-90 currently per vascular note. Titrate as able.
Leukocytosis
Abd distention 2/2 ileus
- repeat CT 07/25: pneumatosis with bowel wall thickening and mesenteric edema
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
- AXR: 08/01: small volume contrast in rectum
- repeat SB Xray 08/08: no obstruction
- AXR 08/09: contrast passed into colon
- continue Full liquids + supplements per GS (GS signed off) - follow up GS.
- s/p Zosyn 10 days
Diarrhea
- monitor, suspect related to recent pneumatosis and as mucosal lining heals, could improve
Anemia, multi-factorial from acute blood loss from operations, dilution from IVF
- monitor Hb
- GI signed off
- continue PPI daily
Chronic SOB
Exposure to asbestos/acetone per patient
- OP pulm follow up when insurance available.
Reactive thrombocytosis, resolved
DVT ppx: SCDs
Code: Full
More than 30 minutes spent in discharge including
Final examination of the patient
Summarizing hospital stay
Instructions for continuing care to all relevant caregivers
Preparation of discharge records, prescriptions, and referral forms
Total time spent (in minutes): 41
Anticipated Discharge: Today
Subjective/Interval History
-
Date of Service: August 13, 2024
no new complaints
continues to tolerated FLD
Objective Data
-
Labs:
Laboratory Results
08/13/24
03:41
WBC 6.2
Hgb 9.5 L
Hct 28.9 L
Plt Count 288
Sodium 137
Potassium 4.2
Chloride 102
Carbon Dioxide 27
BUN 13
Creatinine 0.7
Glucose 93
Calcium 8.2 L
Vital Signs:
Vital Signs
Temp Pulse Resp BP Pulse Ox
98.5 F 95 18 101/59 97
08/13/24 07:00 08/13/24 08:50 08/13/24 08:50 08/13/24 08:50 08/13/24 09:58
I&O
08/12/24 08/13/24 08/14/24
06:59 06:59 06:59
Intake Total 240 / 240 200 / 200
Output Total 350 / 350
Balance -110 / -110 200 / 200
Physical Exam
-
General: No Apparent Distress
HEENT: Normocephalic and Atraumatic
Respiratory: Negative Wheezes
Cardiac: Regular Rhythm and S1/S2
GI: Soft
Genito-urinary: No Costovertebral Tender
Neuro: AO x 3
Hematologic / Lymphatic: No Lymphadenopathy
Psych: Calm
Data Reviewed
-
Total Time Spent with Patient (in minutes): 41
Labs: Labs Reviewed by me
--- NOTE | 2024-08-13 10:30 | CM ---
Patient who is s/p emergent FEVAR/fenestrated endovascular aortic repair, ex lap 07/18. Room air. Full liquids. PT Eval; No skilled PT needed. OT; Therapy not warranted.
Met with patient who was preparing for d/c. The patient says he feels ready to go home today and he is eager to leave soon, so he can go to the [facility] pharmacy to get his meds. Patient reports that he was assisted to use [employer] to get
discounts on his meds and feels he can afford to get them filled today. He is also waiting to get a Good Rx card mailed to him that will give additional discounts for med refills.
Offered to contact his brother Jaxson to request that he assist the patient with transport home, however patient declines to allow, saying that his brother will not assist him. Offered to arrange Uber for transport from hospital to home and patient
declined, stating he feels comfortable driving himself home - Dr Almanza and nurse Dalila soler.
Plan home today.
--- NOTE | 2024-08-13 10:33 | W.DS.TRANS ---
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
-
Discharge Instructions:
Discharge Diagnosis/Procedures aortic dissection s/p repair 07/18, small bowel
volvulus/obstruction, GI bleed and anemia
requiring blood
Diet Supplements
Additional Diets Full liquids with supplemental protein shakes
Activity No strenuous activity
Additional Activity No heavy lifting (>20 lbs) or strenuous
activities for 4 weeks postoperatively
Bathing Restrictions None
Wound Care Keep abdominal incision clean and dry. Bety
to be removed 14 days after your operation.
Instructions: Full liquid diet
Stand-Alone Forms:
Changes to Home Medications: No
Discharge Medications:
DC Medications w/original date entered in [employer]
Lactobac/Bifidobac [Visbiome] 1 cap PO DAILY #100 caps 08/12/24
aspirin 81 mg chewable tablet 81 mg PO DAILY #100 tabs 08/12/24
metoprolol succinate 25 mg tablet,extended release 24 hr 25 mg PO DAILY #30 tabs 08/12/24
pantoprazole 40 mg tablet,delayed release 40 mg PO BID #30 tabs 08/12/24
Home Medication Changes
Pending Results: No
Total time spent discharging patient (in min): 41
--- NOTE | 2024-08-13 11:18 | PTCARENOTE ---
Pt very anxious regarding discharge. Pt insisting on driving home regardless of this RN concerns on safety w/ driving after being admitted to hospital for prolonged period. Uber and other alternatives offered. Pt denied and continued to be insistent
on driving. Confirmed no driving restrictions in place w/ MD. VSS at time of discharge. Reviewed discharge instructions w/ pt. Went over importance of follow up visits after discharge, and importance of medication compliance. Pt understanding. IV
site removed, monitor removed, pt changed into home clothing and taken via wheel chair to emergency department entrance per pt request and ambulated from there to his vehicle.
== END 2024-08-13 11:49 | disposition home or self-care (01) | DRG 219 ==
LOC: IMU 22:11
PROVIDERS: Emergency Medicine; Internal Medicine; Internal Medicine Critical Care Medicine; Nurse Practitioner; Nurse Practitioner Acute Care; Nurse Practitioner Family; Nurse Practitioner Primary Care; Physician Assistant Medical; Registered Nurse; Surgery; ADMITTING PHYSICIAN Internal Medicine; ATTENDING PHYSICIAN Internal Medicine; CONSULT PHYSICIAN Internal Medicine Cardiovascular Disease; CONSULT PHYSICIAN Internal Medicine Critical Care Medicine; CONSULT PHYSICIAN Internal Medicine Gastroenterology; CONSULT PHYSICIAN Surgery; EMERGENCY PHYSICIAN Emergency Medicine; OTHER PHYSICIAN Surgery Vascular Surgery
PROC: 5A1945Z Respiratory Ventilation, 24-96 Consecutive Hours (ICD-10-PCS; 2024-07-18)
PROC: 0DJD0ZZ Inspection of Lower Intestinal Tract, Open Approach (ICD-10-PCS; 2024-07-18)
PROC: 0BH17EZ Insertion of Endotracheal Airway into Trachea, Via Natural or Artificial Opening (ICD-10-PCS; 2024-07-18)
PROC: 02VW3EZ Restriction of Thoracic Aorta, Descending with Branched or Fenestrated Intraluminal Device, One or Two Arteries, Percutaneous Approach (ICD-10-PCS; 2024-07-18)
PROC: 30233N1 Transfusion of Nonautologous Red Blood Cells into Peripheral Vein, Percutaneous Approach (ICD-10-PCS; 2024-07-18)
PROC: 5A09357 Assistance with Respiratory Ventilation, Less than 24 Consecutive Hours, Continuous Positive Airway Pressure (ICD-10-PCS; 2024-07-19)
PROC: 02HV33Z Insertion of Infusion Device into Superior Vena Cava, Percutaneous Approach (ICD-10-PCS; 2024-07-21)
PROC: 3E0436Z Introduction of Nutritional Substance into Central Vein, Percutaneous Approach (ICD-10-PCS; 2024-07-21)
DX: I71.012 Dissection of descending thoracic aorta (principal); J95.821 Acute postprocedural respiratory failure; K56.2 Volvulus; T81.19XA Other postprocedural shock, initial encounter; E87.1 Hypo-osmolality and hyponatremia; K55.9 Vascular disorder of intestine, unspecified; K56.7 Ileus, unspecified; J98.11 Atelectasis; D62 Acute posthemorrhagic anemia; K91.89 Other postprocedural complications and disorders of digestive system; E87.29 Other acidosis; F17.290 Nicotine dependence, other tobacco product, uncomplicated; K21.9 Gastro-esophageal reflux disease without esophagitis; J43.9 Emphysema, unspecified; F41.9 Anxiety disorder, unspecified; I71.02 Dissection of abdominal aorta; K80.20 Calculus of gallbladder without cholecystitis without obstruction; Y83.8 Other surgical procedures as the cause of abnormal reaction of the patient, or of later complication, without mention of misadventure at the time of the procedure; I10 Essential (primary) hypertension; E86.0 Dehydration; K63.89 Other specified diseases of intestine; Z77.090 Contact with and (suspected) exposure to asbestos; Z79.899 Other long term (current) drug therapy; Z90.49 Acquired absence of other specified parts of digestive tract
CPT/HCPCS: 93308; 33880; 37236; 71045; 71275; 74018; 74174; 74177; 74250; 80048; 80053; 80061; 80076; 81003; 81015; 82150; 82248; 82330; 82607; 82728; 82746; 82805; 82962; 83010; 83036; 83540; 83550; 83605; 83615; 83690; 83735; 84100; 84132; 84302; 84439; 84443; 84478; 84484; 85014; 85018; 85025; 85027; 85045; 85610; 85730; 86850; 86860; 86880; 86900; 86901; 86920; 87040; 87045; 87046; 87086; 87324; 87427; 87449; 87798; 89055; 93005; 94002; 94003; 94640; 96361; 96374; 96375; 96376; 97116; 97163; 97167; 97530; 97535; 99291; C1725; C1753; C1760; C1769; C1773; C1892; C1894; P9016; P9045; Q9967